=== PATIENT | female | born 1945 | race Caucasian/White ===

== ENCOUNTER 2016-03-23 08:59 | Outpatient (CLI) | payer OTHER | END 2016-03-23 09:00 | disposition home or self-care (01) | DX: I26.99 Other pulmonary embolism without acute cor pulmonale (principal) ==

== ENCOUNTER 2016-05-18 11:26 | Outpatient (CLI) | payer SELFPAY | END 2016-05-18 11:27 | disposition home or self-care (01) | DX: I26.99 Other pulmonary embolism without acute cor pulmonale (principal) ==

== ENCOUNTER 2016-07-07 08:00 | Outpatient (CLI) | payer SELFPAY | END 2016-07-07 23:59 | DX: I26.99 Other pulmonary embolism without acute cor pulmonale (principal) ==

== ENCOUNTER 2016-07-21 11:03 | Outpatient (CLI) | payer SELFPAY ==
[2016-07-21 18:15] LABS: INR 3.7 (0.8-1.2)
== END 2016-07-21 11:04 | disposition home or self-care (01) ==
LOC: LAB.F 11:03
PROVIDERS: ATTEND Family Medicine
DX: I26.99 Other pulmonary embolism without acute cor pulmonale (principal)
CPT/HCPCS: 36415; 85610

== ENCOUNTER 2016-08-03 10:01 | Outpatient (CLI) | payer SELFPAY ==
[2016-08-04 10:16] LABS: INR 2.1 (0.8-1.2); PT - PROTHROMBIN TIME 23.4 secs (9.9-12.6)
== END 2016-08-03 10:02 | disposition home or self-care (01) ==
LOC: LAB.F 10:01
PROVIDERS: ATTEND Family Medicine
DX: I26.99 Other pulmonary embolism without acute cor pulmonale (principal)
CPT/HCPCS: 36415; 85610

== ENCOUNTER 2016-09-12 06:38 | Outpatient (CLI) | payer MEDICARE ==
[2016-09-12 18:15] LABS: PT - PROTHROMBIN TIME 23.1 secs (9.9-12.6)
== END 2016-09-12 06:39 | disposition home or self-care (01) ==
LOC: LAB.F 06:38
PROVIDERS: ATTEND Family Medicine
DX: I26.99 Other pulmonary embolism without acute cor pulmonale (principal)
CPT/HCPCS: 36415; 85610

== ENCOUNTER 2016-09-26 08:08 | Outpatient (CLI) | payer MEDICARE ==
[2016-09-26 12:42] LABS: INR 1.5 (0.8-1.2); PT - PROTHROMBIN TIME 17.1 secs (9.9-12.6)
[2016-09-26 12:58] LABS: FOLATE 11.39 ng/mL (5.90 - >24.8)
[2016-09-26 13:06] LABS: THYROID STIMULATING HORMONE 1.36 uIU/mL (0.34-5.60)
== END 2016-09-26 08:09 | disposition home or self-care (01) ==
LOC: LAB.F 08:08
PROVIDERS: ATTEND Family Medicine
DX: I26.99 Other pulmonary embolism without acute cor pulmonale (principal); Z13.9 Encounter for screening, unspecified
CPT/HCPCS: 36415; 82607; 82746; 84443; 85610

== ENCOUNTER 2016-10-26 08:53 | Outpatient (CLI) | payer MEDICARE ==
[2016-10-26 18:59] LABS: INR 4.3 (0.8-1.2); PT - PROTHROMBIN TIME 49.7 secs (9.9-12.6)
== END 2016-10-26 08:54 | disposition home or self-care (01) ==
LOC: LAB.F 08:53
PROVIDERS: ATTEND Family Medicine
DX: I26.99 Other pulmonary embolism without acute cor pulmonale (principal); Z11.59 Encounter for screening for other viral diseases
CPT/HCPCS: 36415; 85610; 86803

== ENCOUNTER 2016-11-02 08:15 | Outpatient (CLI) | payer MEDICARE ==
[2016-11-02 11:58] LABS: INR 2.5 (0.8-1.2); PT - PROTHROMBIN TIME 28.4 secs (9.9-12.6)
== END 2016-11-02 08:16 | disposition home or self-care (01) ==
LOC: LAB.F 08:15
PROVIDERS: ATTEND Family Medicine
DX: I26.99 Other pulmonary embolism without acute cor pulmonale (principal)
CPT/HCPCS: 36415; 85610

== ENCOUNTER 2016-11-24 08:35 | Outpatient (CLI) | payer MEDICARE ==
[2016-11-24 10:33] LABS: INR 1.7 (0.8-1.2); PT - PROTHROMBIN TIME 19.4 secs (9.9-12.6)
== END 2016-11-24 08:36 | disposition home or self-care (01) ==
LOC: LAB.F 08:35
PROVIDERS: ATTEND Family Medicine
DX: I26.99 Other pulmonary embolism without acute cor pulmonale (principal)
CPT/HCPCS: 36415; 85610

== ENCOUNTER 2016-12-19 08:44 | Outpatient (CLI) | payer MEDICARE ==
[2016-12-19 13:42] LABS: INR 2.3 (0.8-1.2); PT - PROTHROMBIN TIME 26.4 secs (9.9-12.6)
== END 2016-12-19 08:45 | disposition home or self-care (01) ==
LOC: LAB.F 08:44
PROVIDERS: ATTEND Family Medicine
DX: I26.99 Other pulmonary embolism without acute cor pulmonale (principal)
CPT/HCPCS: 36415; 85610

== ENCOUNTER 2017-02-03 08:35 | Outpatient (CLI) | payer MEDICARE ==
[2017-02-03 15:39] LABS: INR 4.4 (0.8-1.2); PT - PROTHROMBIN TIME 46.9 secs (9.9-12.6)
== END 2017-02-03 08:36 | disposition home or self-care (01) ==
LOC: LAB.F 08:35
PROVIDERS: ATTEND Family Medicine
DX: I26.99 Other pulmonary embolism without acute cor pulmonale (principal)
CPT/HCPCS: 36415; 85610

== ENCOUNTER 2017-03-31 10:47 | Outpatient (CLI) | payer MEDICARE ==
[2017-03-31 17:44] LABS: INR 1.6 (0.8-1.2); PT - PROTHROMBIN TIME 17.9 secs (9.9-12.6)
== END 2017-03-31 10:48 | disposition home or self-care (01) ==
LOC: LAB.F 10:47
PROVIDERS: ATTEND Family Medicine
DX: I26.99 Other pulmonary embolism without acute cor pulmonale (principal)
CPT/HCPCS: 36415; 85610

== ENCOUNTER 2017-04-19 15:26 | Outpatient (CLI) | payer MEDICARE ==
[2017-04-19 18:04] LABS: INR 1.4 (0.8-1.2); PT - PROTHROMBIN TIME 15.7 secs (9.9-12.6)
== END 2017-04-19 15:27 | disposition home or self-care (01) ==
LOC: LAB.F 15:26
PROVIDERS: ATTEND Family Medicine
DX: I26.99 Other pulmonary embolism without acute cor pulmonale (principal)
CPT/HCPCS: 36415; 85610

== ENCOUNTER 2017-07-06 11:00 | Outpatient (CLI) | payer MEDICARE ==
[2017-07-06 18:07] LABS: PT - PROTHROMBIN TIME 55.4 secs (9.9-12.6)
[2017-07-06 18:57] LABS: INR 5.2 (0.8-1.2)
== END 2017-07-06 11:01 | disposition home or self-care (01) ==
LOC: LAB.F 11:00
PROVIDERS: ATTEND Family Medicine
DX: I26.99 Other pulmonary embolism without acute cor pulmonale (principal)
CPT/HCPCS: 36415; 85610

== ENCOUNTER 2017-07-07 13:32 | Emergency (ER) | payer MEDICARE ==
[2017-07-07 14:13] LABS: BASOPHILS % (AUTO) 0.7 %; EOSINOPHILS # (AUTO) 0.1 10^3/uL (0.0-0.7); EOSINOPHILS % (AUTO) 1.3 %; HGB - HEMOGLOBIN 15.1 g/dL (12.0-16.0); LYMPHOCYTES % (AUTO) 38.2 %; MEAN CORPUSCULAR HEMOGLOBIN 36.5 pg (27.0-31.0); MEAN CORPUSCULAR HGB CONC 34.4 g/dL (32.0-36.0); MEAN CORPUSCULAR VOLUME 106.2 fL (81.0-99.0); MEAN PLATELET VOLUME 8.8 fL (7.9-10.8); MONOCYTES # (AUTO) 0.6 10^3/uL (0.0-1.0); MONOCYTES % (AUTO) 11.5 %; NEUTROPHILS # (AUTO) 2.6 10^3/uL (1.5-6.6); NEUTROPHILS % (AUTO) 48.3 %; PLT - PLATELET COUNT 75 10^3/uL (130-450); RED BLOOD COUNT 4.15 10^6/uL (4.20-5.40); RED CELL DISTRIBUTION WIDTH 14.8 % (12.0-15.0); WHITE BLOOD COUNT 5.3 x10^3/uL (4.8-10.8)
[2017-07-07 14:26] LABS: ALBUMIN 3.5 g/dL (3.2-5.5); ALBUMIN/GLOBULIN RATIO 1.1 (1.0-2.2); ALKALINE PHOSPHATASE 93 IU/L (42-121); ALT ALANINE AMINOTRANSFERASE 29 IU/L (10-60); AST ASPARTATE AMINOTRANSFERASE 69 IU/L (10-42); BILIRUBIN,TOTAL 1.4 mg/dL (0.2-1.0); BUN - BLOOD UREA NITROGEN < 5 mg/dL (6-20); CALCIUM 8.7 mg/dL (8.5-10.3); CARBON DIOXIDE - CO2 33 mmol/L (21-32); CHLORIDE 93 mmol/L (101-111); CREATININE 0.5 mg/dL (0.4-1.0); GFR - MDRD 122 (>89); GLUCOSE 94 mg/dL (70-100); LIPASE 19 U/L (22-51); SODIUM 137 mmol/L (135-145); TOTAL PROTEIN 6.6 g/dL (6.7-8.2)
[2017-07-07 14:28] LABS: PT - PROTHROMBIN TIME 52.7 secs (9.9-12.6)
--- NOTE | 2017-07-07 14:47 | XRAY Preliminary Report ---
Exam: XR CHEST 1 VIEW X-RAY IMPRESSION: Normal single view chest. [facility] SITE ID: [id number]
--- NOTE | 2017-07-07 14:50 | XRAY Report ---
EXAM: CHEST RADIOGRAPHY EXAM DATE: 07/07/2017 02:38 PM. CLINICAL HISTORY: Chest pain. Leg edema. COMPARISON: 08/31/2014. TECHNIQUE: 1 view. FINDINGS: Lungs/Pleura: No focal opacities evident. No pleural effusion. No pneumothorax. Mediastinum: Within exam limitations, the cardiomediastinal contour is normal. Other: None. IMPRESSION: Normal single view chest. [facility] Referring Provider Line: [phone] SITE ID: [id number]
--- NOTE | 2017-07-07 14:58 | ED Physician Documentation ---
History of Present Illness - Stated complaint Stated Complaint: EDEMA,BLACK STOOL - Chief complaint Chief Complaint: General - History obtained from History obtained from: Patient - History of Present Illness Timing: How many weeks ago (2) Pain level max: 0 Pain level now: 0 Improved by: rest Worsened by: exertion - Additonal information Additional information: Patient is a 71-year-old female who presents to the emergency department complaining of bilateral lower extremity edema for the past several weeks. She notes that over the past 4-5 days she has had dark tarry stools. States that when she elevates her legs the edema goes away but it returns when she stands up again. She also states that occasionally she feels fatigued. She had her INR checked yesterday with her doctor and it was found to be 5.2. She states that she feels mildly short of breath with exertion, but not severe. Is able to ambulate throughout the emergency department without difficulty. No prior history of GI bleeds. Review of Systems Ten Systems: 10 systems reviewed and negative Constitutional: denies: Fever, Chills Ears: denies: Ear pain Nose: denies: Rhinorrhea / runny nose, Congestion Throat: denies: Sore throat Cardiac: denies: Chest pain / pressure Respiratory: denies: Cough, Wheezing GI: reports: Bloody / black stool. 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 Derm: Skin cancer surgery - Present Medications Home Medications: Ambulatory Orders Medication Instructions Recorded Confirmed Metoprolol Tartrate 25 mg PO 08/31/14 08/31/14 Zolpidem Tartrate [Ambien] 5 mg PO PRN 08/31/14 08/31/14 oxyCODONE/ACET 5/325 [Percocet 5 1 each PO Q4-6H PRN 08/31/14 08/31/14 mg/325 mg] Furosemide [Lasix] 20 mg PO DAILY #7 tablet 07/07/17 Warfarin [Coumadin] 07/07/17 - Allergies Allergies/Adverse Reactions: Allergies Allergy/AdvReac Type Severity Reaction Status Date / Time Penicillins Allergy Unknown Verified 07/07/17 13:51 Sulfa (Sulfonamide Allergy Unknown Verified 07/07/17 13:51 Antibiotics) codeine AdvReac Itching Verified 07/07/17 13:51 - Social History Does the pt smoke?: No Smoking Status: Never smoker Does the pt drink ETOH?: Yes - Immunizations Immunizations are current?: Yes PD ED PE NORMAL - Vitals Vital signs reviewed: Yes (T 36.7) - General General: Alert and oriented X 3, No acute distress - HEENT HEENT: Moist mucous membranes - Neck Neck: Supple, no meningeal sign - Cardiac Cardiac: RRR, Strong equal pulses - Respiratory Respiratory: No respiratory distress, Clear bilaterally - Abdomen Abdomen: Soft, Non tender, Non distended - Rectal Rectal: Other (hemoccult negative, QC passed. ) - Derm Derm: Warm and dry - Extremities Extremities: Other (1+ B LE edema) - Neuro Neuro: Alert and oriented X 3 - Psych Psych: Normal mood, Normal affect Results - Vitals Vitals: Vital Signs - 24 hr 07/07/17 07/07/17 13:47 15:30 Temperature 36.5 C Heart Rate 77 75 Respiratory 13 18 Rate Blood Pressure 121/74 103/62 O2 Saturation 97 100 Oxygen O2 Source [] Room air O2 Source Room air - EKG (time done) 1352 Rate: Rate (enter#) (72) Rhythm: NSR [place]: Normal Intervals: Prolonged CO QRS: Normal - Labs Labs: Laboratory Tests 07/07/17 07/07/17 07/07/17 14:09 14:09 14:09 WBC 5.3 RBC 4.15 L Hgb 15.1 Hct 44.1 MCV 106.2 H MCH 36.5 H MCHC 34.4 RDW 14.8 Plt Count 75 L MPV 8.8 Neut # 2.6 Lymph # 2.0 [place] # 0.6 Eos # 0.1 Baso # 0.0 Absolute Nucleated RBC 0.00 Nucleated RBC % 0.0 PT 52.7 H INR 5.0 H* Sodium 137 Potassium 3.1 L Chloride 93 L Carbon Dioxide 33 H Anion Gap 11.0 BUN < 5 L Creatinine 0.5 Estimated GFR (MDRD) 122 Glucose 94 Calcium 8.7 Total Bilirubin 1.4 H AST 69 H ALT 29 Alkaline Phosphatase 93 Troponin I B-Natriuretic Peptide Total Protein 6.6 L Albumin 3.5 Globulin 3.1 Albumin/Globulin Ratio 1.1 Lipase 19 L 07/07/17 07/07/17 14:09 14:09 WBC RBC Hgb Hct MCV MCH MCHC RDW Plt Count MPV Neut # Lymph # [place] # Eos # Baso # Absolute Nucleated RBC Nucleated RBC % PT INR Sodium Potassium Chloride Carbon Dioxide Anion Gap BUN Creatinine Estimated GFR (MDRD) Glucose Calcium Total Bilirubin AST ALT Alkaline Phosphatase Troponin I < 0.04 B-Natriuretic Peptide 31 Total Protein Albumin Globulin Albumin/Globulin Ratio Lipase - Rads (name of study) cxr Radiology: Prelim report reviewed, EMP read contemporaneously, See rad report ( no acute disease) PD MEDICAL DECISION MAKING - ED course Complexity details: reviewed results, re-evaluated patient, considered differential, d/w patient ED course: Patient is a 71-year-old female who presents to the emergency department with bilateral lower extremity edema. No pulmonary edema. No evidence of congestive heart failure. She also complained of dark tarry stools, but her Hemoccult is negative and stool is light brown. Her INR is supratherapeutic at 5, is scheduled for a repeat INR on Monday with her doctor. We will have her stop her warfarin until then. Patient is well-appearing, nontoxic. No lightheadedness or dizziness in the ER. Ambulating without difficulty. Patient counseled regarding signs and symptoms for which I believe and urgent re -evaluation would be necessary. Patient with good understanding of and agreement to plan and is comfortable going home at this time This document was made in part using voice recognition software. While efforts are made to proofread this document, sound alike and grammatical errors may occur. Departure - Departure Disposition: 01 Home, Self Care Clinical Impression: Supratherapeutic INR, Peripheral edema Condition: Good Instructions: ED Edema Legs Bilateral Follow-Up: REBA PHIPPS MD [Primary Care Provider] - Within 3 Days Prescriptions: Furosemide [Lasix] 20 mg PO DAILY #7 tablet Comments: Return if you worsen, especially for lightheadedness, dizziness, or worsening shortness of breath. Discharge Date/Time: 07/07/17 15:48
[2017-07-07 15:35] VITALS: BP 103/62
== END 2017-07-07 15:48 | disposition home or self-care (01) ==
LOC: ED 13:32
DX: R60.0 Localized edema (principal); R94.31 Abnormal electrocardiogram [ECG] [EKG]; I48.91 Unspecified atrial fibrillation; I10 Essential (primary) hypertension; E03.9 Hypothyroidism, unspecified; Z96.649 Presence of unspecified artificial hip joint
CPT/HCPCS: 36415; 71045; 80053; 83690; 83880; 84484; 85025; 85610; 86850; 86900; 86901; 93005; 99283; 99284

== ENCOUNTER 2017-07-10 08:35 | Outpatient (CLI) | payer MEDICARE | END 2017-07-10 08:36 | disposition home or self-care (01) | LOC: LAB.F 08:35 | PROVIDERS: ATTEND Family Medicine | DX: I26.99 Other pulmonary embolism without acute cor pulmonale (principal) | CPT/HCPCS: 36415; 85610 ==

== ENCOUNTER 2017-08-31 12:21 | Outpatient (CLI) | payer MEDICARE ==
[2017-08-31 17:33] LABS: PT - PROTHROMBIN TIME 43.3 secs (9.9-12.6)
== END 2017-08-31 12:22 | disposition home or self-care (01) ==
LOC: LAB.F 12:21
PROVIDERS: ATTEND Family Medicine
DX: I26.99 Other pulmonary embolism without acute cor pulmonale (principal)
CPT/HCPCS: 36415; 85610

== ENCOUNTER 2017-09-14 12:01 | Outpatient (CLI) | payer MEDICARE ==
[2017-09-14 17:26] LABS: INR 1.3 (0.8-1.2); PT - PROTHROMBIN TIME 14.7 secs (9.9-12.6)
== END 2017-09-14 12:02 | disposition home or self-care (01) ==
LOC: LAB.F 12:01
PROVIDERS: ATTEND Family Medicine
DX: I26.99 Other pulmonary embolism without acute cor pulmonale (principal)
CPT/HCPCS: 36415; 85610

== ENCOUNTER 2017-10-04 09:23 | Emergency (ER) | payer MEDICARE ==
[2017-10-04] MEDS ORDERED: SODIUM CHLORIDE 0.9% 1,000 ML IV ONE ×3 (09:35→10:28)
--- NOTE | 2017-10-04 09:37 | ED Physician Documentation ---
History of Present Illness - Stated complaint Stated Complaint: RAPID HR - Additonal information Additional information: hx from pt 71 f hx a fib other pmhx meds and allergies unknown - pt states too many to tell me - will req records and med list from [place] has had NV with blood and black diarrhea for several days some abd cramping no fever no CP no SOA feels weak and has palpitations on coumadin has been drinking cocktails recently inc stress recently re of family member no travel no bad food + sick contacts with diarrhea as well per faxed records pmhx anxiety, GERD, CHF, HTN, mitral regurg, PE, paroxysmal a fib, vit B 12 def , osteopenia, necrosis femoral head, migraines meds gabapentin oxy, toprol XL, dig B12, folic acid, omperazle, ambien, warfarin , sumatriptan, zofran benadry prior labs also showed plt < 100 so that is not new Review of Systems Constitutional: reports: Fatigue. denies: Fever, Chills Cardiac: reports: Palpitations. denies: Chest pain / pressure Respiratory: denies: Dyspnea GI: reports: Abdominal Pain, Nausea, Vomiting, Diarrhea, Hematemesis, Bloody / black stool Neurologic: reports: Generalized weakness Endocrine: denies: Easy bruising / bleeding Immunocompromised: denies: Immunocompromised PD PAST MEDICAL HISTORY - Past Medical History Cardiovascular: Hypertension, Atrial fibrillation Respiratory: Shortness of breath Endocrine/Autoimmune: HyPOthyroidism GI: Chronic diarrhea : Incontinence, Chronic bladder infection Psych: Depression, Anxiety, Panic attacks Musculoskeletal: Osteoarthritis, Chronic back pain Derm: Other - Past Surgical History General: Appendectomy Ortho: Hip replacement, 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 Derm: Skin cancer surgery - Present Medications Home Medications: Ambulatory Orders Medication Instructions Recorded Confirmed Metoprolol Tartrate 25 mg PO 08/31/14 08/31/14 Zolpidem Tartrate [Ambien] 5 mg PO PRN 08/31/14 08/31/14 oxyCODONE/ACET 5/325 [Percocet 5 1 each PO Q4-6H PRN 08/31/14 08/31/14 mg/325 mg] Warfarin [Coumadin] 07/07/17 Cyanocobalamin (Vitamin B-12) 10/04/17 [Vitamin B-12] Digoxin [Lanoxin] 10/04/17 Folic Acid 10/04/17 Gabapentin 10/04/17 Ondansetron [Zuplenz] 10/04/17 SUMAtriptan [Imitrex] 10/04/17 diphenhydrAMINE [Benadryl] 10/04/17 - Allergies Allergies/Adverse Reactions: Allergies Allergy/AdvReac Type Severity Reaction Status Date / Time Penicillins Allergy Unknown Verified 10/04/17 09:39 Sulfa (Sulfonamide Allergy Unknown Verified 10/04/17 09:39 Antibiotics) codeine AdvReac Itching Verified 10/04/17 09:39 - Social History Does the pt smoke?: No Smoking Status: Never smoker Does the pt drink ETOH?: Yes - Immunizations Immunizations are current?: Yes PD ED PE NORMAL - Vitals Vital signs reviewed: Yes (tachy) - HEENT HEENT: Other (pale conj) - Neck Neck: Supple, no meningeal sign - Cardiac Cardiac: No: RRR (tachy) - Respiratory Respiratory: Clear bilaterally - Abdomen Abdomen: Soft, Non tender, Other (no reboudn or guarding or sig TTP on exam) - Rectal Rectal: Other (block occult blood + stool - QC passed, perirectal erythema, no mass on LEYDI) - Derm Derm: Other (pale) - Extremities Extremities: No deformity, No edema, No calf tenderness / cord - Neuro Neuro: Alert and oriented X 3 Results - Vitals Vitals: Vital Signs - 24 hr 10/04/17 10/04/17 10/04/17 09:28 11:29 11:39 Temperature 36 C L 36.2 C L Heart Rate 150 H 104 H 100 Respiratory 22 18 16 Rate Blood Pressure 143/79 H 120/67 109/84 H O2 Saturation 100 100 10/04/17 10/04/17 10/04/17 11:59 12:01 14:10 Temperature 36.2 C L 36.6 C 36.0 C L Heart Rate 100 100 96 Respiratory 20 20 22 Rate Blood Pressure 117/66 98/59 L O2 Saturation 10/04/17 10/04/17 10/04/17 14:40 15:52 15:59 Temperature 36.2 C L 89 C H Heart Rate 95 89 97 Respiratory 20 16 24 Rate Blood Pressure 110/74 111/58 L 103/62 O2 Saturation 97 10/04/17 10/04/17 10/04/17 16:06 17:27 18:43 Temperature 36.9 C Heart Rate 98 88 91 Respiratory 20 86 H 20 Rate Blood Pressure 101/51 L 122/72 124/78 O2 Saturation 98 97 Oxygen O2 Source [With Activity] Room air O2 Source Room air - EKG (time done) 0930 Rate: Rate (enter#) (154) Rhythm: Atrial fibrillation Ischemia: Non specific changes (likely rate related) - Labs Labs: Microbiology 10/04/17 16:28 Clostridium difficile (PCR) - Final Stool 10/04/17 16:28 Campylobacter Antigen Assay - Final Stool Laboratory Tests 10/04/17 10/04/17 10/04/17 09:34 09:34 09:34 WBC 9.1 RBC 3.88 L Hgb 14.5 Hct 42.1 MCV 108.4 H MCH 37.4 H MCHC 34.5 RDW 13.3 Plt Count 81 L MPV 10.3 Neut # (Auto) 7.0 H Lymph # (Auto) 1.0 L [place] # (Auto) 1.1 H Eos # (Auto) 0.0 Baso # (Auto) 0.1 Absolute Nucleated RBC 0.00 Nucleated RBC % 0.0 PT 102.0 H INR 9.9 H* Sodium 133 L Potassium 3.1 L Chloride 85 L Carbon Dioxide 31 Anion Gap 17.0 H BUN 28 H Creatinine 1.0 Estimated GFR (MDRD) 55 L Glucose 119 H Lactic Acid Calcium 8.3 L Total Bilirubin 2.2 H AST 68 H ALT 29 Alkaline Phosphatase 102 Troponin I Total Protein 7.1 Albumin 3.1 L Globulin 4.0 Albumin/Globulin Ratio 0.8 L Lipase 18 L Urine Color Urine Clarity Urine pH Ur Specific [place] Urine Protein Urine Glucose (UA) Urine Ketones Urine Occult Blood Urine Nitrite Urine Bilirubin Urine Urobilinogen Ur Leukocyte Esterase Urine RBC Urine WBC Urine WBC Clumps Ur Squamous Epith Cells Urine Bacteria Ur Microscopic Review Urine Culture Comments Last Dose Date Last Dose Time Digoxin Ethyl Alcohol Blood Type Antibody Screen 10/04/17 10/04/17 10/04/17 09:34 09:34 09:36 WBC RBC Hgb Hct MCV MCH MCHC RDW Plt Count MPV Neut # (Auto) Lymph # (Auto) [place] # (Auto) Eos # (Auto) Baso # (Auto) Absolute Nucleated RBC Nucleated RBC % PT INR Sodium Potassium Chloride Carbon Dioxide Anion Gap BUN Creatinine Estimated GFR (MDRD) Glucose Lactic Acid 4.5 H* Calcium Total Bilirubin AST ALT Alkaline Phosphatase Troponin I < 0.04 Total Protein Albumin Globulin Albumin/Globulin Ratio Lipase Urine Color Urine Clarity Urine pH Ur Specific [place] Urine Protein Urine Glucose (UA) Urine Ketones Urine Occult Blood Urine Nitrite Urine Bilirubin Urine Urobilinogen Ur Leukocyte Esterase Urine RBC Urine WBC Urine WBC Clumps Ur Squamous Epith Cells Urine Bacteria Ur Microscopic Review Urine Culture Comments Last Dose Date UNKNOWN Last Dose Time UNKNOWN Digoxin 0.4 Ethyl Alcohol Blood Type Antibody Screen 10/04/17 10/04/17 10/04/17 09:36 09:50 11:10 WBC RBC Hgb Hct MCV MCH MCHC RDW Plt Count MPV Neut # (Auto) Lymph # (Auto) [place] # (Auto) Eos # (Auto) Baso # (Auto) Absolute Nucleated RBC Nucleated RBC % PT INR Sodium Potassium Chloride Carbon Dioxide Anion Gap BUN Creatinine Estimated GFR (MDRD) Glucose Lactic Acid Calcium Total Bilirubin AST ALT Alkaline Phosphatase Troponin I Total Protein Albumin Globulin Albumin/Globulin Ratio Lipase Urine Color DARK YELLOW Urine Clarity SL. CLOUDY Urine pH 6.5 Ur Specific [place] <=1.005 Urine Protein 30 H Urine Glucose (UA) NEGATIVE Urine Ketones 15 H Urine Occult Blood LARGE H Urine Nitrite POSITIVE H Urine Bilirubin SMALL H Urine Urobilinogen 2 H Ur Leukocyte Esterase MODERATE H Urine RBC 11-25 H Urine WBC 6-10 H Urine WBC Clumps PRESENT Ur Squamous Epith Cells NONE SEEN Urine Bacteria Moderate H Ur Microscopic Review INDICATED Urine Culture Comments INDICATED Last Dose Date Last Dose Time Digoxin Ethyl Alcohol < 5.0 Blood Type B POSITIVE Antibody Screen NEGATIVE 10/04/17 10/04/17 10/04/17 13:15 16:22 17:09 WBC RBC Hgb 9.3 L Hct MCV MCH MCHC RDW Plt Count MPV Neut # (Auto) Lymph # (Auto) [place] # (Auto) Eos # (Auto) Baso # (Auto) Absolute Nucleated RBC Nucleated RBC % PT INR Sodium Potassium Chloride Carbon Dioxide Anion Gap BUN Creatinine Estimated GFR (MDRD) Glucose Lactic Acid 3.6 H* 2.4 H Calcium Total Bilirubin AST ALT Alkaline Phosphatase Troponin I Total Protein Albumin Globulin Albumin/Globulin Ratio Lipase Urine Color Urine Clarity Urine pH Ur Specific [place] Urine Protein Urine Glucose (UA) Urine Ketones Urine Occult Blood Urine Nitrite Urine Bilirubin Urine Urobilinogen Ur Leukocyte Esterase Urine RBC Urine WBC Urine WBC Clumps Ur Squamous Epith Cells Urine Bacteria Ur Microscopic Review Urine Culture Comments Last Dose Date Last Dose Time Digoxin Ethyl Alcohol Blood Type Antibody Screen - Rads (name of study) CXR Radiology: See rad report (NACPD) PD MEDICAL DECISION MAKING - ED course ED course: GIB with high INR and tachycardia - likely upper as pt is a drinker and reports vomiting blood pt has IV X 1 and refused attempts for 2nd IV lso declined an NG tube given NS (3 L 2/2 elev lactate pending ID possible source infection) also FFP, vit K, pepcid and protonix elev lactate noted - eval for source of infection - CXR neg, UA + and txed with rocephin, RUQ sono pending has low plt this is not new for pt daily drinker, last colonoscopy > 10 yr ago never had endoscopy concern pt may have varices which cannot be managed at [facility] also no plt in blood bank at [facility] will need transfer [facility] has beds - spoke to GI and hospitalist - GI rec octreotide and will consult - hospitalist Dr Hansen accepts pt has been stabilized to extent possible at [facility] short of endoscopy since we do not have capabilities to manage varices - for GIB has received vit K, FFP, pepcid, protonix, octreotide, IVF and is type and screened and consented for transfusion if needed for SIRS and UTI has receievd 30cc/kg IVF (without going into CHF) rocephin and HR is down for a fib RVR, HR improevd with just IVF feel pt safe for ground transfer long long wait in ER for bed confirmation from [facility] and then > 4hr to have an off [facility]note 3] service come to transport the pt rechecked H/H and her hgb has dropped sig also her camylobacter came back + so txed with zithromax (her EKG did not show prolonged QT) lactate much improved with above txs - Sepsis Event Vital Signs: Vital Signs - 24 hr 10/04/17 10/04/17 10/04/17 09:28 11:29 11:39 Temperature 36 C L 36.2 C L Heart Rate 150 H 104 H 100 Respiratory 22 18 16 Rate Blood Pressure 143/79 H 120/67 109/84 H O2 Saturation 100 100 10/04/17 10/04/17 10/04/17 11:59 12:01 14:10 Temperature 36.2 C L 36.6 C 36.0 C L Heart Rate 100 100 96 Respiratory 20 20 22 Rate Blood Pressure 117/66 98/59 L O2 Saturation 10/04/17 10/04/17 10/04/17 14:40 15:52 15:59 Temperature 36.2 C L 89 C H Heart Rate 95 89 97 Respiratory 20 16 24 Rate Blood Pressure 110/74 111/58 L 103/62 O2 Saturation 97 10/04/17 10/04/17 10/04/17 16:06 17:27 18:43 Temperature 36.9 C Heart Rate 98 88 91 Respiratory 20 86 H 20 Rate Blood Pressure 101/51 L 122/72 124/78 O2 Saturation 98 97 Oxygen O2 Source [With Activity] Room air O2 Source Room air Departure - Departure Disposition: 02 Transfer Acute Care Hosp Clinical Impression: Thrombocytopenia, Abnormal liver enzymes, Supratherapeutic INR, Hypokalemia GI bleed Qualifiers: GI bleed type/associated pathology: unspecified gastrointestinal hemorrhage type Qualified Code(s): K92.2 - Gastrointestinal hemorrhage, unspecified Discharge Date/Time: 10/04/17 19:25
[2017-10-04 09:53] LABS: BASOPHILS # (AUTO) 0.1 10^3/uL (0.0-0.1); BASOPHILS % (AUTO) 0.6 %; EOSINOPHILS % (AUTO) 0.1 %; HGB - HEMOGLOBIN 14.5 g/dL (12.0-16.0); LYMPHOCYTES % (AUTO) 10.7 %; MEAN CORPUSCULAR HEMOGLOBIN 37.4 pg (27.0-31.0); MEAN CORPUSCULAR HGB CONC 34.5 g/dL (32.0-36.0); MEAN CORPUSCULAR VOLUME 108.4 fL (81.0-99.0); MEAN PLATELET VOLUME 10.3 fL (7.9-10.8); MONOCYTES # (AUTO) 1.1 10^3/uL (0.0-1.0); MONOCYTES % (AUTO) 11.6 %; PLT - PLATELET COUNT 81 10^3/uL (130-450); RED BLOOD COUNT 3.88 10^6/uL (4.20-5.40); RED CELL DISTRIBUTION WIDTH 13.3 % (12.0-15.0); WHITE BLOOD COUNT 9.1 x10^3/uL (4.8-10.8)
[2017-10-04 10:07] LABS: ALBUMIN 3.1 g/dL (3.2-5.5); ALBUMIN/GLOBULIN RATIO 0.8 (1.0-2.2); BILIRUBIN,TOTAL 2.2 mg/dL (0.2-1.0); CALCIUM 8.3 mg/dL (8.5-10.3); TOTAL PROTEIN 7.1 g/dL (6.7-8.2)
[2017-10-04 10:08] LABS: INR 9.9 (0.8-1.2)
[2017-10-04] MEDS ORDERED: PHYTONADIONE 10 MG/ML AMP IVP STA (10:28)
[2017-10-04] MEDS ORDERED: FAMOTIDINE 20 MG/50 ML 50 ML IV ONE (10:29)
[2017-10-04] MEDS ORDERED: POTASSIUM CHLOR 10 MEQ/100 ML 10 MEQ/100 ML BAG IV ONE (10:41)
[2017-10-04 10:48] LABS: DIGOXIN 0.4 ng/mL
--- NOTE | 2017-10-04 11:07 | XRAY Report ---
Procedure Date: 10/04/2017 Accession Number: [id number] / [id number] Procedure: XR - Chest 1 View X-Ray CPT Code: 10960 FULL RESULT: EXAM: CHEST RADIOGRAPHY EXAM DATE: 10/04/2017 10:50 AM. CLINICAL HISTORY: Weakness. Elevated lactate. COMPARISON: None. TECHNIQUE: 1 view. FINDINGS: Lungs/Pleura: No focal opacities evident. No pleural effusion. No pneumothorax. Mediastinum: Within exam limitations, the cardiomediastinal contour is normal. Other: None. IMPRESSION: Normal single view chest. [facility]
[2017-10-04 11:23] LABS: BILIRUBIN,URINE SMALL (NEGATIVE); GLUCOSE, URINE (UA) NEGATIVE (NEGATIVE); KETONES,URINE (UA) 15 mg/dL (NEGATIVE); LEUKOCYTE ESTERASE, URINE MODERATE (NEGATIVE); NITRITE,URINE POSITIVE (NEGATIVE); OCCULT BLOOD,URINE LARGE (NEGATIVE); PH,URINE 6.5 PH (5.0-7.5); PROTEIN,URINE 30 mg/dL (NEGATIVE); UROBILINOGEN,URINE 2 E.U./dL (NORMAL)
[2017-10-04 11:27] LABS: CLARITY,URINE SL. CLOUDY (CLEAR)
[2017-10-04 11:36] LABS: WBC CLUMPS,URINE PRESENT
[2017-10-04] MEDS ORDERED: OCTREOTIDE 100 MCG/ML SYRINGE IVP STA (11:36)
[2017-10-04] MEDS ORDERED: OCTREOTIDE 500 MCG in SODIUM CHLORIDE 0.9% 100ML 95 ML IV STA (11:36)
[2017-10-04 11:37] LABS: SQUAMOUS EPITHELIAL CELL,UR NONE SEEN (<= Few)
[2017-10-04 11:38] LABS: BACTERIA,URINE Moderate /HPF (None Seen)
[2017-10-04] MEDS ORDERED: cefTRIAXone 1 GM in SODIUM CHLORIDE 0.9% MINIBAG 100 ML IV STA (11:38)
[2017-10-04] MEDS ORDERED: OCTREOTIDE 100 MCG/ML VIAL IVP STA (12:01)
[2017-10-04] MEDS ORDERED: OCTREOTIDE 500 MCG in SODIUM CHLORIDE 0.9% 100ML 99 ML SUBQ STA (12:02)
--- NOTE | 2017-10-04 13:12 | Ultrasound Report ---
Procedure Date: 10/04/2017 Accession Number: [id number] / [id number] Procedure: US - Abdomen Limited CPT Code: FULL RESULT: EXAM: Abdomen Limited DATE: 10/04/2017 12:30 PM CLINICAL HISTORY: abd pain elev lactate elev bili COMPARISON: None. TECHNIQUE: Real-time scanning was performed with static images obtained. FINDINGS: Liver: The liver is markedly echogenic and demonstrates regions of focal fatty sparing in the left lobe in keeping with hepatic steatosis. Parenchymal flow is hepatopedal by color Doppler. Gallbladder: Normal. No stones, wall thickening. While no tenderness was elicited, the patient had received pain medication. Biliary System: Common bile duct measures 6 mm. No intrahepatic or extrahepatic ductal dilatation. Pancreas: Visualized portion is unremarkable. Kidneys: Right: 10.0 cm longitudinally. Normal. No contour-deforming mass, stones, or hydronephrosis. The IVC is unremarkable on grayscale ultrasound. No ascites. IMPRESSION: Hepatic steatosis. No evidence of cholecystitis. [facility]
[2017-10-04] MEDS ORDERED: AZITHROMYCIN 250 MG TABLET PO STA (17:45)
[2017-10-04] MEDS ORDERED: MORPHINE 2 MG/ML SYRINGE IVP STA (18:30)
[2017-10-04 18:44] VITALS: BP 124/78
== END 2017-10-04 19:25 | disposition short-term general hospital (02) ==
LOC: ED 09:23
DX: K92.2 Gastrointestinal hemorrhage, unspecified (principal); D69.6 Thrombocytopenia, unspecified; R74.8 Abnormal levels of other serum enzymes; D68.9 Coagulation defect, unspecified; E87.6 Hypokalemia; N39.0 Urinary tract infection, site not specified; I48.0 Paroxysmal atrial fibrillation; Z79.01 Long term (current) use of anticoagulants; I11.0 Hypertensive heart disease with heart failure; I50.9 Heart failure, unspecified; E53.8 Deficiency of other specified B group vitamins; Z86.711 Personal history of pulmonary embolism; K21.9 Gastro-esophageal reflux disease without esophagitis; E03.9 Hypothyroidism, unspecified; M19.90 Unspecified osteoarthritis, unspecified site
CPT/HCPCS: 36415; 36430; 51701; 71045; 76705; 80053; 80162; 81001; 83605; 83690; 84484; 85018; 85025; 85610; 86850; 86900; 86901; 87040; 87045; 87046; 87086; 87181; 87493; 93005; 96365; 96366; 96375; 99284; 99285; A9270; J2270; J2354; P9017; 80320; 81003

== ENCOUNTER 2017-10-04 19:19 | Outpatient (CLI) | payer MEDICARE | END 2017-10-04 19:20 | disposition short-term general hospital (02) | LOC: EMS 19:19 | PROVIDERS: ATTEND Surgery | DX: K92.2 Gastrointestinal hemorrhage, unspecified (principal) | CPT/HCPCS: A0425; A0426 ==

== ENCOUNTER 2018-02-28 12:05 | Outpatient (CLI) | payer MEDICARE ==
[2018-02-28 13:07] LABS: ALBUMIN 2.7 g/dL (3.2-5.5); ALBUMIN/GLOBULIN RATIO 0.6 (1.0-2.2); BILIRUBIN,TOTAL 0.7 mg/dL (0.2-1.0); CREATININE 0.6 mg/dL (0.4-1.0); TOTAL PROTEIN 7.3 g/dL (6.7-8.2)
[2018-02-28 13:14] LABS: BASOPHILS # (AUTO) 0.1 10^3/uL (0.0-0.1); BASOPHILS % (AUTO) 0.8 %; EOSINOPHILS # (AUTO) 0.2 10^3/uL (0.0-0.7); EOSINOPHILS % (AUTO) 2.3 %; HGB - HEMOGLOBIN 13.2 g/dL (12.0-16.0); LYMPHOCYTES # (AUTO) 2.3 10^3/uL (1.5-3.5); LYMPHOCYTES % (AUTO) 35.9 %; MEAN CORPUSCULAR HEMOGLOBIN 36.1 pg (27.0-31.0); MEAN CORPUSCULAR HGB CONC 34.4 g/dL (32.0-36.0); MEAN PLATELET VOLUME 10.2 fL (7.9-10.8); MONOCYTES # (AUTO) 0.6 10^3/uL (0.0-1.0); MONOCYTES % (AUTO) 10.1 %; NEUTROPHILS # (AUTO) 3.3 10^3/uL (1.5-6.6); NEUTROPHILS % (AUTO) 50.9 %; PLT - PLATELET COUNT 168 10^3/uL (130-450); RED BLOOD COUNT 3.66 10^6/uL (4.20-5.40); RED CELL DISTRIBUTION WIDTH 15.4 % (12.0-15.0); WHITE BLOOD COUNT 6.4 x10^3/uL (4.8-10.8)
[2018-02-28 14:29] LABS: CALCIUM 9.4 mg/dL (8.5-10.3)
== END 2018-02-28 23:59 | disposition home or self-care (01) ==
LOC: LAB.R 12:05
PROVIDERS: ATTEND Family Medicine
DX: I48.91 Unspecified atrial fibrillation (principal); D64.9 Anemia, unspecified
CPT/HCPCS: 80053; 85025

== ENCOUNTER 2018-03-10 08:00 | Outpatient (CLI) | payer MEDICARE | END 2018-03-10 23:59 | disposition home or self-care (01) | LOC: LAB.R 08:00 | PROVIDERS: ATTEND Family Medicine | DX: A04.72 Enterocolitis due to Clostridium difficile, not specified as recurrent (principal) | CPT/HCPCS: 87493 ==

== ENCOUNTER 2018-03-27 14:27 | Outpatient (CLI) | payer MEDICARE | END 2018-03-27 14:28 | disposition home or self-care (01) | LOC: EMS 14:27 | PROVIDERS: ATTEND Surgery | DX: M25.511 Pain in right shoulder (principal) | CPT/HCPCS: A0425; A0429 ==

== ENCOUNTER 2018-03-27 14:36 | Emergency (ER) | payer MEDICARE ==
[2018-03-27] MEDS ORDERED: HYDROcod/ACETAM 5/325 MG TABLET PO STA (15:04)
--- NOTE | 2018-03-27 16:17 | XRAY Report ---
Reason: Pain, deformity Procedure Date: 03/27/2018 Accession Number: [id number] / [id number] Procedure: XR - Shoulder 3 View RT CPT Code: FULL RESULT: EXAM: RIGHT SHOULDER RADIOGRAPHY EXAM DATE: 03/27/2018 03:44 PM. CLINICAL HISTORY: Pain, deformity. Fell and broke her shoulder about 2 months ago. Continued right shoulder pain, new bump on lateral side. COMPARISON: CHEST 1 VIEW 10/04/2017 10:35 AM. TECHNIQUE: 3 views. FINDINGS: Plate and screws placed for open reduction internal fixation right proximal humerus/ humeral neck fracture with mild cortical step-off at the medial aspect. Calcification/callus at the lateral aspect of the humeral head. No definite acute bone findings are seen. No dislocation. IMPRESSION: Plate and screws placed for open reduction internal fixation right proximal humerus/ humeral neck fracture with mild cortical step-off at the medial aspect. Calcification/callus at the lateral aspect of the humeral head. No definite acute bone findings are seen. No dislocation. [facility]
--- NOTE | 2018-03-27 17:23 | ED Physician Documentation ---
History of Present Illness - Stated complaint Stated Complaint: RT SHOULDER PX - Chief complaint Chief Complaint: Ext Problem - History obtained from History obtained from: Patient - History of Present Illness Timing: How many days ago (2) Pain level max: 3 Pain level now: 3 Severity Comments: mild Quality: sharp Radiates to: none Improved by: nothing Worsened by: movement Associated symptoms: None Review of Systems Ten Systems: 10 systems reviewed and negative Constitutional: reports: Reviewed and negative Eyes: reports: Reviewed and negative Ears: reports: Reviewed and negative Nose: reports: Reviewed and negative Throat: reports: Reviewed and negative Cardiac: reports: Reviewed and negative Respiratory: reports: Reviewed and negative GI: reports: Reviewed and negative : reports: Reviewed and negative Skin: reports: Reviewed and negative Musculoskeletal: reports: Reviewed and negative Neurologic: reports: Reviewed and negative Psychiatric: reports: Reviewed and negative Endocrine: reports: Reviewed and negative Immunocompromised: reports: Reviewed and negative PD PAST MEDICAL HISTORY - Past Medical History Cardiovascular: Hypertension, Atrial fibrillation Respiratory: Shortness of breath Neuro: None Endocrine/Autoimmune: HyPOthyroidism GI: Chronic diarrhea 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 MEDICINE TRAINER: 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 : Incontinence, Chronic bladder infection HEENT: None Psych: Depression, Anxiety, Panic attacks Musculoskeletal: Osteoarthritis, Chronic back pain Derm: Other - Past Surgical History Past Surgical History: No General: Appendectomy Ortho: Hip replacement, Shoulder arthroplasty, Other /SPORTS MEDICINE TRAINER: Oophrectomy Derm: Skin cancer surgery - Present Medications Home Medications: Ambulatory Orders Medication Instructions Recorded Confirmed Metoprolol Tartrate 25 mg PO 08/31/14 08/31/14 Zolpidem Tartrate [Ambien] 5 mg PO PRN 08/31/14 08/31/14 oxyCODONE/ACET 5/325 [Percocet 5 1 each PO Q4-6H PRN 08/31/14 08/31/14 mg/325 mg] Warfarin [Coumadin] 07/07/17 Cyanocobalamin (Vitamin B-12) 10/04/17 [Vitamin B-12] Digoxin [Lanoxin] 10/04/17 Folic Acid 10/04/17 Gabapentin 10/04/17 Ondansetron [Zuplenz] 10/04/17 SUMAtriptan [Imitrex] 10/04/17 diphenhydrAMINE [Benadryl] 10/04/17 - Allergies Allergies/Adverse Reactions: Allergies Allergy/AdvReac Type Severity Reaction Status Date / Time Penicillins Allergy Unknown Verified 03/27/18 14:45 Sulfa (Sulfonamide Allergy Unknown Verified 03/27/18 14:45 Antibiotics) codeine AdvReac Itching Verified 03/27/18 14:45 - Living Situation Living Situation: reports: Alone Living Arrangement: reports: assisted - Social History Does the pt smoke?: No Smoking Status: Never smoker Does the pt drink ETOH?: No Does the pt have substance abuse?: Yes Substance Use and Type: Marijuana - Family History Family history: reports: Other (Reviewed and not pertinent) - Immunizations Immunizations are current?: Yes - POLST Patient has POLST: No PD ED PE NORMAL - Vitals Vital signs reviewed: Yes - General General: Alert and oriented X 3, No acute distress - HEENT HEENT: PERRL - Neck Neck: Supple, no meningeal sign - Cardiac Cardiac: RRR, No murmur - Respiratory Respiratory: Clear bilaterally - Abdomen Abdomen: Normal bowel sounds, Soft, Non tender, Non distended - Derm Derm: Warm and dry - Extremities Extremities: Other (Hardware tenting the right shoulder. Overlying redness and tenderness.) - Neuro Neuro: Alert and oriented X 3 - Psych Psych: Normal mood, Normal affect Results - Vitals Vitals: Vital Signs - 24 hr 03/27/18 03/27/18 03/27/18 14:39 17:54 19:19 Temperature 36.8 C 36.7 C Heart Rate 64 61 60 Respiratory 18 16 16 Rate Blood Pressure 106/65 96/57 L 94/58 L O2 Saturation 20 L 94 95 Oxygen O2 Source [With Activity] Room air O2 Source Room air - Rads (name of study) Shoulder XRAY Radiology: Final report received (No acute abnormality.) PD MEDICAL DECISION MAKING - ED course Complexity details: reviewed old records, reviewed results, re-evaluated patient, considered differential, d/w patient, d/w reimbursement consultant ED course: 72-year-old female status post right shoulder open reduction and internal fixation presents with right shoulder pain and hardware tenting the skin. Orthopedic surgery was consulted who will see patient in clinic tomorrow. I spoke with orthopedist Dannie TEE. Departure - Departure Disposition: 01 Home, Self Care Clinical Impression: Right shoulder pain Condition: Good Follow-Up: Orthopedic, Surgeon [Other] - Tomorrow Comments: Wear shoulder immobilizer until seen by orthopedic surgery tomorrow. Return with worsening symptoms. Discharge Date/Time: 03/27/18 19:21
[2018-03-27 19:20] VITALS: BP 94/58
== END 2018-03-27 19:21 | disposition home or self-care (01) ==
LOC: EDUNIT# → ED 14:36
DX: M25.511 Pain in right shoulder (principal); I10 Essential (primary) hypertension; E03.9 Hypothyroidism, unspecified; I48.91 Unspecified atrial fibrillation; Z79.01 Long term (current) use of anticoagulants; Z96.649 Presence of unspecified artificial hip joint
CPT/HCPCS: 73030; 99283; A9270

== ENCOUNTER 2018-09-17 17:32 | Inpatient (IN) | payer MEDICARE ==
[2018-09-17] MEDS ORDERED: THIAMINE INJ 100 MG in SODIUM CHLORIDE 0.9% 50 ML IV STA (18:01)
[2018-09-17] MEDS ORDERED: SODIUM CHLORIDE 0.9% 1,000 ML IV ONE (18:01)
[2018-09-17] MEDS ORDERED: ONDANSETRON 4 MG/2 ML VIAL IVP STA ×2 (18:01→19:31)
[2018-09-17] MEDS ORDERED: LORazepam 2 MG/ML VIAL IVP STA ×3 (18:01→20:44)
--- NOTE | 2018-09-17 18:03 | ED Physician Documentation ---
PD HPI NVD - Stated complaint Stated Complaint: V/D - Chief complaint Chief Complaint: Abd Pain - History obtained from History obtained from: Patient, Friend - History of Present Illness Timing - onset: Last night (72-year-old woman with history of alcoholism, last drink was last night and feeling very shaky and vomiting all day today. She denies abdominal pain or coffee-ground emesis. No melena. She does have a history of atrial fibrillation but is no longer on blood thinners.) Review of Systems Ten Systems: 10 systems reviewed and negative Constitutional: reports: Sweats. denies: Fever, Chills Cardiac: denies: Chest pain / pressure, Palpitations Respiratory: denies: Dyspnea, Cough GI: reports: Nausea, Vomiting, Diarrhea. 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 : Incontinence, Chronic bladder infection HEENT: None Psych: Depression, Anxiety, Panic attacks Musculoskeletal: Osteoarthritis, Chronic back pain Derm: Other - Past Surgical History Past Surgical History: No General: Appendectomy Ortho: Hip replacement, Shoulder arthroplasty, Other /THREADING MACHINE TENDER: Oophrectomy Derm: Skin cancer surgery - Present Medications Home Medications: Ambulatory Orders Medication Instructions Recorded Confirmed Metoprolol Tartrate 25 mg PO 08/31/14 08/31/14 Zolpidem Tartrate [Ambien] 5 mg PO PRN 08/31/14 08/31/14 oxyCODONE/ACET 5/325 [Percocet 5 1 each PO Q4-6H PRN 08/31/14 08/31/14 mg/325 mg] Warfarin [Coumadin] 07/07/17 Cyanocobalamin (Vitamin B-12) 10/04/17 [Vitamin B-12] Digoxin [Lanoxin] 10/04/17 Folic Acid 10/04/17 Gabapentin 10/04/17 Ondansetron [Zuplenz] 10/04/17 SUMAtriptan [Imitrex] 10/04/17 diphenhydrAMINE [Benadryl] 10/04/17 - Allergies Allergies/Adverse Reactions: Allergies Allergy/AdvReac Type Severity Reaction Status Date / Time Penicillins Allergy Unknown Verified 09/17/18 17:46 Sulfa (Sulfonamide Allergy Unknown Verified 09/17/18 17:46 Antibiotics) codeine AdvReac Itching Verified 09/17/18 17:46 - Social History Does the pt smoke?: No Smoking Status: Never smoker Does the pt drink ETOH?: No Does the pt have substance abuse?: Yes - Immunizations Immunizations are current?: Yes - POLST Patient has POLST: No PD ED PE NORMAL - Vitals Vital signs reviewed: Yes - General General: Alert and oriented X 3 - HEENT HEENT: PERRL, EOMI - Neck Neck: Supple, no meningeal sign, No bony TTP - Cardiac Cardiac: Other (Tachycardic, regular, no murmur) - Respiratory Respiratory: No respiratory distress, Clear bilaterally - Abdomen Abdomen: Non tender - Derm Derm: Normal color, Warm and dry - Extremities Extremities: No edema, No calf tenderness / cord - Neuro Neuro: Alert and oriented X 3, Normal speech Results - Vitals Vitals: Vital Signs - 24 hr 09/17/18 09/17/18 17:44 19:21 Temperature 36.7 C Heart Rate 124 H 108 H Respiratory 18 19 Rate Blood Pressure 161/81 H 161/86 H O2 Saturation 100 98 Oxygen O2 Source [With Activity] Room air O2 Source Room air - Labs Labs: Laboratory Tests 09/17/18 09/17/18 09/17/18 18:20 18:20 18:20 WBC 14.4 H RBC 3.95 L Hgb 12.9 Hct 38.3 MCV 97.0 MCH 32.7 H MCHC 33.7 RDW 15.5 H Plt Count 84 L MPV 11.5 H Neut # (Auto) Not Reportable Lymph # (Auto) Not Reportable Mcintosh # (Auto) Not Reportable Eos # (Auto) Not Reportable Baso # (Auto) Not Reportable Absolute Nucleated RBC Not Reportable Total Counted 100 Band Neuts % (Manual) 1 Abnorm Lymph % (Manual) 0 Nucleated RBC % Not Reportable Neutrophils # (Manual) 11.7 H Lymphocytes # (Manual) 1.3 L Monocytes # (Manual) 1.4 H Eosinophils # (Manual) 0.0 Basophils # (Manual) 0.0 Differential Comment MANUAL DIFFERENTIAL Manual Slide Review Indicated WBC Morphology NORMAL APPEARANCE Platelet Estimate DECREASED (<130,000) Platelet Morphology NORMAL APPEARANCE RBC Morph Micro Appear NORMAL APPEARANCE Sodium 141 Potassium 3.0 L Chloride 97 L Carbon Dioxide 18 L Anion Gap 26.0 H BUN 9 Creatinine 1.1 H Estimated GFR (MDRD) 49 L Glucose 241 H Calcium 8.9 Magnesium 1.3 L Total Bilirubin 3.1 H AST 106 H ALT 50 Alkaline Phosphatase 150 H Total Protein 7.4 Albumin 3.8 Globulin 3.6 Albumin/Globulin Ratio 1.1 Lipase 26 Last Dose Date UNKNOWN Last Dose Time UNKNOWN Digoxin 0.4 Ethyl Alcohol 5.1 PD MEDICAL DECISION MAKING - ED course ED course: 72-year-old woman with history of alcohol abuse presents with alcohol with drawal. She was treated with divided doses of Ativan here and her electrolytes were corrected. Despite this she required multiple doses of Ativan here for symptom control. At 8:50 PM on reevaluation her CIWA score was 9 and I took with Dr. Espana for admission. Departure - Departure Disposition: 66 [facility] DC/Xftate Clinical Impression: Chronic alcohol dependence, continuous, Abnormal liver enzymes, Liver disease due to alcohol Condition: Serious
[2018-09-17 18:37] LABS: BASOPHILS % (AUTO) 0.2 %; EOSINOPHILS % (AUTO) 0.1 %; HGB - HEMOGLOBIN 12.9 g/dL (12.0-16.0); MEAN CORPUSCULAR HEMOGLOBIN 32.7 pg (27.0-31.0); MEAN CORPUSCULAR HGB CONC 33.7 g/dL (32.0-36.0); MEAN PLATELET VOLUME 11.5 fL (7.9-10.8); MONOCYTES % (AUTO) 14.5 %; NEUTROPHILS % (AUTO) 80.5 %; PLT - PLATELET COUNT 84 10^3/uL (130-450); RED BLOOD COUNT 3.95 10^6/uL (4.20-5.40); RED CELL DISTRIBUTION WIDTH 15.5 % (12.0-15.0); WHITE BLOOD COUNT 14.4 x10^3/uL (4.8-10.8)
[2018-09-17 18:51] LABS: DIGOXIN 0.4 ng/mL
[2018-09-17 19:06] LABS: ALBUMIN 3.8 g/dL (3.2-5.5); ALBUMIN/GLOBULIN RATIO 1.1 (1.0-2.2); BILIRUBIN,TOTAL 3.1 mg/dL (0.2-1.0); CALCIUM 8.9 mg/dL (8.5-10.3); CREATININE 1.1 mg/dL (0.4-1.0); MAGNESIUM 1.3 mg/dL (1.7-2.8); TOTAL PROTEIN 7.4 g/dL (6.7-8.2)
[2018-09-17] MEDS ORDERED: POTASSIUM CHLORIDE 20 MEQ TABLET PO STA (19:27)
[2018-09-17] MEDS ORDERED: MAGNESIUM SULFATE 2 GRAM 2 GM/50 ML BAG IV ONE ×2 (19:27→20:55)
[2018-09-17 19:44] LABS: ABNORMAL LYMPHS % (MANUAL) 0 %
[2018-09-17 19:46] LABS: BAND NEUTROPHILS % (MANUAL) 1 %; DIFFERENTIAL COMMENT MANUAL DIFFERENTIAL; LYMPHOCYTES # (MANUAL) 1.3 10^3/uL (1.5-3.5); LYMPHOCYTES % (MANUAL) 9 %; MONOCYTES # (MANUAL) 1.4 10^3/uL (0.0-1.0); NEUTROPHILS # (MANUAL) 11.7 10^3/uL (1.5-6.6); NEUTROPHILS % (MANUAL) 80 %; PLATELET ESTIMATE, MANUAL DECREASED (<130,000) (NORMAL); PLATELET MORPHOLOGY NORMAL APPEARANCE (NORMAL); RBC MORPHOLOGY (MULTIPLE) NORMAL APPEARANCE (NORMAL)
[2018-09-17] MEDS ORDERED: LORazepam 2 MG/ML VIAL IVP PRN (20:55)
[2018-09-17] MEDS ORDERED: chlordiazePOXIDE 25 MG CAPSULE PO SCH (21:00)
[2018-09-17 21:38] LABS: INR 1.3 (0.8-1.2); PT - PROTHROMBIN TIME 14.9 secs (9.9-12.6)
[2018-09-17 21:43] LABS: ALBUMIN 3.3 g/dL (3.2-5.5); ALBUMIN/GLOBULIN RATIO 0.9 (1.0-2.2); BILIRUBIN,TOTAL 3.1 mg/dL (0.2-1.0); CALCIUM 8.5 mg/dL (8.5-10.3); CREATININE 0.8 mg/dL (0.4-1.0); TOTAL PROTEIN 6.9 g/dL (6.7-8.2)
[2018-09-17] MEDS ORDERED: NS W/20 MEQ KCL 1,000 ML IV SCH (22:00)
[2018-09-17] MEDS: SODIUM CHLORIDE FLUSH 0.9% 10 ML SYRINGE IVP PRN (22:39)
[2018-09-17] MEDS: ONDANSETRON 4 MG/2 ML VIAL IVP PRN (22:39)
[2018-09-17] MEDS: SODIUM CHLORIDE FLUSH 0.9% 10 ML SYRINGE IVP SCH (23:37)
[2018-09-17] MEDS ORDERED: chlordiazePOXIDE 25 MG CAPSULE PO PRN (23:59)
--- NOTE | 2018-09-18 01:26 | HISTORY & PHYSICAL EXAMINATION ---
Chief Complaint - Chief Complaint Chief Complaint: nausea, vomiting History of Present Illness - Admitted From Admitted From:: [facility] ED - History Obtained From Records Reviewed: yes History obtained from: ED physicain and patient Exam Limitations: patient very drowsy/sleepy - History of Present Illness HPI Comment/Other: Patient seen on 09/17/2018 at 2300pm. Patient is a 72 y/o female with history of alcohol abuse who presents to the ED with complain of nausea, vomiting and shaking/ tremulous today. She was ta chycardic in the ED. She last drank yesterday. At bedside she is currently very drowsy after receiving ativan. As a result she does not readily provide information and easily falls asleep. She denies chest pain, reports mild dyspnea. She denies fever or chills. As a result of her clinical symptoms, she is being admitted for further treatment History - Past Medical History Cardiovascular: reports: Hypertension, Atrial fibrillation Respiratory: reports: Shortness of breath Neuro: reports: None Endocrine/Autoimmune: reports: HyPOthyroidism GI: reports: Chronic diarrhea CONTROLS ENGINEER: reports: None : reports: Incontinence, Chronic bladder infection HEENT: reports: None Psych: reports: Depression, Anxiety, Panic attacks Musculoskeletal: reports: Osteoarthritis, Chronic back pain Derm: reports: Other MRSA Hx?: No - Past Surgical History General: reports: Appendectomy Ortho: reports: Hip replacement, Shoulder arthroplasty, Other /CONTROLS ENGINEER: reports: Oophrectomy Derm: reports: Skin cancer surgery - Family & Social History Family History Comment/Other: Father: from cancer in his 80's. mother: mother had non-hodgkins lymphoma. Has 7 siblings. History of heart conditions in her family Social History Notes: Has been 3 times. Has 2 biological children and 2 children of her third that live nearby. Smoked 3ppd for 20 years quit 21 years ago. Drinks vodka and lola papito. approximately 2 drinks every afternoon. Denies recretional substances/drugs - POLST Patient has POLST: No POLST Status: Full Code Meds/Allgy - Home Medications Home Medications: Ambulatory Orders Medication Instructions Recorded Confirmed Metoprolol Tartrate 25 mg PO 08/31/14 08/31/14 Zolpidem Tartrate [Ambien] 5 mg PO PRN 08/31/14 08/31/14 oxyCODONE/ACET 5/325 [Percocet 5 1 each PO Q4-6H PRN 08/31/14 08/31/14 mg/325 mg] Warfarin [Coumadin] 07/07/17 Cyanocobalamin (Vitamin B-12) 10/04/17 [Vitamin B-12] Digoxin [Lanoxin] 10/04/17 Folic Acid 10/04/17 Gabapentin 10/04/17 Ondansetron [Zuplenz] 10/04/17 SUMAtriptan [Imitrex] 10/04/17 diphenhydrAMINE [Benadryl] 10/04/17 - Allergies Allergies/Adverse Reactions: Allergies Allergy/AdvReac Type Severity Reaction Status Date / Time Penicillins Allergy Unknown Verified 09/17/18 17:46 Sulfa (Sulfonamide Allergy Unknown Verified 09/17/18 17:46 Antibiotics) codeine AdvReac Itching Verified 09/17/18 17:46 Review of Systems - Constitutional Constitutional: denies: Fever, Chills, Poor appetite, Diaphoresis - Eyes Eyes: denies: Pain, Blurred vision, Vision loss, Dipolpia - Ears, Nose & Throat Ears, Nose & Throat: denies: Tinnitus, Vertigo, Nasal pain, Sore throat, Hoarseness - Cardiovascular Cariovascular: reports: Irregular heart rate. denies: Chest pain, Edema, Lightheadedness, Syncope - Respiratory Respiratory: denies: Cough, Sputum production, Wheezing, Snoring, Hemoptysis, SOB at rest, SOB with exertion - Gastrointestinal Gastrointestinal: reports: Nausea, Vomiting. denies: Black stools, Coffee grounds emesis - Genitourinary Genitourinary: denies: Dysuria, Frequency, Urgency, Hematuria - Musculoskeletal Musculoskeletal: denies: Muscle pain, Back pain, Stiffness - Integumentary Integumentary: denies: Rash, Pruritis, Lesions - Neurological Neurological: denies: General weakness, Focal weakness, Headache, Dizziness, Numbness - Psychiatric Psychiatric: denies: Depression, Anxiety - Endocrine Endocrine: denies: Polyuria, Polydypsia - Hematologic/Lymphatic Hematologic/Lymphatic: denies: Anemia, Bruising Prior Level of Functionality: She is independent of activities of daily living Exam - Vital Signs Vital Signs: Vital Signs x48h Temp Pulse Pulse Resp BP BP Pulse Ox 09/18/18 00:00 36.8 C 110 H 20 126/99 H 95 09/17/18 19:21 108 H 19 161/86 H 98 09/17/18 17:44 36.7 C 124 H 18 161/81 H 100 - Physical Exam General Appearance: positive: No acute distress, Lethargic Eyes Bilateral: positive: PERRL, EOMI ENT: positive: ENT inspection nml Neck: positive: Nml inspection, No JVD, Trachea midline Respiratory: positive: Chest non-tender, No respiratory distress, Breath sounds nml. negative: Wheezes, Rales, Rhonchi Cardiovascular: positive: No murmur, Tachycardia Abdomen: positive: Non-tender, Nml bowel sounds. negative: Guarding, Rebound Back: positive: Nml inspection Skin: positive: Color nml, No rash, Warm, Dry Extremities: positive: Non-tender, Full ROM, Nml appearance, No pedal edema Neurologic/Psychiatric: positive: Oriented x3 Conclusion/Plan - Problem List (1) Alcohol withdrawal Conclusion/Plan: CIWA protocol ordered. Librium 25mg po q12hr prn Banana bag, Multivitamin and Mg (2) Atrial fibrillation with RVR Conclusion/Plan: Improved rate. P 110 On digoxin and metoprolol. Will resume once doses verified On coumadin. Sub-therapeutic Will resume coumadin at 5mg po daily Check INR daily (3) Leucocytosis Conclusion/Plan: Likely reactive Will recheck with morning labs If more elevated, will check a chest xray and get blood culture UA pending (4) Hypothyroidism Conclusion/Plan: Not on synthrid Will check TSH and reflex T3/T4 (5) Chronic back pain Conclusion/Plan: On gabapentin and percocet 5mg/325mg (6) Abnormal liver enzymes Conclusion/Plan: Likely chronic 2/2 alcohol abuses. Will monitor for now - Lab Results Fish Bones: 09/17/18 18:20 09/17/18 21:20 Core Measures - Anticipated LOS I expect patient to be DC'd or transferred within 96 hours.: Yes - DVT/VTE - Prophylaxis VTE/DVT Device ordered at admit?: Yes
[2018-09-18] MEDS ORDERED: WARFARIN 5 MG TABLET PO SCH (01:54)
[2018-09-18] MEDS: ONDANSETRON 4 MG/2 ML VIAL IVP PRN (05:38)
[2018-09-18] MEDS: SODIUM CHLORIDE FLUSH 0.9% 10 ML SYRINGE IVP SCH ×2 (05:39→06:09)
[2018-09-18 06:06] LABS: BASOPHILS % (AUTO) 0.3 %; MEAN CORPUSCULAR HEMOGLOBIN 32.7 pg (27.0-31.0); MEAN CORPUSCULAR HGB CONC 33.8 g/dL (32.0-36.0); MEAN CORPUSCULAR VOLUME 96.7 fL (81.0-99.0); MEAN PLATELET VOLUME 11.1 fL (7.9-10.8); MONOCYTES # (AUTO) 0.6 10^3/uL (0.0-1.0); NEUTROPHILS # (AUTO) 5.3 10^3/uL (1.5-6.6); NEUTROPHILS % (AUTO) 67.3 %; PLT - PLATELET COUNT 48 10^3/uL (130-450); RED BLOOD COUNT 3.36 10^6/uL (4.20-5.40); RED CELL DISTRIBUTION WIDTH 15.5 % (12.0-15.0); WHITE BLOOD COUNT 7.8 x10^3/uL (4.8-10.8)
[2018-09-18] MEDS: SODIUM CHLORIDE FLUSH 0.9% 10 ML SYRINGE IVP PRN (06:09)
[2018-09-18] MEDS: PANTOPRAZOLE 40 MG VIAL IVP SCH (06:09)
[2018-09-18 06:17] LABS: ALBUMIN/GLOBULIN RATIO 0.9 (1.0-2.2); BILIRUBIN,TOTAL 1.7 mg/dL (0.2-1.0); CREATININE 0.8 mg/dL (0.4-1.0); MAGNESIUM 2.3 mg/dL (1.7-2.8); PHOSPHORUS 1.6 mg/dL (2.5-4.6); TOTAL PROTEIN 6.2 g/dL (6.7-8.2)
[2018-09-18] MEDS: MULTIVITAMIN 10 ML, THIAMINE INJ 100 MG, FOLIC ACID INJ 1 MG in SODIUM CHLORIDE 0.9% 1,... IV SCH (08:43)
[2018-09-18] MEDS: THIAMINE 100 MG TABLET PO SCH (08:44)
[2018-09-18] MEDS: POLYETHYLENE GLYCOL 3350 17 GM PACKET PO SCH (08:45)
[2018-09-18] MEDS: DIGOXIN 125 MCG TABLET PO SCH (09:35)
[2018-09-18] MEDS: ACETAMINOPHEN 325 MG TABLET PO PRN ×3 (09:35→21:52)
[2018-09-18] MEDS: METOPROLOL SUCCINATE 25 MG TABLET PO SCH (09:36)
[2018-09-18] MEDS: oxyCODONE 5 MG TABLET PO PRN ×3 (09:40→21:53)
[2018-09-18 09:45] LABS: BILIRUBIN,URINE NEGATIVE (NEGATIVE); GLUCOSE, URINE (UA) NEGATIVE (NEGATIVE); KETONES,URINE (UA) 15 mg/dL (NEGATIVE); LEUKOCYTE ESTERASE, URINE NEGATIVE (NEGATIVE); NITRITE,URINE NEGATIVE (NEGATIVE); OCCULT BLOOD,URINE NEGATIVE (NEGATIVE); PROTEIN,URINE NEGATIVE (NEGATIVE); UROBILINOGEN,URINE 0.2 (NORMAL) E.U./dL (NORMAL)
[2018-09-18 09:52] LABS: BACTERIA,URINE Moderate /HPF (None Seen); CLARITY,URINE HAZY (CLEAR); RBC,URINE None Seen /HPF (0-5); SQUAMOUS EPITHELIAL CELL,UR MOD Squamous (<= Few)
[2018-09-18] MEDS: NEUTRA-PHOS 250 MG TABLET PO SCH ×2 (12:11→16:59)
[2018-09-18] MEDS ORDERED: ZOLPIDEM 5 MG TABLET PO PRN (15:37)
[2018-09-18] MEDS ORDERED: diphenhydrAMINE 25 MG CAPSULE PO PRN (15:37)
[2018-09-18] MEDS ORDERED: SODIUM CHLORIDE 0.9% 1,000 ML IV SCH ×2 (16:00→18:55)
[2018-09-18] MEDS: GABAPENTIN 300 MG CAPSULE PO SCH ×2 (16:58→21:53)
[2018-09-19] MEDS: SODIUM CHLORIDE FLUSH 0.9% 10 ML SYRINGE IVP SCH ×4 (00:02→23:59)
[2018-09-19] MEDS: SODIUM CHLORIDE FLUSH 0.9% 10 ML SYRINGE IVP PRN ×2 (00:11→05:57)
[2018-09-19] MEDS: ONDANSETRON 4 MG/2 ML VIAL IVP PRN (00:11)
[2018-09-19] MEDS: PANTOPRAZOLE 40 MG VIAL IVP SCH (05:57)
[2018-09-19] MEDS: oxyCODONE 5 MG TABLET PO PRN (06:10)
[2018-09-19 06:45] LABS: BASOPHILS % (AUTO) 0.4 %; EOSINOPHILS # (AUTO) 0.1 10^3/uL (0.0-0.7); EOSINOPHILS % (AUTO) 1.1 %; HGB - HEMOGLOBIN 10.3 g/dL (12.0-16.0); LYMPHOCYTES # (AUTO) 1.8 10^3/uL (1.5-3.5); MEAN CORPUSCULAR HEMOGLOBIN 33.1 pg (27.0-31.0); MEAN CORPUSCULAR HGB CONC 32.2 g/dL (32.0-36.0); MEAN CORPUSCULAR VOLUME 102.9 fL (81.0-99.0); MEAN PLATELET VOLUME 11.3 fL (7.9-10.8); MONOCYTES # (AUTO) 0.3 10^3/uL (0.0-1.0); MONOCYTES % (AUTO) 5.9 %; NEUTROPHILS # (AUTO) 3.1 10^3/uL (1.5-6.6); NEUTROPHILS % (AUTO) 58.4 %; RED BLOOD COUNT 3.11 10^6/uL (4.20-5.40); RED CELL DISTRIBUTION WIDTH 15.6 % (12.0-15.0); WHITE BLOOD COUNT 5.3 x10^3/uL (4.8-10.8)
[2018-09-19 06:50] LABS: PLT - PLATELET COUNT 31 10^3/uL (130-450)
[2018-09-19 06:54] LABS: ALBUMIN 2.7 g/dL (3.2-5.5); BILIRUBIN,TOTAL 1.5 mg/dL (0.2-1.0); CALCIUM 7.9 mg/dL (8.5-10.3); CREATININE 0.6 mg/dL (0.4-1.0); MAGNESIUM 1.9 mg/dL (1.7-2.8); PHOSPHORUS 2.4 mg/dL (2.5-4.6); TOTAL PROTEIN 5.4 g/dL (6.7-8.2)
[2018-09-19] MEDS ORDERED: POTASSIUM CHLORIDE 20 MEQ TABLET PO ONE (07:45)
[2018-09-19] MEDS: GABAPENTIN 300 MG CAPSULE PO SCH ×4 (08:02→21:13)
[2018-09-19] MEDS: NEUTRA-PHOS 250 MG TABLET PO SCH ×3 (08:02→16:54)
[2018-09-19] MEDS: CYANOCOBALAMIN 500 MCG TABLET PO SCH (08:03)
[2018-09-19] MEDS: METOPROLOL SUCCINATE 25 MG TABLET PO SCH ×2 (08:03→21:14)
[2018-09-19] MEDS: DIGOXIN 125 MCG TABLET PO SCH (08:03)
[2018-09-19] MEDS: THIAMINE 100 MG TABLET PO SCH (08:04)
[2018-09-19] MEDS: POLYETHYLENE GLYCOL 3350 17 GM PACKET PO SCH (08:08)
[2018-09-19] MEDS: SUMAtriptan 25 MG TABLET PO PRN (08:16)
[2018-09-19] MEDS: MULTIVITAMIN 10 ML, THIAMINE INJ 100 MG, FOLIC ACID INJ 1 MG in SODIUM CHLORIDE 0.9% 1,... IV SCH (08:33)
[2018-09-19] MEDS: oxyCODONE ER 10 MG TABLET PO SCH ×3 (11:55→21:13)
[2018-09-19] MEDS ORDERED: LORazepam 0.5 MG TABLET PO PRN (12:00)
[2018-09-19] MEDS ORDERED: BENZOCAINE/MENTHOL LOZENGE MM PRN (12:05)
--- NOTE | 2018-09-19 16:02 | PROVIDER PROGRESS NOTE ---
Subjective - Subjective Pt reports feeling: Improved Subjective: pt report her appetite is slight better. she still report weak and report back pain. Current Medications - Current Medications Current Medications: Active Medications Acetaminophen (Tylenol) 650 mg PO Q4HR PRN PRN Reason: Pain or Fever > 38C (100.4F) Last Admin: 09/19/18 16:04 Dose: 650 mg Chlordiazepoxide HCl (Librium) 25 mg PO Q12H PRN PRN Reason: Agitation Stop: 09/22/18 23:59 Cyanocobalamin (Vitamin B-12) 1,000 mcg PO DAILY [facility] Last Admin: 09/19/18 08:03 Dose: 1,000 mcg Digoxin (Lanoxin) 125 mcg PO DAILY [facility] Last Admin: 09/19/18 08:03 Dose: 125 mcg Diphenhydramine HCl (Benadryl) 25 mg PO DAILY PRN PRN Reason: Allergy Symptoms Gabapentin (Neurontin) 600 mg PO QID [facility] Last Admin: 09/19/18 12:45 Dose: 600 mg Multivitamins 10 ml/ Thiamine HCl 100 mg/ Folic Acid 1 mg/Sodium Chloride 1,011.2 mls @ 100 mls/hr IV DAILY [facility] Last Admin: 09/19/18 08:33 Dose: 100 mls/hr Lorazepam (Ativan Inj (Vial)) 1 mg IVP Q30M PRN; Protocol PRN Reason: CIWA >8 Last Admin: 09/17/18 23:05 Dose: 1 mg Lorazepam (Ativan) 0.5 mg PO Q6H PRN PRN Reason: Anxiety Metoprolol Succinate (Toprol Xl) 25 mg PO BID [facility] Ondansetron HCl (Zofran Inj) 4 mg IVP Q6HR PRN PRN Reason: Nausea / Vomiting Last Admin: 09/19/18 00:11 Dose: 4 mg Oxycodone HCl (Oxycontin) 10 mg PO BID [facility] Last Admin: 09/19/18 11:58 Dose: 10 mg Pantoprazole Sodium (Protonix) 40 mg IVP QDAC [facility] Last Admin: 09/19/18 05:57 Dose: 40 mg Polyethylene Glycol (Miralax) 17 gm PO DAILY [facility] Last Admin: 09/19/18 08:08 Dose: Not Given Sodium Chloride (Normal Saline Flush 0.9%) 10 ml IVP PRN PRN PRN Reason: NEEDED PER PROVIDER ORDERS Last Admin: 09/19/18 05:57 Dose: 10 ml Sodium Chloride (Normal Saline Flush 0.9%) 10 ml IVP 0100,0900,1700 [facility] Last Admin: 09/19/18 08:04 Dose: 10 ml Sodium Phosphate (K-Phos Neutral) 250 mg PO TIDWM [facility] Last Admin: 09/19/18 11:55 Dose: 250 mg Sumatriptan Succinate (Imitrex) 25 mg PO DAILY PRN PRN Reason: MIGRAINE Last Admin: 09/19/18 08:16 Dose: 25 mg Thiamine HCl (Vitamin B-1) 100 mg PO DAILY [facility] Last Admin: 09/19/18 08:04 Dose: 100 mg Throat Lozenges (Cepacol) 1 lozenge MM Q2HR PRN PRN Reason: Throat pain Zolpidem Tartrate (Ambien) 5 mg PO QPM PRN PRN Reason: sleep Zolpidem Tartrate [Ambien] 5 mg PO DAILY PRN 08/31/14 oxyCODONE/ACET 5/325 [Percocet 5 mg/325 mg] 1 tab PO BID PRN 08/31/14 Cyanocobalamin (Vitamin B-12) [Vitamin B-12] 1,000 mcg PO DAILY 10/04/17 Digoxin [Lanoxin] 125 mcg PO DAILY 10/04/17 Gabapentin 600 mg PO QID 10/04/17 SUMAtriptan [Imitrex] 25 mg PO DAILY PRN MDD 200 mg 10/04/17 diphenhydrAMINE [Benadryl] 25 mg PO DAILY PRN 10/04/17 Metoprolol Succinate 25 mg PO BID 09/18/18 Objective - Vital Signs/Intake & Output Reviewed Vital Signs: Yes Vital Signs: Vital Signs x48h Temp Pulse Resp BP Pulse Ox 09/19/18 15:43 36.6 C 67 16 127/67 94 09/19/18 14:45 36.6 C 72 18 118/69 95 09/19/18 09:00 36.8 C 85 18 140/70 H 93 Intake & Output: Intake & Output 09/16/18 09/17/18 09/18/18 09/19/18 23:59 23:59 23:59 23:59 Intake Total 1101.0 3741.2 1500 Output Total 800 700 Balance 1101.0 2941.2 800 - Objective General Appearance: positive: No acute distress, Alert. negative: Lethargic Eyes Bilateral: positive: Normal inspection, PERRL, No lid inflammation, Conjunctivae nml ENT: positive: ENT inspection nml, Pharynx nml, No signs of dehydration. negative: Purulent nasal drainage, Pharyngeal erythema, Oral lesions Neck: positive: Nml inspection, Thyroid nml, No JVD, Trachea midline. negative: Thyromegaly, Lymphadenopathy (R), Lymphadenopathy (L), Stiff neck, Swel ling/bruising, Tracheal deviation Respiratory: positive: Chest non-tender, No respiratory distress, Breath sounds nml. negative: Wheezes, Rales, Rhonchi Cardiovascular: positive: Regular rate & rhythm, No murmur, No gallop. negative: Irregularly irregular, Extrasystoles, Tachycardia, Bradycardia, JVD present, Systolic murmur, Diastolic murmur Peripheral Pulses: 2+ Radial (R), 2+ Radial (L), 2+ Dorsalis pedis (R), 2+ [place] salis pedis (L) Abdomen: positive: Non-tender, No organomegaly, Nml bowel sounds, No distention. negative: Tenderness, Guarding, Rebound Back: positive: Nml inspection. negative: CVA tenderness (R), CVA tenderness (L) Skin: positive: Color nml, No rash, Warm, Dry. negative: Cyanosis, Diaphoresis, Pallor Extremities: positive: Non-tender, Nml appearance. negative: Calf tenderness, Joint swelling, Dinh's sign/cords Neurologic/Psychiatric: positive: Oriented x3, Sensation nml, Mood/affect nml. negative: Weakness, Sensory loss, Facial droop, Slurred/abnml speech, Depressed mood/affect - Lab Results Fish Bones: 09/19/18 06:20 09/19/18 06:20 Other Labs: Lab Results x24hrs 09/19/18 09/19/18 Range/Units 06:20 06:20 WBC 5.3 (4.8-10.8) x10^3/uL RBC 3.11 L (4.20-5.40) 10^6/uL Hgb 10.3 L (12.0-16.0) g/dL Hct 32.0 L (37.0-47.0) % MCV 102.9 H (81.0-99.0) fL MCH 33.1 H (27.0-31.0) pg MCHC 32.2 (32.0-36.0) g/dL RDW 15.6 H (12.0-15.0) % Plt Count 31 L* (130-450) 10^3/uL MPV 11.3 H (7.9-10.8) fL Neut # (Auto) 3.1 (1.5-6.6) 10^3/uL Lymph # (Auto) 1.8 (1.5-3.5) 10^3/uL [place] # (Auto) 0.3 (0.0-1.0) 10^3/uL Eos # (Auto) 0.1 (0.0-0.7) 10^3/uL Baso # (Auto) 0.0 (0.0-0.1) 10^3/uL Absolute Nucleated RBC 0.00 x10^3/uL Nucleated RBC % 0.0 /100WBC Manual Slide Review Indicated Sodium 142 (135-145) mmol/L Potassium 3.2 L (3.5-5.0) mmol/L Chloride 109 (101-111) mmol/L Carbon Dioxide 24 (21-32) mmol/L Anion Gap 9.0 (6-13) BUN 6 (6-20) mg/dL Creatinine 0.6 (0.4-1.0) mg/dL Estimated GFR (MDRD) 99 (>89) Glucose 102 H (70-100) mg/dL Calcium 7.9 L (8.5-10.3) mg/dL Phosphorus 2.4 L (2.5-4.6) mg/dL Magnesium 1.9 (1.7-2.8) mg/dL Total Bilirubin 1.5 H (0.2-1.0) mg/dL AST 54 H (10-42) IU/L ALT 28 (10-60) IU/L Alkaline Phosphatase 105 (42-121) IU/L Total Protein 5.4 L (6.7-8.2) g/dL Albumin 2.7 L (3.2-5.5) g/dL Globulin 2.7 (2.1-4.2) g/dL Albumin/Globulin Ratio 1.0 (1.0-2.2) ABX Reporting Has patient been on IV antibiotics over the past 48 hours?: No Sepsis Event Note (H) - Evaluation Current Stage of Sepsis: Ruled out Assessment/Plan - Problem List (1) Alcohol withdrawal Impression: 09/19 pt's hand tremor is better. CIWA scal is down to 5 continue CIWA protocol ordered. continue Librium 25mg po q12hr prn continue Banana bag (2) Atrial fibrillation with RVR Conclusion/Plan: 09/19 stable, continue Digoxin and Metoprolol continue tele and vital monitor HR is controlled as normal. Hold Coumadin, pt's CHADS score is lower, and pt's Plt is 46,000 now (3) Leucocytosis Conclusion/Plan: resolved (4) Hypothyroidism Conclusion/Plan: 09/19 normal TSH Not on synthrid Will check TSH and reflex T3/T4 (5) Chronic back pain Conclusion/Plan: chronic back and shoulder pain, continue pain control continue pain control (6) Abnormal liver enzymes/alcoholic hepatic liver failure Conclusion/Plan: 09/19 is better. total bili and AST are better. continue lab monitor, support pt Likely chronic from alcoholism. advise pt quit alcohol abuses. Will monitor for now (7) weakness pt present profound weakness PT evaluated and treated pt, recommended to SNF (8)thrombocytopenia pt's PLT is 31 today. it seems from pt's alcoholic hepatic failure. pt has No bleeding continue lab monitor, closely monitor if pt has bleeding. will transfusion of Plt as needed
[2018-09-19] MEDS: ACETAMINOPHEN 325 MG TABLET PO PRN ×2 (16:04→23:58)
[2018-09-20 05:38] LABS: BASOPHILS % (AUTO) 0.9 %; EOSINOPHILS # (AUTO) 0.1 10^3/uL (0.0-0.7); EOSINOPHILS % (AUTO) 2.2 %; HGB - HEMOGLOBIN 10.5 g/dL (12.0-16.0); LYMPHOCYTES # (AUTO) 1.8 10^3/uL (1.5-3.5); LYMPHOCYTES % (AUTO) 41.3 %; MEAN CORPUSCULAR HEMOGLOBIN 33.5 pg (27.0-31.0); MEAN CORPUSCULAR HGB CONC 31.8 g/dL (32.0-36.0); MEAN CORPUSCULAR VOLUME 105.4 fL (81.0-99.0); MEAN PLATELET VOLUME 11.7 fL (7.9-10.8); MONOCYTES # (AUTO) 0.4 10^3/uL (0.0-1.0); MONOCYTES % (AUTO) 7.9 %; NEUTROPHILS # (AUTO) 2.1 10^3/uL (1.5-6.6); NEUTROPHILS % (AUTO) 47.5 %; PLT - PLATELET COUNT 37 10^3/uL (130-450); RED BLOOD COUNT 3.13 10^6/uL (4.20-5.40); RED CELL DISTRIBUTION WIDTH 15.7 % (12.0-15.0); WHITE BLOOD COUNT 4.5 x10^3/uL (4.8-10.8)
[2018-09-20 05:53] LABS: ALBUMIN 2.6 g/dL (3.2-5.5); ALBUMIN/GLOBULIN RATIO 0.9 (1.0-2.2); ALKALINE PHOSPHATASE 96 IU/L (42-121); ALT ALANINE AMINOTRANSFERASE 22 IU/L (10-60); AST ASPARTATE AMINOTRANSFERASE 35 IU/L (10-42); BILIRUBIN,TOTAL 1.1 mg/dL (0.2-1.0); BUN - BLOOD UREA NITROGEN < 5 mg/dL (6-20); CARBON DIOXIDE - CO2 26 mmol/L (21-32); CHLORIDE 109 mmol/L (101-111); CREATININE 0.6 mg/dL (0.4-1.0); GFR - MDRD 99 (>89); GLUCOSE 101 mg/dL (70-100); SODIUM 144 mmol/L (135-145); TOTAL PROTEIN 5.4 g/dL (6.7-8.2)
[2018-09-20] MEDS: PANTOPRAZOLE 40 MG VIAL IVP SCH (05:54)
[2018-09-20] MEDS: SODIUM CHLORIDE FLUSH 0.9% 10 ML SYRINGE IVP PRN (05:55)
[2018-09-20] MEDS: SODIUM CHLORIDE FLUSH 0.9% 10 ML SYRINGE IVP SCH (05:55)
[2018-09-20] MEDS: SUMAtriptan 25 MG TABLET PO PRN ×2 (06:03→10:46)
[2018-09-20] MEDS ORDERED: PHENOL THROAT SPRAY 177 ML MM PRN (07:45)
[2018-09-20] MEDS ORDERED: PRENATAL VITAMIN TABLET PO SCH (08:00)
[2018-09-20] MEDS: DIGOXIN 125 MCG TABLET PO SCH (08:01)
[2018-09-20] MEDS: POLYETHYLENE GLYCOL 3350 17 GM PACKET PO SCH (08:02)
[2018-09-20] MEDS: GABAPENTIN 300 MG CAPSULE PO SCH ×2 (08:02→12:38)
[2018-09-20] MEDS: NEUTRA-PHOS 250 MG TABLET PO SCH ×2 (08:02→12:38)
[2018-09-20] MEDS: oxyCODONE ER 10 MG TABLET PO SCH (08:02)
[2018-09-20] MEDS: CYANOCOBALAMIN 500 MCG TABLET PO SCH (08:02)
[2018-09-20] MEDS: THIAMINE 100 MG TABLET PO SCH (08:02)
[2018-09-20] MEDS: METOPROLOL SUCCINATE 25 MG TABLET PO SCH (08:02)
[2018-09-20] MEDS: ACETAMINOPHEN 325 MG TABLET PO PRN (10:43)
[2018-09-20 11:52] VITALS: BP 122/71
--- NOTE | 2018-09-20 12:46 | Discharge Plan ---
Discharge Plan Problem Reviewed?: Yes Disposition: Home Health Service Condition: Poor Prescriptions: Vitamin [Trinatal Rx 1] 1 tab PO DAILYWM #10 tablet Thiamine [Vitamin B-1] 100 mg PO DAILY #10 tablet Diet: Regular Activity Restrictions: Activity as Tolerated Shower Restrictions: No (fall precaution) Instruction Topics: Vitamin and Mineral Combinations oral solid dosage forms, Thrombocytopenia, Atrial Fibrillation Health Concerns: alcoholism Plan of Treatment: pt is advised to quit alcoholism, closely monitor about bleeding and thrombocytopenia Care Goals: stabilization of pt Additional Instructions or Follow Up instructions: you may followup your PCP in one week, quit alcohol and closely monitor any bleeding for your thrombocytopenia. Should your symptoms return or worsen, you may present ER, call 911 for help. Follow-Up Care: Home Health - PT No Smoking: If you smoke, Please STOP! Call for help. Follow-up with: Daisy Diaz MD [Primary Care Provider] -
--- NOTE | 2018-09-20 12:55 | DISCHARGE SUMMARY ---
Discharge Summary Discharge Date: 09/20/18 Discharging Provider: ASH Primary Care Provider: Daisy Knutson Condition at Discharge: Poor Discharge Disposition: Home Health Service Discharge Facility Name: home - DIAGNOSES Admission Diagnoses: (1) Alcohol withdrawal (2) Atrial fibrillation with RVR (3) Leucocytosis (4) Hypothyroidism (5) Chronic back pain (6) Abnormal liver enzymes Discharge Diagnoses with Status of Each Condition: (1) Alcohol withdrawal resolved. pt's tremor is controlled. liver enzyme is normal. pt is advised to quit alcohol, pt state she will (2) Atrial fibrillation with RVR Conclusion/Plan: HR is controlled at around 70. pt has thrombocytopenia and CHADs is low as well. pt has no blood thinner in her home meds (3) Leucocytosis Conclusion/Plan: resolved (4) Hypothyroidism Conclusion/Plan: 09/19 normal TSH (5) Chronic back pain continue home pain meds control (6) Abnormal liver enzymes/alcoholic hepatic liver failure resolved (7) weakness pt present weakness. pt refused to go to SNF. Home Health PT is arranged for pt (8)thrombocytopenia pt's PLT is 37, increased. pt has no bleed at all. likely from her hepatic failure. pt is advised to quit alcohol. - HPI History of Present Illness: refer from Dr. Espana's HPI on 09/18/18 Patient seen on 09/17/2018 at 2300pm. Patient is a 72 y/o female with history of alcohol abuse who presents to the ED with complain of nausea, vomiting and shaking/ tremulous today. She was tachycardic in the ED. She last drank yesterday. At bedside she is currently very drowsy after receiving ativan. As a result she does not readily provide information and easily falls asleep. She denies chest pain, reports mild dyspnea. She denies fever or chills. As a result of her clinical symptoms, she is being admitted for further treatment - HOSPITAL COURSE Hospital Course: pt was admitted for alcohol withdrawal, afib with RVR, and weakness. pt's alcohol withdrawal is resolved, afib with RVR is resolved as well at HR70. pt was evaluated and treated by PT. pt refused to go to SNF, home health PT is arranged for pt. - ALLERGIES Allergies/Adverse Reactions: Allergies Allergy/AdvReac Type Severity Reaction Status Date / Time Penicillins Allergy Unknown Verified 09/17/18 17:46 Sulfa (Sulfonamide Allergy Unknown Verified 09/18/18 14:52 Antibiotics) codeine AdvReac Itching Verified 09/17/18 17:46 - MEDICATIONS Home Medications: Ambulatory Orders Medication Instructions Recorded Confirmed Zolpidem Tartrate [Ambien] 5 mg PO DAILY PRN 08/31/14 09/18/18 oxyCODONE/ACET 5/325 [Percocet 5 1 tab PO BID PRN 08/31/14 09/18/18 mg/325 mg] Cyanocobalamin (Vitamin B-12) 1,000 mcg PO DAILY 10/04/17 09/18/18 [Vitamin B-12] Digoxin [Lanoxin] 125 mcg PO DAILY 10/04/17 09/18/18 Gabapentin 600 mg PO QID 10/04/17 09/18/18 SUMAtriptan [Imitrex] 25 mg PO DAILY PRN MDD 200 mg 10/04/17 09/18/18 diphenhydrAMINE [Benadryl] 25 mg PO DAILY PRN 10/04/17 09/18/18 Metoprolol Succinate 25 mg PO BID 09/18/18 09/18/18 Vitamin [Trinatal Rx 1] 1 tab PO DAILYWM #10 tablet 09/20/18 Thiamine [Vitamin B-1] 100 mg PO DAILY #10 tablet 09/20/18 - PHYSICAL EXAM AT DISCHARGE General Appearance: positive: No acute distress, Alert. negative: Lethargic Eyes Bilateral: positive: Normal inspection, PERRL, No lid inflammation, Conjunctivae nml ENT: positive: ENT inspection nml, Pharynx nml, No signs of dehydration. negative: Purulent nasal drainage, Pharyngeal erythema, Oral lesions Neck: positive: Nml inspection, Thyroid nml, No JVD, Trachea midline. negative: Thyromegaly, Lymphadenopathy (R), Lymphadenopathy (L), Stiff neck, Swelling/bruising, Tracheal deviation Respiratory: positive: Chest non-tender, No respiratory distress, Breath sounds nml. negative: Wheezes, Rales, Rhonchi Cardiovascular: positive: Regular rate & rhythm, No murmur, No gallop. negative: Irregularly irregular, Extrasystoles, Tachycardia, Bradycardia, JVD present, Systolic murmur, Diastolic murmur Peripheral Pulses: positive: 2+ Abdomen: positive: Non-tender, No organomegaly, Nml bowel sounds, No distention. negative: Tenderness, Guarding, Rebound Back: positive: Nml inspection. negative: CVA tenderness (R), CVA tenderness (L) Skin: positive: Color nml, No rash, Warm, Dry. negative: Cyanosis, Diaphoresis, Pallor Extremities: positive: Non-tender, Full ROM, Nml appearance. negative: Calf tenderness, Joint swelling, Dinh's sign/cords Neurologic/Psychiatric: positive: Oriented x3, Motor nml, Sensation nml, Mood/affect nml. negative: Weakness, Sensory loss, Facial droop, Slurred/abnml speech - LABS Result Diagrams: 09/20/18 05:05 09/20/18 05:05 - SEPSIS Current Stage of Sepsis: Ruled out - FOLLOW UP Follow Up: you may followup your PCP in one week, quit alcohol and closely monitor any bleeding for your thrombocytopenia. Home health PT is arranged for you. Should your symptoms return or worsen, you may present ER, call 911 for help. - TIME SPENT Time Spent in Discharge (Minutes): 50
[2018-09-21] MEDS ORDERED: PANTOPRAZOLE 40 MG TABLET PO SCH (07:00)
== END 2018-09-20 15:35 | disposition home health service (06) | DRG 897 ==
LOC: ED 17:32 → MS2 20:51
PROVIDERS: ADMIT Internal Medicine; ATTEND Nurse Practitioner Gerontology
DX: F10.239 Alcohol dependence with withdrawal, unspecified (principal); K70.9 Alcoholic liver disease, unspecified; K70.40 Alcoholic hepatic failure without coma; I48.91 Unspecified atrial fibrillation; E03.9 Hypothyroidism, unspecified; G89.29 Other chronic pain; M54.9 Dorsalgia, unspecified; R53.1 Weakness; I10 Essential (primary) hypertension; Z79.899 Other long term (current) drug therapy; Z79.891 Long term (current) use of opiate analgesic; Z87.891 Personal history of nicotine dependence; Z86.59 Personal history of other mental and behavioral disorders; Z79.01 Long term (current) use of anticoagulants
CPT/HCPCS: 36415; 80053; 80162; 81001; 83690; 83735; 84100; 84443; 85025; 85610; 96365; 96375; 96376; 97116; 97161; 97530; 99284; 99285; A9270; J2060; J3411; J7040; 80320; 87086

== ENCOUNTER 2020-03-28 11:29 | Emergency (ER) | payer MEDICARE ==
[2020-03-28] MEDS ORDERED: KETOROLAC 30 MG/ML VIAL IM STA (12:26)
--- NOTE | 2020-03-28 13:10 | XRAY Report ---
PROCEDURE: Shoulder 2 View RT INDICATIONS: fall from standing, pain in proximal humerus TECHNIQUE: 2 views of the shoulder were acquired. COMPARISON: 03/27/2018. Correlation is also made with the accompanying chest radiograph 03/28/2020. FINDINGS: Bones: Plate and screw fixation is seen of the right humeral fracture. The humeral fracture is remod eling. No acute fractures or dislocations. No suspicious bony lesions. Visualized ribs appear intac t. Age-appropriate degenerative changes are seen. Soft tissues: No suspicious soft tissue calcifications. The visualized lung demonstrates a normal a ppearance. IMPRESSION: No acute fractures are seen. Remodeling humeral neck fracture, with plate and screw fixation. Reviewed by: Alexis Jain MD on 03/28/2020 12:08 PM [facility] Approved by: Alexis Jain MD on 03/28/2020 12:08 PM [facility] Station ID: [id number]
--- NOTE | 2020-03-28 13:11 | XRAY Report ---
PROCEDURE: Hip w/Pelvis 2-3V RT INDICATIONS: fall from standing TECHNIQUE: AP pelvis with lateral view(s) of the bilateral hip(s). COMPARISON: 08/31/2014 FINDINGS: Bones: No acute fractures or dislocations. Pelvic ring appears intact. No suspicious bony lesions. Right hip arthroplasty hardware is seen. No findings of hardware failure or hardware loosening can be seen. Soft tissues: The visualized bowel gas pattern is normal. No suspicious soft tissue calcifications. Atherosclerotic calcification is seen. Note is made of pelvic phleboliths. IMPRESSION: No acute fractures are detected. No acute bony abnormality is seen by plain film. If there is focal tenderness (or other strong clinical concern for a fracture that is not seen on thi s plain film study) then please consider a dedicated CT for further evaluation. Unremarkable right hip arthroplasty hardware is seen. Reviewed by: Alexis Jain MD on 03/28/2020 12:10 PM [facility] Approved by: Alexis Jain MD on 03/28/2020 12:10 PM [facility] Station ID: [id number]
--- NOTE | 2020-03-28 13:12 | XRAY Report ---
PROCEDURE: Chest 1 View X-Ray INDICATIONS: fall from standing TECHNIQUE: One view of the chest was acquired. COMPARISON: 10/04/2017, 07/07/2017. Correlation is also made with the accompanying right shoulder radi ographs, 03/28/2020 FINDINGS: Surgical changes and devices: There is partial visualization of right proximal humerus hardware. Lungs and pleura: On the supine study, no large pneumothorax or large pleural effusions can be seen. No focal infiltrates are detected. Mediastinum: Mediastinal contours appear normal. Heart size is normal. Bones and chest wall: No suspicious bony lesions. Age-appropriate degenerative changes are seen. Overlying soft tissues appear unremarkable. IMPRESSION: Limited portable chest examination, without an acute abnormality identified. Right proximal humerus hardware partially seen. Reviewed by: Alexis Jain MD on 03/28/2020 12:11 PM [facility] Approved by: Alexis Jain MD on 03/28/2020 12:11 PM [facility] Station ID: [id number]
[2020-03-28 13:42] VITALS: BP 117/57
--- NOTE | 2020-03-28 14:22 | ED Physician Documentation ---
History of Present Illness - Stated complaint Stated Complaint: SEVERE BACK,HIP,SHOULDER PX - Chief complaint Chief Complaint: Trauma Ch/Bk - History obtained from History obtained from: Patient - Additonal information Additional information: 74-year-old woman, not on anticoagulation, only a baby aspirin daily, with history of chronic osteoarthritis status post right shoulder and right hip surgery presents with ground-level fall last Monday after tripping on carpet. Patient states that she has pain in her hip and buttock nonradiating, aching, severe, worse with slow airway of. She also has pain in her right shoulder, worse with range of motion, nonradiating, aching, chronic but worsening after the fall.Normal sensation in all extremities and no focal weakness. Patient did not hit her head. Denies other injuries. Review of Systems Skin: denies: Lesions, Abrasion (s) Musculoskeletal: reports: Joint pain Neurologic: reports: Generalized weakness. denies: Head injury PD PAST MEDICAL HISTORY - Past Medical History Past Medical History: Yes Cardiovascular: Hypertension, Atrial fibrillation Respiratory: Shortness of breath Neuro: None Endocrine/Autoimmune: HyPOthyroidism GI: Chronic diarrhea EMERGENCY ROOM RN: None : Incontinence, Chronic bladder infection HEENT: None Psych: Depression, Anxiety, Panic attacks Musculoskeletal: Osteoarthritis, Chronic back pain Derm: Other - Past Surgical History Past Surgical History: Yes General: Appendectomy Ortho: Hip replacement, Shoulder arthroplasty, Other /EMERGENCY ROOM RN: Oophrectomy Derm: Skin cancer surgery - Present Medications Home Medications: Ambulatory Orders Medication Instructions Recorded Confirmed Zolpidem Tartrate [Ambien] 5 mg PO DAILY PRN 08/31/14 09/18/18 oxyCODONE/ACET 5/325 [Percocet 5 1 tab PO BID PRN 08/31/14 09/18/18 mg/325 mg] Cyanocobalamin (Vitamin B-12) 1,000 mcg PO DAILY 10/04/17 09/18/18 [Vitamin B-12] Digoxin [Lanoxin] 125 mcg PO DAILY 10/04/17 09/18/18 Gabapentin 600 mg PO QID 10/04/17 09/18/18 SUMAtriptan [Imitrex] 25 mg PO DAILY PRN MDD 200 mg 10/04/17 09/18/18 diphenhydrAMINE [Benadryl] 25 mg PO DAILY PRN 10/04/17 09/18/18 Metoprolol Succinate 25 mg PO BID 09/18/18 09/18/18 Vitamin [Trinatal Rx 1] 1 tab PO DAILYWM #10 tablet 09/20/18 Thiamine [Vitamin B-1] 100 mg PO DAILY #10 tablet 09/20/18 Cyclobenzaprine [Flexeril] 10 mg PO Q8H PRN #15 tablet 03/28/20 - Allergies Allergies/Adverse Reactions: Allergies Allergy/AdvReac Type Severity Reaction Status Date / Time adhesive tape Allergy Rash Verified 03/28/20 11:36 Penicillins Allergy Unknown Verified 03/28/20 11:36 Sulfa (Sulfonamide Allergy Unknown Verified 03/28/20 11:36 Antibiotics) codeine AdvReac Itching Verified 03/28/20 11:36 - Social History Does the pt smoke?: No Smoking Status: Never smoker Does the pt drink ETOH?: No Does the pt have substance abuse?: Yes - Immunizations Immunizations are current?: Yes - POLST Patient has POLST: No POLST Status: Full Code PD ED PE NORMAL - Vitals Vital signs reviewed: Yes - General General: Alert and oriented X 3 - HEENT HEENT: Atraumatic, PERRL, EOMI - Neck Neck: No bony TTP - Cardiac Cardiac: RRR, Other (Chest wall nontender) - Respiratory Respiratory: No respiratory distress, Clear bilaterally - Abdomen Abdomen: Non tender, Non distended - Female Female : Deferred - Rectal Rectal: Deferred - Back Back: No spinal TTP - Derm Derm: Normal color - Extremities Extremities: No deformity, Other (Right shoulder tender with range of motion. Right hip discomfort with range of motion. Right gluteal muscle and right lateral lumbosacral muscle tender to palpation Without overlying erythema, abrasion, or ecchymosis) - Neuro Neuro: Alert and oriented X 3, No motor deficit, No sensory deficit, Other (Normal sensation and movement in all extremities. 2+ radial and DP pulses all extremities) - Psych Psych: Normal mood, Normal affect Results - Vitals Vitals: Vital Signs - 24 hr 03/28/20 03/28/20 11:37 13:39 Temperature 36.2 C L 36.9 C Heart Rate 85 69 Respiratory 20 16 Rate Blood Pressure 119/75 117/57 L O2 Saturation 96 94 Oxygen O2 Source [With Activity] Room air O2 Source Room air PD MEDICAL DECISION MAKING - ED course ED course: 74-year-old woman presents status post mechanical fall. She has chronic pain associated with her right shoulder and right hip that is worse after falling. Education given about conservative measures to help with the healing process. Patient will follow up with her primary this week for physical therapy referral. Strict return precautions given Departure - Departure Disposition: 01 Home, Self Care Clinical Impression: Shoulder pain, Muscle strain, Hip pain, Fall from standing Condition: Good Instructions: ED Strain Muscle Ext Prescriptions: Cyclobenzaprine [Flexeril] 10 mg PO Q8H PRN #15 tablet PRN Reason: Pain Comments: You were seen in the emergency department for a fall. Your x-rays do not show any breaks in the bone. You should follow-up with your primary doctor this week. They may refer you to physical therapy. Return to the ED for any new or worsening symptoms. You can take cyclobenzaprine, a muscle relaxer for pain relief but remember that it induces drowsiness so you should not drive with it. Take 2 ibuprofen on a full stomach every 6 hours as needed for pain. stop use immediately if you experience any bleeding anywhere and follow up with your doctor. Discharge Date/Time: 03/28/20 13:50
== END 2020-03-28 13:50 | disposition home or self-care (01) ==
LOC: ED 11:29
DX: S76.011A Strain of muscle, fascia and tendon of right hip, initial encounter (principal); S46.911A Strain of unspecified muscle, fascia and tendon at shoulder and upper arm level, right arm, initial encounter; M54.5 Low back pain; W01.0XXA Fall on same level from slipping, tripping and stumbling without subsequent striking against object, initial encounter; M25.551 Pain in right hip; M25.511 Pain in right shoulder; G89.29 Other chronic pain; Z96.641 Presence of right artificial hip joint; I10 Essential (primary) hypertension; Z79.82 Long term (current) use of aspirin
CPT/HCPCS: 96372; 99284

== ENCOUNTER 2020-04-01 17:56 | Outpatient (CLI) | payer MEDICARE | END 2020-04-01 17:57 | disposition critical access hospital (66) | LOC: EMS 17:56 | PROVIDERS: ATTEND Surgery | DX: S99.911A Unspecified injury of right ankle, initial encounter (principal); W18.39XA Other fall on same level, initial encounter; Y93.89 Activity, other specified; Y92.002 Bathroom of unspecified non-institutional (private) residence as the place of occurrence of the external cause | CPT/HCPCS: A0425; A0427 ==

== ENCOUNTER 2020-04-07 13:13 | Outpatient (CLI) | payer MEDICARE | END 2020-04-07 13:14 | disposition other institution (70) | LOC: EMS 13:13 | PROVIDERS: ATTEND Surgery | DX: S82.891D Other fracture of right lower leg, subsequent encounter for closed fracture with routine healing (principal); S82.851D Displaced trimalleolar fracture of right lower leg, subsequent encounter for closed fracture with routine healing; W19.XXXD Unspecified fall, subsequent encounter; Z74.01 Bed confinement status | CPT/HCPCS: A0425; A0428 ==

== ENCOUNTER 2020-05-15 18:32 | Outpatient (CLI) | payer MEDICARE | END 2020-05-15 18:33 | disposition critical access hospital (66) | LOC: EMS 18:32 | PROVIDERS: ATTEND Emergency Medicine | DX: S49.91XA Unspecified injury of right shoulder and upper arm, initial encounter (principal); W01.0XXA Fall on same level from slipping, tripping and stumbling without subsequent striking against object, initial encounter; Y93.E9 Activity, other interior property and clothing maintenance; Y92.002 Bathroom of unspecified non-institutional (private) residence as the place of occurrence of the external cause | CPT/HCPCS: A0425; A0427 ==

== ENCOUNTER 2020-05-15 19:04 | Inpatient (IN) | payer MEDICARE ==
[2020-05-15] MEDS ORDERED: diltiaZEM INJ 5 MG/ML VIAL IVP STA ×3 (19:14→20:12)
--- NOTE | 2020-05-15 19:16 | ED Physician Documentation ---
PD HPI UPPER EXT INJURY - Stated complaint Stated Complaint: GLF, RT HUMERUS/ELBOW/FOOT PAIN - History obtained from History obtained from: Patient, EMS - Additonal information Additional information: 74-year-old woman with history of atrial fibrillation, had a ankle fracture about a month and a half ago. She was operatively fixated and subsequently sent to a SNF which she did not like. She is back home now. Mid afternoon today she fell and hit her arm and has severe arm pain. No other clear injuries. She is noted to be in A. fib with RVR. She is not anticoagulated, it is not clear from her why. She states her only medication that she is taking for is digoxin. Review of the chart shows she also has problems with alcohol abuse. She received [address] of f[address]anyl on the way here and declines further pain medication at this juncture. 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: None : Incontinence, Chronic bladder infection HEENT: None Psych: Depression, Anxiety, Panic attacks Musculoskeletal: Osteoarthritis, Chronic back pain Derm: Other - Past Surgical History Past Surgical History: Yes General: Appendectomy Ortho: Hip replacement, Shoulder arthroplasty, Other /PROCESS CONTROLS TECHNICIAN: Oophrectomy Derm: Skin cancer surgery - Present Medications Home Medications: Ambulatory Orders Medication Instructions Recorded Confirmed Zolpidem Tartrate [Ambien] 5 mg PO DAILY PRN 08/31/14 04/02/20 Digoxin [Lanoxin] 125 mcg PO DAILY 10/04/17 04/02/20 Gabapentin 600 mg PO QID 10/04/17 04/02/20 SUMAtriptan [Imitrex] 25 mg PO DAILY PRN MDD 200 mg 10/04/17 04/02/20 Metoprolol Succinate 25 mg PO BID 09/18/18 04/02/20 Vitamin [Trinatal Rx 1] 1 tab PO DAILYWM #10 tablet 09/20/18 04/02/20 Cyclobenzaprine [Flexeril] 10 mg PO Q8H PRN #15 tablet 03/28/20 04/02/20 Duloxetine HCl [Cymbalta] 60 mg PO DAILY 04/02/20 04/02/20 Furosemide [Lasix] 20 mg PO DAILY 04/02/20 04/02/20 Meloxicam [Mobic] 7.5 mg PO DAILY PRN 04/02/20 04/02/20 Ondansetron Odt [Zofran Odt] 4 mg PO PRN PRN 04/02/20 04/02/20 Apixaban [Eliquis] 5 mg PO BID #30 tablet 04/07/20 Azithromycin [Zithromax] 250 mg PO DAILY #3 tablet 04/07/20 HYDROmorphone [Dilaudid] 2 mg PO Q6HR PRN #15 tablet 04/07/20 Saccharomyces Boulardii [Florastor] 250 mg PO BIDWM #10 capsule 04/07/20 Thiamine [Vitamin B-1] 100 mg PO DAILY #30 tablet 04/07/20 cefUROXime axetiL [Ceftin] 500 mg PO BID #20 tablet 04/07/20 - Allergies Allergies/Adverse Reactions: Allergies Allergy/AdvReac Type Severity Reaction Status Date / Time adhesive tape Allergy Rash Verified 04/02/20 07:53 Penicillins Allergy Unknown Verified 04/02/20 07:53 Sulfa (Sulfonamide Allergy Unknown Verified 04/02/20 07:53 Antibiotics) codeine AdvReac Itching Verified 04/02/20 07:53 - Social History Does the pt smoke?: No Smoking Status: Never smoker Does the pt drink ETOH?: No Does the pt have substance abuse?: Yes - Immunizations Immunizations are current?: Yes - POLST Patient has POLST: No POLST Status: Full Code PD ED PE NORMAL - Vitals Vital signs reviewed: Yes - General General: Alert and oriented X 3, No acute distress - HEENT HEENT: PERRL, EOMI - Neck Neck: Supple, no meningeal sign, No bony TTP - Cardiac Cardiac: Other (Rapid and irregular without murmur) - Respiratory Respiratory: No respiratory distress, Clear bilaterally - Abdomen Abdomen: Non tender - Back Back: No CVA TTP, No spinal TTP - Derm Derm: Normal color, Warm and dry - Extremities Extremities: Other (There is significant swelling on the medial side of the right supracondylar area with tenderness. Bony tenderness of the elbow seems absent in the upper humerus is nontender. She has normal radial pulses on that side as well as sensation throughout the hand.) - Neuro Neuro: Alert and oriented X 3, Normal speech Results - Vitals Vitals: Vital Signs - 24 hr 05/15/20 05/15/20 05/15/20 19:05 19:52 20:01 Temperature 36.0 C L Heart Rate 140 H 117 H Respiratory 18 14 Rate Blood Pressure 118/95 H 115/68 116/67 O2 Saturation 98 97 Oxygen O2 Source [With Activity] Room air O2 Source Room air - EKG (time done) 1916 Rate: Rate (enter#) (125) Rhythm: Atrial flutter [place]: Normal QRS: Normal, Low voltage Ischemia: Non specific changes - Labs Labs: Laboratory Tests 05/15/20 05/15/20 05/15/20 19:30 19:30 19:30 WBC 8.8 RBC 4.50 Hgb 15.1 Hct 45.1 MCV 100.2 H MCH 33.6 H MCHC 33.5 RDW 12.3 Plt Count 173 MPV 11.3 H Neut # (Auto) 5.1 Lymph # (Auto) 2.5 [place] # (Auto) 1.0 Eos # (Auto) 0.1 Baso # (Auto) 0.1 Absolute Nucleated RBC 0.00 Nucleated RBC % 0.0 PT 14.9 H INR 1.4 H Sodium 139 Potassium 2.8 L Chloride 102 Carbon Dioxide 23 Anion Gap 14.0 H BUN 8 Creatinine 0.8 Estimated GFR (MDRD) 71 L Glucose 129 H Calcium 9.5 Magnesium 1.4 L Total Bilirubin 1.6 H AST 44 H ALT 29 Alkaline Phosphatase 123 H Total Protein 7.7 Albumin 3.7 Globulin 4.0 Albumin/Globulin Ratio 0.9 L Nasal Adenovirus (PCR) Nasal B. parapertussis DNA (PCR) Nasal Coronavir 229E PCR Nasal Coronavir HKU1 PCR Nasal Coronavir NL63 PCR Nasal Coronavir OC43 PCR Nasal Enterovir/Rhinovir PCR Nasal Influenza B PCR Nasal Influenza A PCR Nasal Parainfluen 1 PCR Nasal Parainfluen 2 PCR Nasal Parainfluen 3 PCR Nasal Parainfluen 4 PCR Nasal RSV (PCR) Nasal B.pertussis DNA PCR Nasal C.pneumoniae (PCR) [place] Human Metapneumo PCR Nasal M.pneumoniae (PCR) Nasal SARS-CoV-2 (PCR) Last Dose Date Not Reportable Last Dose Time Not Reportable Digoxin 0.3 Ethyl Alcohol < 5.0 05/15/20 19:30 WBC RBC Hgb Hct MCV MCH MCHC RDW Plt Count MPV Neut # (Auto) Lymph # (Auto) [place] # (Auto) Eos # (Auto) Baso # (Auto) Absolute Nucleated RBC Nucleated RBC % PT INR Sodium Potassium Chloride Carbon Dioxide Anion Gap BUN Creatinine Estimated GFR (MDRD) Glucose Calcium Magnesium Total Bilirubin AST ALT Alkaline Phosphatase Total Protein Albumin Globulin Albumin/Globulin Ratio Nasal Adenovirus (PCR) NOT DETECTED Nasal B. parapertussis DNA (PCR) NOT DETECTED Nasal Coronavir 229E PCR NOT DETECTED Nasal Coronavir HKU1 PCR NOT DETECTED Nasal Coronavir NL63 PCR NOT DETECTED Nasal Coronavir OC43 PCR NOT DETECTED Nasal Enterovir/Rhinovir PCR NOT DETECTED Nasal Influenza B PCR NOT DETECTED Nasal Influenza A PCR NOT DETECTED Nasal Parainfluen 1 PCR NOT DETECTED Nasal Parainfluen 2 PCR NOT DETECTED Nasal Parainfluen 3 PCR NOT DETECTED Nasal Parainfluen 4 PCR NOT DETECTED Nasal RSV (PCR) NOT DETECTED Nasal B.pertussis DNA PCR NOT DETECTED Nasal C.pneumoniae (PCR) NOT DETECTED [place] Human Metapneumo PCR NOT DETECTED Nasal M.pneumoniae (PCR) NOT DETECTED Nasal SARS-CoV-2 (PCR) NOT DETECTED Last Dose Date Last Dose Time Digoxin Ethyl Alcohol PD MEDICAL DECISION MAKING - ED course ED course: 74-year-old woman presents with what looks like a soft tissue injury to the medial right humerus with a lot of swelling. She has distal pulses. Given the vascular area of the injury though I asked the nurse to do bilateral forearm blood pressures for comparison. She is also in A. fib with RVR and was given divided doses of diltiazem. I am unable to find out from her why she is not anticoagulated. Potentially high falls risk from alcoholism? X-rays of the elbow and humerus interpreted contemporaneously by me are negative for fracture. She does have a large hematoma and compartment syndrome was considered, but passive range of motion is normal, and we did blood pressures in both forearms and she was actually 15 points higher in the right, affected side. Her heart rate improved to about 120 after a second dose of diltiazem and spoke with Dr. Espana for admission at 8:14 PM. Departure - Departure Disposition: 66 [facility] DC/Xfer Clinical Impression: Atrial fibrillation with RVR, Hypokalemia, Hypomagnesemia Arm contusion Qualifiers: Encounter type: initial encounter Laterality: right Qualified Code(s): S40.021A - Contusion of right upper arm, initial encounter Fall Qualifiers: Encounter type: initial encounter Qualified Code(s): W19.XXXA - Unspecified fall, initial encounter Condition: Serious
[2020-05-15 19:35] LABS: BASOPHILS # (AUTO) 0.1 10^3/uL (0.0-0.1); BASOPHILS % (AUTO) 0.7 %; EOSINOPHILS # (AUTO) 0.1 10^3/uL (0.0-0.7); HCT - HEMATOCRIT 45.1 % (37.0-47.0); HGB - HEMOGLOBIN 15.1 g/dL (12.0-16.0); LYMPHOCYTES # (AUTO) 2.5 10^3/uL (1.5-3.5); LYMPHOCYTES % (AUTO) 28.4 %; MEAN CORPUSCULAR HEMOGLOBIN 33.6 pg (27.0-31.0); MEAN CORPUSCULAR HGB CONC 33.5 g/dL (32.0-36.0); MEAN CORPUSCULAR VOLUME 100.2 fL (81.0-99.0); MEAN PLATELET VOLUME 11.3 fL (7.9-10.8); MONOCYTES % (AUTO) 11.5 %; NEUTROPHILS # (AUTO) 5.1 10^3/uL (1.5-6.6); NEUTROPHILS % (AUTO) 58.1 %; PLT - PLATELET COUNT 173 10^3/uL (130-450); RED CELL DISTRIBUTION WIDTH 12.3 % (12.0-15.0); WHITE BLOOD COUNT 8.8 x10^3/uL (4.8-10.8)
[2020-05-15 19:50] LABS: INR 1.4 (0.8-1.2); PT - PROTHROMBIN TIME 14.9 secs (9.9-12.6)
[2020-05-15 19:51] LABS: ALBUMIN 3.7 g/dL (3.2-5.5); ALBUMIN/GLOBULIN RATIO 0.9 (1.0-2.2); ALKALINE PHOSPHATASE 123 IU/L (42-121); ALT ALANINE AMINOTRANSFERASE 29 IU/L (10-60); AST ASPARTATE AMINOTRANSFERASE 44 IU/L (10-42); BILIRUBIN,TOTAL 1.6 mg/dL (0.2-1.0); BUN - BLOOD UREA NITROGEN 8 mg/dL (6-20); CALCIUM 9.5 mg/dL (8.5-10.3); CARBON DIOXIDE - CO2 23 mmol/L (21-32); CHLORIDE 102 mmol/L (101-111); CREATININE 0.8 mg/dL (0.4-1.0); DIGOXIN 0.3 ng/mL; ETOH - ETHANOL < 5.0 mg/dL; GFR - MDRD 71 (>89); GLUCOSE 129 mg/dL (70-100); MAGNESIUM 1.4 mg/dL (1.7-2.8); POTASSIUM 2.8 mmol/L (3.5-5.0); SODIUM 139 mmol/L (135-145); TOTAL PROTEIN 7.7 g/dL (6.7-8.2)
--- NOTE | 2020-05-15 20:00 | XRAY Report ---
PROCEDURE: Chest 1 View X-Ray INDICATIONS: Atrial fibrillation TECHNIQUE: One view of the chest was acquired. COMPARISON: 04/02/2020 FINDINGS: Surgical changes and devices: Right humerus ORIF hardware partially visualized. Lungs and pleura: No pleural effusions or pneumothorax. Lungs are clear. Mediastinum: Mediastinal contours appear normal. Heart size is normal. Bones and chest wall: No suspicious bony lesions. Overlying soft tissues appear unremarkable. IMPRESSION: No acute cardiopulmonary process demonstrated radiographically. Reviewed by: Arcadio Gautam MD on 05/15/2020 7:59 PM PST Approved by: Arcadio Gautam MD on 05/15/2020 7:59 PM PST Station ID: [id number]
--- NOTE | 2020-05-15 20:01 | XRAY Report ---
PROCEDURE: Elbow 3 View RT INDICATIONS: Arm injury TECHNIQUE: 3 views of the elbow were acquired. COMPARISON: None FINDINGS: Bones: No definite evidence of acute fractures or dislocations. No suspicious bony lesions. Soft tissues: No elbow joint effusion. No suspicious soft tissue calcifications. IMPRESSION: No acute finding. Reviewed by: Arcadio Gautam MD on 05/15/2020 8:00 PM [facility] Approved by: Arcadio Gautam MD on 05/15/2020 8:00 PM [facility] Station ID: [id number]
--- NOTE | 2020-05-15 20:01 | XRAY Report ---
PROCEDURE: Humerus RT INDICATIONS: Arm injury TECHNIQUE: 2 views of the humerus were acquired. COMPARISON: 03/28/2020 FINDINGS: Right humerus ORIF hardware is present, obscuring much of the proximal ureters. No evidence of fractu re. Elevation of the humeral head with respect to the glenoid suggests chronic rotator cuff tear. IMPRESSION: No acute finding. Reviewed by: Arcadio Gautam MD on 05/15/2020 7:59 PM PST Approved by: Arcadio Gautam MD on 05/15/2020 7:59 PM PST Station ID: [id number]
[2020-05-15] MEDS ORDERED: POTASSIUM CHLOR 10 MEQ/100 ML 10 MEQ/100 ML BAG IV STA (20:03)
[2020-05-15] MEDS ORDERED: POTASSIUM CHLORIDE 20 MEQ TABLET PO STA (20:03)
[2020-05-15] MEDS ORDERED: MAGNESIUM OXIDE 400 MG TABLET PO STA (20:03)
[2020-05-15] MEDS ORDERED: HYDROmorphone 1 MG/ML CARPUJECT IVP STA (20:11)
[2020-05-15] MEDS ORDERED: diltiaZEM INJ 5 MG/ML VIAL IVP PRN (20:17)
--- NOTE | 2020-05-15 20:20 | HISTORY & PHYSICAL EXAMINATION ---
Chief Complaint - Chief Complaint Chief Complaint: right arm pain, afib w/ rvr History of Present Illness - Admitted From Admitted From:: [facility] ED - History Obtained From Records Reviewed: yes History obtained from: patient - History of Present Illness HPI Comment/Other: Patient is 74-year-old female with medical history significant for atrial fibrillation, hypertension, hypothyroidism, alcohol abuse, GERD who presented to the ED after a mechanical fall. She was admitted to the hospital April 02, 2020 for a right ankle fracture and discharged to [facility] for rehab on April 07, 2020. It appears she checked herself out of [facility] because she was not happy with the care there. She has been home for a few weeks now. She has mostly been getting around using a wheelchair. Today she wheeled herself to the bathroom and when she bent to reach some towels under the sink she lost her yacht hand of the sink which she was using for support and fell on her right side. Upon presentation she complains of right elbow, right hip and right ankle pain. Work-up in the ED included x-rays of the arm which was negative for fractures. The patient has a significant hematoma on the medial aspect of the arm just superior to the right elbow. However she has good radial pulses. She is not experiencing any tingling or numbness in the right arm. She denied hitting her head or blacking out. She was also noted to be in atrial fibrillation with rapid ventricular rhythm with a heart rate as high as 150. At her last admission the patient was on Eliquis, metoprolol and digoxin. However she says she has not been taking any anticoagulant. Was given diltiazem 10 mg IV twice in the ED. Her heart rate improved from 150s to 120s. She was also noted to have a potassium of 2.8 and a magnesium level of 1.4. As a result of the above she was presented for admission for further treatment. At bedside she denies chest pain, dyspnea, abdominal pain, nausea, vomiting, fever or chills. History - Past Medical History Cardiovascular: reports: Hypertension, Atrial fibrillation Respiratory: reports: Shortness of breath Neuro: reports: None Endocrine/Autoimmune: reports: HyPOthyroidism GI: reports: Chronic diarrhea GARMENT LINER: reports: None : reports: Incontinence, Chronic bladder infection HEENT: reports: None Psych: reports: Depression, Anxiety, Panic attacks Musculoskeletal: reports: Osteoarthritis, Chronic back pain Derm: reports: Other MRSA Hx?: No - Past Surgical History General: reports: Appendectomy Ortho: reports: Hip replacement, Shoulder arthroplasty, Other /GARMENT LINER: reports: Oophrectomy Derm: reports: Skin cancer surgery - Family & Social History Family History: Mother: , Father: Family History Comment/Other: Father: from cancer in his 80's. mother: mother had non-hodgkins lymphoma. Has 7 siblings. History of heart conditions in her family Living arrangement: At home Living Situation: With family Social History Notes: Has been 3 times. Has 2 biological children and 2 children of her third that live nearby. Smoked 3ppd for 20 years quit 21 years ago. Drinks vodka and lola papito. approximately 2 drinks every afternoon. Denies recretional substances/drugs - POLST Patient has POLST: No POLST Status: Full Code Meds/Allgy - Home Medications Home Medications: Ambulatory Orders Medication Instructions Recorded Confirmed Zolpidem Tartrate [Ambien] 5 mg PO DAILY PRN 08/31/14 04/02/20 Digoxin [Lanoxin] 125 mcg PO DAILY 10/04/17 04/02/20 Gabapentin 600 mg PO QID 10/04/17 04/02/20 SUMAtriptan [Imitrex] 25 mg PO DAILY PRN MDD 200 mg 10/04/17 04/02/20 Metoprolol Succinate 25 mg PO BID 09/18/18 04/02/20 Vitamin [Trinatal Rx 1] 1 tab PO DAILYWM #10 tablet 09/20/18 04/02/20 Cyclobenzaprine [Flexeril] 10 mg PO Q8H PRN #15 tablet 03/28/20 04/02/20 Duloxetine HCl [Cymbalta] 60 mg PO DAILY 04/02/20 04/02/20 Furosemide [Lasix] 20 mg PO DAILY 04/02/20 04/02/20 Meloxicam [Mobic] 7.5 mg PO DAILY PRN 04/02/20 04/02/20 Ondansetron Odt [Zofran Odt] 4 mg PO PRN PRN 04/02/20 04/02/20 Apixaban [Eliquis] 5 mg PO BID #30 tablet 04/07/20 Azithromycin [Zithromax] 250 mg PO DAILY #3 tablet 04/07/20 HYDROmorphone [Dilaudid] 2 mg PO Q6HR PRN #15 tablet 04/07/20 Saccharomyces Boulardii [Florastor] 250 mg PO BIDWM #10 capsule 04/07/20 Thiamine [Vitamin B-1] 100 mg PO DAILY #30 tablet 04/07/20 cefUROXime axetiL [Ceftin] 500 mg PO BID #20 tablet 04/07/20 - Allergies Allergies/Adverse Reactions: Allergies Allergy/AdvReac Type Severity Reaction Status Date / Time adhesive tape Allergy Rash Verified 04/02/20 07:53 Penicillins Allergy Unknown Verified 04/02/20 07:53 Sulfa (Sulfonamide Allergy Unknown Verified 04/02/20 07:53 Antibiotics) codeine AdvReac Itching Verified 04/02/20 07:53 Review of Systems - Constitutional Constitutional: denies: Fatigue, Fever, Chills - Eyes Eyes: denies: Pain, Dipolpia - Ears, Nose & Throat Ears, Nose & Throat: denies: Ear pain, Sore throat - Cardiovascular Cariovascular: reports: Irregular heart rate. denies: Palpitations, Chest pain, Edema, Lightheadedness, Syncope, Exertional dyspnea, Decr. exercise tolerance - Respiratory Respiratory: denies: Cough, Sputum production, Wheezing, SOB at rest, SOB with exertion - Gastrointestinal Gastrointestinal: denies: Abdominal pain, Abdominal distention, Constipation, Diarrhea, Nausea, Vomiting, Coffee grounds emesis, Reflux/heartburn - Genitourinary Genitourinary: denies: Dysuria, Frequency, Urgency, Hematuria, Incontinence - Musculoskeletal Musculoskeletal: reports: Joint pain (Right shoulder, elbow, hip, knee and ankle pain). denies: Muscle pain, Back pain, Muscle aches - Integumentary Integumentary: denies: Rash, Pruritis, Lesions - Neurological Neurological: reports: General weakness. denies: Focal weakness, Headache, Dizziness - Psychiatric Psychiatric: denies: Depression, Anxiety - Endocrine Endocrine: denies: Polyuria, Polydypsia - Hematologic/Lymphatic Hematologic/Lymphatic: denies: Anemia, Bruising Prior Level of Functionality: She has mostly been wheelchair-bound due to her right ankle fracture. She lives with her son who helps her with some activities of daily living however he is currently out of town. Exam - Vital Signs Vital Signs: Vital Signs x48h Temp Pulse Resp BP Pulse Ox 05/15/20 20:01 117 H 14 116/67 97 05/15/20 19:52 115/68 05/15/20 19:05 36.0 C L 140 H 18 118/95 H 98 - Physical Exam General Appearance: positive: Alert, Moderate distress, Severe distress Eyes Bilateral: positive: PERRL, EOMI ENT: positive: No signs of dehydration Neck: positive: No JVD, Trachea midline Respiratory: positive: Chest non-tender, No respiratory distress, Breath sounds nml. negative: Wheezes, Rales, Rhonchi Cardiovascular: positive: No murmur, Irregularly irregular, Tachycardia Abdomen: positive: Non-tender, No organomegaly, Nml bowel sounds, No distention. negative: Guarding, Rebound Back: positive: Nml inspection Skin: positive: Color nml, No rash, Other (hematoma superior to right elbow) Extremities: positive: Other (tenderness in right forearm hematoma superior to right elbow right ankle pain. steri strips in place from recent fracture) Neurologic/Psychiatric: positive: Oriented x3, Mood/affect nml Conclusion/Plan - Problem List (1) Atrial fibrillation with RVR Conclusion/Plan: Patient has history of atrial fibrillation. She used to be on Eliquis but appears not to be on any anticoagulant currently. Reason is unclear however suspect a significant fall risk due to patient's history of alcohol abuse. Patient was given two doses of diltiazem 10 mg IV pushes in the ED. Diltiazem 5 mg IV every 4 hours as needed for heart rate greater than 130 has been ordered. Metoprolol succinate 25 mg p.o. twice daily. Digoxin 125 mcg p.o. daily. (2) Arm contusion Conclusion/Plan: Due to mechanical fall. X-ray of the arm shows no fracture. Patient has a significant hematoma just superior to the right elbow. There is no tingling or numbness of the arm, the color and radial pulses are intact. We will manage pain as needed with Tylenol and/or Dilaudid. Qualifiers: Encounter type: initial encounter Laterality: right Qualified Code(s): S40.021A - Contusion of right upper arm, initial encounter (3) Hypokalemia Conclusion/Plan: Likely due to lasix Patient was given potassium chloride p.o. 10 mEq in the ED. She also received potassium chloride IV 10 mEq in the ED. Potassium chloride 40 mEq has been ordered to run over 4 hours. (4) Hypomagnesemia Conclusion/Plan: Magnesium sulfate 2 g IV x1 ordered. Patient was also given oral magnesium 800 mg x 1. We will check magnesium in the morning. (5) Alcohol abuse Conclusion/Plan: [place] protocol ordered. Librium 25 mg p.o. every 8 hours scheduled ordered. Thiamine and multivitamins ordered. (6) Depression Conclusion/Plan: On duloxetine 60 mg p.o. daily. (7) HTN (hypertension) Conclusion/Plan: On metoprolol succinate 25 mg p.o. twice daily (8) Hypothyroidism Conclusion/Plan: Patient appears to not be on any medication. We will check TSH. (9) Right hip pain Conclusion/Plan: X-ray of the hip and pelvis for the morning. Pain management as needed. - Lab Results Fish Bones: 05/16/20 05:16 05/16/20 05:16 Core Measures - Anticipated LOS I expect patient to be DC'd or transferred within 96 hours.: Yes - DVT/VTE - Prophylaxis VTE/DVT Device ordered at admit?: Yes VTE/DVT Prophylaxis med ordered at admit?: Yes
[2020-05-15 20:32] LABS: B. PARAPERTUSSIS- RESP PCR PAN NOT DETECTED; B. PERTUSSIS- RESP PCR PANEL NOT DETECTED; C. PNEUMONIAE- RESP PCR PANEL NOT DETECTED; CORONAVIRUS 229E-RESP PCR NOT DETECTED; CORONAVIRUS HKU1-RESP PCR NOT DETECTED; CORONAVIRUS NL63-RESP PCR NOT DETECTED; CORONAVIRUS OC43-RESP PCR NOT DETECTED; HUMAN METAPNEUMOVIRUS NOT DETECTED; INFLUENZA A- RESP PCR PANEL NOT DETECTED; INFLUENZA B - RESP PCR PANEL NOT DETECTED; M. PNEUMONIAE- RESP PCR PANEL NOT DETECTED; PARAINFLUENZA VIRUS 1 NOT DETECTED; PARAINFLUENZA VIRUS 2 NOT DETECTED; PARAINFLUENZA VIRUS 3 NOT DETECTED; PARAINFLUENZA VIRUS 4 NOT DETECTED; RHINOVIRUS/ENTEROVIRUS NOT DETECTED; RSV- RESP PCR PANEL NOT DETECTED; SARS-CoV-2 -RESP PCR PANEL NOT DETECTED
[2020-05-15] MEDS ORDERED: diltiaZEM 30 MG TABLET PO SCH (20:50)
[2020-05-15] MEDS ORDERED: MAGNESIUM SULFATE 2 GRAM 2 GM/50 ML BAG IV ONE (20:59)
[2020-05-15] MEDS ORDERED: LORazepam 2 MG/ML VIAL IVP PRN (21:15)
[2020-05-15 21:40] LABS: BASOPHILS # (AUTO) 0.1 10^3/uL (0.0-0.1); BASOPHILS % (AUTO) 0.7 %; EOSINOPHILS # (AUTO) 0.1 10^3/uL (0.0-0.7); EOSINOPHILS % (AUTO) 0.5 %; HCT - HEMATOCRIT 45.8 % (37.0-47.0); HGB - HEMOGLOBIN 14.9 g/dL (12.0-16.0); LYMPHOCYTES # (AUTO) 2.6 10^3/uL (1.5-3.5); LYMPHOCYTES % (AUTO) 21.4 %; MEAN CORPUSCULAR HGB CONC 32.5 g/dL (32.0-36.0); MEAN CORPUSCULAR VOLUME 101.6 fL (81.0-99.0); MEAN PLATELET VOLUME 11.4 fL (7.9-10.8); MONOCYTES # (AUTO) 1.3 10^3/uL (0.0-1.0); MONOCYTES % (AUTO) 10.9 %; NEUTROPHILS # (AUTO) 8.1 10^3/uL (1.5-6.6); NEUTROPHILS % (AUTO) 66.3 %; PLT - PLATELET COUNT 222 10^3/uL (130-450); RED BLOOD COUNT 4.51 10^6/uL (4.20-5.40); RED CELL DISTRIBUTION WIDTH 12.4 % (12.0-15.0); WHITE BLOOD COUNT 12.2 x10^3/uL (4.8-10.8)
[2020-05-15] MEDS: HYDROmorphone 1 MG/ML CARPUJECT IVP PRN (22:20)
[2020-05-15] MEDS: SODIUM CHLORIDE FLUSH 0.9% 10 ML SYRINGE IVP PRN (22:21)
[2020-05-15] MEDS: chlordiazePOXIDE 25 MG CAPSULE PO SCH (22:21)
[2020-05-15] MEDS: POTASSIUM CHLOR 10 MEQ/100 ML 10 MEQ/100 ML BAG IV SCH (23:07)
[2020-05-15] MEDS: traZODone 50 MG TABLET PO SCH (23:37)
[2020-05-15] MEDS: SODIUM CHLORIDE FLUSH 0.9% 10 ML SYRINGE IVP SCH (23:37)
[2020-05-15] MEDS: METOPROLOL SUCCINATE 25 MG TABLET PO SCH (23:37)
[2020-05-16] MEDS: oxyCODONE 5 MG TABLET PO PRN ×2 (00:55→05:12)
[2020-05-16] MEDS: POTASSIUM CHLOR 10 MEQ/100 ML 10 MEQ/100 ML BAG IV SCH ×3 (01:14→05:40)
[2020-05-16 05:23] LABS: BASOPHILS # (AUTO) 0.1 10^3/uL (0.0-0.1); BASOPHILS % (AUTO) 0.5 %; EOSINOPHILS % (AUTO) 0.4 %; HCT - HEMATOCRIT 46.9 % (37.0-47.0); HGB - HEMOGLOBIN 15.2 g/dL (12.0-16.0); LYMPHOCYTES % (AUTO) 29.6 %; MEAN CORPUSCULAR HGB CONC 32.4 g/dL (32.0-36.0); MEAN PLATELET VOLUME 11.3 fL (7.9-10.8); MONOCYTES # (AUTO) 1.3 10^3/uL (0.0-1.0); MONOCYTES % (AUTO) 12.7 %; NEUTROPHILS # (AUTO) 5.8 10^3/uL (1.5-6.6); NEUTROPHILS % (AUTO) 56.2 %; PLT - PLATELET COUNT 177 10^3/uL (130-450); RED CELL DISTRIBUTION WIDTH 12.6 % (12.0-15.0); WHITE BLOOD COUNT 10.3 x10^3/uL (4.8-10.8)
[2020-05-16 05:33] LABS: CALCIUM 9.3 mg/dL (8.5-10.3); CREATININE 1.4 mg/dL (0.4-1.0); MAGNESIUM 2.4 mg/dL (1.7-2.8); PHOSPHORUS 5.2 mg/dL (2.5-4.6); POTASSIUM 4.2 mmol/L (3.5-5.0)
[2020-05-16] MEDS: chlordiazePOXIDE 25 MG CAPSULE PO SCH ×3 (05:59→21:09)
[2020-05-16] MEDS: HYDROmorphone 1 MG/ML CARPUJECT IVP PRN ×2 (06:11→11:18)
[2020-05-16] MEDS: ONDANSETRON 4 MG/2 ML VIAL IVP PRN ×2 (06:48→13:41)
[2020-05-16] MEDS: SODIUM CHLORIDE 0.9% 1,000 ML IV SCH ×2 (06:48→21:10)
[2020-05-16] MEDS ORDERED: diphenhydrAMINE 25 MG CAPSULE PO PRN (08:28)
[2020-05-16] MEDS: THIAMINE 100 MG TABLET PO SCH (08:58)
[2020-05-16] MEDS: PRENATAL VITAMIN TABLET PO SCH (08:59)
[2020-05-16] MEDS: DIGOXIN 125 MCG TABLET PO SCH (09:05)
--- NOTE | 2020-05-16 09:05 | PROVIDER PROGRESS NOTE ---
Subjective - Prog Note Date Prog Note Date: 05/16/20 Prog Note Time: 09:09 - Subjective Subjective: she feels unsteady and weak from the shock of falling down. She also get itchy from the meds we give her so she wants some benadryl. She would also like some zofran after breakfast since she gets queasy. The oatmeal is too cold so she asked me to heat it up. Current Medications - Current Medications Current Medications: Active Medications Acetaminophen (Acetaminophen 325 Mg Tablet) 650 mg PO Q4HR PRN PRN Reason: Pain 1 to 4 Chlordiazepoxide HCl (Chlordiazepoxide 25 Mg Capsule) 25 mg PO Q8H [facility] Last Admin: 05/16/20 05:59 Dose: 25 mg Documented by: Digoxin (Digoxin 125 Mcg Tablet) 125 mcg PO DAILY [facility] Last Admin: 05/16/20 09:05 Dose: 125 mcg Documented by: Diltiazem HCl (Diltiazem Inj 5 Mg/Ml Vial) 5 mg IVP Q4H PRN PRN Reason: PER PHYSICIAN ORDER Diphenhydramine HCl (Diphenhydramine 25 Mg Capsule) 25 mg PO Q4HR PRN PRN Reason: Allergy Symptoms Last Admin: 05/16/20 09:05 Dose: 25 mg Documented by: Hydromorphone HCl (Hydromorphone 1 Mg/Ml Carpuject) 1 mg IVP Q3HR PRN PRN Reason: PAIN Last Admin: 05/16/20 06:11 Dose: 1 mg Documented by: Sodium Chloride (Normal Saline 0.9%) 1,000 mls @ 100 mls/hr IV .Q10H [facility] Last Infusion: 05/16/20 09:07 Dose: 100 mls/hr Documented by: Lorazepam (Lorazepam 2 Mg/Ml Vial) 1 mg IVP Q30M PRN; Protocol PRN Reason: CIWA >8 Metoprolol Succinate (Metoprolol Succinate 25 Mg Tablet) 25 mg PO BID [facility] Last Admin: 05/16/20 09:09 Dose: Not Given Documented by: Ondansetron HCl (Ondansetron 4 Mg/2 Ml Vial) 4 mg IVP Q6HR PRN PRN Reason: Nausea / Vomiting Last Admin: 05/16/20 06:48 Dose: 4 mg Documented by: Oxycodone HCl (Oxycodone 5 Mg Tablet) 5 mg PO Q4HR PRN PRN Reason: PAIN Last Admin: 05/16/20 05:12 Dose: 5 mg Documented by: Multivit/Folic Acid/Iron ( Vitamin Tablet) 1 tab PO DAILY [facility] Last Admin: 05/16/20 08:59 Dose: 1 tab Documented by: Sodium Chloride (Sodium Chloride Flush 0.9% 10 Ml Syringe) 10 ml IVP PRN PRN PRN Reason: NEEDED PER PROVIDER ORDERS Last Admin: 05/15/20 22:21 Dose: 10 ml Documented by: Sodium Chloride (Sodium Chloride Flush 0.9% 10 Ml Syringe) 10 ml IVP 0100,0900,1700 [facility] Last Admin: 05/16/20 09:08 Dose: Not Given Documented by: Thiamine HCl (Thiamine 100 Mg Tablet) 100 mg PO DAILY [facility] Last Admin: 05/16/20 08:58 Dose: 100 mg Documented by: Trazodone HCl (Trazodone 50 Mg Tablet) 50 mg PO QPM [facility] Last Admin: 05/15/20 23:37 Dose: 50 mg Documented by: Zolpidem Tartrate [Ambien] 5 mg PO DAILY PRN 08/31/14 Digoxin [Lanoxin] 125 mcg PO DAILY 10/04/17 Gabapentin 600 mg PO QID 10/04/17 SUMAtriptan [Imitrex] 25 mg PO DAILY PRN MDD 200 mg 10/04/17 Metoprolol Succinate 25 mg PO BID 09/18/18 Duloxetine HCl [Cymbalta] 60 mg PO DAILY 04/02/20 Furosemide [Lasix] 20 mg PO DAILY 04/02/20 Meloxicam [Mobic] 7.5 mg PO DAILY PRN 04/02/20 Ondansetron Odt [Zofran Odt] 4 mg PO PRN PRN 04/02/20 Objective - Vital Signs/Intake & Output Reviewed Vital Signs: Yes Vital Signs: Vital Signs x48h Temp Pulse Resp BP BP Pulse Ox 05/16/20 08:17 36.9 C 102 H 18 112/49 L 95 05/16/20 06:52 95 05/16/20 05:20 97 05/16/20 05:00 37.2 C 101 H 16 106/65 100 Intake & Output: Intake & Output 05/13/20 05/14/20 05/15/20/06/21 23:59 23:59 23:59 23:59 Intake Total 350 818.334 Output Total 0 Balance 350 818.334 - Objective General Appearance: positive: No acute distress, Alert, Other (slightly tremulous hand motions as she brings cup of coffee to drink or uses spoon to stir and I can hear it in her voice) Eyes Bilateral: positive: PERRL, EOMI ENT: positive: No signs of dehydration Neck: positive: No JVD. negative: Stiff neck Respiratory: positive: No respiratory distress. negative: Wheezes, Rales, Rhonchi Cardiovascular: positive: Irregularly irregular, Tachycardia, Systolic murmur. negative: Gallop/S4 Abdomen: positive: Non-tender, No organomegaly, Nml bowel sounds, No distention Skin: positive: Warm, Dry, Pallor Extremities: positive: Full ROM, Pedal edema Neurologic/Psychiatric: positive: CN's nml (2-12), Motor nml (except tremulous), Disoriented to time - Lab Results Fish Bones: 05/16/20 05:16 05/16/20 05:16 Other Labs: Lab Results x24hrs 05/16/20 05/16/20 05/16/20 Range/Units 05:16 05:16 05:16 WBC 10.3 (4.8-10.8) x10^3/uL RBC 4.60 (4.20-5.40) 10^6/uL Hgb 15.2 (12.0-16.0) g/dL Hct 46.9 (37.0-47.0) % MCV 102.0 H (81.0-99.0) fL MCH 33.0 H (27.0-31.0) pg MCHC 32.4 (32.0-36.0) g/dL RDW 12.6 (12.0-15.0) % Plt Count 177 (130-450) 10^3/uL MPV 11.3 H (7.9-10.8) fL Neut # (Auto) 5.8 (1.5-6.6) 10^3/uL Lymph # (Auto) 3.0 (1.5-3.5) 10^3/uL [place] # (Auto) 1.3 H (0.0-1.0) 10^3/uL Eos # (Auto) 0.0 (0.0-0.7) 10^3/uL Baso # (Auto) 0.1 (0.0-0.1) 10^3/uL Absolute Nucleated RBC 0.00 x10^3/uL Nucleated RBC % 0.0 /100WBC PT (9.9-12.6) secs INR (0.8-1.2) Sodium 136 (135-145) mmol/L Potassium 4.2 (3.5-5.0) mmol/L Chloride 100 L (101-111) mmol/L Carbon Dioxide 23 (21-32) mmol/L Anion Gap 13.0 (6-13) BUN 9 (6-20) mg/dL Creatinine 1.4 H (0.4-1.0) mg/dL Estimated GFR (MDRD) 37 L (>89) Glucose 138 H (70-100) mg/dL Calcium 9.3 (8.5-10.3) mg/dL Phosphorus 5.2 H (2.5-4.6) mg/dL Magnesium 2.4 (1.7-2.8) mg/dL Total Bilirubin (0.2-1.0) mg/dL AST (10-42) IU/L ALT (10-60) IU/L Alkaline Phosphatase (42-121) IU/L Total Protein (6.7-8.2) g/dL Albumin (3.2-5.5) g/dL Globulin (2.1-4.2) g/dL Albumin/Globulin Ratio (1.0-2.2) TSH 4.31 (0.34-5.60) uIU/mL Nasal Adenovirus (PCR) Nasal B. parapertussis DNA (PCR) Nasal Coronavir 229E PCR Nasal Coronavir HKU1 PCR Nasal Coronavir NL63 PCR Nasal Coronavir OC43 PCR Nasal Enterovir/Rhinovir PCR Nasal Influenza B PCR Nasal Influenza A PCR Nasal Parainfluen 1 PCR Nasal Parainfluen 2 PCR Nasal Parainfluen 3 PCR Nasal Parainfluen 4 PCR Nasal RSV (PCR) Nasal B.pertussis DNA PCR Nasal C.pneumoniae (PCR) [place] Human Metapneumo PCR Nasal M.pneumoniae (PCR) Nasal SARS-CoV-2 (PCR) Last Dose Date Last Dose Time Digoxin ng/mL Ethyl Alcohol mg/dL 05/15/20 05/15/20 05/15/20 Range/Units 21:34 19:30 19:30 WBC 12.2 H (4.8-10.8) x10^3/uL RBC 4.51 (4.20-5.40) 10^6/uL Hgb 14.9 (12.0-16.0) g/dL Hct 45.8 (37.0-47.0) % MCV 101.6 H (81.0-99.0) fL MCH 33.0 H (27.0-31.0) pg MCHC 32.5 (32.0-36.0) g/dL RDW 12.4 (12.0-15.0) % Plt Count 222 (130-450) 10^3/uL MPV 11.4 H (7.9-10.8) fL Neut # (Auto) 8.1 H (1.5-6.6) 10^3/uL Lymph # (Auto) 2.6 (1.5-3.5) 10^3/uL [place] # (Auto) 1.3 H (0.0-1.0) 10^3/uL Eos # (Auto) 0.1 (0.0-0.7) 10^3/uL Baso # (Auto) 0.1 (0.0-0.1) 10^3/uL Absolute Nucleated RBC 0.00 x10^3/uL Nucleated RBC % 0.0 /100WBC PT (9.9-12.6) secs INR (0.8-1.2) Sodium 139 (135-145) mmol/L Potassium 2.8 L (3.5-5.0) mmol/L Chloride 102 (101-111) mmol/L Carbon Dioxide 23 (21-32) mmol/L Anion Gap 14.0 H (6-13) BUN 8 (6-20) mg/dL Creatinine 0.8 (0.4-1.0) mg/dL Estimated GFR (MDRD) 71 L (>89) Glucose 129 H (70-100) mg/dL Calcium 9.5 (8.5-10.3) mg/dL Phosphorus (2.5-4.6) mg/dL Magnesium 1.4 L (1.7-2.8) mg/dL Total Bilirubin 1.6 H (0.2-1.0) mg/dL AST 44 H (10-42) IU/L ALT 29 (10-60) IU/L Alkaline Phosphatase 123 H (42-121) IU/L Total Protein 7.7 (6.7-8.2) g/dL Albumin 3.7 (3.2-5.5) g/dL Globulin 4.0 (2.1-4.2) g/dL Albumin/Globulin Ratio 0.9 L (1.0-2.2) TSH (0.34-5.60) uIU/mL Nasal Adenovirus (PCR) NOT DETECTED Nasal B. parapertussis DNA (PCR) NOT DETECTED Nasal Coronavir 229E PCR NOT DETECTED Nasal Coronavir HKU1 PCR NOT DETECTED Nasal Coronavir NL63 PCR NOT DETECTED Nasal Coronavir OC43 PCR NOT DETECTED Nasal Enterovir/Rhinovir PCR NOT DETECTED Nasal Influenza B PCR NOT DETECTED Nasal Influenza A PCR NOT DETECTED Nasal Parainfluen 1 PCR NOT DETECTED Nasal Parainfluen 2 PCR NOT DETECTED Nasal Parainfluen 3 PCR NOT DETECTED Nasal Parainfluen 4 PCR NOT DETECTED Nasal RSV (PCR) NOT DETECTED Nasal B.pertussis DNA PCR NOT DETECTED Nasal C.pneumoniae (PCR) NOT DETECTED [place] Human Metapneumo PCR NOT DETECTED Nasal M.pneumoniae (PCR) NOT DETECTED Nasal SARS-CoV-2 (PCR) NOT DETECTED Last Dose Date Not Reportable Last Dose Time Not Reportable Digoxin 0.3 ng/mL Ethyl Alcohol < 5.0 mg/dL 05/15/20 05/15/20 Range/Units 19:30 19:30 WBC 8.8 (4.8-10.8) x10^3/uL RBC 4.50 (4.20-5.40) 10^6/uL Hgb 15.1 (12.0-16.0) g/dL Hct 45.1 (37.0-47.0) % MCV 100.2 H (81.0-99.0) fL MCH 33.6 H (27.0-31.0) pg MCHC 33.5 (32.0-36.0) g/dL RDW 12.3 (12.0-15.0) % Plt Count 173 (130-450) 10^3/uL MPV 11.3 H (7.9-10.8) fL Neut # (Auto) 5.1 (1.5-6.6) 10^3/uL Lymph # (Auto) 2.5 (1.5-3.5) 10^3/uL [place] # (Auto) 1.0 (0.0-1.0) 10^3/uL Eos # (Auto) 0.1 (0.0-0.7) 10^3/uL Baso # (Auto) 0.1 (0.0-0.1) 10^3/uL Absolute Nucleated RBC 0.00 x10^3/uL Nucleated RBC % 0.0 /100WBC PT 14.9 H (9.9-12.6) secs INR 1.4 H (0.8-1.2) Sodium (135-145) mmol/L Potassium (3.5-5.0) mmol/L Chloride (101-111) mmol/L Carbon Dioxide (21-32) mmol/L Anion Gap (6-13) BUN (6-20) mg/dL Creatinine (0.4-1.0) mg/dL Estimated GFR (MDRD) (>89) Glucose (70-100) mg/dL Calcium (8.5-10.3) mg/dL Phosphorus (2.5-4.6) mg/dL Magnesium (1.7-2.8) mg/dL Total Bilirubin (0.2-1.0) mg/dL AST (10-42) IU/L ALT (10-60) IU/L Alkaline Phosphatase (42-121) IU/L Total Protein (6.7-8.2) g/dL Albumin (3.2-5.5) g/dL Globulin (2.1-4.2) g/dL Albumin/Globulin Ratio (1.0-2.2) TSH (0.34-5.60) uIU/mL Nasal Adenovirus (PCR) Nasal B. parapertussis DNA (PCR) Nasal Coronavir 229E PCR Nasal Coronavir HKU1 PCR Nasal Coronavir NL63 PCR Nasal Coronavir OC43 PCR Nasal Enterovir/Rhinovir PCR Nasal Influenza B PCR Nasal Influenza A PCR Nasal Parainfluen 1 PCR Nasal Parainfluen 2 PCR Nasal Parainfluen 3 PCR Nasal Parainfluen 4 PCR Nasal RSV (PCR) Nasal B.pertussis DNA PCR Nasal C.pneumoniae (PCR) [place] Human Metapneumo PCR Nasal M.pneumoniae (PCR) Nasal SARS-CoV-2 (PCR) Last Dose Date Last Dose Time Digoxin ng/mL Ethyl Alcohol mg/dL ABX Reporting Has patient been on IV antibiotics over the past 48 hours?: No Assessment/Plan - Problem List (1) Atrial fibrillation with RVR Impression: Patient has history of atrial fibrillation. She used to be on Eliquis but appears not to be on any anticoagulant currently. Reason is unclear however suspect a significant fall risk due to patient's history of alcohol abuse. Patient was given two doses of diltiazem 10 mg IV pushes in the ED. Diltiazem 5 mg IV every 4 hours as needed for heart rate greater than 130 has been ordered. Metoprolol succinate 25 mg p.o. twice daily resumed as well as Digoxin 125 mcg p.o. daily. Since last night her rate is now low 100s (101-102) and her O2 sat is 95% on 1 liter. Plan: no change in meds for now. She is responding to her own regimen w our prn meds. (2) Arm contusion Conclusion/Plan: Due to mechanical fall. X-ray of the arm shows no fracture. Patient has a significant hematoma just superior to the right elbow. There is no tingling or numbness of the arm, the color and radial pulses are intact. We will manage pain as needed with Tylenol and/or Dilaudid. Plan: Add PT eval to today to see if she can return to home safely This is a woman who began having falls and seen in the emergency room. With her last fall in March she broke her malleolar line and had surgery. Went to a [facility] nursing facility and then left that facility AMA. Went back to home. Fell again. This time no fracture but quite a large contusion and hematoma. Son is in [place]. He is in his own alcohol rehab program and is unclear when he is going to come back. Qualifiers: Encounter type: initial encounter Laterality: right Qualified Code(s): S40.021A - Contusion of right upper arm, initial encounter (3) Hypokalemia Conclusion/Plan: Likely due to lasix Patient was given potassium chloride p.o. 10 mEq in the ED. She also received potassium chloride IV 10 mEq in the ED. Potassium chloride 40 mEq also ran over 4 hours. This morning she is normal. Plan: check in am to make sure stays stable (4) Hypomagnesemia Conclusion/Plan: Magnesium sulfate 2 g IV x1 ordered. Patient was also given oral magnesium 800 mg x 1. this morning she is 2.4. Plan: check in am and supplement if needed (5) Alcohol abuse Conclusion/Plan: CIWA protocol ordered. Librium 25 mg p.o. every 8 hours scheduled ordered. Thiamine and multivitamins ordered. She does have an enlarging MCV and in the past B12 was 170s. She doesn't remember taking B12 regularly. Plan: check B12 then give once dose of 1000 mg IM (6) Depression Conclusion/Plan: On duloxetine 60 mg p.o. daily. (7) HTN (hypertension) Conclusion/Plan: On metoprolol succinate 25 mg p.o. twice daily (8) Hypothyroidism history Conclusion/Plan: Patient appears to not be on any medication. Rechecked TSH this morning and she is normal.
[2020-05-16] MEDS: SODIUM CHLORIDE FLUSH 0.9% 10 ML SYRINGE IVP SCH ×2 (09:08→18:03)
[2020-05-16] MEDS: METOPROLOL SUCCINATE 25 MG TABLET PO SCH ×2 (09:09→21:10)
--- NOTE | 2020-05-16 10:46 | XRAY Report ---
PROCEDURE: Hip w/Pelvis 2-3V RT INDICATIONS: right hip pain due to mechanical fall TECHNIQUE: AP pelvis with lateral view(s) of the bilateral hip(s). COMPARISON: 08/31/2014. FINDINGS: Bones: Expected appearance of total right hip arthroplasty. No evidence of hardware failure or loose rama. No significant change from the prior study. No fractures or dislocations. Pelvic ring appears intact. No suspicious bony lesions. Soft tissues: The visualized bowel gas pattern is normal. No suspicious soft tissue calcifications. Diffuse vascular calcifications. Question diabetes. IMPRESSION: 1. Expected appearance of total right hip arthroplasty. No evidence of hardware failure or loosening. 2. No evidence acute bony abnormality of the pelvis and right hip. Reviewed by: Conrad Phelps MD on 05/16/2020 9:45 AM [facility] Approved by: Conrad Phelps MD on 05/16/2020 9:45 AM [facility] Station ID: [id number]
[2020-05-16] MEDS: SODIUM CHLORIDE FLUSH 0.9% 10 ML SYRINGE IVP PRN (11:19)
--- NOTE | 2020-05-16 11:38 | PHARMACY PROGRESS NOTE ---
- Best Possible Medication History Admit Date and Time: 05/15/202012 Processed by: Pharmacy Medication History completed: Yes Patient Interview: Completed Secondary Source(s): Pharmacy records, Insurance records As the person ultimately responsible for medication therapy, providers are able to order a medication from an existing home medication list in [facility] via the "Reconcile Routine" prior to Confirmation of that medication by sales support rep. Such practice is discouraged except when the physician, in their clinical judgment, deems that a medical need exists for a medication without regard to previous use.
[2020-05-16] MEDS: polyethylene glycoL 3350 17 GM PACKET PO SCH (13:41)
[2020-05-16] MEDS: SENNA 8.6 MG TABLET PO SCH (14:06)
[2020-05-16] MEDS: DOCUSATE SODIUM 250 MG CAPSULE PO SCH (14:06)
[2020-05-16] MEDS ORDERED: PROCHLORPERAZINE 10 MG/2 ML VIAL IVP PRN (14:33)
[2020-05-16] MEDS: ACETAMINOPHEN 325 MG TABLET PO PRN ×2 (16:27→21:10)
[2020-05-16] MEDS ORDERED: diltiaZEM 30 MG TABLET PO SCH (20:19)
[2020-05-16] MEDS: traZODone 50 MG TABLET PO SCH (21:09)
[2020-05-16] MEDS: FAMOTIDINE 20 MG TABLET PO SCH (21:10)
[2020-05-17] MEDS: SODIUM CHLORIDE FLUSH 0.9% 10 ML SYRINGE IVP SCH ×3 (00:27→16:56)
[2020-05-17 05:14] LABS: BASOPHILS # (AUTO) 0.1 10^3/uL (0.0-0.1); BASOPHILS % (AUTO) 0.6 %; EOSINOPHILS % (AUTO) 0.2 %; HCT - HEMATOCRIT 33.3 % (37.0-47.0); HGB - HEMOGLOBIN 10.8 g/dL (12.0-16.0); LYMPHOCYTES # (AUTO) 1.6 10^3/uL (1.5-3.5); LYMPHOCYTES % (AUTO) 12.6 %; MEAN CORPUSCULAR HEMOGLOBIN 33.8 pg (27.0-31.0); MEAN CORPUSCULAR HGB CONC 32.4 g/dL (32.0-36.0); MEAN CORPUSCULAR VOLUME 104.1 fL (81.0-99.0); MEAN PLATELET VOLUME 11.3 fL (7.9-10.8); MONOCYTES % (AUTO) 7.8 %; NEUTROPHILS # (AUTO) 9.9 10^3/uL (1.5-6.6); NEUTROPHILS % (AUTO) 78.3 %; PLT - PLATELET COUNT 142 10^3/uL (130-450); RED CELL DISTRIBUTION WIDTH 12.5 % (12.0-15.0); WHITE BLOOD COUNT 12.7 x10^3/uL (4.8-10.8)
[2020-05-17 05:21] LABS: CALCIUM 8.4 mg/dL (8.5-10.3); CREATININE 1.6 mg/dL (0.4-1.0); POTASSIUM 4.4 mmol/L (3.5-5.0)
[2020-05-17] MEDS: chlordiazePOXIDE 25 MG CAPSULE PO SCH (05:25)
[2020-05-17] MEDS: ACETAMINOPHEN 325 MG TABLET PO PRN ×2 (05:25→14:26)
[2020-05-17] MEDS: SODIUM CHLORIDE 0.9% 1,000 ML IV SCH ×2 (07:20→23:56)
[2020-05-17] MEDS ORDERED: SODIUM CHLORIDE 0.9% 500 ML IV ONE (07:30)
[2020-05-17] MEDS: polyethylene glycoL 3350 17 GM PACKET PO SCH (09:23)
[2020-05-17] MEDS: DOCUSATE SODIUM 250 MG CAPSULE PO SCH (09:25)
[2020-05-17] MEDS: FAMOTIDINE 20 MG TABLET PO SCH ×2 (09:25→20:17)
[2020-05-17] MEDS: DIGOXIN 125 MCG TABLET PO SCH (09:25)
[2020-05-17] MEDS: THIAMINE 100 MG TABLET PO SCH (09:25)
[2020-05-17] MEDS: SENNA 8.6 MG TABLET PO SCH (09:26)
[2020-05-17] MEDS: PRENATAL VITAMIN TABLET PO SCH (09:26)
[2020-05-17] MEDS: LORATADINE 10 MG TABLET PO SCH (09:26)
[2020-05-17] MEDS: METOPROLOL SUCCINATE 25 MG TABLET PO SCH ×2 (09:37→20:18)
--- NOTE | 2020-05-17 11:23 | PROVIDER PROGRESS NOTE ---
Subjective - Prog Note Date Prog Note Date: 05/17/20 Prog Note Time: 11:20 - Subjective Subjective: Unfortunately she gets very sedated when you combine pain medicine, Benadryl, benzodiazepine. Yet she keeps on insisting that she wants the Benadryl. I have tried Claritin instead. Pepcid instead. Cimetidine is not available in our formulary. She still prefers to spend her day in bed. Sleepy, tired. She is minimal assist to independent to getting to a bedside commode. She is able to ambulate in her room but does not want to walk on her right ankle. When she left the hospital she was toe-touch weightbearing as tolerated. But that was back in March. She has been consistently hypotensive here with systolic in the 90s. She denies chest pain, palpitations, shortness of breath. She is just very tired. Telemetry shows irregularly irregular. She feels like her pain is controlled. She is eating 75% of her meals of up to 100%. Last night she did not like dinner and only had a few bites. Current Medications - Current Medications Current Medications: Active Medications Acetaminophen (Acetaminophen 325 Mg Tablet) 650 mg PO Q4HR PRN PRN Reason: Pain 1 to 4 Last Admin: 05/17/20 05:25 Dose: 650 mg Documented by: Chlordiazepoxide HCl (Chlordiazepoxide 25 Mg Capsule) 25 mg PO Q8H [facility] Last Admin: 05/17/20 05:25 Dose: 25 mg Documented by: Digoxin (Digoxin 125 Mcg Tablet) 125 mcg PO DAILY [facility] Last Admin: 05/17/20 09:25 Dose: 125 mcg Documented by: Diltiazem HCl (Diltiazem Inj 5 Mg/Ml Vial) 5 mg IVP Q4H PRN PRN Reason: PER PHYSICIAN ORDER Diphenhydramine HCl (Diphenhydramine 25 Mg Capsule) 25 mg PO Q4HR PRN PRN Reason: Allergy Symptoms Last Admin: 05/16/20 09:05 Dose: 25 mg Documented by: Docusate Sodium (Docusate Sodium 250 Mg Capsule) 250 - 500 mg PO DAILY [facility] Last Admin: 05/17/20 09:25 Dose: 500 mg Documented by: Famotidine (Famotidine 20 Mg Tablet) 20 mg PO BID [facility] Last Admin: 05/17/20 09:25 Dose: 20 mg Documented by: Hydromorphone HCl (Hydromorphone 1 Mg/Ml Carpuject) 1 mg IVP Q3HR PRN PRN Reason: PAIN Last Admin: 05/16/20 11:18 Dose: 1 mg Documented by: Sodium Chloride (Normal Saline 0.9%) 1,000 mls @ 100 mls/hr IV .Q10H [facility] Last Infusion: 05/17/20 09:14 Dose: 100 mls/hr Documented by: Loratadine (Loratadine 10 Mg Tablet) 10 mg PO DAILY [facility] Last Admin: 05/17/20 09:26 Dose: 10 mg Documented by: Lorazepam (Lorazepam 2 Mg/Ml Vial) 1 mg IVP Q30M PRN; Protocol PRN Reason: CIWA >8 Metoprolol Succinate (Metoprolol Succinate 25 Mg Tablet) 25 mg PO BID [facility] Last Admin: 05/17/20 09:37 Dose: Not Given Documented by: Ondansetron HCl (Ondansetron 4 Mg/2 Ml Vial) 4 mg IVP Q6HR PRN PRN Reason: Nausea / Vomiting Last Admin: 05/16/20 13:41 Dose: 4 mg Documented by: Oxycodone HCl (Oxycodone 5 Mg Tablet) 5 mg PO Q4HR PRN PRN Reason: PAIN Last Admin: 05/16/20 05:12 Dose: 5 mg Documented by: Polyethylene Glycol (Polyethylene Glycol 3350 17 Gm Packet) 17 gm PO DAILY [facility] Last Admin: 05/17/20 09:23 Dose: 17 gm Documented by: Multivit/Folic Acid/Iron ( Vitamin Tablet) 1 tab PO DAILY [facility] Last Admin: 05/17/20 09:26 Dose: 1 tab Documented by: Prochlorperazine Edisylate (Prochlorperazine 10 Mg/2 Ml Vial) 10 mg IVP Q6HR PRN PRN Reason: Nausea / Vomiting Last Admin: 05/16/20 15:33 Dose: 10 mg Documented by: Senna (Senna 8.6 Mg Tablet) 8.6 - 17.2 mg PO DAILY [facility] Last Admin: 05/17/20 09:26 Dose: 17.2 mg Documented by: Sodium Chloride (Sodium Chloride Flush 0.9% 10 Ml Syringe) 10 ml IVP PRN PRN PRN Reason: NEEDED PER PROVIDER ORDERS Last Admin: 05/16/20 11:19 Dose: 10 ml Documented by: Sodium Chloride (Sodium Chloride Flush 0.9% 10 Ml Syringe) 10 ml IVP 0100,0900,1700 [facility] Last Admin: 05/17/20 09:37 Dose: Not Given Documented by: Thiamine HCl (Thiamine 100 Mg Tablet) 100 mg PO DAILY [facility] Last Admin: 05/17/20 09:25 Dose: 100 mg Documented by: Trazodone HCl (Trazodone 50 Mg Tablet) 50 mg PO QPM [facility] Last Admin: 05/16/20 21:09 Dose: 50 mg Documented by: Zolpidem Tartrate [Ambien] 5 mg PO DAILY PRN 08/31/14 Digoxin [Lanoxin] 125 mcg PO DAILY 10/04/17 Gabapentin 600 mg PO QID 10/04/17 SUMAtriptan [Imitrex] 25 mg PO ONCE PRN MDD 50 mg 10/04/17 Metoprolol Succinate 25 mg PO BID 09/18/18 Duloxetine HCl [Cymbalta] 60 mg PO DAILY 04/02/20 Furosemide [Lasix] 20 mg PO DAILY PRN 04/02/20 Objective - Vital Signs/Intake & Output Reviewed Vital Signs: Yes Vital Signs: Vital Signs x48h Temp Pulse Pulse Pulse Resp BP BP 05/17/20 09:38 91 87/40 L 05/17/20 08:01 36.9 C 92 18 90/42 L 05/17/20 04:46 37.3 C 103 H 20 94/50 L 05/17/20 04:00 37.7 C 118 H 17 Pulse Ox 05/17/20 09:38 05/17/20 08:01 94 05/17/20 04:46 92 05/17/20 04:00 92 Intake & Output: Intake & Output 05/14/20 05/15/20 05/16/20 05/17/20 23:59 23:59 23:59 23:59 Intake Total 350 2810.000 5 Output Total 130 50 Balance 350 2680.000 2034 - Objective General Appearance: positive: No acute distress, Lethargic Eyes Bilateral: positive: PERRL ENT: positive: No signs of dehydration Neck: positive: No JVD. negative: Stiff neck Respiratory: positive: No respiratory distress, Other (diminished at bases, no increased respiratory effort). negative: Wheezes, Rales, Rhonchi Cardiovascular: positive: Regular rate & rhythm, Systolic murmur. negative: Gallop/S4, Friction rub Abdomen: positive: Non-tender, No organomegaly, Nml bowel sounds, No distention Skin: positive: Warm, Dry, Pallor Extremities: positive: Other (Right ankle warm, slightly redder, tender. Stable since admission. Both calves with trace edema.) Neurologic/Psychiatric: positive: Oriented x3, CN's nml (2-12), Other (When she is not asleep and lethargic from her medications, she is a nonstop talker.). negative: Motor nml (Slow to move. Mainly due to pain in the right ankle.) - Lab Results Fish Bones: 05/17/20 04:48 05/17/20 04:48 Other Labs: Lab Results x24hrs 05/17/20 05/17/20 Range/Units 04:48 04:48 WBC 12.7 H (4.8-10.8) x10^3/uL RBC 3.20 L (4.20-5.40) 10^6/uL Hgb 10.8 L (12.0-16.0) g/dL Hct 33.3 L (37.0-47.0) % MCV 104.1 H (81.0-99.0) fL MCH 33.8 H (27.0-31.0) pg MCHC 32.4 (32.0-36.0) g/dL RDW 12.5 (12.0-15.0) % Plt Count 142 (130-450) 10^3/uL MPV 11.3 H (7.9-10.8) fL Neut # (Auto) 9.9 H (1.5-6.6) 10^3/uL Lymph # (Auto) 1.6 (1.5-3.5) 10^3/uL [place] # (Auto) 1.0 (0.0-1.0) 10^3/uL Eos # (Auto) 0.0 (0.0-0.7) 10^3/uL Baso # (Auto) 0.1 (0.0-0.1) 10^3/uL Absolute Nucleated RBC 0.00 x10^3/uL Nucleated RBC % 0.0 /100WBC Sodium 133 L (135-145) mmol/L Potassium 4.4 (3.5-5.0) mmol/L Chloride 102 (101-111) mmol/L Carbon Dioxide 23 (21-32) mmol/L Anion Gap 8.0 (6-13) BUN 16 (6-20) mg/dL Creatinine 1.6 H (0.4-1.0) mg/dL Estimated GFR (MDRD) 32 L (>89) Glucose 131 H (70-100) mg/dL Calcium 8.4 L (8.5-10.3) mg/dL ABX Reporting Has patient been on IV antibiotics over the past 48 hours?: No Assessment/Plan - Problem List (1) History of ankle fracture Impression: She really hates standing up and walking that ankle. To the point that she has been in a wheelchair since she left the shelter facility. Physical therapy is working with her. Plan: Repeat ankle films today Have Dr. Eaton, orthopedics, review her films (2) Atrial fibrillation with RVR Impression: Patient has prevous history of atrial fibrillation. She used to be on Eliquis but appears not to be on any anticoagulant currently. Pharmacy postulates, today, that when she left her shelter facility AMA she just did not resume her Eliquis then. Reason is unclear however and I also suspect her PCP may not have resumed it due to a significant fall risk due to patient's history of alcohol abuse. Patient was given two doses of diltiazem 10 mg IV pushes in the ED. Diltiazem 5 mg IV every 4 hours as needed for heart rate greater than 130 has been ordered. Metoprolol succinate 25 mg p.o. twice daily resumed as well as Digoxin 125 mcg p.o. daily. Pulse is in the 90s. Unfortunately blood pressure is also systolic 81-94. She denies cp or sob that is worse. Plan: Parameters are in place to hold her medication for blood pressure and pulse. We will give a 500 cc bolus. She is already on maintenance IV fluids. Check troponin (3) Arm contusion Conclusion/Plan: Due to mechanical fall. X-ray of the arm shows no fracture. Patient has a significant hematoma just superior to the right elbow. There is no tingling or numbness of the arm, the color and radial pulses are intact. We will manage pain as needed with Tylenol and/or Dilaudid. Plan: Per Phsycial therapy today: Pt is a cooperative 74 yo F admitted d/t fall out of w/c resulting in RLE pain and R elbow contusion. Pt had R ankle fx with ORIF 04/03/20. Pt was d/c to SNF but returned home AMA and has not continued PT. R ankle swelling, dry scabbed ulcerations b/w 4th & 5th toe, no active ankle ROM, nerve pain traveling from R knee to R ankle. Pt lives alone though reports her son comes over to help sometimes. Since returning home from SNF pt has been using w/c (prior to ankle ORIF pt reported minimal household amb using furniture to walk around for support and states she feels anxious about falling at home, reporting multiple falls recently). Pt reports she has a b/s commode but does not have a walker or cane. At evaluation, pt was very reluctant to participate requiring encouragement from PT an RN "Jalen" who was preset for most of the eval. Pt had n/v using emesis bag 2x during eval. Pt was able to perform bed mobility w/ minAx1, STS and pivot transfer with modAx2. Pt was very anxious about standing and had increased RLE pain but was able to take 2-3 steps from bed to b/s chair using FWW. Pt will need continued PT while in hospital to improve her safety with standing and amb with boot and FWW. Pt will likely require continued rehab at a SNF after hospital d/c to improve her functional independence and safety, though pt reported she did not like SNF after most recent hospital d/c so she may choose to d/c home with HHPT. PT to see pt. 1- 2x/day for functional activity, strengthening, and gait progession. [ End ] Qualifiers: Encounter type: initial encounter Laterality: right Qualified Code(s): S40.021A - Contusion of right upper arm, initial encounter (4) Hypokalemia resolved Conclusion/Plan: Likely due to lasix Patient was given potassium chloride p.o. 10 mEq in the ED. She also received potassium chloride IV 10 mEq in the ED. Potassium chloride 40 mEq also ran over 4 hours. She has been normal since 05/16 Plan: check in am to make sure stays stable (5) Hypomagnesemia resolved Conclusion/Plan: Magnesium sulfate 2 g IV x1 ordered. Patient was also given oral magnesium 800 mg x 1. this morning she is 2.4. Plan: check in am and supplement if needed (6) Alcohol abuse Conclusion/Plan: CIWA protocol ordered and she has not needed it so far because Librium 25 mg p.o. every 8 hours scheduled ordered. She appears too sedated at times. Thiamine and multivitamins ordered. She does have an enlarging MCV and in the past B12 was 170s. She doesn't remember taking B12 regularly. REpeat B12 level is normal. Plan: Stop librium as scheduled dose and continue prn ativan. no IM B12 needed for now (7) Depression Conclusion/Plan: On duloxetine 60 mg p.o. daily. That is resumed for today (8) HTN (hypertension) Conclusion/Plan: On metoprolol succinate 25 mg p.o. twice daily (9) Hypothyroidism history Conclusion/Plan: Patient appears to not be on any medication. Rechecked TSH 05/16/20 and she is normal. (10) RABIA Her creat has subtly risen for the last 2 days in spite of IVF. BP low. Plan: meds held for BP parameters Give IVF bolus
[2020-05-17] MEDS ORDERED: LACTATED RINGERS 500 ML IV ONE (11:51)
--- NOTE | 2020-05-17 12:02 | XRAY Report ---
PROCEDURE: Ankle 3 View RT INDICATIONS: pain TECHNIQUE: 3 views of the ankle were acquired. COMPARISON: 04/02/2020, 04/04/2020 FINDINGS: Bones: Distal fibular kalyn and syndesmotic screws remain intact with no evidence of hardware failure o r loosening. There is a subtle distal fibular fracture line still present. A mildly displaced medial malleolar fracture with early callus is present. The anterior tibial fracture at the ankle joint is n ot well seen on the current study suggesting progressive healing. Ankle mortise is normally aligned. No suspicious bony lesions. Soft tissues: No tibiotalar joint effusion. Achilles tendon appears normal. Small vessel calcificat ions are consistent with diabetes. IMPRESSION: 1. Satisfactory appearance of fibular fracture and orthopedic hardware. 2. Early callus formation involving mildly displaced medial malleolar fracture. 3. Likely progress in healing of the distal anterior tibial fracture, which is not well seen randalll y. Reviewed by: Conrad Phelps MD on 05/17/2020 11:[address] [facility] Approved by: Conrad Phelps MD on 05/17/2020 11:[address] [facility] Station ID: [id number]
[2020-05-17] MEDS: GABAPENTIN 300 MG CAPSULE PO SCH ×3 (12:32→20:17)
[2020-05-17] MEDS: DULoxetine 30 MG CAPSULE PO SCH (12:33)
--- NOTE | 2020-05-17 15:41 | ED Physician Documentation ---
ED Addendum - Addendum Addendum: 05/17/20 15:40 Dr. Rinaldi asked me to place an IV in the patient, they have been having some trouble with IV access. I personally placed a long 22-gauge IV in the left AC using real-time ultrasound guidance after ChloraPrep which flushed and bree very well.
[2020-05-17] MEDS: oxyCODONE 5 MG TABLET PO PRN (18:19)
[2020-05-17] MEDS: traZODone 50 MG TABLET PO SCH (20:17)
[2020-05-17] MEDS ORDERED: LACTATED RINGERS 1,000 ML IV ONE (20:39)
[2020-05-18] MEDS ORDERED: LACTATED RINGERS 1,000 ML IV ONE (00:36)
[2020-05-18 01:07] LABS: HCT - HEMATOCRIT 32.2 % (37.0-47.0)
[2020-05-18] MEDS: SODIUM CHLORIDE FLUSH 0.9% 10 ML SYRINGE IVP SCH ×3 (03:23→16:33)
[2020-05-18] MEDS: ACETAMINOPHEN 325 MG TABLET PO PRN ×2 (05:09→10:22)
[2020-05-18 05:24] LABS: CALCIUM 8.7 mg/dL (8.5-10.3); CREATININE 1.1 mg/dL (0.4-1.0)
[2020-05-18 06:42] LABS: BASOPHILS % (AUTO) 0.5 %; EOSINOPHILS # (AUTO) 0.3 10^3/uL (0.0-0.7); EOSINOPHILS % (AUTO) 3.7 %; HCT - HEMATOCRIT 33.7 % (37.0-47.0); HGB - HEMOGLOBIN 10.7 g/dL (12.0-16.0); LYMPHOCYTES % (AUTO) 12.2 %; MEAN CORPUSCULAR HEMOGLOBIN 33.5 pg (27.0-31.0); MEAN CORPUSCULAR HGB CONC 31.8 g/dL (32.0-36.0); MEAN CORPUSCULAR VOLUME 105.6 fL (81.0-99.0); MONOCYTES # (AUTO) 0.8 10^3/uL (0.0-1.0); MONOCYTES % (AUTO) 9.5 %; NEUTROPHILS # (AUTO) 6.2 10^3/uL (1.5-6.6); NEUTROPHILS % (AUTO) 73.6 %; RED BLOOD COUNT 3.19 10^6/uL (4.20-5.40); RED CELL DISTRIBUTION WIDTH 12.6 % (12.0-15.0); WHITE BLOOD COUNT 8.4 x10^3/uL (4.8-10.8)
[2020-05-18 07:14] LABS: PLATELET MORPHOLOGY PLATELET CLUMPING (NORMAL); SLIDE REVIEW? Indicated
[2020-05-18 07:15] LABS: RBC MORPHOLOGY (MULTIPLE) NORMAL APPEARANCE (NORMAL)
[2020-05-18] MEDS: SODIUM CHLORIDE 0.9% 1,000 ML IV SCH ×3 (07:47→20:14)
[2020-05-18] MEDS: DULoxetine 30 MG CAPSULE PO SCH (10:18)
[2020-05-18] MEDS: DIGOXIN 125 MCG TABLET PO SCH (10:20)
[2020-05-18] MEDS: GABAPENTIN 300 MG CAPSULE PO SCH ×4 (10:20→20:38)
[2020-05-18] MEDS: PRENATAL VITAMIN TABLET PO SCH (10:21)
[2020-05-18] MEDS: FAMOTIDINE 20 MG TABLET PO SCH ×2 (10:21→20:38)
[2020-05-18] MEDS: THIAMINE 100 MG TABLET PO SCH (10:21)
[2020-05-18] MEDS: METOPROLOL SUCCINATE 25 MG TABLET PO SCH ×2 (10:21→20:38)
[2020-05-18] MEDS: LORATADINE 10 MG TABLET PO SCH (10:21)
[2020-05-18] MEDS: SENNA 8.6 MG TABLET PO SCH (10:22)
[2020-05-18] MEDS: DOCUSATE SODIUM 250 MG CAPSULE PO SCH (10:22)
[2020-05-18] MEDS: polyethylene glycoL 3350 17 GM PACKET PO SCH (10:22)
--- NOTE | 2020-05-18 12:34 | PROVIDER PROGRESS NOTE ---
Subjective - Prog Note Date Prog Note Date: 05/18/20 Prog Note Time: 12:31 - Subjective Subjective: She is tired all the time she tells me. She does not know why. She tells me that when she is at home she gets up in the morning and she is up "all day long until I go to bed at 10:00 at night". Yet here she sleeps all day long. We constantly have to wake her up to get her to eat, do PT, or even to examine her. She denies chest pain. No shortness of breath in bed. Gets only short of breath when she gets up to walk to the bathroom here. Ankle hurts. No palpitations, no chills, fever. Mild nausea off and on. No emesis. Current Medications - Current Medications Current Medications: Active Medications Acetaminophen (Acetaminophen 325 Mg Tablet) 650 mg PO Q4HR PRN PRN Reason: Pain 1 to 4 Last Admin: 05/18/20 10:22 Dose: 650 mg Documented by: Cyclobenzaprine HCl (Cyclobenzaprine 10 Mg Tablet) 10 mg PO Q8H PRN PRN Reason: PAIN Digoxin (Digoxin 125 Mcg Tablet) 125 mcg PO DAILY [facility] Last Admin: 05/18/20 10:20 Dose: 125 mcg Documented by: Diltiazem HCl (Diltiazem Inj 5 Mg/Ml Vial) 5 mg IVP Q4H PRN PRN Reason: PER PHYSICIAN ORDER Diphenhydramine HCl (Diphenhydramine 25 Mg Capsule) 25 mg PO Q4HR PRN PRN Reason: Allergy Symptoms Last Admin: 05/16/20 09:05 Dose: 25 mg Documented by: Docusate Sodium (Docusate Sodium 250 Mg Capsule) 250 - 500 mg PO DAILY [facility] Last Admin: 05/18/20 10:22 Dose: Not Given Documented by: Duloxetine HCl (Duloxetine 30 Mg Capsule) 60 mg PO DAILY [facility] Last Admin: 05/18/20 10:18 Dose: 60 mg Documented by: Famotidine (Famotidine 20 Mg Tablet) 20 mg PO BID [facility] Last Admin: 05/18/20 10:21 Dose: 20 mg Documented by: Gabapentin (Gabapentin 300 Mg Capsule) 600 mg PO QID [facility] Last Admin: 05/18/20 10:20 Dose: 600 mg Documented by: Hydromorphone HCl (Hydromorphone 1 Mg/Ml Carpuject) 1 mg IVP Q3HR PRN PRN Reason: PAIN Last Admin: 05/16/20 11:18 Dose: 1 mg Documented by: Sodium Chloride (Normal Saline 0.9%) 1,000 mls @ 100 mls/hr IV .Q10H [facility] Last Admin: 05/18/20 10:23 Dose: 100 mls/hr Documented by: Loratadine (Loratadine 10 Mg Tablet) 10 mg PO DAILY [facility] Last Admin: 05/18/20 10:21 Dose: 10 mg Documented by: Lorazepam (Lorazepam 2 Mg/Ml Vial) 1 mg IVP Q30M PRN; Protocol PRN Reason: CIWA >8 Metoprolol Succinate (Metoprolol Succinate 25 Mg Tablet) 25 mg PO BID [facility] Last Admin: 05/18/20 10:21 Dose: 25 mg Documented by: Ondansetron HCl (Ondansetron 4 Mg/2 Ml Vial) 4 mg IVP Q6HR PRN PRN Reason: Nausea / Vomiting Last Admin: 05/16/20 13:41 Dose: 4 mg Documented by: Oxycodone HCl (Oxycodone 5 Mg Tablet) 5 mg PO Q4HR PRN PRN Reason: PAIN Last Admin: 05/17/20 18:19 Dose: 5 mg Documented by: Polyethylene Glycol (Polyethylene Glycol 3350 17 Gm Packet) 17 gm PO DAILY [facility] Last Admin: 05/18/20 10:22 Dose: Not Given Documented by: Multivit/Folic Acid/Iron ( Vitamin Tablet) 1 tab PO DAILY [facility] Last Admin: 05/18/20 10:21 Dose: 1 tab Documented by: Prochlorperazine Edisylate (Prochlorperazine 10 Mg/2 Ml Vial) 10 mg IVP Q6HR PRN PRN Reason: Nausea / Vomiting Last Admin: 05/16/20 15:33 Dose: 10 mg Documented by: Senna (Senna 8.6 Mg Tablet) 8.6 - 17.2 mg PO DAILY [facility] Last Admin: 05/18/20 10:22 Dose: Not Given Documented by: Sodium Chloride (Sodium Chloride Flush 0.9% 10 Ml Syringe) 10 ml IVP PRN PRN PRN Reason: NEEDED PER PROVIDER ORDERS Last Admin: 05/16/20 11:19 Dose: 10 ml Documented by: Sodium Chloride (Sodium Chloride Flush 0.9% 10 Ml Syringe) 10 ml IVP 0100,0900,1700 [facility] Last Admin: 05/18/20 10:22 Dose: Not Given Documented by: Thiamine HCl (Thiamine 100 Mg Tablet) 100 mg PO DAILY [facility] Last Admin: 05/18/20 10:21 Dose: 100 mg Documented by: Trazodone HCl (Trazodone 50 Mg Tablet) 50 mg PO QPM [facility] Last Admin: 05/17/20 20:17 Dose: 50 mg Documented by: Zolpidem Tartrate [Ambien] 5 mg PO DAILY PRN 08/31/14 Digoxin [Lanoxin] 125 mcg PO DAILY 10/04/17 Gabapentin 600 mg PO QID 10/04/17 SUMAtriptan [Imitrex] 25 mg PO ONCE PRN MDD 50 mg 10/04/17 Metoprolol Succinate 25 mg PO BID 09/18/18 Duloxetine HCl [Cymbalta] 60 mg PO DAILY 04/02/20 Furosemide [Lasix] 20 mg PO DAILY PRN 04/02/20 Objective - Vital Signs/Intake & Output Reviewed Vital Signs: Yes Vital Signs: Vital Signs x48h Temp Pulse Pulse Resp BP BP BP 05/18/20 12:15 36.5 C 89 18 149/98 H 05/18/20 10:18 87 109/49 L 05/18/20 08:57 36.4 C L 86 20 94/34 L 05/18/20 05:00 36.2 C L 87 14 93/57 L Pulse Ox 05/18/20 12:15 95 05/18/20 10:18 05/18/20 08:57 93 05/18/20 05:00 93 Intake & Output: Intake & Output 05/15/20 05/16/20 05/17/20 05/18/20 23:59 23:59 23:59 23:59 Intake Total 350 2810.000 5220.000 1916.667 Output Total 130 1150 1450 Balance 350 2680.000 4070.000 466.667 - Objective General Appearance: positive: No acute distress, Alert, Other (5 foot 8 inch female who looks older than stated age, weight 78 kg) Eyes Bilateral: positive: PERRL ENT: positive: No signs of dehydration Neck: positive: No JVD. negative: Stiff neck Respiratory: positive: No respiratory distress. negative: Wheezes, Rales, Rhonchi Cardiovascular: positive: Irregularly irregular, Systolic murmur. negative: Gallop/S4, Friction rub Abdomen: positive: Non-tender, Nml bowel sounds, No distention, Other (Aminal pannus) Skin: positive: Warm, Dry, Other (Ecchymosis at IV sites, blood draw sites.) Extremities: positive: No pedal edema, Other (Tender right ankle.) Neurologic/Psychiatric: positive: Oriented x3 (But very forgetful. Will forget dates and times. Cannot remember what she said yesterday.), CN's nml (2-12), Motor nml - Lab Results Fish Bones: 05/18/20 06:30 05/18/20 04:45 Other Labs: Lab Results x24hrs 05/18/20 05/18/20 05/18/20 Range/Units 06:30 04:45 01:00 WBC 8.4 (4.8-10.8) x10^3/uL RBC 3.19 L (4.20-5.40) 10^6/uL Hgb 10.7 L (12.0-16.0) g/dL Hct 33.7 L (37.0-47.0) % MCV 105.6 H (81.0-99.0) fL MCH 33.5 H (27.0-31.0) pg MCHC 31.8 L (32.0-36.0) g/dL RDW 12.6 (12.0-15.0) % Plt Count TNP MPV Not Reportable Neut # (Auto) 6.2 (1.5-6.6) 10^3/uL Lymph # (Auto) 1.0 L (1.5-3.5) 10^3/uL [place] # (Auto) 0.8 (0.0-1.0) 10^3/uL Eos # (Auto) 0.3 (0.0-0.7) 10^3/uL Baso # (Auto) 0.0 (0.0-0.1) 10^3/uL Absolute Nucleated RBC 0.00 x10^3/uL Nucleated RBC % 0.0 /100WBC Manual Slide Review Indicated Platelet Morphology PLATELET CLUMPING (NORMAL) RBC Morph Micro Appear NORMAL APPEARANCE (NORMAL) Sodium 136 (135-145) mmol/L Potassium 4.0 (3.5-5.0) mmol/L Chloride 107 (101-111) mmol/L Carbon Dioxide 23 (21-32) mmol/L Anion Gap 6.0 (6-13) BUN 15 (6-20) mg/dL Creatinine 1.1 H (0.4-1.0) mg/dL Estimated GFR (MDRD) 49 L (>89) Glucose 114 H (70-100) mg/dL Calcium 8.7 (8.5-10.3) mg/dL Ammonia 19.0 (7-35) umol/L Troponin I High Sens (2.3-14.8) ng/L 05/18/20 05/18/20 Range/Units 01:00 01:00 WBC (4.8-10.8) x10^3/uL RBC (4.20-5.40) 10^6/uL Hgb 10.0 L (12.0-16.0) g/dL Hct 32.2 L (37.0-47.0) % MCV (81.0-99.0) fL MCH (27.0-31.0) pg MCHC (32.0-36.0) g/dL RDW (12.0-15.0) % Plt Count MPV Neut # (Auto) (1.5-6.6) 10^3/uL Lymph # (Auto) (1.5-3.5) 10^3/uL [place] # (Auto) (0.0-1.0) 10^3/uL Eos # (Auto) (0.0-0.7) 10^3/uL Baso # (Auto) (0.0-0.1) 10^3/uL Absolute Nucleated RBC x10^3/uL Nucleated RBC % /100WBC Manual Slide Review Platelet Morphology (NORMAL) RBC Morph Micro Appear (NORMAL) Sodium (135-145) mmol/L Potassium (3.5-5.0) mmol/L Chloride (101-111) mmol/L Carbon Dioxide (21-32) mmol/L Anion Gap (6-13) BUN (6-20) mg/dL Creatinine (0.4-1.0) mg/dL Estimated GFR (MDRD) (>89) Glucose (70-100) mg/dL Calcium (8.5-10.3) mg/dL Ammonia (7-35) umol/L Troponin I High Sens 6.3 (2.3-14.8) ng/L ABX Reporting Has patient been on IV antibiotics over the past 48 hours?: No Assessment/Plan - Problem List (1) Ankle pain, right Impression: s/p right ankle fracture w ORIF in 03/2020. Went to SNF for rehab, did not complete due to leaving AMA. Home and in wheelchair. She really hates standing up and walking that ankle. To the point that she has been in a wheelchair since she left the [facility] facility. Physical therapy is working with her. Ankle films showed satisfactory appearance of fibular fracture and orthopedic hardware. Early callus formation involving mildly displaced medial malleolar fracture. Likely progress in healing of the distal anterior tibial fracture but it is not well seen currently. Orthopedic surgery, without looking at the films yet, states that she can be weightbearing as tolerated. Plan: Continue to work with physical therapy. I did speak about her deconditioning to her. Her weakness. She is reluctantly considering possible going back to SNF for rehab. (2) Atrial fibrillation with RVR Impression: Patient has prevous history of atrial fibrillation. She used to be on Eliquis but appears not to be on any anticoagulant currently. We think that she stopped her Eliquis when she left the [facility] facility AMA and has not had it refilled. Or her PCP may have consciously decided not to give it to her since this lady has a history of alcoholism with multiple, multiple falls in the last 6 months. Patient was given two doses of diltiazem 10 mg IV pushes in the ED. Diltiazem 5 mg IV every 4 hours as needed for heart rate greater than 130 has been ordered. Metoprolol succinate 25 mg p.o. twice daily resumed as well as Digoxin 125 mcg p.o. daily. Pulses been controlled. 70s to the 80s. Rarely in the 90s. Blood pressure has been low for the last few days. As low as 83 systolic. For some reason, at lunchtime, systolic was 149. She denies cp or sob that is worse. I gave her a 500 cc bolus yesterday. She is adequately hydrated. On May 16 she was 2680 cc positive. On May 17 she was 4070 cc positive. Because of the hypotension I did repeat a troponin and it was negative. Plan: Parameters are in place to hold her medication for blood pressure and pulse. (3) Arm contusion Conclusion/Plan: Due to mechanical fall. X-ray of the arm shows no fracture. Patient has a significant hematoma just superior to the right elbow. There is no tingling or numbness of the arm, the color and radial pulses are intact. We will manage pain as needed with Tylenol and/or Dilaudid. Plan: Per Phsycial therapy pt unable to comply with R LE TTWB during transfers and gait, very unsafe once standing as she is impulsive with attempts to sit even when a chair is not behind her. pt very slow to transfer supine to sit EOB. At this time recommend DC to SNF for further strengthening and safety training before returning home. Qualifiers: Encounter type: initial encounter Laterality: right Qualified Code(s): S40.021A - Contusion of right upper arm, initial encounter (4) Hypokalemia resolved Conclusion/Plan: Likely due to lasix Patient was given potassium chloride p.o. 10 mEq in the ED. She also received potassium chloride IV 10 mEq in the ED. Potassium chloride 40 mEq also ran over 4 hours. She has been normal since 05/16 Plan: check in am to make sure stays stable (5) Hypomagnesemia resolved Conclusion/Plan: Magnesium sulfate 2 g IV x1 ordered. Patient was also given oral magnesium 800 mg x 1. this morning she is 2.4. Plan: check in am and supplement if needed (6) Alcohol abuse Conclusion/Plan: She tells me her last drink was at the time of her fall for the ankle fracture, so maybe 2 months ago. CIWA protocol ordered and she has not needed it so far because Librium 25 mg p.o. every 8 hours scheduled ordered. She appears too sedated at times. Thiamine and multivitamins ordered. She does have an enlarging MCV and in the past B12 was 170s. She doesn't remember taking B12 regularly. REpeat B12 level is normal. I Stopped librium as scheduled dose and continue prn ativan. no IM B12 needed for now (7) Depression Conclusion/Plan: On duloxetine 60 mg p.o. daily. That is resumed for today (8) HTN (hypertension) Conclusion/Plan: On metoprolol succinate 25 mg p.o. twice daily for afib rate control and her BP is low. No other meds for now. (9) Hypothyroidism history Conclusion/Plan: Patient appears to not be on any medication. Rechecked TSH 05/16/20 and she is normal. (10) RABIA Her creat has subtly risen for the last 2 days in spite of IVF. BP low. She was 1.6 creat yesterday and 1.1 today after fluid bolus. Plan: meds held for BP parameters
[2020-05-18] MEDS: traZODone 50 MG TABLET PO SCH (20:38)
[2020-05-19 05:22] LABS: BASOPHILS % (AUTO) 0.3 %; EOSINOPHILS # (AUTO) 0.2 10^3/uL (0.0-0.7); EOSINOPHILS % (AUTO) 2.9 %; HCT - HEMATOCRIT 31.1 % (37.0-47.0); HGB - HEMOGLOBIN 9.7 g/dL (12.0-16.0); LYMPHOCYTES # (AUTO) 0.8 10^3/uL (1.5-3.5); LYMPHOCYTES % (AUTO) 12.7 %; MEAN CORPUSCULAR HEMOGLOBIN 33.6 pg (27.0-31.0); MEAN CORPUSCULAR HGB CONC 31.2 g/dL (32.0-36.0); MEAN CORPUSCULAR VOLUME 107.6 fL (81.0-99.0); MEAN PLATELET VOLUME 11.6 fL (7.9-10.8); MONOCYTES # (AUTO) 0.5 10^3/uL (0.0-1.0); MONOCYTES % (AUTO) 7.5 %; NEUTROPHILS # (AUTO) 4.8 10^3/uL (1.5-6.6); NEUTROPHILS % (AUTO) 76.3 %; PLT - PLATELET COUNT 121 10^3/uL (130-450); RED BLOOD COUNT 2.89 10^6/uL (4.20-5.40); WHITE BLOOD COUNT 6.3 x10^3/uL (4.8-10.8)
[2020-05-19] MEDS: SODIUM CHLORIDE FLUSH 0.9% 10 ML SYRINGE IVP SCH ×3 (05:27→18:30)
[2020-05-19 05:29] LABS: CALCIUM 8.7 mg/dL (8.5-10.3); CREATININE 0.7 mg/dL (0.4-1.0)
[2020-05-19] MEDS: SODIUM CHLORIDE 0.9% 1,000 ML IV SCH ×2 (06:06→16:21)
--- NOTE | 2020-05-19 07:09 | PROVIDER PROGRESS NOTE ---
Assessment/Plan - Problem List (1) Atrial fibrillation with RVR Assessment/Plan: RVR resolved On digoxin 125mcg daily and metoprolol 25mg bid po (2) Arm contusion Qualifiers: Encounter type: initial encounter Laterality: right Qualified Code(s): S40.021A - Contusion of right upper arm, initial encounter Assessment/Plan: Due to mechanical fall. X-ray of arm showed no fracture. We will continue to manage pain as needed. Will minimize opiod use due ti increased sleepiness (3) Hypokalemia Assessment/Plan: Resolved (4) Hypomagnesemia Assessment/Plan: Resolved (5) Alcohol abuse Assessment/Plan: Will continue to monitor CIWA ordered. Ativan prn (6) Depression Assessment/Plan: On duloxetine 60mg po daily (7) HTN (hypertension) Assessment/Plan: On metoprolol 25mg po bid (8) Hypothyroidism Assessment/Plan: Patient appears to not be on any medication. Rechecked TSH 05/16/20 and she is normal. (9) Right hip pain Assessment/Plan: Improving Due to mechanical fall (10) Ankle pain, right Assessment/Plan: Patient underwent an ORIF of the right ankle on 03/2020. Went to SNF for rehab, left SNF AMA. Has been home in wheelchair.. PT OT working with patient. X-rays of ankle show satisfactory appearance of fibula fracture and orthopedic hardware. Orthopedic recommendation is for weightbearing as tolerated. Patient is agreeable to go to [facility]. Anticipating discharge in 1 to 2 days. - Current Meds Current Meds: Current Medications Generic Name Dose Route Start Last Admin Trade Name Reneq PRN Reason Stop Dose Admin Acetaminophen 650 mg 05/15/20 20:13 05/18/20 10:22 Acetaminophen 325 Mg Tablet PO 650 mg Q4HR PRN Administration Pain 1 to 4 Digoxin 125 mcg 05/16/20 09:00 05/18/20 10:20 Digoxin 125 Mcg Tablet PO 125 mcg DAILY [facility] Administration Diphenhydramine HCl 25 mg 05/16/20 08:28 05/16/20 09:05 Diphenhydramine 25 Mg Capsule PO 25 mg Q4HR PRN Administration Allergy Symptoms Docusate Sodium 250 - 500 mg 05/16/20 13:44 05/18/20 10:22 Docusate Sodium 250 Mg Capsule PO Not Given DAILY [facility] Duloxetine HCl 60 mg 05/17/20 12:00 05/18/20 10:18 Duloxetine 30 Mg Capsule PO 60 mg DAILY [facility] Administration Famotidine 20 mg 05/16/20 21:00 05/18/20 20:38 Famotidine 20 Mg Tablet PO 20 mg BID [facility] Administration Gabapentin 600 mg 05/17/20 13:00 05/18/20 20:38 Gabapentin 300 Mg Capsule PO 600 mg QID [facility] Administration Hydromorphone HCl 1 mg 05/15/20 21:08 05/16/20 11:18 Hydromorphone 1 Mg/Ml Carpuject IVP 1 mg Q3HR PRN Administration PAIN Sodium Chloride 1,000 mls @ 100 mls/hr 05/16/20 07:00 05/19/20 06:06 Normal Saline 0.9% IV 100 mls/hr .Q10H [facility] Administration Loratadine 10 mg 05/17/20 09:00 05/18/20 10:21 Loratadine 10 Mg Tablet PO 10 mg DAILY [facility] Administration Metoprolol Succinate 25 mg 05/15/20 23:00 05/18/20 20:38 Metoprolol Succinate 25 Mg Tablet PO 25 mg BID [facility] Administration Ondansetron HCl 4 mg 05/16/20 06:34 05/16/20 13:41 Ondansetron 4 Mg/2 Ml Vial IVP 4 mg Q6HR PRN Administration Nausea / Vomiting Oxycodone HCl 5 mg 05/15/20 22:56 05/17/20 18:19 Oxycodone 5 Mg Tablet PO 5 mg Q4HR PRN Administration PAIN Polyethylene Glycol 17 gm 05/16/20 13:19 05/18/20 10:22 Polyethylene Glycol 3350 17 Gm Packet PO Not Given DAILY [facility] Multivit/Folic Acid/Iron 1 tab 05/16/20 09:00 05/18/20 10:21 Vitamin Tablet PO 1 tab DAILY [facility] Administration Prochlorperazine Edisylate 10 mg 05/16/20 14:33 05/16/20 15:33 Prochlorperazine 10 Mg/2 Ml Vial IVP 10 mg Q6HR PRN Administration Nausea / Vomiting Senna 8.6 - 17.2 mg 05/16/20 13:44 05/18/20 10:22 Senna 8.6 Mg Tablet PO Not Given DAILY [facility] Sodium Chloride 10 ml 05/15/20 20:13 05/16/20 11:19 Sodium Chloride Flush 0.9% 10 Ml Syringe IVP 10 ml PRN PRN Administration NEEDED PER PROVIDER ORDERS Sodium Chloride 10 ml 05/16/20 01:00 05/19/20 05:27 Sodium Chloride Flush 0.9% 10 Ml Syringe IVP Not Given 0100,0900,1700 [facility] Thiamine HCl 100 mg 05/16/20 09:00 05/18/20 10:21 Thiamine 100 Mg Tablet PO 100 mg DAILY [facility] Administration Trazodone HCl 50 mg 05/15/20 22:56 05/18/20 20:38 Trazodone 50 Mg Tablet PO 50 mg QPM [facility] Administration - Lab Result Fish Bone Diagrams: 05/19/20 05:10 05/19/20 05:10 Subjective - Subjective Patient Reports: Other (Patient was resting comfortably in bed at time of exam. Shortly before this she has been eating lunch. She denied any significant complaints. The rest of the visit was unremarkable.) Objective Vital Signs: Vital Signs - 24 hr 05/18/20 05/18/20 05/18/20 08:57 10:18 12:15 Temperature 36.4 C L 36.5 C Heart Rate [ 86 89 Brachial] Heart Rate [ Monitoring electrodes] Heart Rate [ 87 Radial] Respiratory 20 18 Rate Blood Pressure 109/49 L [Left Radial artery] Blood Pressure 94/34 L 149/98 H [Right Radial artery] O2 Saturation 93 95 05/18/20 05/18/20 05/19/20 15:35 20:35 00:37 Temperature 36.5 C 36.5 C 36.7 C Heart Rate [ 77 81 Brachial] Heart Rate [ 83 Monitoring electrodes] Heart Rate [ Radial] Respiratory 16 16 22 Rate Blood Pressure 101/50 L 132/53 H [Left Radial artery] Blood Pressure 110/52 L [Right Radial artery] O2 Saturation 96 94 92 05/19/20 05:00 Temperature 37.1 C Heart Rate [ Brachial] Heart Rate [ 82 Monitoring electrodes] Heart Rate [ Radial] Respiratory 18 Rate Blood Pressure [Left Radial artery] Blood Pressure 114/49 L [Right Radial artery] O2 Saturation 97 Oxygen O2 Source [With Activity] Room air O2 Source Nasal cannula I&O (Last 24 Hrs): Intake and Output Totals x24h 0305/18/20 05/19/20 23:59 23:59 23:59 Intake Total 5220.000 3331.667 1000 Output Total 1150 1950 700 Balance 4070.000 1381.667 300 General: Alert, Oriented x3, No acute distress HEENT: PERRLA, EOMI Neck: Supple, No JVD Neuro: Alert, Non Focal, Oriented Times 3 Cardiovascular: Regular rate, Normal S1, Normal S2 Respiratory: Chest non-tender, No respiratory distress, Breath sounds nml Abdomen: Normal bowel sounds, Soft, No tenderness, No masses Extremities: Other (bruising around right elbow and right ankle) - Results Results: Laboratory Results WBC 6.3 x10^3/uL (4.8-10.8) 05/19/20 05:10 RBC 2.89 10^6/uL (4.20-5.40) L 05/19/20 05:10 Hgb 9.7 g/dL (12.0-16.0) L 05/19/20 05:10 Hct 31.1 % (37.0-47.0) L 05/19/20 05:10 MCV 107.6 fL (81.0-99.0) H 05/19/20 05:10 MCH 33.6 pg (27.0-31.0) H 05/19/20 05:10 MCHC 31.2 g/dL (32.0-36.0) L 05/19/20 05:10 RDW 13.0 % (12.0-15.0) 05/19/20 05:10 Plt Count 121 10^3/uL (130-450) L 05/19/20 05:10 MPV 11.6 fL (7.9-10.8) H 05/19/20 05:10 Neut # (Auto) 4.8 10^3/uL (1.5-6.6) 05/19/20 05:10 Lymph # (Auto) 0.8 10^3/uL (1.5-3.5) L 05/19/20 05:10 [place] # (Auto) 0.5 10^3/uL (0.0-1.0) 05/19/20 05:10 Eos # (Auto) 0.2 10^3/uL (0.0-0.7) 05/19/20 05:10 Baso # (Auto) 0.0 10^3/uL (0.0-0.1) 05/19/20 05:10 Absolute Nucleated RBC 0.00 x10^3/uL 05/19/20 05:10 Nucleated RBC % 0.0 /100WBC 05/19/20 05:10 Manual Slide Review Indicated 05/18/20 06:30 Platelet Morphology PLATELET CLUMPING (NORMAL) 05/18/20 06:30 RBC Morph Micro Appear NORMAL APPEARANCE (NORMAL) 05/18/20 06:30 PT 14.9 secs (9.9-12.6) H 05/15/20 19:30 INR 1.4 (0.8-1.2) H 05/15/20 19:30 Sodium 137 mmol/L (135-145) 05/19/20 05:10 Potassium 4.0 mmol/L (3.5-5.0) 05/19/20 05:10 Chloride 108 mmol/L (101-111) 05/19/20 05:10 Carbon Dioxide 22 mmol/L (21-32) 05/19/20 05:10 Anion Gap 7.0 (6-13) 05/19/20 05:10 BUN 11 mg/dL (6-20) 05/19/20 05:10 Creatinine 0.7 mg/dL (0.4-1.0) 05/19/20 05:10 Estimated GFR (MDRD) 82 (>89) L 05/19/20 05:10 Glucose 104 mg/dL (70-100) H 05/19/20 05:10 Calcium 8.7 mg/dL (8.5-10.3) 05/19/20 05:10 Phosphorus 5.2 mg/dL (2.5-4.6) H 05/16/20 05:16 Magnesium 2.4 mg/dL (1.7-2.8) 05/16/20 05:16 Total Bilirubin 1.6 mg/dL (0.2-1.0) H 05/15/20 19:30 AST 44 IU/L (10-42) H 05/15/20 19:30 ALT 29 IU/L (10-60) 05/15/20 19:30 Alkaline Phosphatase 123 IU/L (42-121) H 05/15/20 19:30 Ammonia 19.0 umol/L (7-35) 05/18/20 01:00 Troponin I High Sens 6.3 ng/L (2.3-14.8) 05/18/20 01:00 Total Protein 7.7 g/dL (6.7-8.2) 05/15/20 19:30 Albumin 3.7 g/dL (3.2-5.5) 05/15/20 19:30 Globulin 4.0 g/dL (2.1-4.2) 05/15/20 19:30 Albumin/Globulin Ratio 0.9 (1.0-2.2) L 05/15/20 19:30 Vitamin B12 918 pg/mL (180-914) H 05/16/20 08:16 Folate 27.00 ng/mL (5.90 - >24.8) 05/16/20 08:16 TSH 4.31 uIU/mL (0.34-5.60) 05/16/20 05:16 Nasal Adenovirus (PCR) NOT DETECTED 05/15/20 19:30 Nasal B. parapertussis DNA (PCR) NOT DETECTED 05/15/20 19:30 Nasal Coronavir 229E PCR NOT DETECTED 05/15/20 19:30 Nasal Coronavir HKU1 PCR NOT DETECTED 05/15/20 19:30 Nasal Coronavir NL63 PCR NOT DETECTED 05/15/20 19:30 Nasal Coronavir OC43 PCR NOT DETECTED 05/15/20 19:30 Nasal Enterovir/Rhinovir PCR NOT DETECTED 05/15/20 19:30 Nasal Influenza B PCR NOT DETECTED 05/15/20 19:30 Nasal Influenza A PCR NOT DETECTED 05/15/20 19:30 Nasal Parainfluen 1 PCR NOT DETECTED 05/15/20 19:30 Nasal Parainfluen 2 PCR NOT DETECTED 05/15/20 19:30 Nasal Parainfluen 3 PCR NOT DETECTED 05/15/20 19:30 Nasal Parainfluen 4 PCR NOT DETECTED 05/15/20 19:30 Nasal RSV (PCR) NOT DETECTED 05/15/20 19:30 Nasal B.pertussis DNA PCR NOT DETECTED 05/15/20 19:30 Nasal C.pneumoniae (PCR) NOT DETECTED 05/15/20 19:30 [place] Human Metapneumo PCR NOT DETECTED 05/15/20 19:30 Nasal M.pneumoniae (PCR) NOT DETECTED 05/15/20 19:30 Nasal SARS-CoV-2 (PCR) NOT DETECTED 05/15/20 19:30 Last Dose Date Not Reportable 05/15/20 19:30 Last Dose Time Not Reportable 05/15/20 19:30 Digoxin 0.3 ng/mL 05/15/20 19:30 Ethyl Alcohol < 5.0 mg/dL 05/15/20 19:30 - Procedures Procedures: Procedures REPOSITION RIGHT FIBULA WITH INT FIX, OPEN APPROACH (04/02/20) ABX Reporting Has patient been on IV antibiotics over the past 48 hours?: No
[2020-05-19] MEDS: DOCUSATE SODIUM 250 MG CAPSULE PO SCH (09:11)
[2020-05-19] MEDS: GABAPENTIN 300 MG CAPSULE PO SCH ×4 (09:12→21:25)
[2020-05-19] MEDS: SENNA 8.6 MG TABLET PO SCH (09:12)
[2020-05-19] MEDS: polyethylene glycoL 3350 17 GM PACKET PO SCH (09:12)
[2020-05-19] MEDS: FAMOTIDINE 20 MG TABLET PO SCH ×2 (09:13→21:25)
[2020-05-19] MEDS: DULoxetine 30 MG CAPSULE PO SCH (09:13)
[2020-05-19] MEDS: THIAMINE 100 MG TABLET PO SCH (09:13)
[2020-05-19] MEDS: PRENATAL VITAMIN TABLET PO SCH (09:13)
[2020-05-19] MEDS: LORATADINE 10 MG TABLET PO SCH (09:14)
[2020-05-19] MEDS: DIGOXIN 125 MCG TABLET PO SCH (09:14)
[2020-05-19] MEDS: METOPROLOL SUCCINATE 25 MG TABLET PO SCH ×2 (09:14→21:25)
[2020-05-19] MEDS: ACETAMINOPHEN 325 MG TABLET PO PRN ×2 (10:47→22:53)
[2020-05-19] MEDS: traZODone 50 MG TABLET PO SCH (21:25)
[2020-05-20] MEDS: SODIUM CHLORIDE FLUSH 0.9% 10 ML SYRINGE IVP SCH ×3 (02:00→18:17)
[2020-05-20] MEDS: SODIUM CHLORIDE 0.9% 1,000 ML IV SCH (02:00)
[2020-05-20 08:06] LABS: BASOPHILS % (AUTO) 0.6 %; EOSINOPHILS # (AUTO) 0.2 10^3/uL (0.0-0.7); EOSINOPHILS % (AUTO) 3.3 %; HCT - HEMATOCRIT 30.9 % (37.0-47.0); HGB - HEMOGLOBIN 9.6 g/dL (12.0-16.0); LYMPHOCYTES # (AUTO) 1.5 10^3/uL (1.5-3.5); LYMPHOCYTES % (AUTO) 28.5 %; MEAN CORPUSCULAR HEMOGLOBIN 33.1 pg (27.0-31.0); MEAN CORPUSCULAR HGB CONC 31.1 g/dL (32.0-36.0); MEAN CORPUSCULAR VOLUME 106.6 fL (81.0-99.0); MEAN PLATELET VOLUME 11.1 fL (7.9-10.8); MONOCYTES # (AUTO) 0.5 10^3/uL (0.0-1.0); MONOCYTES % (AUTO) 10.5 %; NEUTROPHILS # (AUTO) 2.9 10^3/uL (1.5-6.6); NEUTROPHILS % (AUTO) 56.7 %; PLT - PLATELET COUNT 114 10^3/uL (130-450); WHITE BLOOD COUNT 5.1 x10^3/uL (4.8-10.8)
[2020-05-20 08:12] LABS: ABSOLUTE RETICS # AUTO 0.075 10^6/uL (0.020-0.110); RED BLOOD COUNT 2.9 10^6/uL (4.20-5.40); RETICULOCYTE COUNT % (AUTO) 2.6 % (0.5-2.3)
[2020-05-20 08:15] LABS: CREATININE 0.6 mg/dL (0.4-1.0); POTASSIUM 3.8 mmol/L (3.5-5.0)
[2020-05-20] MEDS: DOCUSATE SODIUM 250 MG CAPSULE PO SCH (08:17)
[2020-05-20] MEDS: DIGOXIN 125 MCG TABLET PO SCH (08:17)
[2020-05-20] MEDS: DULoxetine 30 MG CAPSULE PO SCH (08:17)
[2020-05-20] MEDS: LORATADINE 10 MG TABLET PO SCH (08:18)
[2020-05-20] MEDS: SENNA 8.6 MG TABLET PO SCH (08:18)
[2020-05-20] MEDS: FAMOTIDINE 20 MG TABLET PO SCH ×2 (08:18→21:09)
[2020-05-20] MEDS: PRENATAL VITAMIN TABLET PO SCH (08:18)
[2020-05-20] MEDS: ACETAMINOPHEN 325 MG TABLET PO PRN ×2 (08:18→18:16)
[2020-05-20] MEDS: polyethylene glycoL 3350 17 GM PACKET PO SCH (08:18)
[2020-05-20] MEDS: GABAPENTIN 300 MG CAPSULE PO SCH ×4 (08:18→21:09)
[2020-05-20 08:45] LABS: % IRON SATURATION 13 % (20-50); IRON 27 ug/dL (28-170); TOTAL IRON BINDING CAPACITY 204 ug/dL (250-450); TRANSFERRIN 146 mg/dL (192-382)
[2020-05-20 08:49] LABS: FERRITIN 83.9 ng/mL (11.0-306.8)
--- NOTE | 2020-05-20 10:07 | XRAY Report ---
PROCEDURE: Chest 1 View X-Ray INDICATIONS: chest pain, rib fracture? TECHNIQUE: One view of the chest was acquired. COMPARISON: FINDINGS: Surgical changes and devices: None. Lungs and pleura: No pleural effusions or pneumothorax. Lungs are edematous, superimposed on a mild interstitial prominence that has been previously present. This is more easily seen on the right vu n the left but is also present behind the heart. Mediastinum: Mediastinal contours appear normal. Heart size is normal. Bones and chest wall: No suspicious bony lesions. Overlying soft tissues appear unremarkable. IMPRESSION: Generalized alveolar edema, mild to moderate in severity, superimposed on a previously present patter n of mild interstitial prominence that could reflect prior smoking history. Heart size is not enlarge d currently. Atypical pneumonia or early manifestation of acute cardiogenic pulmonary edema should be considered. Reviewed by: Phillip Chavez MD on 05/20/2020 9:06 AM [facility] Approved by: Phillip Chavez MD on 05/20/2020 9:06 AM [facility] Station ID: [id number]
[2020-05-20] MEDS: THIAMINE 100 MG TABLET PO SCH (10:58)
[2020-05-20] MEDS: METOPROLOL SUCCINATE 25 MG TABLET PO SCH ×2 (10:59→21:10)
[2020-05-20] MEDS: oxyCODONE 5 MG TABLET PO PRN (10:59)
[2020-05-20] MEDS: FERROUS GLUCONATE 324 MG TABLET PO SCH (10:59)
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
[2020-05-20] MEDS: traZODone 50 MG TABLET PO SCH (21:09)
[2020-05-21] MEDS: SODIUM CHLORIDE FLUSH 0.9% 10 ML SYRINGE IVP SCH ×3 (01:11→17:19)
[2020-05-21] MEDS: ACETAMINOPHEN 325 MG TABLET PO PRN ×4 (01:14→20:41)
[2020-05-21 05:05] LABS: BASOPHILS % (AUTO) 0.6 %; EOSINOPHILS # (AUTO) 0.2 10^3/uL (0.0-0.7); EOSINOPHILS % (AUTO) 3.8 %; HCT - HEMATOCRIT 30.5 % (37.0-47.0); HGB - HEMOGLOBIN 9.4 g/dL (12.0-16.0); LYMPHOCYTES # (AUTO) 1.6 10^3/uL (1.5-3.5); LYMPHOCYTES % (AUTO) 34.1 %; MEAN CORPUSCULAR HEMOGLOBIN 32.6 pg (27.0-31.0); MEAN CORPUSCULAR HGB CONC 30.8 g/dL (32.0-36.0); MEAN CORPUSCULAR VOLUME 105.9 fL (81.0-99.0); MONOCYTES # (AUTO) 0.5 10^3/uL (0.0-1.0); MONOCYTES % (AUTO) 11.2 %; NEUTROPHILS # (AUTO) 2.4 10^3/uL (1.5-6.6); NEUTROPHILS % (AUTO) 49.5 %; PLT - PLATELET COUNT 119 10^3/uL (130-450); RED BLOOD COUNT 2.88 10^6/uL (4.20-5.40); RED CELL DISTRIBUTION WIDTH 13.1 % (12.0-15.0); WHITE BLOOD COUNT 4.8 x10^3/uL (4.8-10.8)
[2020-05-21 05:15] LABS: CALCIUM 8.7 mg/dL (8.5-10.3); CREATININE 0.6 mg/dL (0.4-1.0); POTASSIUM 3.7 mmol/L (3.5-5.0)
[2020-05-21] MEDS ORDERED: AZITHROMYCIN 250 MG TABLET PO STA (08:19)
[2020-05-21] MEDS: DULoxetine 30 MG CAPSULE PO SCH (08:52)
[2020-05-21] MEDS: LORATADINE 10 MG TABLET PO SCH (08:52)
[2020-05-21] MEDS: SENNA 8.6 MG TABLET PO SCH (08:52)
[2020-05-21] MEDS: GABAPENTIN 300 MG CAPSULE PO SCH ×4 (08:52→20:38)
[2020-05-21] MEDS: DIGOXIN 125 MCG TABLET PO SCH (08:53)
[2020-05-21] MEDS: FERROUS GLUCONATE 324 MG TABLET PO SCH (08:53)
[2020-05-21] MEDS: THIAMINE 100 MG TABLET PO SCH (08:53)
[2020-05-21] MEDS: FUROSEMIDE 20 MG TABLET PO SCH (08:53)
[2020-05-21] MEDS: PRENATAL VITAMIN TABLET PO SCH (08:54)
[2020-05-21] MEDS: DOCUSATE SODIUM 250 MG CAPSULE PO SCH (08:54)
[2020-05-21] MEDS: FAMOTIDINE 20 MG TABLET PO SCH ×2 (08:54→20:38)
[2020-05-21] MEDS: ENOXAPARIN 40 MG/0.4 ML SYRINGE SUBQ SCH (08:55)
[2020-05-21] MEDS: cefTRIAXone 1 GM in SODIUM CHLORIDE 0.9% MINIBAG 100 ML IV SCH (08:55)
[2020-05-21] MEDS: polyethylene glycoL 3350 17 GM PACKET PO SCH (08:55)
[2020-05-21] MEDS ORDERED: AZITHROMYCIN 250 MG TABLET PO SCH (11:30)
[2020-05-21] MEDS: SACCHAROMYCES BOULARDII 250 MG CAPSULE PO SCH ×2 (12:15→17:19)
[2020-05-21] MEDS: oxyCODONE 5 MG TABLET PO PRN (12:20)
--- NOTE | 2020-05-21 13:39 | PROVIDER PROGRESS NOTE ---
Assessment/Plan - Problem List (1) Atypical pneumonia Assessment/Plan: 05/21 pt Present cough, hypoxia. She needed 2 L of oxygen to support. X-ray show mild pulmonary edema with Atypical pneumonia. Patient always refused to have physical activity or physical therapist Evaluation and treatment. We discussed with the patient, she agreed to have physical activity, Physical therapy, order pt out of bed, incentive spirometer, Treated for a Atypical pneumonia with azithromycin and Rocephin, Continue physical therapy, Supplement oxygen as needed. (2) Chest pain Impression: 05/21 Patient denies any more chest pain on her right, serial troponin tests are negative, EKG without acute change. Likely atypical chest pain. pt Complaint chest pain, will have troponin serial test, EKG and CXR, and will followup. Per patient's clinical presentation, it is more likely Atopical chest pain, will continue pain control (3)afib with RVR 05/21 RVR resolved, HR is about 65, but pt's BP is in the low edge, hold Metoprolol since patient's heart rate is around 70, patient has low blood pressure. Continue digoxin, Continue accountant manager And vital signs monitor. Because the patient has frequent falls, Chadsvasc is 2, pt has no home blood thinner, will continue and put lovenox of DVT prophylaxis (4) Arm contusion Due to mechanical fall., X-ray of arm showed no fracture, continue PT/OT, continue to manage pain as needed. Will minimize opiod use due ti increased sleepiness (5) Alcohol abuse Will continue to monitor. CIWA score is low, nurse asked to remove CIWA protocol now. (6) Depression Assessment/Plan: On duloxetine 60mg po daily (7) HTN (hypertension) Assessment/Plan: BP is at low edge side, hold Metoprolol continue vital signs monitor (8) Right hip pain Assessment/Plan: Improved, Xray reveals no acute bony abnormality. Th is Due to mechanical fall, continue pain control, Continue follow-up with physical therapist and occupational therapist (9) Ankle pain, right Assessment/Plan: X-rays of ankle show satisfactory appearance of fibula fracture and orthopedic hardware. Patient underwent an ORIF of the right ankle on 03/2020. Went to SNF for rehab, but pt left SNF with AMA. pt Has been home in wheelchair.. continue PT OT working with patient, continue pain control. Orthopedic recommendation is for weightbearing as tolerated. PT is recommended by PT for d/c to SNF - Current Meds Current Meds: Current Medications Generic Name Dose Route Start Last Admin Trade Name Freq PRN Reason Stop Dose Admin Acetaminophen 650 mg 05/15/20 20:13 05/21/20 08:54 Acetaminophen 325 Mg Tablet PO 650 mg Q4HR PRN Administration Pain 1 to 4 Digoxin 125 mcg 05/16/20 09:00 05/21/20 08:53 Digoxin 125 Mcg Tablet PO 125 mcg DAILY [facility] Administration Diphenhydramine HCl 25 mg 05/16/20 08:28 05/16/20 09:05 Diphenhydramine 25 Mg Capsule PO 25 mg Q4HR PRN Administration Allergy Symptoms Docusate Sodium 250 - 500 mg 05/16/20 13:44 05/21/20 08:54 Docusate Sodium 250 Mg Capsule PO 250 mg DAILY [facility] Administration Duloxetine HCl 60 mg 05/17/20 12:00 05/21/20 08:52 Duloxetine 30 Mg Capsule PO 60 mg DAILY [facility] Administration Enoxaparin Sodium 40 mg 05/21/20 09:00 05/21/20 08:55 Enoxaparin 40 Mg/0.4 Ml Syringe SUBQ 40 mg DAILY [facility] Administration Famotidine 20 mg 05/16/20 21:00 05/21/20 08:54 Famotidine 20 Mg Tablet PO 20 mg BID [facility] Administration Ferrous Gluconate 324 mg 05/20/20 11:00 05/21/20 08:53 Ferrous Gluconate 324 Mg Tablet PO 324 mg DAILYWM [facility] Administration Furosemide 20 mg 05/21/20 08:18 05/21/20 08:53 Furosemide 20 Mg Tablet PO 20 mg DAILY [facility] Administration Gabapentin 600 mg 05/17/20 13:00 05/21/20 12:20 Gabapentin 300 Mg Capsule PO 600 mg QID [facility] Administration Ceftriaxone Sodium 1 gm/ 100 mls @ 200 mls/hr 05/21/20 08:22 05/21/20 09:36 Sodium Chloride IV Infused DAILY [facility] Infusion Loratadine 10 mg 05/17/20 09:00 05/21/20 08:52 Loratadine 10 Mg Tablet PO 10 mg DAILY [facility] Administration Ondansetron HCl 4 mg 05/16/20 06:34 05/16/20 13:41 Ondansetron 4 Mg/2 Ml Vial IVP 4 mg Q6HR PRN Administration Nausea / Vomiting Oxycodone HCl 5 mg 05/15/20 22:56 05/21/20 12:20 Oxycodone 5 Mg Tablet PO 5 mg Q4HR PRN Administration PAIN Polyethylene Glycol 17 gm 05/16/20 13:19 05/21/20 08:55 Polyethylene Glycol 3350 17 Gm Packet PO 17 gm DAILY [facility] Administration Multivit/Folic Acid/Iron 1 tab 05/16/20 09:00 05/21/20 08:54 Vitamin Tablet PO 1 tab DAILY [facility] Administration Prochlorperazine Edisylate 10 mg 05/16/20 14:33 05/16/20 15:33 Prochlorperazine 10 Mg/2 Ml Vial IVP 10 mg Q6HR PRN Administration Nausea / Vomiting Saccharomyces Boulardii 250 mg 05/21/20 10:51 05/21/20 12:15 Saccharomyces Boulardii 250 Mg Capsule PO 250 mg BIDWM [facility] Administration Senna 8.6 - 17.2 mg 05/16/20 13:44 05/21/20 08:52 Senna 8.6 Mg Tablet PO 8.6 mg DAILY [facility] Administration Sodium Chloride 10 ml 05/15/20 20:13 05/16/20 11:19 Sodium Chloride Flush 0.9% 10 Ml Syringe IVP 10 ml PRN PRN Administration NEEDED PER PROVIDER ORDERS Sodium Chloride 10 ml 05/16/20 01:00 05/21/20 09:00 Sodium Chloride Flush 0.9% 10 Ml Syringe IVP 10 ml 0100,0900,1700 [facility] Administration Thiamine HCl 100 mg 05/16/20 09:00 05/21/20 08:53 Thiamine 100 Mg Tablet PO 100 mg DAILY [facility] Administration Trazodone HCl 50 mg 05/15/20 22:56 05/20/20 21:09 Trazodone 50 Mg Tablet PO 50 mg QPM [facility] Administration - Lab Result Fish Bone Diagrams: 05/21/20 04:30 05/21/20 04:30 - Additional Planning My Orders: My Active Orders 05/21/20 Evaluate and Treat OT [OT] Routine Evaluate and Treat PT [PT] Routine 05/21/20 07:44 Incentive Spirometry - RT [RC] .TID Out of bed 4+ hours [RC] QID 05/21/20 07:53 Orthostatic [Vital Signs - Orthostatic] [RC] DAILY 05/21/20 08:18 Furosemide [Lasix] 20 mg PO DAILY 05/21/20 08:22 cefTRIAXone [Rocephin] 1 gm Sodium Chloride 0.9% Minibag [Normal Saline 0.9% Minibag] 100 ml IV DAILY 05/21/20 09:00 Enoxaparin [Lovenox] 40 mg SUBQ DAILY 05/21/20 09:20 COVID-19 REFERENCE TEST Routine 05/21/20 10:51 Saccharomyces Boulardii [Florastor] 250 mg PO BIDWM 05/22/20 05:00 BMP - BASIC METABOLIC PANEL [CHEM] DAILYLAB CBC - COMP BLD CT W/AUTO DIFF [HEME] DAILYLAB 05/22/20 09:00 Azithromycin [Zithromax] 250 mg PO DAILY 05/23/20 05:00 BMP - BASIC METABOLIC PANEL [CHEM] DAILYLAB CBC - COMP BLD CT W/AUTO DIFF [HEME] DAILYLAB 05/24/20 05:00 BMP - BASIC METABOLIC PANEL [CHEM] DAILYLAB CBC - COMP BLD CT W/AUTO DIFF [HEME] DAILYLAB 05/25/20 05:00 BMP - BASIC METABOLIC PANEL [CHEM] DAILYLAB CBC - COMP BLD CT W/AUTO DIFF [HEME] DAILYLAB Subjective - Subjective Patient Reports: Cough Objective Vital Signs: Vital Signs - 24 hr 05/20/20 05/20/20 05/20/20 15:53 18:19 21:10 Temperature 36.3 C L 36.5 C Heart Rate [ 66 73 Brachial] Respiratory 16 14 Rate Blood Pressure 84/51 L 99/48 L [Left Brachial artery] Blood Pressure [Left Radial artery] Blood Pressure 114/50 L [Right Radial artery] O2 Saturation 92 05/21/20 05/21/20 05/21/20 00:54 04:41 07:40 Temperature 36.5 C 36.5 C 36.5 C Heart Rate [ 77 71 69 Brachial] Respiratory 16 15 18 Rate Blood Pressure 127/63 [Left Brachial artery] Blood Pressure 120/57 L [Left Radial artery] Blood Pressure 92/40 L [Right Radial artery] O2 Saturation 92 88 L 90 L 05/21/20 11:29 Temperature 36.4 C L Heart Rate [ 80 Brachial] Respiratory 18 Rate Blood Pressure 118/55 L [Left Brachial artery] Blood Pressure [Left Radial artery] Blood Pressure [Right Radial artery] O2 Saturation 95 Oxygen O2 Source [With Activity] Room air O2 Source Nasal cannula I&O (Last 24 Hrs): Intake and Output Totals x24h 05/19/20 05/20/20 05/21/20 23:59 23:59 23:59 Intake Total 2680 2590 940 Output Total 3069 766 6257 Balance 1380 2140 -1110 General: Alert, Oriented x3, Mild distress HEENT: Atraumatic Neck: Supple Lymphatic: no adenopathy Neuro: Alert, Non Focal, Oriented Times 3 Cardiovascular: Regular rate, Normal S1, Normal S2 Respiratory: Chest non-tender Abdomen: Normal bowel sounds, Soft, No tenderness Extremities: Normal pulses - Results Results: Laboratory Results WBC 4.8 x10^3/uL (4.8-10.8) 05/21/20 04:30 RBC 2.88 10^6/uL (4.20-5.40) L 05/21/20 04:30 Hgb 9.4 g/dL (12.0-16.0) L 05/21/20 04:30 Hct 30.5 % (37.0-47.0) L 05/21/20 04:30 MCV 105.9 fL (81.0-99.0) H 05/21/20 04:30 MCH 32.6 pg (27.0-31.0) H 05/21/20 04:30 MCHC 30.8 g/dL (32.0-36.0) L 05/21/20 04:30 RDW 13.1 % (12.0-15.0) 05/21/20 04:30 Plt Count 119 10^3/uL (130-450) L 05/21/20 04:30 MPV 11.0 fL (7.9-10.8) H 05/21/20 04:30 Reticulocyte % (Auto) 2.60 % (0.5-2.3) H 05/20/20 08:03 Neut # (Auto) 2.4 10^3/uL (1.5-6.6) 05/21/20 04:30 Lymph # (Auto) 1.6 10^3/uL (1.5-3.5) 05/21/20 04:30 [place] # (Auto) 0.5 10^3/uL (0.0-1.0) 05/21/20 04:30 Eos # (Auto) 0.2 10^3/uL (0.0-0.7) 05/21/20 04:30 Baso # (Auto) 0.0 10^3/uL (0.0-0.1) 05/21/20 04:30 Absolute Nucleated RBC 0.00 x10^3/uL 05/21/20 04:30 Nucleated RBC % 0.0 /100WBC 05/21/20 04:30 Manual Slide Review Indicated 05/18/20 06:30 Platelet Morphology PLATELET CLUMPING (NORMAL) 05/18/20 06:30 RBC Morph Micro Appear NORMAL APPEARANCE (NORMAL) 05/18/20 06:30 Absolute Retic 0.075 10^6/uL (0.020-0.110) 05/20/20 08:03 PT 14.9 secs (9.9-12.6) H 05/15/20 19:30 INR 1.4 (0.8-1.2) H 05/15/20 19:30 Sodium 138 mmol/L (135-145) 05/21/20 04:30 Potassium 3.7 mmol/L (3.5-5.0) 05/21/20 04:30 Chloride 104 mmol/L (101-111) 05/21/20 04:30 Carbon Dioxide 25 mmol/L (21-32) 05/21/20 04:30 Anion Gap 9.0 (6-13) 05/21/20 04:30 BUN 9 mg/dL (6-20) 05/21/20 04:30 Creatinine 0.6 mg/dL (0.4-1.0) 05/21/20 04:30 Estimated GFR (MDRD) 98 (>89) 05/21/20 04:30 Glucose 108 mg/dL (70-100) H 05/21/20 04:30 Calcium 8.7 mg/dL (8.5-10.3) 05/21/20 04:30 Phosphorus 5.2 mg/dL (2.5-4.6) H 05/16/20 05:16 Magnesium 2.4 mg/dL (1.7-2.8) 05/16/20 05:16 Iron 27 ug/dL (28-170) L 05/20/20 08:03 TIBC 204 ug/dL (250-450) L 05/20/20 08:03 % Saturation 13 % (20-50) L 05/20/20 08:03 Transferrin 146 mg/dL (192-382) L 05/20/20 08:03 Ferritin 83.9 ng/mL (11.0-306.8) 05/20/20 08:03 Total Bilirubin 1.6 mg/dL (0.2-1.0) H 05/15/20 19:30 AST 44 IU/L (10-42) H 05/15/20 19:30 ALT 29 IU/L (10-60) 05/15/20 19:30 Alkaline Phosphatase 123 IU/L (42-121) H 05/15/20 19:30 Ammonia 19.0 umol/L (7-35) 05/18/20 01:00 Lactate Dehydrogenase 110 IU/L (91-225) 05/20/20 08:03 Troponin I High Sens 4.9 ng/L (2.3-14.8) 05/20/20 19:33 Total Protein 7.7 g/dL (6.7-8.2) 05/15/20 19:30 Albumin 3.7 g/dL (3.2-5.5) 05/15/20 19:30 Globulin 4.0 g/dL (2.1-4.2) 05/15/20 19:30 Albumin/Globulin Ratio 0.9 (1.0-2.2) L 05/15/20 19:30 Vitamin B12 851 pg/mL (180-914) 05/20/20 08:03 Folate 27.00 ng/mL (5.90 - >24.8) 05/16/20 08:16 TSH 4.31 uIU/mL (0.34-5.60) 05/16/20 05:16 Nasal Adenovirus (PCR) NOT DETECTED 05/15/20 19:30 Nasal B. parapertussis DNA (PCR) NOT DETECTED 05/15/20 19:30 Nasal Coronavir 229E PCR NOT DETECTED 05/15/20 19:30 Nasal Coronavir HKU1 PCR NOT DETECTED 05/15/20 19:30 Nasal Coronavir NL63 PCR NOT DETECTED 05/15/20 19:30 Nasal Coronavir OC43 PCR NOT DETECTED 05/15/20 19:30 Nasal Enterovir/Rhinovir PCR NOT DETECTED 05/15/20 19:30 Nasal Influenza B PCR NOT DETECTED 05/15/20 19:30 Nasal Influenza A PCR NOT DETECTED 05/15/20 19:30 Nasal Parainfluen 1 PCR NOT DETECTED 05/15/20 19:30 Nasal Parainfluen 2 PCR NOT DETECTED 05/15/20 19:30 Nasal Parainfluen 3 PCR NOT DETECTED 05/15/20 19:30 Nasal Parainfluen 4 PCR NOT DETECTED 05/15/20 19:30 Nasal RSV (PCR) NOT DETECTED 05/15/20 19:30 Nasal B.pertussis DNA PCR NOT DETECTED 05/15/20 19:30 Nasal C.pneumoniae (PCR) NOT DETECTED 05/15/20 19:30 [place] Human Metapneumo PCR NOT DETECTED 05/15/20 19:30 Nasal M.pneumoniae (PCR) NOT DETECTED 05/15/20 19:30 Nasal SARS-CoV-2 (PCR) NOT DETECTED 05/15/20 19:30 Last Dose Date Not Reportable 05/15/20 19:30 Last Dose Time Not Reportable 05/15/20 19:30 Digoxin 0.3 ng/mL 05/15/20 19:30 Ethyl Alcohol < 5.0 mg/dL 05/15/20 19:30 - Procedures Procedures: Procedures REPOSITION RIGHT FIBULA WITH INT FIX, OPEN APPROACH (04/02/20) Sepsis Event Note (H) - Evaluation Current Stage of Sepsis: Ruled out ABX Reporting Has patient been on IV antibiotics over the past 48 hours?: Yes Current Medications - Current Medications Current Medications: Active Medications Acetaminophen (Acetaminophen 325 Mg Tablet) 650 mg PO Q4HR PRN PRN Reason: Pain 1 to 4 Last Admin: 05/21/20 08:54 Dose: 650 mg Documented by: Azithromycin (Azithromycin 250 Mg Tablet) 250 mg PO DAILY [facility] Cyclobenzaprine HCl (Cyclobenzaprine 10 Mg Tablet) 10 mg PO Q8H PRN PRN Reason: PAIN Digoxin (Digoxin 125 Mcg Tablet) 125 mcg PO DAILY [facility] Last Admin: 05/21/20 08:53 Dose: 125 mcg Documented by: Diltiazem HCl (Diltiazem Inj 5 Mg/Ml Vial) 5 mg IVP Q4H PRN PRN Reason: PER PHYSICIAN ORDER Diphenhydramine HCl (Diphenhydramine 25 Mg Capsule) 25 mg PO Q4HR PRN PRN Reason: Allergy Symptoms Last Admin: 05/16/20 09:05 Dose: 25 mg Documented by: Docusate Sodium (Docusate Sodium 250 Mg Capsule) 250 - 500 mg PO DAILY [facility] Last Admin: 05/21/20 08:54 Dose: 250 mg Documented by: Duloxetine HCl (Duloxetine 30 Mg Capsule) 60 mg PO DAILY [facility] Last Admin: 05/21/20 08:52 Dose: 60 mg Documented by: Enoxaparin Sodium (Enoxaparin 40 Mg/0.4 Ml Syringe) 40 mg SUBQ DAILY [facility] Last Admin: 05/21/20 08:55 Dose: 40 mg Documented by: Famotidine (Famotidine 20 Mg Tablet) 20 mg PO BID [facility] Last Admin: 05/21/20 08:54 Dose: 20 mg Documented by: Ferrous Gluconate (Ferrous Gluconate 324 Mg Tablet) 324 mg PO DAILYWM [facility] Last Admin: 05/21/20 08:53 Dose: 324 mg Documented by: Furosemide (Furosemide 20 Mg Tablet) 20 mg PO DAILY [facility] Last Admin: 05/21/20 08:53 Dose: 20 mg Documented by: Gabapentin (Gabapentin 300 Mg Capsule) 600 mg PO QID [facility] Last Admin: 05/21/20 12:20 Dose: 600 mg Documented by: Ceftriaxone Sodium 1 gm/ (Sodium Chloride) 100 mls @ 200 mls/hr IV DAILY [facility] Last Infusion: 05/21/20 09:36 Dose: Infused Documented by: Loratadine (Loratadine 10 Mg Tablet) 10 mg PO DAILY [facility] Last Admin: 05/21/20 08:52 Dose: 10 mg Documented by: Ondansetron HCl (Ondansetron 4 Mg/2 Ml Vial) 4 mg IVP Q6HR PRN PRN Reason: Nausea / Vomiting Last Admin: 05/16/20 13:41 Dose: 4 mg Documented by: Oxycodone HCl (Oxycodone 5 Mg Tablet) 5 mg PO Q4HR PRN PRN Reason: PAIN Last Admin: 05/21/20 12:20 Dose: 5 mg Documented by: Polyethylene Glycol (Polyethylene Glycol 3350 17 Gm Packet) 17 gm PO DAILY [facility] Last Admin: 05/21/20 08:55 Dose: 17 gm Documented by: Multivit/Folic Acid/Iron ( Vitamin Tablet) 1 tab PO DAILY [facility] Last Admin: 05/21/20 08:54 Dose: 1 tab Documented by: Prochlorperazine Edisylate (Prochlorperazine 10 Mg/2 Ml Vial) 10 mg IVP Q6HR PRN PRN Reason: Nausea / Vomiting Last Admin: 05/16/20 15:33 Dose: 10 mg Documented by: Saccharomyces Boulardii (Saccharomyces Boulardii 250 Mg Capsule) 250 mg PO BIDWM [facility] Last Admin: 05/21/20 12:15 Dose: 250 mg Documented by: Senna (Senna 8.6 Mg Tablet) 8.6 - 17.2 mg PO DAILY [facility] Last Admin: 05/21/20 08:52 Dose: 8.6 mg Documented by: Sodium Chloride (Sodium Chloride Flush 0.9% 10 Ml Syringe) 10 ml IVP PRN PRN PRN Reason: NEEDED PER PROVIDER ORDERS Last Admin: 05/16/20 11:19 Dose: 10 ml Documented by: Sodium Chloride (Sodium Chloride Flush 0.9% 10 Ml Syringe) 10 ml IVP 0100,0900,1700 [facility] Last Admin: 05/21/20 09:00 Dose: 10 ml Documented by: Thiamine HCl (Thiamine 100 Mg Tablet) 100 mg PO DAILY [facility] Last Admin: 05/21/20 08:53 Dose: 100 mg Documented by: Trazodone HCl (Trazodone 50 Mg Tablet) 50 mg PO QPM [facility] Last Admin: 05/20/20 21:09 Dose: 50 mg Documented by: Zolpidem Tartrate [Ambien] 5 mg PO DAILY PRN 08/31/14 Digoxin [Lanoxin] 125 mcg PO DAILY 10/04/17 Gabapentin 600 mg PO QID 10/04/17 SUMAtriptan [Imitrex] 25 mg PO ONCE PRN MDD 50 mg 10/04/17 Metoprolol Succinate 25 mg PO BID 09/18/18 Duloxetine HCl [Cymbalta] 60 mg PO DAILY 04/02/20 Furosemide [Lasix] 20 mg PO DAILY PRN 04/02/20
[2020-05-21] MEDS: traZODone 50 MG TABLET PO SCH (20:38)
[2020-05-22] MEDS: SODIUM CHLORIDE FLUSH 0.9% 10 ML SYRINGE IVP SCH ×3 (00:26→16:52)
[2020-05-22 05:11] LABS: BASOPHILS % (AUTO) 0.8 %; EOSINOPHILS # (AUTO) 0.2 10^3/uL (0.0-0.7); EOSINOPHILS % (AUTO) 4.6 %; HCT - HEMATOCRIT 30.4 % (37.0-47.0); HGB - HEMOGLOBIN 9.7 g/dL (12.0-16.0); LYMPHOCYTES # (AUTO) 1.5 10^3/uL (1.5-3.5); LYMPHOCYTES % (AUTO) 38.7 %; MEAN CORPUSCULAR HEMOGLOBIN 33.3 pg (27.0-31.0); MEAN CORPUSCULAR HGB CONC 31.9 g/dL (32.0-36.0); MEAN CORPUSCULAR VOLUME 104.5 fL (81.0-99.0); MONOCYTES # (AUTO) 0.5 10^3/uL (0.0-1.0); MONOCYTES % (AUTO) 13.7 %; NEUTROPHILS # (AUTO) 1.6 10^3/uL (1.5-6.6); NEUTROPHILS % (AUTO) 40.7 %; PLT - PLATELET COUNT 136 10^3/uL (130-450); RED BLOOD COUNT 2.91 10^6/uL (4.20-5.40); RED CELL DISTRIBUTION WIDTH 12.8 % (12.0-15.0)
[2020-05-22 05:15] LABS: CALCIUM 8.7 mg/dL (8.5-10.3); CREATININE 0.7 mg/dL (0.4-1.0); POTASSIUM 3.4 mmol/L (3.5-5.0)
[2020-05-22] MEDS: SACCHAROMYCES BOULARDII 250 MG CAPSULE PO SCH ×2 (08:10→16:52)
[2020-05-22] MEDS: FERROUS GLUCONATE 324 MG TABLET PO SCH (08:10)
[2020-05-22] MEDS ORDERED: POTASSIUM CHLORIDE 20 MEQ TABLET PO ONE (08:21)
[2020-05-22] MEDS: polyethylene glycoL 3350 17 GM PACKET PO SCH (08:47)
[2020-05-22] MEDS: ENOXAPARIN 40 MG/0.4 ML SYRINGE SUBQ SCH (08:47)
[2020-05-22] MEDS: FAMOTIDINE 20 MG TABLET PO SCH ×2 (08:48→21:22)
[2020-05-22] MEDS: THIAMINE 100 MG TABLET PO SCH (08:48)
[2020-05-22] MEDS: DIGOXIN 125 MCG TABLET PO SCH (08:48)
[2020-05-22] MEDS: DOCUSATE SODIUM 250 MG CAPSULE PO SCH (08:48)
[2020-05-22] MEDS: PRENATAL VITAMIN TABLET PO SCH (08:48)
[2020-05-22] MEDS: FUROSEMIDE 20 MG TABLET PO SCH (08:49)
[2020-05-22] MEDS: LORATADINE 10 MG TABLET PO SCH (08:49)
[2020-05-22] MEDS: SENNA 8.6 MG TABLET PO SCH (08:49)
[2020-05-22] MEDS: DULoxetine 30 MG CAPSULE PO SCH (08:49)
[2020-05-22] MEDS: AZITHROMYCIN 250 MG TABLET PO SCH (08:49)
[2020-05-22] MEDS: GABAPENTIN 300 MG CAPSULE PO SCH ×4 (08:49→21:22)
[2020-05-22] MEDS: cefTRIAXone 1 GM in SODIUM CHLORIDE 0.9% MINIBAG 100 ML IV SCH (08:50)
[2020-05-22] MEDS: oxyCODONE 5 MG TABLET PO PRN ×2 (11:59→16:52)
--- NOTE | 2020-05-22 14:41 | PROVIDER PROGRESS NOTE ---
Assessment/Plan - Problem List (1) Atypical pneumonia Assessment/Plan: 05/22 Patient feels much better, patient has 94% sats on room air. continue physical activity, Physical therapy, order pt out of bed, incentive spirometer, continue Azithromycin, Rocephin. we plan to d/c to SNF on tomorrow if Patient's insurance authorized for patient To SNF, continue consulted with group social worker. 05/21 pt Present cough, hypoxia. She needed 2 L of oxygen to support. X-ray show mild pulmonary edema with Atypical pneumonia. Patient always refused to have physical activity or physical therapist Evaluation and treatment. We discussed with the patient, she agreed to have physical activity, Physical therapy, order pt out of bed, incentive spirometer, Treated for a Atypical pneumonia with azithromycin and Rocephin, Continue physical therapy, Supplement oxygen as needed. (2) Chest pain Impression: 05/22 resolved. 05/21 Patient denies any more chest pain on her right, serial troponin tests are negative, EKG without acute change. Likely atypical chest pain. pt Complaint chest pain, will have troponin serial test, EKG and CXR, and will followup. Per patient's clinical presentation, it is more likely Atopical chest pain, will continue pain control (3)afib with RVR 05/22 stable, continue digoxin and metoprolol 05/21 RVR resolved, HR is about 65, but pt's BP is in the low edge, hold Metoprolol since patient's heart rate is around 70, patient has low blood pressure. 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 Because the patient has frequent falls, Chadsvasc is 2, pt has no home blood t hinner, will continue and put lovenox of DVT prophylaxis (4) Arm contusion Due to mechanical fall., X-ray of arm showed no fracture, continue PT/OT, continue to manage pain as needed. Will minimize opiod use due ti increased sleepiness (5) Alcohol abuse Will continue to monitor. CIWA score is low, nurse asked to remove CIWA protocol now. (6) Depression Assessment/Plan: On duloxetine 60mg po daily (7) HTN (hypertension) Assessment/Plan: 05/22 stable, continue home meds Metoprolol BP is at low edge side, hold Metoprolol continue vital signs monitor (8) Right hip pain Assessment/Plan: Improved, Xray reveals no acute bony abnormality. Th is Due to mechanical fall, continue pain control, Continue follow-up with physical therapist and occupational therapist (9) Ankle pain, right Assessment/Plan: X-rays of ankle show satisfactory appearance of fibula fracture and orthopedic hardware. Patient underwent an ORIF of the right ankle on 03/2020. Went to SNF for rehab, but pt left SNF with AMA. pt Has been home in wheelchair.. continue PT OT working with patient, continue pain control. Orthopedic recommendation is for weightbearing as tolerated. PT is recommended by PT for d/c to SNF - Current Meds Current Meds: Current Medications Generic Name Dose Route Start Last Admin Trade Name Freq PRN Reason Stop Dose Admin Acetaminophen 650 mg 05/15/20 20:13 05/21/20 20:41 Acetaminophen 325 Mg Tablet PO 650 mg Q4HR PRN Administration Pain 1 to 4 Azithromycin 250 mg 05/22/20 09:00 05/22/20 08:49 Azithromycin 250 Mg Tablet PO 05/25/20 09:01 250 mg DAILY [facility] Administration Digoxin 125 mcg 05/16/20 09:00 05/22/20 08:48 Digoxin 125 Mcg Tablet PO 125 mcg DAILY [facility] Administration Diphenhydramine HCl 25 mg 05/16/20 08:28 05/16/20 09:05 Diphenhydramine 25 Mg Capsule PO 25 mg Q4HR PRN Administration Allergy Symptoms Docusate Sodium 250 - 500 mg 05/16/20 13:44 05/22/20 08:48 Docusate Sodium 250 Mg Capsule PO 250 mg DAILY [facility] Administration Duloxetine HCl 60 mg 05/17/20 12:00 05/22/20 08:49 Duloxetine 30 Mg Capsule PO 60 mg DAILY [facility] Administration Enoxaparin Sodium 40 mg 05/21/20 09:00 05/22/20 08:47 Enoxaparin 40 Mg/0.4 Ml Syringe SUBQ 40 mg DAILY [facility] Administration Famotidine 20 mg 05/16/20 21:00 05/22/20 08:48 Famotidine 20 Mg Tablet PO 20 mg BID [facility] Administration Ferrous Gluconate 324 mg 05/20/20 11:00 05/22/20 08:10 Ferrous Gluconate 324 Mg Tablet PO 324 mg DAILYWM [facility] Administration Furosemide 20 mg 05/21/20 08:18 05/22/20 08:49 Furosemide 20 Mg Tablet PO 20 mg DAILY [facility] Administration Gabapentin 600 mg 05/17/20 13:00 05/22/20 12:31 Gabapentin 300 Mg Capsule PO 600 mg QID [facility] Administration Ceftriaxone Sodium 1 gm/ 100 mls @ 200 mls/hr 05/21/20 08:22 05/22/20 09:20 Sodium Chloride IV 05/25/20 09:29 Infused DAILY [facility] Infusion Loratadine 10 mg 05/17/20 09:00 05/22/20 08:49 Loratadine 10 Mg Tablet PO 10 mg DAILY [facility] Administration Ondansetron HCl 4 mg 05/16/20 06:34 05/16/20 13:41 Ondansetron 4 Mg/2 Ml Vial IVP 4 mg Q6HR PRN Administration Nausea / Vomiting Oxycodone HCl 5 mg 05/15/20 22:56 05/22/20 11:59 Oxycodone 5 Mg Tablet PO 5 mg Q4HR PRN Administration PAIN Polyethylene Glycol 17 gm 05/16/20 13:19 05/22/20 08:47 Polyethylene Glycol 3350 17 Gm Packet PO 17 gm DAILY [facility] Administration Multivit/Folic Acid/Iron 1 tab 05/16/20 09:00 05/22/20 08:48 Vitamin Tablet PO 1 tab DAILY [facility] Administration Prochlorperazine Edisylate 10 mg 05/16/20 14:33 05/16/20 15:33 Prochlorperazine 10 Mg/2 Ml Vial IVP 10 mg Q6HR PRN Administration Nausea / Vomiting Saccharomyces Boulardii 250 mg 05/21/20 10:51 05/22/20 08:10 Saccharomyces Boulardii 250 Mg Capsule PO 250 mg BIDWM [facility] Administration Senna 8.6 - 17.2 mg 05/16/20 13:44 05/22/20 08:49 Senna 8.6 Mg Tablet PO Not Given DAILY [facility] Sodium Chloride 10 ml 05/15/20 20:13 05/16/20 11:19 Sodium Chloride Flush 0.9% 10 Ml Syringe IVP 10 ml PRN PRN Administration NEEDED PER PROVIDER ORDERS Sodium Chloride 10 ml 05/16/20 01:00 05/22/20 08:50 Sodium Chloride Flush 0.9% 10 Ml Syringe IVP 10 ml 0100,0900,1700 [facility] Administration Thiamine HCl 100 mg 05/16/20 09:00 05/22/20 08:48 Thiamine 100 Mg Tablet PO 100 mg DAILY [facility] Administration Trazodone HCl 50 mg 05/15/20 22:56 05/21/20 20:38 Trazodone 50 Mg Tablet PO 50 mg QPM [facility] Administration - Lab Result Fish Bone Diagrams: 05/22/20 04:13 05/22/20 04:13 - Additional Planning My Orders: My Active Orders 05/22/20 09:00 Azithromycin [Zithromax] 250 mg PO DAILY 05/23/20 05:00 BMP - BASIC METABOLIC PANEL [CHEM] DAILYLAB CBC - COMP BLD CT W/AUTO DIFF [HEME] DAILYLAB 05/24/20 05:00 BMP - BASIC METABOLIC PANEL [CHEM] DAILYLAB CBC - COMP BLD CT W/AUTO DIFF [HEME] DAILYLAB 05/25/20 05:00 BMP - BASIC METABOLIC PANEL [CHEM] DAILYLAB CBC - COMP BLD CT W/AUTO DIFF [HEME] DAILYLAB Subjective - Subjective Patient Reports: Feeling Better Objective Vital Signs: Vital Signs - 24 hr 05/21/20 05/21/20 05/22/20 15:34 20:00 00:40 Temperature 36.4 C L 36.6 C 36.4 C L Heart Rate [ 79 Brachial] Heart Rate [ 77 82 Radial] Respiratory 16 16 14 Rate Blood Pressure [Left Brachial artery] Blood Pressure 100/43 L [Left Radial artery] Blood Pressure [Right Brachial artery] Blood Pressure 113/60 112/59 L [Right Radial artery] O2 Saturation 96 93 94 05/22/20 05/22/20 05/22/20 04:21 07:58 09:49 Temperature 36.4 C L 36.3 C L Heart Rate [ 79 Brachial] Heart Rate [ 79 Radial] Respiratory 16 18 Rate Blood Pressure 123/56 L [Left Brachial artery] Blood Pressure [Left Radial artery] Blood Pressure 130/63 [Right Brachial artery] Blood Pressure [Right Radial artery] O2 Saturation 98 98 94 05/22/20 12:32 Temperature 36.3 C L Heart Rate [ Brachial] Heart Rate [ 98 Radial] Respiratory 16 Rate Blood Pressure [Left Brachial artery] Blood Pressure [Left Radial artery] Blood Pressure 126/72 [Right Brachial artery] Blood Pressure [Right Radial artery] O2 Saturation 94 Oxygen O2 Source [With Activity] Room air O2 Source Room air I&O (Last 24 Hrs): Intake and Output Totals x24h 03/10/21 03/11/21 03/12/21 23:59 23:59 23:59 Intake Total 2590 1410 940 Output Total 450 2875 250 Balance 2140 -1465 690 General: Alert, Oriented x3, Cooperative, No acute distress HEENT: Atraumatic, PERRLA Neck: Supple Lymphatic: no adenopathy Neuro: Alert, Non Focal, Oriented Times 3 Cardiovascular: Regular rate, Normal S1, Normal S2 Respiratory: Chest non-tender, No respiratory distress Abdomen: Normal bowel sounds, Soft Extremities: Normal pulses - Results Results: Laboratory Results WBC 4.0 x10^3/uL (4.8-10.8) L 05/22/20 04:13 RBC 2.91 10^6/uL (4.20-5.40) L 05/22/20 04:13 Hgb 9.7 g/dL (12.0-16.0) L 05/22/20 04:13 Hct 30.4 % (37.0-47.0) L 05/22/20 04:13 MCV 104.5 fL (81.0-99.0) H 05/22/20 04:13 MCH 33.3 pg (27.0-31.0) H 05/22/20 04:13 MCHC 31.9 g/dL (32.0-36.0) L 05/22/20 04:13 RDW 12.8 % (12.0-15.0) 05/22/20 04:13 Plt Count 136 10^3/uL (130-450) 05/22/20 04:13 MPV 11.0 fL (7.9-10.8) H 05/22/20 04:13 Reticulocyte % (Auto) 2.60 % (0.5-2.3) H 05/20/20 08:03 Neut # (Auto) 1.6 10^3/uL (1.5-6.6) 05/22/20 04:13 Lymph # (Auto) 1.5 10^3/uL (1.5-3.5) 05/22/20 04:13 [place] # (Auto) 0.5 10^3/uL (0.0-1.0) 05/22/20 04:13 Eos # (Auto) 0.2 10^3/uL (0.0-0.7) 05/22/20 04:13 Baso # (Auto) 0.0 10^3/uL (0.0-0.1) 05/22/20 04:13 Absolute Nucleated RBC 0.00 x10^3/uL 05/22/20 04:13 Nucleated RBC % 0.0 /100WBC 05/22/20 04:13 Manual Slide Review Indicated 05/18/20 06:30 Platelet Morphology PLATELET CLUMPING (NORMAL) 05/18/20 06:30 RBC Morph Micro Appear NORMAL APPEARANCE (NORMAL) 05/18/20 06:30 Absolute Retic 0.075 10^6/uL (0.020-0.110) 05/20/20 08:03 PT 14.9 secs (9.9-12.6) H 05/15/20 19:30 INR 1.4 (0.8-1.2) H 05/15/20 19:30 Sodium 140 mmol/L (135-145) 05/22/20 04:13 Potassium 3.4 mmol/L (3.5-5.0) L 05/22/20 04:13 Chloride 104 mmol/L (101-111) 05/22/20 04:13 Carbon Dioxide 27 mmol/L (21-32) 05/22/20 04:13 Anion Gap 9.0 (6-13) 05/22/20 04:13 BUN 9 mg/dL (6-20) 05/22/20 04:13 Creatinine 0.7 mg/dL (0.4-1.0) 05/22/20 04:13 Estimated GFR (MDRD) 82 (>89) L 05/22/20 04:13 Glucose 115 mg/dL (70-100) H 05/22/20 04:13 Calcium 8.7 mg/dL (8.5-10.3) 05/22/20 04:13 Phosphorus 5.2 mg/dL (2.5-4.6) H 05/16/20 05:16 Magnesium 2.4 mg/dL (1.7-2.8) 05/16/20 05:16 Iron 27 ug/dL (28-170) L 05/20/20 08:03 TIBC 204 ug/dL (250-450) L 05/20/20 08:03 % Saturation 13 % (20-50) L 05/20/20 08:03 Transferrin 146 mg/dL (192-382) L 05/20/20 08:03 Ferritin 83.9 ng/mL (11.0-306.8) 05/20/20 08:03 Total Bilirubin 1.6 mg/dL (0.2-1.0) H 05/15/20 19:30 AST 44 IU/L (10-42) H 05/15/20 19:30 ALT 29 IU/L (10-60) 05/15/20 19:30 Alkaline Phosphatase 123 IU/L (42-121) H 05/15/20 19:30 Ammonia 19.0 umol/L (7-35) 05/18/20 01:00 Lactate Dehydrogenase 110 IU/L (91-225) 05/20/20 08:03 Troponin I High Sens 4.9 ng/L (2.3-14.8) 05/20/20 19:33 Total Protein 7.7 g/dL (6.7-8.2) 05/15/20 19:30 Albumin 3.7 g/dL (3.2-5.5) 05/15/20 19:30 Globulin 4.0 g/dL (2.1-4.2) 05/15/20 19:30 Albumin/Globulin Ratio 0.9 (1.0-2.2) L 05/15/20 19:30 Vitamin B12 851 pg/mL (180-914) 05/20/20 08:03 Folate 27.00 ng/mL (5.90 - >24.8) 05/16/20 08:16 TSH 4.31 uIU/mL (0.34-5.60) 05/16/20 05:16 Nasal Adenovirus (PCR) NOT DETECTED 05/15/20 19:30 Nasal B. parapertussis DNA (PCR) NOT DETECTED 05/15/20 19:30 Nasal Coronavir 229E PCR NOT DETECTED 05/15/20 19:30 Nasal Coronavir HKU1 PCR NOT DETECTED 05/15/20 19:30 Nasal Coronavir NL63 PCR NOT DETECTED 05/15/20 19:30 Nasal Coronavir OC43 PCR NOT DETECTED 05/15/20 19:30 Nasal Enterovir/Rhinovir PCR NOT DETECTED 05/15/20 19:30 Nasal Influenza B PCR NOT DETECTED 05/15/20 19:30 Nasal Influenza A PCR NOT DETECTED 05/15/20 19:30 Nasal Parainfluen 1 PCR NOT DETECTED 05/15/20 19:30 Nasal Parainfluen 2 PCR NOT DETECTED 05/15/20 19:30 Nasal Parainfluen 3 PCR NOT DETECTED 05/15/20 19:30 Nasal Parainfluen 4 PCR NOT DETECTED 05/15/20 19:30 Nasal RSV (PCR) NOT DETECTED 05/15/20 19:30 Nasal B.pertussis DNA PCR NOT DETECTED 05/15/20 19:30 Nasal C.pneumoniae (PCR) NOT DETECTED 05/15/20 19:30 Parish Human Metapneumo PCR NOT DETECTED 05/15/20 19:30 Nasal M.pneumoniae (PCR) NOT DETECTED 05/15/20 19:30 Nasal SARS-CoV-2 (PCR) NOT DETECTED 05/15/20 19:30 Last Dose Date Not Reportable 05/15/20 19:30 Last Dose Time Not Reportable 05/15/20 19:30 Digoxin 0.3 ng/mL 05/15/20 19:30 Ethyl Alcohol < 5.0 mg/dL 05/15/20 19:30 - Procedures Procedures: Procedures REPOSITION RIGHT FIBULA WITH INT FIX, OPEN APPROACH (04/02/20) Sepsis Event Note (H) - Evaluation Current Stage of Sepsis: Ruled out ABX Reporting Has patient been on IV antibiotics over the past 48 hours?: Yes Current Medications - Current Medications Current Medications: Active Medications Acetaminophen (Acetaminophen 325 Mg Tablet) 650 mg PO Q4HR PRN PRN Reason: Pain 1 to 4 Last Admin: 05/21/20 20:41 Dose: 650 mg Documented by: Azithromycin (Azithromycin 250 Mg Tablet) 250 mg PO DAILY [facility] Stop: 05/25/20 09:01 Last Admin: 05/22/20 08:49 Dose: 250 mg Documented by: Cyclobenzaprine HCl (Cyclobenzaprine 10 Mg Tablet) 10 mg PO Q8H PRN PRN Reason: PAIN Digoxin (Digoxin 125 Mcg Tablet) 125 mcg PO DAILY [facility] Last Admin: 05/22/20 08:48 Dose: 125 mcg Documented by: Diltiazem HCl (Diltiazem Inj 5 Mg/Ml Vial) 5 mg IVP Q4H PRN PRN Reason: PER PHYSICIAN ORDER Diphenhydramine HCl (Diphenhydramine 25 Mg Capsule) 25 mg PO Q4HR PRN PRN Reason: Allergy Symptoms Last Admin: 05/16/20 09:05 Dose: 25 mg Documented by: Docusate Sodium (Docusate Sodium 250 Mg Capsule) 250 - 500 mg PO DAILY [facility] Last Admin: 05/22/20 08:48 Dose: 250 mg Documented by: Duloxetine HCl (Duloxetine 30 Mg Capsule) 60 mg PO DAILY [facility] Last Admin: 05/22/20 08:49 Dose: 60 mg Documented by: Enoxaparin Sodium (Enoxaparin 40 Mg/0.4 Ml Syringe) 40 mg SUBQ DAILY [facility] Last Admin: 05/22/20 08:47 Dose: 40 mg Documented by: Famotidine (Famotidine 20 Mg Tablet) 20 mg PO BID [facility] Last Admin: 05/22/20 08:48 Dose: 20 mg Documented by: Ferrous Gluconate (Ferrous Gluconate 324 Mg Tablet) 324 mg PO DAILYWM [facility] Last Admin: 05/22/20 08:10 Dose: 324 mg Documented by: Furosemide (Furosemide 20 Mg Tablet) 20 mg PO DAILY [facility] Last Admin: 05/22/20 08:49 Dose: 20 mg Documented by: Gabapentin (Gabapentin 300 Mg Capsule) 600 mg PO QID [facility] Last Admin: 05/22/20 12:31 Dose: 600 mg Documented by: Ceftriaxone Sodium 1 gm/ (Sodium Chloride) 100 mls @ 200 mls/hr IV DAILY [facility] Stop: 05/25/20 09:29 Last Infusion: 05/22/20 09:20 Dose: Infused Documented by: Loratadine (Loratadine 10 Mg Tablet) 10 mg PO DAILY [facility] Last Admin: 05/22/20 08:49 Dose: 10 mg Documented by: Metoprolol Succinate (Metoprolol Succinate 25 Mg Tablet) 25 mg PO BID [facility] Ondansetron HCl (Ondansetron 4 Mg/2 Ml Vial) 4 mg IVP Q6HR PRN PRN Reason: Nausea / Vomiting Last Admin: 05/16/20 13:41 Dose: 4 mg Documented by: Oxycodone HCl (Oxycodone 5 Mg Tablet) 5 mg PO Q4HR PRN PRN Reason: PAIN Last Admin: 05/22/20 11:59 Dose: 5 mg Documented by: Polyethylene Glycol (Polyethylene Glycol 3350 17 Gm Packet) 17 gm PO DAILY [facility] Last Admin: 05/22/20 08:47 Dose: 17 gm Documented by: Multivit/Folic Acid/Iron ( Vitamin Tablet) 1 tab PO DAILY [facility] Last Admin: 05/22/20 08:48 Dose: 1 tab Documented by: Prochlorperazine Edisylate (Prochlorperazine 10 Mg/2 Ml Vial) 10 mg IVP Q6HR PRN PRN Reason: Nausea / Vomiting Last Admin: 05/16/20 15:33 Dose: 10 mg Documented by: Saccharomyces Boulardii (Saccharomyces Boulardii 250 Mg Capsule) 250 mg PO BIDWM [facility] Last Admin: 05/22/20 08:10 Dose: 250 mg Documented by: Senna (Senna 8.6 Mg Tablet) 8.6 - 17.2 mg PO DAILY [facility] Last Admin: 05/22/20 08:49 Dose: Not Given Documented by: Sodium Chloride (Sodium Chloride Flush 0.9% 10 Ml Syringe) 10 ml IVP PRN PRN PRN Reason: NEEDED PER PROVIDER ORDERS Last Admin: 05/16/20 11:19 Dose: 10 ml Documented by: Sodium Chloride (Sodium Chloride Flush 0.9% 10 Ml Syringe) 10 ml IVP 0100,0900,1700 [facility] Last Admin: 05/22/20 08:50 Dose: 10 ml Documented by: Thiamine HCl (Thiamine 100 Mg Tablet) 100 mg PO DAILY [facility] Last Admin: 05/22/20 08:48 Dose: 100 mg Documented by: Trazodone HCl (Trazodone 50 Mg Tablet) 50 mg PO QPM [facility] Last Admin: 05/21/20 20:38 Dose: 50 mg Documented by: Zolpidem Tartrate [Ambien] 5 mg PO DAILY PRN 08/31/14 Digoxin [Lanoxin] 125 mcg PO DAILY 10/04/17 Gabapentin 600 mg PO QID 10/04/17 SUMAtriptan [Imitrex] 25 mg PO ONCE PRN MDD 50 mg 10/04/17 Metoprolol Succinate 25 mg PO BID 09/18/18 Duloxetine HCl [Cymbalta] 60 mg PO DAILY 04/02/20 Furosemide [Lasix] 20 mg PO DAILY PRN 04/02/20
[2020-05-22] MEDS: METOPROLOL SUCCINATE 25 MG TABLET PO SCH ×2 (14:54→21:23)
[2020-05-22] MEDS: traZODone 50 MG TABLET PO SCH (21:22)
[2020-05-23] MEDS: SODIUM CHLORIDE FLUSH 0.9% 10 ML SYRINGE IVP SCH ×3 (01:37→16:47)
[2020-05-23] MEDS: ACETAMINOPHEN 325 MG TABLET PO PRN ×2 (01:44→20:03)
[2020-05-23 07:36] LABS: BASOPHILS # (AUTO) 0.1 10^3/uL (0.0-0.1); BASOPHILS % (AUTO) 0.9 %; EOSINOPHILS # (AUTO) 0.2 10^3/uL (0.0-0.7); HCT - HEMATOCRIT 39.7 % (37.0-47.0); HGB - HEMOGLOBIN 12.1 g/dL (12.0-16.0); LYMPHOCYTES # (AUTO) 2.7 10^3/uL (1.5-3.5); LYMPHOCYTES % (AUTO) 40.5 %; MEAN CORPUSCULAR HEMOGLOBIN 33.2 pg (27.0-31.0); MEAN CORPUSCULAR HGB CONC 30.5 g/dL (32.0-36.0); MEAN CORPUSCULAR VOLUME 108.8 fL (81.0-99.0); MEAN PLATELET VOLUME 10.7 fL (7.9-10.8); MONOCYTES # (AUTO) 0.6 10^3/uL (0.0-1.0); MONOCYTES % (AUTO) 8.4 %; NEUTROPHILS # (AUTO) 3.1 10^3/uL (1.5-6.6); NEUTROPHILS % (AUTO) 45.6 %; PLT - PLATELET COUNT 176 10^3/uL (130-450); RED BLOOD COUNT 3.65 10^6/uL (4.20-5.40); RED CELL DISTRIBUTION WIDTH 13.1 % (12.0-15.0); WHITE BLOOD COUNT 6.8 x10^3/uL (4.8-10.8)
[2020-05-23 07:41] LABS: CREATININE 0.8 mg/dL (0.4-1.0); POTASSIUM 4.4 mmol/L (3.5-5.0)
[2020-05-23] MEDS: SACCHAROMYCES BOULARDII 250 MG CAPSULE PO SCH ×2 (07:47→16:47)
[2020-05-23] MEDS: FERROUS GLUCONATE 324 MG TABLET PO SCH (07:47)
[2020-05-23] MEDS ORDERED: FUROSEMIDE 20 MG TABLET PO SCH (08:06)
[2020-05-23] MEDS: ENOXAPARIN 40 MG/0.4 ML SYRINGE SUBQ SCH (08:47)
[2020-05-23] MEDS: DULoxetine 30 MG CAPSULE PO SCH (08:47)
[2020-05-23] MEDS: polyethylene glycoL 3350 17 GM PACKET PO SCH (08:47)
[2020-05-23] MEDS: SENNA 8.6 MG TABLET PO SCH (08:48)
[2020-05-23] MEDS: GABAPENTIN 300 MG CAPSULE PO SCH ×4 (08:48→20:14)
[2020-05-23] MEDS: PRENATAL VITAMIN TABLET PO SCH (08:48)
[2020-05-23] MEDS: FAMOTIDINE 20 MG TABLET PO SCH ×2 (08:48→20:14)
[2020-05-23] MEDS: DOCUSATE SODIUM 250 MG CAPSULE PO SCH (08:49)
[2020-05-23] MEDS: AZITHROMYCIN 250 MG TABLET PO SCH (08:49)
[2020-05-23] MEDS: THIAMINE 100 MG TABLET PO SCH (08:49)
[2020-05-23] MEDS: LORATADINE 10 MG TABLET PO SCH (08:49)
[2020-05-23] MEDS: cefTRIAXone 1 GM in SODIUM CHLORIDE 0.9% MINIBAG 100 ML IV SCH (08:52)
[2020-05-23] MEDS: METOPROLOL SUCCINATE 25 MG TABLET PO SCH ×2 (09:01→20:14)
[2020-05-23] MEDS: oxyCODONE 5 MG TABLET PO PRN ×2 (09:01→18:47)
[2020-05-23] MEDS: DIGOXIN 125 MCG TABLET PO SCH (09:04)
--- NOTE | 2020-05-23 11:30 | Ultrasound Report ---
PROCEDURE: Duplex Ext Veins Right INDICATIONS: RT ARM PX TECHNIQUE: Real-time imaging, as well as color and pulse Doppler interrogation, were performed of the lower extr emity deep veins from the inguinal ligament to the popliteal fossa. COMPARISON: None. FINDINGS: The deep veins are normally compressible, and free of intraluminal thrombus. Color and pu lse Doppler demonstrate normal phasic intraluminal flow. There is normal augmentation response to di stal compression maneuver. There is a large complex cystic structure in the medial right upper arm with internal echoes and sept ations. It measures 11.8 x 3.1 x 7.4 cm. IMPRESSION: Large complex predominantly cystic structure in the medial right upper arm. Consider hem atoma. Abscess less likely. Reviewed by: Conrad Phelps MD on 05/23/2020 10:28 AM [facility] Approved by: Conrad Phelps MD on 05/23/2020 10:28 AM [facility] Station ID: [id number]
--- NOTE | 2020-05-23 12:45 | PROVIDER PROGRESS NOTE ---
Assessment/Plan - Problem List (1) Atypical pneumonia Assessment/Plan: 05/23 improved. her cough is resolved. pt has stable O2 sats without respiratory distress. continue antibiotics, continue incentive spirometer, PT, continue out of bed for activity. 05/22 Patient feels much better, patient has 94% sats on room air. continue physical activity, Physical therapy, order pt out of bed, incentive spirometer, continue Azithromycin, Rocephin. we plan to d/c to SNF on tomorrow if Patient's insurance authorized for patient To SNF, continue consulted with social work nurse. 05/21 pt Present cough, hypoxia. She needed 2 L of oxygen to support. X-ray show mild pulmonary edema with Atypical pneumonia. Patient always refused to have physical activity or physical therapist Evaluation and treatment. We discussed with the patient, she agreed to have physical activity, Physical therapy, order pt out of bed, incentive spirometer, Treated for a Atypical pneumonia with azithromycin and Rocephin, Continue physical therapy, Supplement oxygen as needed. (2) hematoma, right arm Impression: pt has large right upper arm hematoma, it was from pt's recent fall and arm contusion, without bony fracture or dislocation, US show hematoma, no indicated abscess or DVT clots. pt denies pain. discussed with pt for the care plan, it is likely to take time for herself resolved. Pt's HGB has significantly improved. (3)afib with RVR 05/22 stable, continue digoxin and metoprolol 05/21 RVR resolved, HR is about 65, but pt's BP is in the low edge, hold Meto prolol since patient's heart rate is around 70, patient has low blood pressure. Continue digoxin, Continue ekg monitor And vital signs monitor. Because the patient has frequent falls, Chadsvasc is 2, pt has no home blood thinner, will continue and put lovenox of DVT prophylaxis (4) Arm contusion Due to mechanical fall., X-ray of arm showed no fracture, continue PT/OT, continue to manage pain as needed. Will minimize opiod use due to increased sleepiness (5) Alcohol abuse Will continue to monitor. CIWA score is low, nurse asked to remove CIWA protocol now. (6) Depression Assessment/Plan: On duloxetine 60mg po daily (7) HTN (hypertension) Assessment/Plan: 05/22 stable, continue home meds Metoprolol BP is at low edge side, hold Metoprolol continue vital signs monitor (8) Right hip pain Assessment/Plan: Improved, Xray reveals no acute bony abnormality. Th is Due to mechanical fall, continue pain control, Continue follow-up with physical therapist and occupational therapist (9) Ankle pain, right Assessment/Plan: X-rays of ankle show satisfactory appearance of fibula fracture and orthopedic hardware. Patient underwent an ORIF of the right ankle on 03/2020. Went to SNF for rehab, but pt left SNF with AMA. pt Has been home in wheelchair.. continue PT OT working with patient, continue pain control. Orthopedic recommendation is for weightbearing as tolerated. PT is recommended by PT for d/c to SNF - Current Meds Current Meds: Current Medications Generic Name Dose Route Start Last Admin Trade Name Freq PRN Reason Stop Dose Admin Acetaminophen 650 mg 05/15/20 20:13 05/23/20 01:44 Acetaminophen 325 Mg Tablet PO 650 mg Q4HR PRN Administration Pain 1 to 4 Azithromycin 250 mg 05/22/20 09:00 05/23/20 08:49 Azithromycin 250 Mg Tablet PO 05/25/20 09:01 250 mg DAILY [facility] Administration Digoxin 125 mcg 05/16/20 09:00 05/23/20 09:04 Digoxin 125 Mcg Tablet PO 125 mcg DAILY [facility] Administration Diphenhydramine HCl 25 mg 05/16/20 08:28 05/16/20 09:05 Diphenhydramine 25 Mg Capsule PO 25 mg Q4HR PRN Administration Allergy Symptoms Docusate Sodium 250 - 500 mg 05/16/20 13:44 05/23/20 08:49 Docusate Sodium 250 Mg Capsule PO 250 mg DAILY [facility] Administration Duloxetine HCl 60 mg 05/17/20 12:00 05/23/20 08:47 Duloxetine 30 Mg Capsule PO 60 mg DAILY [facility] Administration Enoxaparin Sodium 40 mg 05/21/20 09:00 05/23/20 08:47 Enoxaparin 40 Mg/0.4 Ml Syringe SUBQ 40 mg DAILY [facility] Administration Famotidine 20 mg 05/16/20 21:00 05/23/20 08:48 Famotidine 20 Mg Tablet PO 20 mg BID [facility] Administration Ferrous Gluconate 324 mg 05/20/20 11:00 05/23/20 07:47 Ferrous Gluconate 324 Mg Tablet PO 324 mg DAILYWM [facility] Administration Gabapentin 600 mg 05/17/20 13:00 05/23/20 08:48 Gabapentin 300 Mg Capsule PO 600 mg QID [facility] Administration Ceftriaxone Sodium 1 gm/ 100 mls @ 200 mls/hr 05/21/20 08:22 05/23/20 09:25 Sodium Chloride IV 05/25/20 09:29 Infused DAILY [facility] Infusion Loratadine 10 mg 05/17/20 09:00 05/23/20 08:49 Loratadine 10 Mg Tablet PO 10 mg DAILY [facility] Administration Ondansetron HCl 4 mg 05/16/20 06:34 05/16/20 13:41 Ondansetron 4 Mg/2 Ml Vial IVP 4 mg Q6HR PRN Administration Nausea / Vomiting Oxycodone HCl 5 mg 05/15/20 22:56 05/23/20 09:01 Oxycodone 5 Mg Tablet PO 5 mg Q4HR PRN Administration PAIN Polyethylene Glycol 17 gm 05/16/20 13:19 05/23/20 08:47 Polyethylene Glycol 3350 17 Gm Packet PO 17 gm DAILY [facility] Administration Multivit/Folic Acid/Iron 1 tab 05/16/20 09:00 05/23/20 08:48 Vitamin Tablet PO 1 tab DAILY [facility] Administration Prochlorperazine Edisylate 10 mg 05/16/20 14:33 05/16/20 15:33 Prochlorperazine 10 Mg/2 Ml Vial IVP 10 mg Q6HR PRN Administration Nausea / Vomiting Saccharomyces Boulardii 250 mg 05/21/20 10:51 05/23/20 07:47 Saccharomyces Boulardii 250 Mg Capsule PO 250 mg BIDWM [facility] Administration Senna 8.6 - 17.2 mg 05/16/20 13:44 05/23/20 08:48 Senna 8.6 Mg Tablet PO 8.6 mg DAILY [facility] Administration Sodium Chloride 10 ml 05/15/20 20:13 05/16/20 11:19 Sodium Chloride Flush 0.9% 10 Ml Syringe IVP 10 ml PRN PRN Administration NEEDED PER PROVIDER ORDERS Sodium Chloride 10 ml 05/16/20 01:00 05/23/20 08:51 Sodium Chloride Flush 0.9% 10 Ml Syringe IVP 10 ml 0100,0900,1700 [facility] Administration Thiamine HCl 100 mg 05/16/20 09:00 05/23/20 08:49 Thiamine 100 Mg Tablet PO 100 mg DAILY [facility] Administration Trazodone HCl 50 mg 05/15/20 22:56 05/22/20 21:22 Trazodone 50 Mg Tablet PO 50 mg QPM [facility] Administration - Lab Result Fish Bone Diagrams: 05/23/20 07:18 05/23/20 07:18 - Additional Planning My Orders: My Active Orders 05/23/20 21:00 Metoprolol Succinate [Toprol Xl] 12.5 mg PO BID 05/24/20 05:00 BMP - BASIC METABOLIC PANEL [CHEM] DAILYLAB CBC - COMP BLD CT W/AUTO DIFF [HEME] DAILYLAB 05/25/20 05:00 BMP - BASIC METABOLIC PANEL [CHEM] DAILYLAB CBC - COMP BLD CT W/AUTO DIFF [HEME] DAILYLAB Subjective - Subjective Patient Reports: Feeling Better Objective Vital Signs: Vital Signs - 24 hr 05/22/20 05/22/20 05/23/20 15:52 19:46 00:38 Temperature 36.9 C 36.3 C L 36.5 C Heart Rate [ 71 76 Brachial] Heart Rate [ 90 Radial] Respiratory 18 18 16 Rate Blood Pressure 121/55 L 112/51 L [Left Brachial artery] Blood Pressure 121/50 L [Right Brachial artery] Blood Pressure [Right Radial artery] O2 Saturation 92 93 93 05/23/20 05/23/20 05/23/20 05:00 08:09 11:50 Temperature 36.6 C 36.4 C L 36.4 C L Heart Rate [ 70 Brachial] Heart Rate [ 65 68 Radial] Respiratory 16 18 18 Rate Blood Pressure 104/43 L 108/63 [Left Brachial artery] Blood Pressure [Right Brachial artery] Blood Pressure 92/51 L [Right Radial artery] O2 Saturation 93 92 92 Oxygen O2 Source [With Activity] Room air O2 Source Room air I&O (Last 24 Hrs): Intake and Output Totals x24h 05/21/20 05/22/20 05/23/20 23:59 23:59 23:59 Intake Total 1410 1240 340 Output Total 2875 425 Balance -1465 815 340 General: Alert, Oriented x3, No acute distress HEENT: Atraumatic, PERRLA Neck: Supple Lymphatic: no adenopathy Neuro: Alert, Non Focal, Oriented Times 3 Cardiovascular: Regular rate, Normal S1, Normal S2 Respiratory: Chest non-tender, No respiratory distress Abdomen: Normal bowel sounds, Soft, No tenderness Extremities: Normal pulses - Results Results: Laboratory Results WBC 6.8 x10^3/uL (4.8-10.8) 05/23/20 07:18 RBC 3.65 10^6/uL (4.20-5.40) L 05/23/20 07:18 Hgb 12.1 g/dL (12.0-16.0) 05/23/20 07:18 Hct 39.7 % (37.0-47.0) 05/23/20 07:18 MCV 108.8 fL (81.0-99.0) H 05/23/20 07:18 MCH 33.2 pg (27.0-31.0) H 05/23/20 07:18 MCHC 30.5 g/dL (32.0-36.0) L 05/23/20 07:18 RDW 13.1 % (12.0-15.0) 05/23/20 07:18 Plt Count 176 10^3/uL (130-450) 05/23/20 07:18 MPV 10.7 fL (7.9-10.8) 05/23/20 07:18 Reticulocyte % (Auto) 2.60 % (0.5-2.3) H 05/20/20 08:03 Neut # (Auto) 3.1 10^3/uL (1.5-6.6) 05/23/20 07:18 Lymph # (Auto) 2.7 10^3/uL (1.5-3.5) 05/23/20 07:18 [place] # (Auto) 0.6 10^3/uL (0.0-1.0) 05/23/20 07:18 Eos # (Auto) 0.2 10^3/uL (0.0-0.7) 05/23/20 07:18 Baso # (Auto) 0.1 10^3/uL (0.0-0.1) 05/23/20 07:18 Absolute Nucleated RBC 0.00 x10^3/uL 05/23/20 07:18 Nucleated RBC % 0.0 /100WBC 05/23/20 07:18 Manual Slide Review Indicated 05/18/20 06:30 Platelet Morphology PLATELET CLUMPING (NORMAL) 05/18/20 06:30 RBC Morph Micro Appear NORMAL APPEARANCE (NORMAL) 05/18/20 06:30 Absolute Retic 0.075 10^6/uL (0.020-0.110) 05/20/20 08:03 PT 14.9 secs (9.9-12.6) H 05/15/20 19:30 INR 1.4 (0.8-1.2) H 05/15/20 19:30 Sodium 138 mmol/L (135-145) 05/23/20 07:18 Potassium 4.4 mmol/L (3.5-5.0) 05/23/20 07:18 Chloride 102 mmol/L (101-111) 05/23/20 07:18 Carbon Dioxide 25 mmol/L (21-32) 05/23/20 07:18 Anion Gap 11.0 (6-13) 05/23/20 07:18 BUN 6 mg/dL (6-20) 05/23/20 07:18 Creatinine 0.8 mg/dL (0.4-1.0) 05/23/20 07:18 Estimated GFR (MDRD) 71 (>89) L 05/23/20 07:18 Glucose 90 mg/dL (70-100) 05/23/20 07:18 Calcium 9.0 mg/dL (8.5-10.3) 05/23/20 07:18 Phosphorus 5.2 mg/dL (2.5-4.6) H 05/16/20 05:16 Magnesium 2.4 mg/dL (1.7-2.8) 05/16/20 05:16 Iron 27 ug/dL (28-170) L 05/20/20 08:03 TIBC 204 ug/dL (250-450) L 05/20/20 08:03 % Saturation 13 % (20-50) L 05/20/20 08:03 Transferrin 146 mg/dL (192-382) L 05/20/20 08:03 Ferritin 83.9 ng/mL (11.0-306.8) 05/20/20 08:03 Total Bilirubin 1.6 mg/dL (0.2-1.0) H 05/15/20 19:30 AST 44 IU/L (10-42) H 05/15/20 19:30 ALT 29 IU/L (10-60) 05/15/20 19:30 Alkaline Phosphatase 123 IU/L (42-121) H 05/15/20 19:30 Ammonia 19.0 umol/L (7-35) 05/18/20 01:00 Lactate Dehydrogenase 110 IU/L (91-225) 05/20/20 08:03 Troponin I High Sens 4.9 ng/L (2.3-14.8) 05/20/20 19:33 Total Protein 7.7 g/dL (6.7-8.2) 05/15/20 19:30 Albumin 3.7 g/dL (3.2-5.5) 05/15/20 19:30 Globulin 4.0 g/dL (2.1-4.2) 05/15/20 19:30 Albumin/Globulin Ratio 0.9 (1.0-2.2) L 05/15/20 19:30 Vitamin B12 851 pg/mL (180-914) 05/20/20 08:03 Folate 27.00 ng/mL (5.90 - >24.8) 05/16/20 08:16 TSH 4.31 uIU/mL (0.34-5.60) 05/16/20 05:16 Nasal Adenovirus (PCR) NOT DETECTED 05/15/20 19:30 Nasal B. parapertussis DNA (PCR) NOT DETECTED 05/15/20 19:30 Nasal Coronavir 229E PCR NOT DETECTED 05/15/20 19:30 Nasal Coronavir HKU1 PCR NOT DETECTED 05/15/20 19:30 Nasal Coronavir NL63 PCR NOT DETECTED 05/15/20 19:30 Nasal Coronavir OC43 PCR NOT DETECTED 05/15/20 19:30 Nasal Enterovir/Rhinovir PCR NOT DETECTED 05/15/20 19:30 Nasal Influenza B PCR NOT DETECTED 05/15/20 19:30 Nasal Influenza A PCR NOT DETECTED 05/15/20 19:30 Nasal Parainfluen 1 PCR NOT DETECTED 05/15/20 19:30 Nasal Parainfluen 2 PCR NOT DETECTED 05/15/20 19:30 Nasal Parainfluen 3 PCR NOT DETECTED 05/15/20 19:30 Nasal Parainfluen 4 PCR NOT DETECTED 05/15/20 19:30 Nasal RSV (PCR) NOT DETECTED 05/15/20 19:30 Nasal B.pertussis DNA PCR NOT DETECTED 05/15/20 19:30 Nasal C.pneumoniae (PCR) NOT DETECTED 05/15/20 19:30 Parish Human Metapneumo PCR NOT DETECTED 05/15/20 19:30 Nasal M.pneumoniae (PCR) NOT DETECTED 05/15/20 19:30 Nasal SARS-CoV-2 (PCR) NOT DETECTED 05/15/20 19:30 Last Dose Date Not Reportable 05/15/20 19:30 Last Dose Time Not Reportable 05/15/20 19:30 Digoxin 0.3 ng/mL 05/15/20 19:30 Ethyl Alcohol < 5.0 mg/dL 05/15/20 19:30 Coronavirus (PCR) NEGATIVE 05/21/20 09:20 - Procedures Procedures: Procedures REPOSITION RIGHT FIBULA WITH INT FIX, OPEN APPROACH (04/02/20) Sepsis Event Note (H) - Evaluation Current Stage of Sepsis: Ruled out ABX Reporting Has patient been on IV antibiotics over the past 48 hours?: Yes Current Medications - Current Medications Current Medications: Active Medications Acetaminophen (Acetaminophen 325 Mg Tablet) 650 mg PO Q4HR PRN PRN Reason: Pain 1 to 4 Last Admin: 05/23/20 01:44 Dose: 650 mg Documented by: Azithromycin (Azithromycin 250 Mg Tablet) 250 mg PO DAILY [facility] Stop: 05/25/20 09:01 Last Admin: 05/23/20 08:49 Dose: 250 mg Documented by: Cyclobenzaprine HCl (Cyclobenzaprine 10 Mg Tablet) 10 mg PO Q8H PRN PRN Reason: PAIN Digoxin (Digoxin 125 Mcg Tablet) 125 mcg PO DAILY [facility] Last Admin: 05/23/20 09:04 Dose: 125 mcg Documented by: Diltiazem HCl (Diltiazem Inj 5 Mg/Ml Vial) 5 mg IVP Q4H PRN PRN Reason: PER PHYSICIAN ORDER Diphenhydramine HCl (Diphenhydramine 25 Mg Capsule) 25 mg PO Q4HR PRN PRN Reason: Allergy Symptoms Last Admin: 05/16/20 09:05 Dose: 25 mg Documented by: Docusate Sodium (Docusate Sodium 250 Mg Capsule) 250 - 500 mg PO DAILY [facility] Last Admin: 05/23/20 08:49 Dose: 250 mg Documented by: Duloxetine HCl (Duloxetine 30 Mg Capsule) 60 mg PO DAILY [facility] Last Admin: 05/23/20 08:47 Dose: 60 mg Documented by: Enoxaparin Sodium (Enoxaparin 40 Mg/0.4 Ml Syringe) 40 mg SUBQ DAILY [facility] Last Admin: 05/23/20 08:47 Dose: 40 mg Documented by: Famotidine (Famotidine 20 Mg Tablet) 20 mg PO BID [facility] Last Admin: 05/23/20 08:48 Dose: 20 mg Documented by: Ferrous Gluconate (Ferrous Gluconate 324 Mg Tablet) 324 mg PO DAILYWM [facility] Last Admin: 05/23/20 07:47 Dose: 324 mg Documented by: Gabapentin (Gabapentin 300 Mg Capsule) 600 mg PO QID [facility] Last Admin: 05/23/20 08:48 Dose: 600 mg Documented by: Ceftriaxone Sodium 1 gm/ (Sodium Chloride) 100 mls @ 200 mls/hr IV DAILY [facility] Stop: 05/25/20 09:29 Last Infusion: 05/23/20 09:25 Dose: Infused Documented by: Loratadine (Loratadine 10 Mg Tablet) 10 mg PO DAILY [facility] Last Admin: 05/23/20 08:49 Dose: 10 mg Documented by: Metoprolol Succinate (Metoprolol Succinate 25 Mg Tablet) 12.5 mg PO BID [facility] Ondansetron HCl (Ondansetron 4 Mg/2 Ml Vial) 4 mg IVP Q6HR PRN PRN Reason: Nausea / Vomiting Last Admin: 05/16/20 13:41 Dose: 4 mg Documented by: Oxycodone HCl (Oxycodone 5 Mg Tablet) 5 mg PO Q4HR PRN PRN Reason: PAIN Last Admin: 05/23/20 09:01 Dose: 5 mg Documented by: Polyethylene Glycol (Polyethylene Glycol 3350 17 Gm Packet) 17 gm PO DAILY [facility] Last Admin: 05/23/20 08:47 Dose: 17 gm Documented by: Multivit/Folic Acid/Iron ( Vitamin Tablet) 1 tab PO DAILY [facility] Last Admin: 05/23/20 08:48 Dose: 1 tab Documented by: Prochlorperazine Edisylate (Prochlorperazine 10 Mg/2 Ml Vial) 10 mg IVP Q6HR PRN PRN Reason: Nausea / Vomiting Last Admin: 05/16/20 15:33 Dose: 10 mg Documented by: Saccharomyces Boulardii (Saccharomyces Boulardii 250 Mg Capsule) 250 mg PO BIDWM [facility] Last Admin: 05/23/20 07:47 Dose: 250 mg Documented by: Senna (Senna 8.6 Mg Tablet) 8.6 - 17.2 mg PO DAILY [facility] Last Admin: 05/23/20 08:48 Dose: 8.6 mg Documented by: Sodium Chloride (Sodium Chloride Flush 0.9% 10 Ml Syringe) 10 ml IVP PRN PRN PRN Reason: NEEDED PER PROVIDER ORDERS Last Admin: 05/16/20 11:19 Dose: 10 ml Documented by: Sodium Chloride (Sodium Chloride Flush 0.9% 10 Ml Syringe) 10 ml IVP 0100,0900 ,1700 [facility] Last Admin: 05/23/20 08:51 Dose: 10 ml Documented by: Thiamine HCl (Thiamine 100 Mg Tablet) 100 mg PO DAILY [facility] Last Admin: 05/23/20 08:49 Dose: 100 mg Documented by: Trazodone HCl (Trazodone 50 Mg Tablet) 50 mg PO QPM [facility] Last Admin: 05/22/20 21:22 Dose: 50 mg Documented by: Zolpidem Tartrate [Ambien] 5 mg PO DAILY PRN 08/31/14 Digoxin [Lanoxin] 125 mcg PO DAILY 10/04/17 Gabapentin 600 mg PO QID 10/04/17 SUMAtriptan [Imitrex] 25 mg PO ONCE PRN MDD 50 mg 10/04/17 Metoprolol Succinate 25 mg PO BID 09/18/18 Duloxetine HCl [Cymbalta] 60 mg PO DAILY 04/02/20 Furosemide [Lasix] 20 mg PO DAILY PRN 04/02/20
[2020-05-23 15:08] LABS: B. PARAPERTUSSIS- RESP PCR PAN NOT DETECTED; B. PERTUSSIS- RESP PCR PANEL NOT DETECTED; C. PNEUMONIAE- RESP PCR PANEL NOT DETECTED; CORONAVIRUS 229E-RESP PCR NOT DETECTED; CORONAVIRUS HKU1-RESP PCR NOT DETECTED; CORONAVIRUS NL63-RESP PCR NOT DETECTED; CORONAVIRUS OC43-RESP PCR NOT DETECTED; HUMAN METAPNEUMOVIRUS NOT DETECTED; INFLUENZA A- RESP PCR PANEL NOT DETECTED; INFLUENZA B - RESP PCR PANEL NOT DETECTED; M. PNEUMONIAE- RESP PCR PANEL NOT DETECTED; PARAINFLUENZA VIRUS 1 NOT DETECTED; PARAINFLUENZA VIRUS 2 NOT DETECTED; PARAINFLUENZA VIRUS 3 NOT DETECTED; PARAINFLUENZA VIRUS 4 NOT DETECTED; RHINOVIRUS/ENTEROVIRUS NOT DETECTED; RSV- RESP PCR PANEL NOT DETECTED; SARS-CoV-2 -RESP PCR PANEL NOT DETECTED
[2020-05-23] MEDS: CYCLOBENZAPRINE 10 MG TABLET PO PRN (20:03)
[2020-05-23] MEDS: traZODone 50 MG TABLET PO SCH (20:14)
[2020-05-24] MEDS: SODIUM CHLORIDE FLUSH 0.9% 10 ML SYRINGE IVP SCH ×3 (00:40→16:20)
[2020-05-24] MEDS: oxyCODONE 5 MG TABLET PO PRN ×4 (00:47→20:57)
[2020-05-24 05:44] LABS: BASOPHILS % (AUTO) 0.7 %; EOSINOPHILS # (AUTO) 0.3 10^3/uL (0.0-0.7); EOSINOPHILS % (AUTO) 4.3 %; HCT - HEMATOCRIT 32.6 % (37.0-47.0); HGB - HEMOGLOBIN 10.2 g/dL (12.0-16.0); LYMPHOCYTES # (AUTO) 2.3 10^3/uL (1.5-3.5); LYMPHOCYTES % (AUTO) 37.2 %; MEAN CORPUSCULAR HEMOGLOBIN 32.9 pg (27.0-31.0); MEAN CORPUSCULAR HGB CONC 31.3 g/dL (32.0-36.0); MEAN CORPUSCULAR VOLUME 105.2 fL (81.0-99.0); MEAN PLATELET VOLUME 10.4 fL (7.9-10.8); MONOCYTES # (AUTO) 0.6 10^3/uL (0.0-1.0); MONOCYTES % (AUTO) 10.5 %; NEUTROPHILS # (AUTO) 2.8 10^3/uL (1.5-6.6); NEUTROPHILS % (AUTO) 45.2 %; PLT - PLATELET COUNT 164 10^3/uL (130-450); RED CELL DISTRIBUTION WIDTH 13.1 % (12.0-15.0); WHITE BLOOD COUNT 6.1 x10^3/uL (4.8-10.8)
[2020-05-24 06:01] LABS: CALCIUM 8.9 mg/dL (8.5-10.3); CREATININE 0.7 mg/dL (0.4-1.0)
[2020-05-24] MEDS: ENOXAPARIN 40 MG/0.4 ML SYRINGE SUBQ SCH (09:49)
[2020-05-24] MEDS: polyethylene glycoL 3350 17 GM PACKET PO SCH (09:49)
[2020-05-24] MEDS: LORATADINE 10 MG TABLET PO SCH (09:50)
[2020-05-24] MEDS: PRENATAL VITAMIN TABLET PO SCH (09:50)
[2020-05-24] MEDS: SENNA 8.6 MG TABLET PO SCH (09:50)
[2020-05-24] MEDS: FAMOTIDINE 20 MG TABLET PO SCH ×2 (09:50→20:57)
[2020-05-24] MEDS: DIGOXIN 125 MCG TABLET PO SCH (09:50)
[2020-05-24] MEDS: THIAMINE 100 MG TABLET PO SCH (09:50)
[2020-05-24] MEDS: SACCHAROMYCES BOULARDII 250 MG CAPSULE PO SCH ×2 (09:50→16:20)
[2020-05-24] MEDS: AZITHROMYCIN 250 MG TABLET PO SCH (09:51)
[2020-05-24] MEDS: DULoxetine 30 MG CAPSULE PO SCH (09:51)
[2020-05-24] MEDS: FERROUS GLUCONATE 324 MG TABLET PO SCH (09:51)
[2020-05-24] MEDS: DOCUSATE SODIUM 250 MG CAPSULE PO SCH (09:51)
[2020-05-24] MEDS: GABAPENTIN 300 MG CAPSULE PO SCH ×4 (09:51→20:58)
[2020-05-24] MEDS: METOPROLOL SUCCINATE 25 MG TABLET PO SCH ×2 (09:52→20:58)
[2020-05-24] MEDS: cefTRIAXone 1 GM in SODIUM CHLORIDE 0.9% MINIBAG 100 ML IV SCH (09:52)
--- NOTE | 2020-05-24 12:15 | PROVIDER PROGRESS NOTE ---
Assessment/Plan - Problem List (1) Atrial fibrillation with RVR Assessment/Plan: RVR resolved On digoxin and metoprolol. Will continue (2) Arm contusion Qualifiers: Encounter type: initial encounter Laterality: right Qualified Code(s): S40.021A - Contusion of right upper arm, initial encounter Assessment/Plan: due to fall about 10 days ago. Xray was negative for fracture Patient had a hematoma which is going through stages of resolution Venous duplex of the arm yesterday (05/23/20) was negative for DVT, abscess or new bleed (5) Alcohol abuse Assessment/Plan: Will continue to monitor. CIWA score is low, nurse asked to remove CIWA protocol now. (6) Depression Assessment/Plan: On duloxetine 60mg po daily (7) HTN (hypertension) Assessment/Plan: On metoprolol (9) Right hip pain Assessment/Plan: Improved/resolve. Pain management prn Patient needs PT/OT but is very uncooperative with any form of activity (10) Ankle pain, right Assessment/Plan: Improving. Pain management prn Weight bearing as tolerated. Patient needs PT/OT but is very uncooperative with any form of activity Social work is working on prior auth for placement. Once approved, patient will be transitioned to SNF - Current Meds Current Meds: Current Medications Generic Name Dose Route Start Last Admin Trade Name Freq PRN Reason Stop Dose Admin Acetaminophen 650 mg 05/15/20 20:13 05/23/20 20:03 Acetaminophen 325 Mg Tablet PO 650 mg Q4HR PRN Administration Pain 1 to 4 Azithromycin 250 mg 05/22/20 09:00 05/24/20 09:51 Azithromycin 250 Mg Tablet PO 05/25/20 09:01 250 mg DAILY [facility] Administration Cyclobenzaprine HCl 10 mg 05/17/20 11:50 05/23/20 20:03 Cyclobenzaprine 10 Mg Tablet PO 10 mg Q8H PRN Administration PAIN Digoxin 125 mcg 05/16/20 09:00 05/24/20 09:50 Digoxin 125 Mcg Tablet PO 125 mcg DAILY [facility] Administration Diphenhydramine HCl 25 mg 05/16/20 08:28 05/16/20 09:05 Diphenhydramine 25 Mg Capsule PO 25 mg Q4HR PRN Administration Allergy Symptoms Docusate Sodium 250 - 500 mg 05/16/20 13:44 05/24/20 09:51 Docusate Sodium 250 Mg Capsule PO 250 mg DAILY [facility] Administration Duloxetine HCl 60 mg 05/17/20 12:00 05/24/20 09:51 Duloxetine 30 Mg Capsule PO 60 mg DAILY [facility] Administration Enoxaparin Sodium 40 mg 05/21/20 09:00 05/24/20 09:49 Enoxaparin 40 Mg/0.4 Ml Syringe SUBQ 40 mg DAILY [facility] Administration Famotidine 20 mg 05/16/20 21:00 05/24/20 09:50 Famotidine 20 Mg Tablet PO 20 mg BID [facility] Administration Ferrous Gluconate 324 mg 05/20/20 11:00 05/24/20 09:51 Ferrous Gluconate 324 Mg Tablet PO 324 mg DAILYWM [facility] Administration Gabapentin 600 mg 05/17/20 13:00 05/24/20 09:51 Gabapentin 300 Mg Capsule PO 600 mg QID [facility] Administration Ceftriaxone Sodium 1 gm/ 100 mls @ 200 mls/hr 05/21/20 08:22 05/24/20 11:32 Sodium Chloride IV 05/25/20 09:29 Infused DAILY [facility] Infusion Loratadine 10 mg 05/17/20 09:00 05/24/20 09:50 Loratadine 10 Mg Tablet PO 10 mg DAILY [facility] Administration Metoprolol Succinate 12.5 mg 05/23/20 21:00 05/24/20 09:52 Metoprolol Succinate 25 Mg Tablet PO Not Given BID [facility] Ondansetron HCl 4 mg 05/16/20 06:34 05/16/20 13:41 Ondansetron 4 Mg/2 Ml Vial IVP 4 mg Q6HR PRN Administration Nausea / Vomiting Oxycodone HCl 5 mg 05/15/20 22:56 05/24/20 09:49 Oxycodone 5 Mg Tablet PO 5 mg Q4HR PRN Administration PAIN Polyethylene Glycol 17 gm 05/16/20 13:19 05/24/20 09:49 Polyethylene Glycol 3350 17 Gm Packet PO 17 gm DAILY [facility] Administration Multivit/Folic Acid/Iron 1 tab 05/16/20 09:00 05/24/20 09:50 Vitamin Tablet PO 1 tab DAILY [facility] Administration Prochlorperazine Edisylate 10 mg 05/16/20 14:33 05/16/20 15:33 Prochlorperazine 10 Mg/2 Ml Vial IVP 10 mg Q6HR PRN Administration Nausea / Vomiting Saccharomyces Boulardii 250 mg 05/21/20 10:51 05/24/20 09:50 Saccharomyces Boulardii 250 Mg Capsule PO 250 mg BIDWM [facility] Administration Senna 8.6 - 17.2 mg 05/16/20 13:44 05/24/20 09:50 Senna 8.6 Mg Tablet PO 8.6 mg DAILY [facility] Administration Sodium Chloride 10 ml 05/15/20 20:13 05/16/20 11:19 Sodium Chloride Flush 0.9% 10 Ml Syringe IVP 10 ml PRN PRN Administration NEEDED PER PROVIDER ORDERS Sodium Chloride 10 ml 05/16/20 01:00 05/24/20 09:52 Sodium Chloride Flush 0.9% 10 Ml Syringe IVP 10 ml 0100,0900,1700 [facility] Administration Thiamine HCl 100 mg 05/16/20 09:00 05/24/20 09:50 Thiamine 100 Mg Tablet PO 100 mg DAILY [facility] Administration Trazodone HCl 50 mg 05/15/20 22:56 05/23/20 20:14 Trazodone 50 Mg Tablet PO 50 mg QPM [facility] Administration - Lab Result Fish Bone Diagrams: 05/24/20 05:35 05/24/20 05:35 Subjective - Subjective Patient Reports: Other (Patient resting comfortably in bed. She refuses to work with physical therapy, get out of bed for meal or even to use the bedside commode. She reports a positive review of system and states that she wants to stay in the hospital indefinitely.) Objective Vital Signs: Vital Signs - 24 hr 05/23/20 05/23/20 05/23/20 11:50 15:51 20:06 Temperature 36.4 C L 36.7 C 36.8 C Heart Rate [ Brachial] Heart Rate [ 68 72 75 Radial] Respiratory 18 18 19 Rate Blood Pressure 108/63 114/68 [Left Brachial artery] Blood Pressure 109/49 L [Right Radial artery] O2 Saturation 92 93 94 05/24/20 05/24/20 05/24/20 01:11 01:30 05:30 Temperature 36.4 C L 36.5 C Heart Rate [ 68 66 Brachial] Heart Rate [ Radial] Respiratory 16 18 Rate Blood Pressure 93/58 L 92/43 L [Left Brachial artery] Blood Pressure 99/45 L [Right Radial artery] O2 Saturation 93 86 L 05/24/20 05/24/20 05:49 08:16 Temperature 36.4 C L Heart Rate [ 67 Brachial] Heart Rate [ Radial] Respiratory 20 Rate Blood Pressure 104/61 [Left Brachial artery] Blood Pressure [Right Radial artery] O2 Saturation 93 94 Oxygen O2 Source [With Activity] Room air O2 Source Room air I&O (Last 24 Hrs): Intake and Output Totals x24h 05/22/20 05/23/20 05/25/20 23:59 23:59 00:59 Intake Total 1240 1050 520 Output Total 425 250 200 Balance 815 800 320 General: Alert, Oriented x3, Mild distress, Moderate distress, Other (Uncooperative) HEENT: PERRLA, EOMI Neck: Supple, No JVD Neuro: Alert, Non Focal, Oriented Times 3 Cardiovascular: Regular rate, Normal S1, Normal S2 Respiratory: Chest non-tender, No respiratory distress, Breath sounds nml Abdomen: Normal bowel sounds, Soft, No tenderness Extremities: No clubbing, No edema, Other (Bruise on right upper extremity right ankle fracture healing well) - Results Results: Laboratory Results WBC 6.1 x10^3/uL (4.8-10.8) 05/24/20 05:35 RBC 3.10 10^6/uL (4.20-5.40) L 05/24/20 05:35 Hgb 10.2 g/dL (12.0-16.0) L 05/24/20 05:35 Hct 32.6 % (37.0-47.0) L 05/24/20 05:35 MCV 105.2 fL (81.0-99.0) H 05/24/20 05:35 MCH 32.9 pg (27.0-31.0) H 05/24/20 05:35 MCHC 31.3 g/dL (32.0-36.0) L 05/24/20 05:35 RDW 13.1 % (12.0-15.0) 05/24/20 05:35 Plt Count 164 10^3/uL (130-450) 05/24/20 05:35 MPV 10.4 fL (7.9-10.8) 05/24/20 05:35 Reticulocyte % (Auto) 2.60 % (0.5-2.3) H 05/20/20 08:03 Neut # (Auto) 2.8 10^3/uL (1.5-6.6) 05/24/20 05:35 Lymph # (Auto) 2.3 10^3/uL (1.5-3.5) 05/24/20 05:35 [place] # (Auto) 0.6 10^3/uL (0.0-1.0) 05/24/20 05:35 Eos # (Auto) 0.3 10^3/uL (0.0-0.7) 05/24/20 05:35 Baso # (Auto) 0.0 10^3/uL (0.0-0.1) 05/24/20 05:35 Absolute Nucleated RBC 0.00 x10^3/uL 05/24/20 05:35 Nucleated RBC % 0.0 /100WBC 05/24/20 05:35 Manual Slide Review Indicated 05/18/20 06:30 Platelet Morphology PLATELET CLUMPING (NORMAL) 05/18/20 06:30 RBC Morph Micro Appear NORMAL APPEARANCE (NORMAL) 05/18/20 06:30 Absolute Retic 0.075 10^6/uL (0.020-0.110) 05/20/20 08:03 PT 14.9 secs (9.9-12.6) H 05/15/20 19:30 INR 1.4 (0.8-1.2) H 05/15/20 19:30 Sodium 138 mmol/L (135-145) 05/24/20 05:35 Potassium 4.0 mmol/L (3.5-5.0) 05/24/20 05:35 Chloride 102 mmol/L (101-111) 05/24/20 05:35 Carbon Dioxide 29 mmol/L (21-32) 05/24/20 05:35 Anion Gap 7.0 (6-13) 05/24/20 05:35 BUN 9 mg/dL (6-20) 05/24/20 05:35 Creatinine 0.7 mg/dL (0.4-1.0) 05/24/20 05:35 Estimated GFR (MDRD) 82 (>89) L 05/24/20 05:35 Glucose 147 mg/dL (70-100) H 05/24/20 05:35 Calcium 8.9 mg/dL (8.5-10.3) 05/24/20 05:35 Phosphorus 5.2 mg/dL (2.5-4.6) H 05/16/20 05:16 Magnesium 2.4 mg/dL (1.7-2.8) 05/16/20 05:16 Iron 27 ug/dL (28-170) L 05/20/20 08:03 TIBC 204 ug/dL (250-450) L 05/20/20 08:03 % Saturation 13 % (20-50) L 05/20/20 08:03 Transferrin 146 mg/dL (192-382) L 05/20/20 08:03 Ferritin 83.9 ng/mL (11.0-306.8) 05/20/20 08:03 Total Bilirubin 1.6 mg/dL (0.2-1.0) H 05/15/20 19:30 AST 44 IU/L (10-42) H 05/15/20 19:30 ALT 29 IU/L (10-60) 05/15/20 19:30 Alkaline Phosphatase 123 IU/L (42-121) H 05/15/20 19:30 Ammonia 19.0 umol/L (7-35) 05/18/20 01:00 Lactate Dehydrogenase 110 IU/L (91-225) 05/20/20 08:03 Troponin I High Sens 4.9 ng/L (2.3-14.8) 05/20/20 19:33 Total Protein 7.7 g/dL (6.7-8.2) 05/15/20 19:30 Albumin 3.7 g/dL (3.2-5.5) 05/15/20 19:30 Globulin 4.0 g/dL (2.1-4.2) 05/15/20 19:30 Albumin/Globulin Ratio 0.9 (1.0-2.2) L 05/15/20 19:30 Vitamin B12 851 pg/mL (180-914) 05/20/20 08:03 Folate 27.00 ng/mL (5.90 - >24.8) 05/16/20 08:16 TSH 4.31 uIU/mL (0.34-5.60) 05/16/20 05:16 Nasal Adenovirus (PCR) NOT DETECTED 05/23/20 14:10 Nasal B. parapertussis DNA (PCR) NOT DETECTED 05/23/20 14:10 Nasal Coronavir 229E PCR NOT DETECTED 05/23/20 14:10 Nasal Coronavir HKU1 PCR NOT DETECTED 05/23/20 14:10 Nasal Coronavir NL63 PCR NOT DETECTED 05/23/20 14:10 Nasal Coronavir OC43 PCR NOT DETECTED 05/23/20 14:10 Nasal Enterovir/Rhinovir PCR NOT DETECTED 05/23/20 14:10 Nasal Influenza B PCR NOT DETECTED 05/23/20 14:10 Nasal Influenza A PCR NOT DETECTED 05/23/20 14:10 Nasal Parainfluen 1 PCR NOT DETECTED 05/23/20 14:10 Nasal Parainfluen 2 PCR NOT DETECTED 05/23/20 14:10 Nasal Parainfluen 3 PCR NOT DETECTED 05/23/20 14:10 Nasal Parainfluen 4 PCR NOT DETECTED 05/23/20 14:10 Nasal RSV (PCR) NOT DETECTED 05/23/20 14:10 Nasal B.pertussis DNA PCR NOT DETECTED 05/23/20 14:10 Nasal C.pneumoniae (PCR) NOT DETECTED 05/23/20 14:10 [place] Human Metapneumo PCR NOT DETECTED 05/23/20 14:10 Nasal M.pneumoniae (PCR) NOT DETECTED 05/23/20 14:10 Nasal SARS-CoV-2 (PCR) NOT DETECTED 05/23/20 14:10 Last Dose Date Not Reportable 05/15/20 19:30 Last Dose Time Not Reportable 05/15/20 19:30 Digoxin 0.3 ng/mL 05/15/20 19:30 Ethyl Alcohol < 5.0 mg/dL 05/15/20 19:30 Coronavirus (PCR) NEGATIVE 05/21/20 09:20 - Procedures Procedures: Procedures REPOSITION RIGHT FIBULA WITH INT FIX, OPEN APPROACH (04/02/20) Sepsis Event Note (H) - Evaluation Current Stage of Sepsis: Ruled out ABX Reporting Has patient been on IV antibiotics over the past 48 hours?: Yes
[2020-05-24] MEDS: ACETAMINOPHEN 325 MG TABLET PO PRN ×2 (13:31→20:58)
[2020-05-24] MEDS: traZODone 50 MG TABLET PO SCH (20:59)
[2020-05-25] MEDS: SODIUM CHLORIDE FLUSH 0.9% 10 ML SYRINGE IVP SCH ×3 (01:24→21:20)
[2020-05-25] MEDS: ACETAMINOPHEN 325 MG TABLET PO PRN ×2 (01:24→16:14)
[2020-05-25] MEDS: CYCLOBENZAPRINE 10 MG TABLET PO PRN ×2 (01:24→21:21)
[2020-05-25 04:51] LABS: BASOPHILS % (AUTO) 0.7 %; EOSINOPHILS # (AUTO) 0.2 10^3/uL (0.0-0.7); EOSINOPHILS % (AUTO) 4.2 %; HCT - HEMATOCRIT 32.5 % (37.0-47.0); HGB - HEMOGLOBIN 10.3 g/dL (12.0-16.0); LYMPHOCYTES # (AUTO) 1.9 10^3/uL (1.5-3.5); LYMPHOCYTES % (AUTO) 34.3 %; MEAN CORPUSCULAR HEMOGLOBIN 33.4 pg (27.0-31.0); MEAN CORPUSCULAR HGB CONC 31.7 g/dL (32.0-36.0); MEAN CORPUSCULAR VOLUME 105.5 fL (81.0-99.0); MEAN PLATELET VOLUME 10.3 fL (7.9-10.8); MONOCYTES # (AUTO) 0.5 10^3/uL (0.0-1.0); MONOCYTES % (AUTO) 8.4 %; NEUTROPHILS # (AUTO) 2.8 10^3/uL (1.5-6.6); NEUTROPHILS % (AUTO) 51.1 %; PLT - PLATELET COUNT 168 10^3/uL (130-450); RED BLOOD COUNT 3.08 10^6/uL (4.20-5.40); WHITE BLOOD COUNT 5.5 x10^3/uL (4.8-10.8)
[2020-05-25 04:55] LABS: CALCIUM 8.9 mg/dL (8.5-10.3); CREATININE 0.6 mg/dL (0.4-1.0); POTASSIUM 4.2 mmol/L (3.5-5.0)
[2020-05-25] MEDS: SACCHAROMYCES BOULARDII 250 MG CAPSULE PO SCH ×2 (07:56→16:15)
[2020-05-25] MEDS: FERROUS GLUCONATE 324 MG TABLET PO SCH (07:57)
[2020-05-25] MEDS: SENNA 8.6 MG TABLET PO SCH (07:59)
[2020-05-25] MEDS: DOCUSATE SODIUM 250 MG CAPSULE PO SCH (07:59)
[2020-05-25] MEDS: polyethylene glycoL 3350 17 GM PACKET PO SCH (07:59)
[2020-05-25] MEDS: PRENATAL VITAMIN TABLET PO SCH (08:00)
[2020-05-25] MEDS: AZITHROMYCIN 250 MG TABLET PO SCH (08:00)
[2020-05-25] MEDS: GABAPENTIN 300 MG CAPSULE PO SCH ×4 (08:00→21:20)
[2020-05-25] MEDS: THIAMINE 100 MG TABLET PO SCH (08:00)
[2020-05-25] MEDS: DULoxetine 30 MG CAPSULE PO SCH (08:00)
[2020-05-25] MEDS: LORATADINE 10 MG TABLET PO SCH (08:00)
[2020-05-25] MEDS: cefTRIAXone 1 GM in SODIUM CHLORIDE 0.9% MINIBAG 100 ML IV SCH (08:01)
[2020-05-25] MEDS: ENOXAPARIN 40 MG/0.4 ML SYRINGE SUBQ SCH (08:01)
[2020-05-25] MEDS: FAMOTIDINE 20 MG TABLET PO SCH ×2 (08:02→21:20)
[2020-05-25] MEDS: METOPROLOL SUCCINATE 25 MG TABLET PO SCH ×2 (08:07→21:21)
[2020-05-25] MEDS: DIGOXIN 125 MCG TABLET PO SCH (10:09)
--- NOTE | 2020-05-25 13:44 | PROVIDER PROGRESS NOTE ---
Assessment/Plan - Problem List (1) Ankle pain, right Assessment/Plan: Improving. Pain management prn Weight bearing as tolerated. Patient needs PT/OT but is very uncooperative with any form of activity Social work is working on prior auth for placement. Once approved, patient will be transitioned to SNF This has been a challenge since the patient left [facility] against medical advise (2) Arm contusion Qualifiers: Encounter type: initial encounter Laterality: right Qualified Code(s): S40.021A - Contusion of right upper arm, initial encounter Assessment/Plan: due to fall about 10 days ago. Xray was negative for fracture Patient had a hematoma which is going through stages of resolution Venous duplex of the arm yesterday (05/23/20) was negative for DVT, abscess or new bleed (3) Atrial fibrillation with RVR Assessment/Plan: RVR resolved On digoxin and metoprolol. Will continue (6) Alcohol abuse Assessment/Plan: Patient has not consumed alcohol in over 2months. Will continue to monitor. CIWA score is low, nurse asked to remove CIWA protocol now. (7) Depression Assessment/Plan: On duloxetine 60mg po daily (10) Right hip pain Assessment/Plan: Improved. Pain management prn Patient needs PT/OT but is very uncooperative with any form of activity - Current Meds Current Meds: Current Medications Generic Name Dose Route Start Last Admin Trade Name Freq PRN Reason Stop Dose Admin Acetaminophen 650 mg 05/15/20 20:13 05/25/20 01:24 Acetaminophen 325 Mg Tablet PO 650 mg Q4HR PRN Administration Pain 1 to 4 Cyclobenzaprine HCl 10 mg 05/17/20 11:50 05/25/20 01:24 Cyclobenzaprine 10 Mg Tablet PO 10 mg Q8H PRN Administration PAIN Digoxin 125 mcg 05/16/20 09:00 05/25/20 10:09 Digoxin 125 Mcg Tablet PO 125 mcg DAILY [facility] Administration Diphenhydramine HCl 25 mg 05/16/20 08:28 05/16/20 09:05 Diphenhydramine 25 Mg Capsule PO 25 mg Q4HR PRN Administration Allergy Symptoms Docusate Sodium 250 - 500 mg 05/16/20 13:44 05/25/20 07:59 Docusate Sodium 250 Mg Capsule PO Not Given DAILY [facility] Duloxetine HCl 60 mg 05/17/20 12:00 05/25/20 08:00 Duloxetine 30 Mg Capsule PO 60 mg DAILY [facility] Administration Enoxaparin Sodium 40 mg 05/21/20 09:00 05/25/20 08:01 Enoxaparin 40 Mg/0.4 Ml Syringe SUBQ 40 mg DAILY [facility] Administration Famotidine 20 mg 05/16/20 21:00 05/25/20 08:02 Famotidine 20 Mg Tablet PO 20 mg BID [facility] Administration Ferrous Gluconate 324 mg 05/20/20 11:00 05/25/20 07:57 Ferrous Gluconate 324 Mg Tablet PO 324 mg DAILYWM [facility] Administration Gabapentin 600 mg 05/17/20 13:00 05/25/20 13:01 Gabapentin 300 Mg Capsule PO 600 mg QID [facility] Administration Loratadine 10 mg 05/17/20 09:00 05/25/20 08:00 Loratadine 10 Mg Tablet PO 10 mg DAILY [facility] Administration Metoprolol Succinate 12.5 mg 05/23/20 21:00 05/25/20 08:07 Metoprolol Succinate 25 Mg Tablet PO Not Given BID [facility] Ondansetron HCl 4 mg 05/16/20 06:34 05/16/20 13:41 Ondansetron 4 Mg/2 Ml Vial IVP 4 mg Q6HR PRN Administration Nausea / Vomiting Oxycodone HCl 5 mg 05/15/20 22:56 05/24/20 20:57 Oxycodone 5 Mg Tablet PO 5 mg Q4HR PRN Administration PAIN Polyethylene Glycol 17 gm 05/16/20 13:19 05/25/20 07:59 Polyethylene Glycol 3350 17 Gm Packet PO Not Given DAILY [facility] Multivit/Folic Acid/Iron 1 tab 05/16/20 09:00 05/25/20 08:00 Vitamin Tablet PO 1 tab DAILY [facility] Administration Prochlorperazine Edisylate 10 mg 05/16/20 14:33 05/16/20 15:33 Prochlorperazine 10 Mg/2 Ml Vial IVP 10 mg Q6HR PRN Administration Nausea / Vomiting Saccharomyces Boulardii 250 mg 05/21/20 10:51 05/25/20 07:56 Saccharomyces Boulardii 250 Mg Capsule PO 250 mg BIDWM [facility] Administration Senna 8.6 - 17.2 mg 05/16/20 13:44 05/25/20 07:59 Senna 8.6 Mg Tablet PO Not Given DAILY [facility] Sodium Chloride 10 ml 05/15/20 20:13 05/16/20 11:19 Sodium Chloride Flush 0.9% 10 Ml Syringe IVP 10 ml PRN PRN Administration NEEDED PER PROVIDER ORDERS Sodium Chloride 10 ml 05/16/20 01:00 05/25/20 08:03 Sodium Chloride Flush 0.9% 10 Ml Syringe IVP 10 ml 0100,0900,1700 [facility] Administration Thiamine HCl 100 mg 05/16/20 09:00 05/25/20 08:00 Thiamine 100 Mg Tablet PO 100 mg DAILY [facility] Administration Trazodone HCl 50 mg 05/15/20 22:56 05/24/20 20:59 Trazodone 50 Mg Tablet PO 50 mg QPM [facility] Administration - Lab Result Fish Bone Diagrams: 05/25/20 04:34 05/25/20 04:34 Subjective - Subjective Patient Reports: Other (Patient was seated up in bedside chair however she complains significantly about it. She continues to refuse to work with therapy. She has expressed multiple times that she likes her care in the hospital and does not want to go anywhere else.) Objective Vital Signs: Vital Signs - 24 hr 05/24/20 05/24/20 05/24/20 17:00 20:59 21:15 Temperature 36.6 C 36.3 C L 36.5 C Heart Rate [ 75 Brachial] Heart Rate [ 81 79 Radial] Respiratory 18 22 16 Rate Blood Pressure [Left Brachial artery] Blood Pressure [Right Brachial artery] Blood Pressure 107/54 L 133/60 H 116/47 L [Right Radial artery] O2 Saturation 94 91 L 95 05/25/20 05/25/20 05/25/20 01:30 01:55 04:30 Temperature 36.4 C L 36.4 C L Heart Rate [ 76 72 Brachial] Heart Rate [ Radial] Respiratory 18 16 Rate Blood Pressure 97/52 L 109/51 L 90/45 L [Left Brachial artery] Blood Pressure [Right Brachial artery] Blood Pressure [Right Radial artery] O2 Saturation 92 94 05/25/20 05/25/20 05/25/20 06:18 08:26 13:00 Temperature 36.7 C Heart Rate [ 78 85 Brachial] Heart Rate [ Radial] Respiratory 20 18 Rate Blood Pressure 98/51 L 110/57 L [Left Brachial artery] Blood Pressure 82/43 L [Right Brachial artery] Blood Pressure [Right Radial artery] O2 Saturation 93 100 Oxygen O2 Source [With Activity] Room air O2 Source Nasal cannula I&O (Last 24 Hrs): Intake and Output Totals x24h 05/23/20 05/24/20 05/25/20 22:59 23:59 23:59 Intake Total 1265 Output Total Balance 1265 Comments/Notes: General: Alert, Oriented x3, Mild distress, Moderate distress, Other (Uncooperative) HEENT: PERRLA, EOMI Neck: Supple, No JVD Neuro: Alert, Non Focal, Oriented Times 3 Cardiovascular: Regular rate, Normal S1, Normal S2 Respiratory: Chest non-tender, No respiratory distress, Breath sounds nml Abdomen: Normal bowel sounds, Soft, No tenderness Extremities: No clubbing, No edema, Other (Bruise on right upper extremity right ankle fracture healing well) - Results Results: Laboratory Results WBC 5.5 x10^3/uL (4.8-10.8) 05/25/20 04:34 RBC 3.08 10^6/uL (4.20-5.40) L 05/25/20 04:34 Hgb 10.3 g/dL (12.0-16.0) L 05/25/20 04:34 Hct 32.5 % (37.0-47.0) L 05/25/20 04:34 MCV 105.5 fL (81.0-99.0) H 05/25/20 04:34 MCH 33.4 pg (27.0-31.0) H 05/25/20 04:34 MCHC 31.7 g/dL (32.0-36.0) L 05/25/20 04:34 RDW 13.0 % (12.0-15.0) 05/25/20 04:34 Plt Count 168 10^3/uL (130-450) 05/25/20 04:34 MPV 10.3 fL (7.9-10.8) 05/25/20 04:34 Reticulocyte % (Auto) 2.60 % (0.5-2.3) H 05/20/20 08:03 Neut # (Auto) 2.8 10^3/uL (1.5-6.6) 05/25/20 04:34 Lymph # (Auto) 1.9 10^3/uL (1.5-3.5) 05/25/20 04:34 [facility] # (Auto) 0.5 10^3/uL (0.0-1.0) 05/25/20 04:34 Eos # (Auto) 0.2 10^3/uL (0.0-0.7) 05/25/20 04:34 Baso # (Auto) 0.0 10^3/uL (0.0-0.1) 05/25/20 04:34 Absolute Nucleated RBC 0.00 x10^3/uL 05/25/20 04:34 Nucleated RBC % 0.0 /100WBC 05/25/20 04:34 Manual Slide Review Indicated 05/18/20 06:30 Platelet Morphology PLATELET CLUMPING (NORMAL) 05/18/20 06:30 RBC Morph Micro Appear NORMAL APPEARANCE (NORMAL) 05/18/20 06:30 Absolute Retic 0.075 10^6/uL (0.020-0.110) 05/20/20 08:03 PT 14.9 secs (9.9-12.6) H 05/15/20 19:30 INR 1.4 (0.8-1.2) H 05/15/20 19:30 Sodium 139 mmol/L (135-145) 05/25/20 04:34 Potassium 4.2 mmol/L (3.5-5.0) 05/25/20 04:34 Chloride 102 mmol/L (101-111) 05/25/20 04:34 Carbon Dioxide 29 mmol/L (21-32) 05/25/20 04:34 Anion Gap 8.0 (6-13) 05/25/20 04:34 BUN 9 mg/dL (6-20) 05/25/20 04:34 Creatinine 0.6 mg/dL (0.4-1.0) 05/25/20 04:34 Estimated GFR (MDRD) 98 (>89) 05/25/20 04:34 Glucose 128 mg/dL (70-100) H 05/25/20 04:34 Calcium 8.9 mg/dL (8.5-10.3) 05/25/20 04:34 Phosphorus 5.2 mg/dL (2.5-4.6) H 05/16/20 05:16 Magnesium 2.4 mg/dL (1.7-2.8) 05/16/20 05:16 Iron 27 ug/dL (28-170) L 05/20/20 08:03 TIBC 204 ug/dL (250-450) L 05/20/20 08:03 % Saturation 13 % (20-50) L 05/20/20 08:03 Transferrin 146 mg/dL (192-382) L 05/20/20 08:03 Ferritin 83.9 ng/mL (11.0-306.8) 05/20/20 08:03 Total Bilirubin 1.6 mg/dL (0.2-1.0) H 05/15/20 19:30 AST 44 IU/L (10-42) H 05/15/20 19:30 ALT 29 IU/L (10-60) 05/15/20 19:30 Alkaline Phosphatase 123 IU/L (42-121) H 05/15/20 19:30 Ammonia 19.0 umol/L (7-35) 05/18/20 01:00 Lactate Dehydrogenase 110 IU/L (91-225) 05/20/20 08:03 Troponin I High Sens 4.9 ng/L (2.3-14.8) 05/20/20 19:33 Total Protein 7.7 g/dL (6.7-8.2) 05/15/20 19:30 Albumin 3.7 g/dL (3.2-5.5) 05/15/20 19:30 Globulin 4.0 g/dL (2.1-4.2) 05/15/20 19:30 Albumin/Globulin Ratio 0.9 (1.0-2.2) L 05/15/20 19:30 Vitamin B12 851 pg/mL (180-914) 05/20/20 08:03 Folate 27.00 ng/mL (5.90 - >24.8) 05/16/20 08:16 TSH 4.31 uIU/mL (0.34-5.60) 05/16/20 05:16 Nasal Adenovirus (PCR) NOT DETECTED 05/23/20 14:10 Nasal B. parapertussis DNA (PCR) NOT DETECTED 05/23/20 14:10 Nasal Coronavir 229E PCR NOT DETECTED 05/23/20 14:10 Nasal Coronavir HKU1 PCR NOT DETECTED 05/23/20 14:10 Nasal Coronavir NL63 PCR NOT DETECTED 05/23/20 14:10 Nasal Coronavir OC43 PCR NOT DETECTED 05/23/20 14:10 Nasal Enterovir/Rhinovir PCR NOT DETECTED 05/23/20 14:10 Nasal Influenza B PCR NOT DETECTED 05/23/20 14:10 Nasal Influenza A PCR NOT DETECTED 05/23/20 14:10 Nasal Parainfluen 1 PCR NOT DETECTED 05/23/20 14:10 Nasal Parainfluen 2 PCR NOT DETECTED 05/23/20 14:10 Nasal Parainfluen 3 PCR NOT DETECTED 05/23/20 14:10 Nasal Parainfluen 4 PCR NOT DETECTED 05/23/20 14:10 Nasal RSV (PCR) NOT DETECTED 05/23/20 14:10 Nasal B.pertussis DNA PCR NOT DETECTED 05/23/20 14:10 Nasal C.pneumoniae (PCR) NOT DETECTED 05/23/20 14:10 [place] Human Metapneumo PCR NOT DETECTED 05/23/20 14:10 Nasal M.pneumoniae (PCR) NOT DETECTED 05/23/20 14:10 Nasal SARS-CoV-2 (PCR) NOT DETECTED 05/23/20 14:10 Last Dose Date Not Reportable 05/15/20 19:30 Last Dose Time Not Reportable 05/15/20 19:30 Digoxin 0.3 ng/mL 05/15/20 19:30 Ethyl Alcohol < 5.0 mg/dL 05/15/20 19:30 Coronavirus (PCR) NEGATIVE 05/21/20 09:20 - Procedures Procedures: Procedures REPOSITION RIGHT FIBULA WITH INT FIX, OPEN APPROACH (04/02/20) Sepsis Event Note (H) - Evaluation Current Stage of Sepsis: Ruled out ABX Reporting Has patient been on IV antibiotics over the past 48 hours?: No
[2020-05-25] MEDS: oxyCODONE 5 MG TABLET PO PRN (16:15)
[2020-05-25] MEDS: traZODone 50 MG TABLET PO SCH (21:21)
[2020-05-26] MEDS: SODIUM CHLORIDE FLUSH 0.9% 10 ML SYRINGE IVP SCH ×3 (02:47→18:18)
[2020-05-26] MEDS: oxyCODONE 5 MG TABLET PO PRN ×2 (07:02→18:24)
[2020-05-26 08:05] LABS: BASOPHILS # (AUTO) 0.1 10^3/uL (0.0-0.1); BASOPHILS % (AUTO) 0.7 %; EOSINOPHILS # (AUTO) 0.2 10^3/uL (0.0-0.7); EOSINOPHILS % (AUTO) 2.9 %; HCT - HEMATOCRIT 34.6 % (37.0-47.0); HGB - HEMOGLOBIN 11.1 g/dL (12.0-16.0); MEAN CORPUSCULAR HEMOGLOBIN 33.8 pg (27.0-31.0); MEAN CORPUSCULAR HGB CONC 32.1 g/dL (32.0-36.0); MEAN CORPUSCULAR VOLUME 105.5 fL (81.0-99.0); MEAN PLATELET VOLUME 10.1 fL (7.9-10.8); MONOCYTES # (AUTO) 0.6 10^3/uL (0.0-1.0); MONOCYTES % (AUTO) 7.5 %; NEUTROPHILS # (AUTO) 4.5 10^3/uL (1.5-6.6); NEUTROPHILS % (AUTO) 61.1 %; PLT - PLATELET COUNT 170 10^3/uL (130-450); RED BLOOD COUNT 3.28 10^6/uL (4.20-5.40); RED CELL DISTRIBUTION WIDTH 12.9 % (12.0-15.0); WHITE BLOOD COUNT 7.3 x10^3/uL (4.8-10.8)
[2020-05-26 08:13] LABS: CALCIUM 9.1 mg/dL (8.5-10.3); CREATININE 0.7 mg/dL (0.4-1.0); POTASSIUM 4.4 mmol/L (3.5-5.0)
[2020-05-26] MEDS: SACCHAROMYCES BOULARDII 250 MG CAPSULE PO SCH ×2 (08:15→18:18)
[2020-05-26] MEDS: FERROUS GLUCONATE 324 MG TABLET PO SCH (08:15)
[2020-05-26] MEDS: polyethylene glycoL 3350 17 GM PACKET PO SCH (09:46)
[2020-05-26] MEDS: FAMOTIDINE 20 MG TABLET PO SCH ×2 (09:47→21:23)
[2020-05-26] MEDS: PRENATAL VITAMIN TABLET PO SCH (09:47)
[2020-05-26] MEDS: ENOXAPARIN 40 MG/0.4 ML SYRINGE SUBQ SCH (09:47)
[2020-05-26] MEDS: DOCUSATE SODIUM 250 MG CAPSULE PO SCH (09:47)
[2020-05-26] MEDS: SENNA 8.6 MG TABLET PO SCH (09:47)
[2020-05-26] MEDS: DIGOXIN 125 MCG TABLET PO SCH (09:47)
[2020-05-26] MEDS: THIAMINE 100 MG TABLET PO SCH (09:48)
[2020-05-26] MEDS: LORATADINE 10 MG TABLET PO SCH (09:48)
[2020-05-26] MEDS: GABAPENTIN 300 MG CAPSULE PO SCH ×4 (09:48→21:23)
[2020-05-26] MEDS: DULoxetine 30 MG CAPSULE PO SCH (09:48)
[2020-05-26] MEDS: METOPROLOL SUCCINATE 25 MG TABLET PO SCH ×2 (09:53→21:22)
[2020-05-26 13:30] LABS: CORONAVIRUS 229E-RESP PCR NOT DETECTED; CORONAVIRUS HKU1-RESP PCR NOT DETECTED; CORONAVIRUS NL63-RESP PCR NOT DETECTED; CORONAVIRUS OC43-RESP PCR NOT DETECTED; HUMAN METAPNEUMOVIRUS NOT DETECTED; INFLUENZA A- RESP PCR PANEL NOT DETECTED; RHINOVIRUS/ENTEROVIRUS NOT DETECTED; SARS-CoV-2 -RESP PCR PANEL NOT DETECTED
[2020-05-26 13:31] LABS: B. PARAPERTUSSIS- RESP PCR PAN NOT DETECTED; B. PERTUSSIS- RESP PCR PANEL NOT DETECTED; C. PNEUMONIAE- RESP PCR PANEL NOT DETECTED; INFLUENZA B - RESP PCR PANEL NOT DETECTED; M. PNEUMONIAE- RESP PCR PANEL NOT DETECTED; PARAINFLUENZA VIRUS 1 NOT DETECTED; PARAINFLUENZA VIRUS 2 NOT DETECTED; PARAINFLUENZA VIRUS 3 NOT DETECTED; PARAINFLUENZA VIRUS 4 NOT DETECTED; RSV- RESP PCR PANEL NOT DETECTED
--- NOTE | 2020-05-26 16:30 | PROVIDER PROGRESS NOTE ---
Assessment/Plan - Problem List (1) Right ankle pain Assessment/Plan: improved, continue PT/OT, pain control with oxycodon PRN Weight bearing as tolerated. continue PT/OT, add out of bed tid. pt is not willi ng to leave bed for PT and activities. educate pt the importance for her to have PT and activities, continue incentive spirometer , Social work is working on prior auth for placement, Once approved, patient will be transitioned to SNF Per social sciences chair, This has been a challenge since the patient left [facility] against medical advise (2) Arm contusion because of fall about 10 days ago. Venous duplex of the arm on 05/23/20 was negative for DVT, abscess or new bleeding, US show hematoma. Xray was negative for fracture (3) Atrial fibrillation with RVR Assessment/Plan: acute RVR resolved, Hemodynamically stable. continue digoxin and metoprolol. (4) Alcohol abuse Assessment/Plan: Patient has not consumed alcohol in over 2months. Will continue to monitor. CIWA score is low, nurse asked to remove CIWA protocol now. continue and vitamin B1 (5) Depression Assessment/Plan: On duloxetine 60mg po daily (6) Right hip pain Assessment/Plan: Improved. Xray reveals no acute bony abnormality. Pain management prn, continue PT/OT - Current Meds Current Meds: Current Medications Generic Name Dose Route Start Last Admin Trade Name Freq PRN Reason Stop Dose Admin Acetaminophen 650 mg 05/15/20 20:13 05/25/20 16:14 Acetaminophen 325 Mg Tablet PO 650 mg Q4HR PRN Administration Pain 1 to 4 Cyclobenzaprine HCl 10 mg 05/17/20 11:50 05/25/20 21:21 Cyclobenzaprine 10 Mg Tablet PO 10 mg Q8H PRN Administration PAIN Digoxin 125 mcg 05/16/20 09:00 05/26/20 09:47 Digoxin 125 Mcg Tablet PO 125 mcg DAILY [facility] Administration Diphenhydramine HCl 25 mg 05/16/20 08:28 05/16/20 09:05 Diphenhydramine 25 Mg Capsule PO 25 mg Q4HR PRN Administration Allergy Symptoms Docusate Sodium 250 - 500 mg 05/16/20 13:44 05/26/20 09:47 Docusate Sodium 250 Mg Capsule PO 250 mg DAILY [facility] Administration Duloxetine HCl 60 mg 05/17/20 12:00 05/26/20 09:48 Duloxetine 30 Mg Capsule PO 60 mg DAILY [facility] Administration Enoxaparin Sodium 40 mg 05/21/20 09:00 05/26/20 09:47 Enoxaparin 40 Mg/0.4 Ml Syringe SUBQ 40 mg DAILY [facility] Administration Famotidine 20 mg 05/16/20 21:00 05/26/20 09:47 Famotidine 20 Mg Tablet PO 20 mg BID [facility] Administration Ferrous Gluconate 324 mg 05/20/20 11:00 05/26/20 08:15 Ferrous Gluconate 324 Mg Tablet PO 324 mg DAILYWM [facility] Administration Gabapentin 600 mg 05/17/20 13:00 05/26/20 14:06 Gabapentin 300 Mg Capsule PO 600 mg QID [facility] Administration Loratadine 10 mg 05/17/20 09:00 05/26/20 09:48 Loratadine 10 Mg Tablet PO 10 mg DAILY [facility] Administration Metoprolol Succinate 12.5 mg 05/23/20 21:00 05/26/20 09:53 Metoprolol Succinate 25 Mg Tablet PO Not Given BID [facility] Ondansetron HCl 4 mg 05/16/20 06:34 05/16/20 13:41 Ondansetron 4 Mg/2 Ml Vial IVP 4 mg Q6HR PRN Administration Nausea / Vomiting Oxycodone HCl 5 mg 05/15/20 22:56 05/26/20 07:02 Oxycodone 5 Mg Tablet PO 5 mg Q4HR PRN Administration PAIN Polyethylene Glycol 17 gm 05/16/20 13:19 05/26/20 09:46 Polyethylene Glycol 3350 17 Gm Packet PO 17 gm DAILY [facility] Administration Multivit/Folic Acid/Iron 1 tab 05/16/20 09:00 05/26/20 09:47 Vitamin Tablet PO 1 tab DAILY [facility] Administration Prochlorperazine Edisylate 10 mg 05/16/20 14:33 05/16/20 15:33 Prochlorperazine 10 Mg/2 Ml Vial IVP 10 mg Q6HR PRN Administration Nausea / Vomiting Saccharomyces Boulardii 250 mg 05/21/20 10:51 05/26/20 08:15 Saccharomyces Boulardii 250 Mg Capsule PO 250 mg BIDWM [facility] Administration Senna 8.6 - 17.2 mg 05/16/20 13:44 05/26/20 09:47 Senna 8.6 Mg Tablet PO 8.6 mg DAILY [facility] Administration Sodium Chloride 10 ml 05/15/20 20:13 05/16/20 11:19 Sodium Chloride Flush 0.9% 10 Ml Syringe IVP 10 ml PRN PRN Administration NEEDED PER PROVIDER ORDERS Sodium Chloride 10 ml 05/16/20 01:00 05/26/20 09:54 Sodium Chloride Flush 0.9% 10 Ml Syringe IVP 10 ml 0100,0900,1700 [facility] Administration Thiamine HCl 100 mg 05/16/20 09:00 05/26/20 09:48 Thiamine 100 Mg Tablet PO 100 mg DAILY [facility] Administration Trazodone HCl 50 mg 05/15/20 22:56 05/25/20 21:21 Trazodone 50 Mg Tablet PO 50 mg QPM [facility] Administration - Lab Result Fish Bone Diagrams: 05/26/20 07:56 05/26/20 07:56 - Additional Planning My Orders: My Active Orders 05/26/20 07:36 Out of bed 3+ hours today [RC] TID 05/27/20 05:00 BMP - BASIC METABOLIC PANEL [CHEM] DAILYLAB CBC - COMP BLD CT W/AUTO DIFF [HEME] DAILYLAB 05/28/20 05:00 BMP - BASIC METABOLIC PANEL [CHEM] DAILYLAB CBC - COMP BLD CT W/AUTO DIFF [HEME] DAILYLAB 05/29/20 05:00 BMP - BASIC METABOLIC PANEL [CHEM] DAILYLAB CBC - COMP BLD CT W/AUTO DIFF [HEME] DAILYLAB 05/30/20 05:00 BMP - BASIC METABOLIC PANEL [CHEM] DAILYLAB CBC - COMP BLD CT W/AUTO DIFF [HEME] DAILYLAB 05/31/20 05:00 BMP - BASIC METABOLIC PANEL [CHEM] DAILYLAB CBC - COMP BLD CT W/AUTO DIFF [HEME] DAILYLAB Subjective - Subjective Patient Reports: Feeling Better Objective Vital Signs: Vital Signs - 24 hr 05/25/20 05/26/20 05/26/20 20:51 01:00 06:33 Temperature 36.6 C 36.5 C 36.6 C Heart Rate [ 99 85 73 Brachial] Heart Rate [ Radial] Respiratory 18 14 14 Rate Blood Pressure 106/52 L 113/64 108/55 L [Left Brachial artery] Blood Pressure [Right Radial artery] O2 Saturation 92 90 L 94 0305/26/20 05/26/20 08:27 12:03 16:03 Temperature 36.8 C 36.4 C L 36.5 C Heart Rate [ 77 89 Brachial] Heart Rate [ 73 Radial] Respiratory 16 18 20 Rate Blood Pressure 123/59 L 116/55 L [Left Brachial artery] Blood Pressure 108/53 L [Right Radial artery] O2 Saturation 95 95 96 Oxygen O2 Source [With Activity] Room air O2 Source Room air I&O (Last 24 Hrs): Intake and Output Totals x24h 05/24/20 05/25/20 05/26/20 23:59 23:59 23:59 Intake Total 1745 840 Output Total 260 Balance 1745 580 General: Alert, Oriented x3, No acute distress HEENT: Atraumatic, PERRLA Neck: Supple Lymphatic: no adenopathy Neuro: Alert, Non Focal, Oriented Times 3 Cardiovascular: Regular rate, Normal S1, Normal S2 Respiratory: Chest non-tender, No respiratory distress Abdomen: Normal bowel sounds, Soft, No tenderness Extremities: Normal pulses, Other (hematoma on right arm is reduced, no warmth or tenderness, skin is intact.) - Results Results: Laboratory Results WBC 7.3 x10^3/uL (4.8-10.8) 05/26/20 07:56 RBC 3.28 10^6/uL (4.20-5.40) L 05/26/20 07:56 Hgb 11.1 g/dL (12.0-16.0) L 05/26/20 07:56 Hct 34.6 % (37.0-47.0) L 05/26/20 07:56 MCV 105.5 fL (81.0-99.0) H 05/26/20 07:56 MCH 33.8 pg (27.0-31.0) H 05/26/20 07:56 MCHC 32.1 g/dL (32.0-36.0) 05/26/20 07:56 RDW 12.9 % (12.0-15.0) 05/26/20 07:56 Plt Count 170 10^3/uL (130-450) 05/26/20 07:56 MPV 10.1 fL (7.9-10.8) 05/26/20 07:56 Reticulocyte % (Auto) 2.60 % (0.5-2.3) H 05/20/20 08:03 Neut # (Auto) 4.5 10^3/uL (1.5-6.6) 05/26/20 07:56 Lymph # (Auto) 2.0 10^3/uL (1.5-3.5) 05/26/20 07:56 Jennings # (Auto) 0.6 10^3/uL (0.0-1.0) 05/26/20 07:56 Eos # (Auto) 0.2 10^3/uL (0.0-0.7) 05/26/20 07:56 Baso # (Auto) 0.1 10^3/uL (0.0-0.1) 05/26/20 07:56 Absolute Nucleated RBC 0.00 x10^3/uL 05/26/20 07:56 Nucleated RBC % 0.0 /100WBC 05/26/20 07:56 Manual Slide Review Indicated 05/18/20 06:30 Platelet Morphology PLATELET CLUMPING (NORMAL) 05/18/20 06:30 RBC Morph Micro Appear NORMAL APPEARANCE (NORMAL) 05/18/20 06:30 Absolute Retic 0.075 10^6/uL (0.020-0.110) 05/20/20 08:03 PT 14.9 secs (9.9-12.6) H 05/15/20 19:30 INR 1.4 (0.8-1.2) H 05/15/20 19:30 Sodium 136 mmol/L (135-145) 05/26/20 07:56 Potassium 4.4 mmol/L (3.5-5.0) 05/26/20 07:56 Chloride 100 mmol/L (101-111) L 05/26/20 07:56 Carbon Dioxide 27 mmol/L (21-32) 05/26/20 07:56 Anion Gap 9.0 (6-13) 05/26/20 07:56 BUN 9 mg/dL (6-20) 05/26/20 07:56 Creatinine 0.7 mg/dL (0.4-1.0) 05/26/20 07:56 Estimated GFR (MDRD) 82 (>89) L 05/26/20 07:56 Glucose 105 mg/dL (70-100) H 05/26/20 07:56 Calcium 9.1 mg/dL (8.5-10.3) 05/26/20 07:56 Phosphorus 5.2 mg/dL (2.5-4.6) H 05/16/20 05:16 Magnesium 2.4 mg/dL (1.7-2.8) 05/16/20 05:16 Iron 27 ug/dL (28-170) L 05/20/20 08:03 TIBC 204 ug/dL (250-450) L 05/20/20 08:03 % Saturation 13 % (20-50) L 05/20/20 08:03 Transferrin 146 mg/dL (192-382) L 05/20/20 08:03 Ferritin 83.9 ng/mL (11.0-306.8) 05/20/20 08:03 Total Bilirubin 1.6 mg/dL (0.2-1.0) H 05/15/20 19:30 AST 44 IU/L (10-42) H 05/15/20 19:30 ALT 29 IU/L (10-60) 05/15/20 19:30 Alkaline Phosphatase 123 IU/L (42-121) H 05/15/20 19:30 Ammonia 19.0 umol/L (7-35) 05/18/20 01:00 Lactate Dehydrogenase 110 IU/L (91-225) 05/20/20 08:03 Troponin I High Sens 4.9 ng/L (2.3-14.8) 05/20/20 19:33 Total Protein 7.7 g/dL (6.7-8.2) 05/15/20 19:30 Albumin 3.7 g/dL (3.2-5.5) 05/15/20 19:30 Globulin 4.0 g/dL (2.1-4.2) 05/15/20 19:30 Albumin/Globulin Ratio 0.9 (1.0-2.2) L 05/15/20 19:30 Vitamin B12 851 pg/mL (180-914) 05/20/20 08:03 Folate 27.00 ng/mL (5.90 - >24.8) 05/16/20 08:16 TSH 4.31 uIU/mL (0.34-5.60) 05/16/20 05:16 Nasal Adenovirus (PCR) NOT DETECTED 05/26/20 12:25 Nasal B. parapertussis DNA (PCR) NOT DETECTED 05/26/20 12:25 Nasal Coronavir 229E PCR NOT DETECTED 05/26/20 12:25 Nasal Coronavir HKU1 PCR NOT DETECTED 05/26/20 12:25 Nasal Coronavir NL63 PCR NOT DETECTED 05/26/20 12:25 Nasal Coronavir OC43 PCR NOT DETECTED 05/26/20 12:25 Nasal Enterovir/Rhinovir PCR NOT DETECTED 05/26/20 12:25 Nasal Influenza B PCR NOT DETECTED 05/26/20 12:25 Nasal Influenza A PCR NOT DETECTED 05/26/20 12:25 Nasal Parainfluen 1 PCR NOT DETECTED 05/26/20 12:25 Nasal Parainfluen 2 PCR NOT DETECTED 05/26/20 12:25 Nasal Parainfluen 3 PCR NOT DETECTED 05/26/20 12:25 Nasal Parainfluen 4 PCR NOT DETECTED 05/26/20 12:25 Nasal RSV (PCR) NOT DETECTED 05/26/20 12:25 Nasal B.pertussis DNA PCR NOT DETECTED 05/26/20 12:25 Nasal C.pneumoniae (PCR) NOT DETECTED 05/26/20 12:25 Parish Human Metapneumo PCR NOT DETECTED 05/26/20 12:25 Nasal M.pneumoniae (PCR) NOT DETECTED 05/26/20 12:25 Nasal SARS-CoV-2 (PCR) NOT DETECTED 05/26/20 12:25 Last Dose Date Not Reportable 05/15/20 19:30 Last Dose Time Not Reportable 05/15/20 19:30 Digoxin 0.3 ng/mL 05/15/20 19:30 Ethyl Alcohol < 5.0 mg/dL 05/15/20 19:30 Coronavirus (PCR) NEGATIVE 05/21/20 09:20 - Procedures Procedures: Procedures REPOSITION RIGHT FIBULA WITH INT FIX, OPEN APPROACH (04/02/20) Sepsis Event Note (H) - Evaluation Current Stage of Sepsis: Ruled out ABX Reporting Has patient been on IV antibiotics over the past 48 hours?: No Current Medications - Current Medications Current Medications: Active Medications Acetaminophen (Acetaminophen 325 Mg Tablet) 650 mg PO Q4HR PRN PRN Reason: Pain 1 to 4 Last Admin: 05/25/20 16:14 Dose: 650 mg Documented by: Cyclobenzaprine HCl (Cyclobenzaprine 10 Mg Tablet) 10 mg PO Q8H PRN PRN Reason: PAIN Last Admin: 05/25/20 21:21 Dose: 10 mg Documented by: Digoxin (Digoxin 125 Mcg Tablet) 125 mcg PO DAILY [facility] Last Admin: 05/26/20 09:47 Dose: 125 mcg Documented by: Diltiazem HCl (Diltiazem Inj 5 Mg/Ml Vial) 5 mg IVP Q4H PRN PRN Reason: PER PHYSICIAN ORDER Diphenhydramine HCl (Diphenhydramine 25 Mg Capsule) 25 mg PO Q4HR PRN PRN Reason: Allergy Symptoms Last Admin: 05/16/20 09:05 Dose: 25 mg Documented by: Docusate Sodium (Docusate Sodium 250 Mg Capsule) 250 - 500 mg PO DAILY [facility] Last Admin: 05/26/20 09:47 Dose: 250 mg Documented by: Duloxetine HCl (Duloxetine 30 Mg Capsule) 60 mg PO DAILY [facility] Last Admin: 05/26/20 09:48 Dose: 60 mg Documented by: Enoxaparin Sodium (Enoxaparin 40 Mg/0.4 Ml Syringe) 40 mg SUBQ DAILY [facility] Last Admin: 05/26/20 09:47 Dose: 40 mg Documented by: Famotidine (Famotidine 20 Mg Tablet) 20 mg PO BID [facility] Last Admin: 05/26/20 09:47 Dose: 20 mg Documented by: Ferrous Gluconate (Ferrous Gluconate 324 Mg Tablet) 324 mg PO DAILYWM [facility] Last Admin: 05/26/20 08:15 Dose: 324 mg Documented by: Gabapentin (Gabapentin 300 Mg Capsule) 600 mg PO QID [facility] Last Admin: 05/26/20 14:06 Dose: 600 mg Documented by: Loratadine (Loratadine 10 Mg Tablet) 10 mg PO DAILY [facility] Last Admin: 05/26/20 09:48 Dose: 10 mg Documented by: Metoprolol Succinate (Metoprolol Succinate 25 Mg Tablet) 12.5 mg PO BID [facility] Last Admin: 05/26/20 09:53 Dose: Not Given Documented by: Ondansetron HCl (Ondansetron 4 Mg/2 Ml Vial) 4 mg IVP Q6HR PRN PRN Reason: Nausea / Vomiting Last Admin: 05/16/20 13:41 Dose: 4 mg Documented by: Oxycodone HCl (Oxycodone 5 Mg Tablet) 5 mg PO Q4HR PRN PRN Reason: PAIN Last Admin: 05/26/20 07:02 Dose: 5 mg Documented by: Polyethylene Glycol (Polyethylene Glycol 3350 17 Gm Packet) 17 gm PO DAILY [facility] Last Admin: 05/26/20 09:46 Dose: 17 gm Documented by: Multivit/Folic Acid/Iron ( Vitamin Tablet) 1 tab PO DAILY [facility] Last Admin: 05/26/20 09:47 Dose: 1 tab Documented by: Prochlorperazine Edisylate (Prochlorperazine 10 Mg/2 Ml Vial) 10 mg IVP Q6HR PRN PRN Reason: Nausea / Vomiting Last Admin: 05/16/20 15:33 Dose: 10 mg Documented by: Saccharomyces Boulardii (Saccharomyces Boulardii 250 Mg Capsule) 250 mg PO BIDWM [facility] Last Admin: 05/26/20 08:15 Dose: 250 mg Documented by: Senna (Senna 8.6 Mg Tablet) 8.6 - 17.2 mg PO DAILY [facility] Last Admin: 05/26/20 09:47 Dose: 8.6 mg Documented by: Sodium Chloride (Sodium Chloride Flush 0.9% 10 Ml Syringe) 10 ml IVP PRN PRN PRN Reason: NEEDED PER PROVIDER ORDERS Last Admin: 05/16/20 11:19 Dose: 10 ml Documented by: Sodium Chloride (Sodium Chloride Flush 0.9% 10 Ml Syringe) 10 ml IVP 0100,0900,1700 [facility] Last Admin: 05/26/20 09:54 Dose: 10 ml Documented by: Thiamine HCl (Thiamine 100 Mg Tablet) 100 mg PO DAILY [facility] Last Admin: 05/26/20 09:48 Dose: 100 mg Documented by: Trazodone HCl (Trazodone 50 Mg Tablet) 50 mg PO QPM [facility] Last Admin: 05/25/20 21:21 Dose: 50 mg Documented by: Zolpidem Tartrate [Ambien] 5 mg PO DAILY PRN 08/31/14 Digoxin [Lanoxin] 125 mcg PO DAILY 10/04/17 Gabapentin 600 mg PO QID 10/04/17 SUMAtriptan [Imitrex] 25 mg PO ONCE PRN MDD 50 mg 10/04/17 Metoprolol Succinate 25 mg PO BID 09/18/18 Duloxetine HCl [Cymbalta] 60 mg PO DAILY 04/02/20 Furosemide [Lasix] 20 mg PO DAILY PRN 04/02/20
[2020-05-26] MEDS: traZODone 50 MG TABLET PO SCH (21:23)
[2020-05-27] MEDS: SODIUM CHLORIDE FLUSH 0.9% 10 ML SYRINGE IVP SCH ×2 (00:09→10:59)
[2020-05-27 04:59] LABS: BASOPHILS # (AUTO) 0.1 10^3/uL (0.0-0.1); BASOPHILS % (AUTO) 0.7 %; EOSINOPHILS # (AUTO) 0.2 10^3/uL (0.0-0.7); EOSINOPHILS % (AUTO) 2.2 %; HCT - HEMATOCRIT 33.4 % (37.0-47.0); HGB - HEMOGLOBIN 10.2 g/dL (12.0-16.0); LYMPHOCYTES # (AUTO) 2.4 10^3/uL (1.5-3.5); LYMPHOCYTES % (AUTO) 33.6 %; MEAN CORPUSCULAR HEMOGLOBIN 32.3 pg (27.0-31.0); MEAN CORPUSCULAR HGB CONC 30.5 g/dL (32.0-36.0); MEAN CORPUSCULAR VOLUME 105.7 fL (81.0-99.0); MEAN PLATELET VOLUME 10.4 fL (7.9-10.8); MONOCYTES # (AUTO) 0.5 10^3/uL (0.0-1.0); MONOCYTES % (AUTO) 7.3 %; NEUTROPHILS % (AUTO) 55.6 %; PLT - PLATELET COUNT 161 10^3/uL (130-450); RED BLOOD COUNT 3.16 10^6/uL (4.20-5.40); RED CELL DISTRIBUTION WIDTH 13.1 % (12.0-15.0); WHITE BLOOD COUNT 7.1 x10^3/uL (4.8-10.8)
[2020-05-27 05:10] LABS: CREATININE 0.7 mg/dL (0.4-1.0); POTASSIUM 4.2 mmol/L (3.5-5.0)
[2020-05-27] MEDS: DULoxetine 30 MG CAPSULE PO SCH (08:21)
[2020-05-27] MEDS: FAMOTIDINE 20 MG TABLET PO SCH (08:21)
[2020-05-27] MEDS: ENOXAPARIN 40 MG/0.4 ML SYRINGE SUBQ SCH (08:21)
[2020-05-27] MEDS: SACCHAROMYCES BOULARDII 250 MG CAPSULE PO SCH (08:21)
[2020-05-27] MEDS: GABAPENTIN 300 MG CAPSULE PO SCH ×2 (08:22→13:11)
[2020-05-27] MEDS: PRENATAL VITAMIN TABLET PO SCH (08:22)
[2020-05-27] MEDS: FERROUS GLUCONATE 324 MG TABLET PO SCH (08:22)
[2020-05-27] MEDS: METOPROLOL SUCCINATE 25 MG TABLET PO SCH (08:22)
[2020-05-27] MEDS: LORATADINE 10 MG TABLET PO SCH (08:22)
[2020-05-27] MEDS: DIGOXIN 125 MCG TABLET PO SCH (08:22)
[2020-05-27] MEDS: THIAMINE 100 MG TABLET PO SCH (08:22)
[2020-05-27] MEDS: polyethylene glycoL 3350 17 GM PACKET PO SCH (08:36)
[2020-05-27] MEDS: SENNA 8.6 MG TABLET PO SCH (08:36)
[2020-05-27] MEDS: DOCUSATE SODIUM 250 MG CAPSULE PO SCH (08:36)
[2020-05-27] MEDS: ACETAMINOPHEN 325 MG TABLET PO PRN (13:11)
--- NOTE | 2020-05-27 15:44 | Discharge Plan ---
"Discharge Plan for SNF / [facility] - Discharge Plan And Transition Orders Problem Reviewed?: Yes Disposition: 03 SNF DC/Xfer Condition: Stable Allergies and Adverse Reactions: Allergies Allergy/AdvReac Type Severity Reaction Status Date / Time adhesive tape Allergy Rash Verified 04/02/20 07:53 Penicillins Allergy Unknown Verified 04/02/20 07:53 Sulfa (Sulfonamide Allergy Unknown Verified 04/02/20 07:53 Antibiotics) codeine AdvReac Itching Verified 04/02/20 07:53 Health Concerns: fall precaution Plan of Treatment: Pt may continue PT/OT, continue fall precaution. pt has Hematoma at her right upper arm, US did not reveal clots, her skin is intact. it is likely to take time resolved by her own. pt had hx of right ankle fracture and s/p ankle repair. pt may followup with PT/OT as well. Pt may Followup with orthopedics as out-pt. Care Goals: stabilization and improvement of her medical conditions. Assessment: Discussed the care plan with pt, answered pt's questions, pt understood. - SNF / [facility] Transition Orders Admit to (Facility): [facility] Under the care of (Name): Dr. Tulio Al Discharge Diagnosis: hx of right angle fracture and s/p ankle repair, arm contusion with hematoma, afib with RVR-controlled, alcohol abuse, depression, right hip pain without bony abnormality Medicare Certification Statement: I certify that [facility] care is medically necessary on a continuing basis for any of the conditions for which she/he is receiving care during hospitalization. Notify PCP of admission and forward orders to primary provider for signature. Weight on admission and: Daily Call PCP immediately if weight increases by: 2 kg Other Notification Orders: Call PCP immediately if patient develops dyspnea, chest pain/tightness or edema. House Bowel Program: Yes Additional Bowel Program Orders: If no BM after 2 days, nurse may give M.O.M. 30ml PO PRN and/or ducolax Supp 1 CO and/or HENRY 250mg P.O., and/or senna 1-2 tabs PO. On day 3 nurse may give repeat above order until residents constipation is resolved. Annual Influenza Vaccine (between Nov 11 and June 10): Yes Two-step PPD per [facility] [phone] or approved exception documents: Yes Treatments & Other Orders: Pt may continue PT/OT, continue fall precaution. pt has Hematoma at her right upper arm, US did not reveal clots, her skin is intact. it is likely to take time resolved by her own. pt had hx of right ankle fracture and s/p ankle repair. pt may followup with PT/OT as well. Pt may Followup with orthopedics as out-pt. Oxygen Orders: as needed Medication Orders: PLEASE REFER TO THE DISCHARGE MEDICATION LIST. Insulin Orders?: No - Medications New Prescriptions: oxyCODONE [Roxicodone] 5 mg PO Q4HR PRN #20 tablet PRN Reason: Pain Ferrous Gluconate [Fergon] 324 mg PO DAILYWM #30 tablet Metoprolol Succinate [Toprol Xl] 12.5 mg PO BID #30 tablet Thiamine [Vitamin B-1] 100 mg PO DAILY #30 tablet - Diet Type: Geriatric Texture: Regular Liquids: Thin May have monthly special meal: Yes - Therapies | Activity Therapy: Evaluation | Treat if indicated: PT, OT Rehabilitation Potential: Maximize functional status Activity: Activity as Tolerated"
--- NOTE | 2020-05-27 16:08 | DISCHARGE SUMMARY ---
Discharge Summary Admit Date: 05/15/20 Discharge Date: 05/27/20 Discharging Provider: Shun Agarwal Primary Care Provider: Emil Marshall Condition at Discharge: Stable Discharge Disposition: SNF DC/Xfer Discharge Facility Name: [facility] - DIAGNOSES Discharge Diagnoses with Status of Each Condition: (1) Right ankle pain improved, s/p of right ankle fracture repair in the last admission. pt left SNF with AMA in the last admission. pt may continue PT/OT, pain control with oxycodon PRN. pt is d/c to SNF of [facility], followup with orthopedics surgeon as ut-pt. (2) Arm contusion From pt's fall in the home. Venous duplex of right upper arm was negative for DVT, abscess or new bleeding, it show hematoma. pt's skin is intact, no cellulitis or infection. Xray was negative for fracture. distal of right arm has intact neurovascular status (3) Atrial fibrillation with RVR controlled with digoxin and metoprolol. (4) Alcohol abuse advise pt continue quit alcohol, resume , and vitamin B1 is prescribed for pt. (5) Depression stable, continue home duloxetine (6) Right hip pain Xray reveals no acute bony abnormality. Pain management prn. - HPI History of Present Illness: refer from Dr. Esapna's HPI on 05/15/20 Patient is 74-year-old female with medical history significant for atrial fibrillation, hypertension, hypothyroidism, alcohol abuse, GERD who presented to the ED after a mechanical fall. She was admitted to the hospital April 02, 2020 for a right ankle fracture and discharged to [facility] for rehab on April 07, 2020. It appears she checked herself out of [facility] because she was not happy with the care there. She has been home for a few weeks now. She has mostly been getting around using a wheelchair. Today she wheeled herself to the bathroom and when she bent to reach some towels under the sink she lost her brancher of the sink which she was using for support and fell on her right side. Upon presentation she complains of right elbow, right hip and right ankle pain. Work-up in the ED included x-rays of the arm which was negative for fractures. The patient has a significant hematoma on the medial aspect of the arm just superior to the right elbow. However she has good radial pulses. She is not experiencing any tingling or numbness in the right arm. She denied hit ting her head or blacking out. She was also noted to be in atrial fibrillation with rapid ventricular rhythm with a heart rate as high as 150. At her last admission the patient was on Eliquis, metoprolol and digoxin. However she says she has not been taking any anticoagulant. Was given diltiazem 10 mg IV twice in the ED. Her heart rate improved from 150s to 120s. She was also noted to have a potassium of 2.8 and a magnesium level of 1.4. As a result of the above she was presented for admissi on for further treatment. At bedside she denies chest pain, dyspnea, abdominal pain, nausea, vomiting, fever or chills. - HOSPITAL COURSE Hospital Course: Patient was admitted for evaluation of fall in the home. Patient left SNF with AMA in the last d/c to SNF after she had right ankle fracture repair in last admission. Unfortunately patient had a fall in the home again. image study show no new fracture or dislocation. Right ankle fracture repair is in the healing for the last admission. pt declined physical therapist Evaluation and treatment in the hospital, and declined out-off bed Physical activities. Patient developed pneumonia in the hospital. After the patient was treated antibiotics, pneumonia was resolved. Patient also had her insurance authorization issue, Patient has been in hospital for 12 days. Today patient is discharged to [facility]. - ALLERGIES Allergies/Adverse Reactions: Allergies Allergy/AdvReac Type Severity Reaction Status Date / Time adhesive tape Allergy Rash Verified 04/02/20 07:53 Penicillins Allergy Unknown Verified 04/02/20 07:53 Sulfa (Sulfonamide Allergy Unknown Verified 04/02/20 07:53 Antibiotics) codeine AdvReac Itching Verified 04/02/20 07:53 - MEDICATIONS Home Medications: Ambulatory Orders Medication Instructions Recorded Confirmed Zolpidem Tartrate [Ambien] 5 mg PO DAILY PRN 08/31/14 05/16/20 Digoxin [Lanoxin] 125 mcg PO DAILY 10/04/17 05/16/20 Gabapentin 600 mg PO QID 10/04/17 05/16/20 SUMAtriptan [Imitrex] 25 mg PO ONCE PRN MDD 50 mg 10/04/17 05/16/20 Vitamin [Trinatal Rx 1] 1 tab PO DAILYWM #10 tablet 09/20/18 05/16/20 Cyclobenzaprine [Flexeril] 10 mg PO Q8H PRN #15 tablet 03/28/20 05/16/20 Duloxetine HCl [Cymbalta] 60 mg PO DAILY 04/02/20 05/16/20 Furosemide [Lasix] 20 mg PO DAILY PRN 04/02/20 05/16/20 Ferrous Gluconate [Fergon] 324 mg PO DAILYWM #30 tablet 05/27/20 Metoprolol Succinate [Toprol Xl] 12.5 mg PO BID #30 tablet 05/27/20 Thiamine [Vitamin B-1] 100 mg PO DAILY #30 tablet 05/27/20 oxyCODONE [Roxicodone] 5 mg PO Q4HR PRN #20 tablet 05/27/20 - PHYSICAL EXAM AT DISCHARGE General Appearance: positive: No acute distress, Alert. negative: Lethargic Eyes Bilateral: positive: Normal inspection, PERRL, No lid inflammation ENT: positive: ENT inspection nml, No signs of dehydration. negative: Purulent nasal drainage Neck: positive: Nml inspection, Trachea midline. negative: Thyromegaly, Trache al deviation Respiratory: positive: Chest non-tender, No respiratory distress. negative: Wheezes, Rales Cardiovascular: positive: Regular rate & rhythm, No murmur. negative: Tachycardia, Bradycardia, Systolic murmur, Diastolic murmur Peripheral Pulses: positive: 2+ Abdomen: positive: Non-tender, Nml bowel sounds, No distention. negative: Tenderness, Guarding, Rebound Back: positive: Nml inspection Skin: positive: Color nml, Warm, Dry. negative: Cyanosis, Diaphoresis, Pallor Extremities: positive: Non-tender, Nml appearance. negative: Calf tenderness Neurologic/Psychiatric: positive: Oriented x3, Sensation nml. negative: Weakness, Sensory loss, Facial droop, Slurred/abnml speech - LABS Result Diagrams: 05/27/20 04:20 05/27/20 04:20 - SEPSIS Current Stage of Sepsis: Ruled out - FOLLOW UP Follow Up: Pt may continue PT/OT, continue fall precaution. pt has Hematoma at her right upper arm, US did not reveal clots, her skin is intact. it is likely to take time resolved by her own. pt had hx of right ankle fracture and s/p ankle repair. pt may followup with PT/OT as well. Pt may Followup with orthopedics as out-pt. - TIME SPENT Time Spent in Discharge (Minutes): 30
[2020-05-27 16:24] VITALS: BP 104/46
== END 2020-05-27 17:00 | DRG 555 ==
LOC: EDUNIT# → ED 19:04 → MS2 20:13
PROVIDERS: ADMIT Internal Medicine; ATTEND Nurse Practitioner Gerontology
DX: M25.571 Pain in right ankle and joints of right foot (principal); J18.9 Pneumonia, unspecified organism; W19.XXXA Unspecified fall, initial encounter; Y92.009 Unspecified place in unspecified non-institutional (private) residence as the place of occurrence of the external cause; N17.9 Acute kidney failure, unspecified; I48.91 Unspecified atrial fibrillation; S40.021A Contusion of right upper arm, initial encounter; W18.30XA Fall on same level, unspecified, initial encounter; Z91.81 History of falling; Y92.002 Bathroom of unspecified non-institutional (private) residence as the place of occurrence of the external cause; M25.521 Pain in right elbow; F10.10 Alcohol abuse, uncomplicated; F32.9 Major depressive disorder, single episode, unspecified; M25.551 Pain in right hip; E03.9 Hypothyroidism, unspecified; I10 Essential (primary) hypertension; K21.9 Gastro-esophageal reflux disease without esophagitis; R07.9 Chest pain, unspecified; Z87.891 Personal history of nicotine dependence; E87.6 Hypokalemia; E83.42 Hypomagnesemia; Z20.822 Contact with and (suspected) exposure to COVID-19; R25.1 Tremor, unspecified; I95.9 Hypotension, unspecified; S82.891D Other fracture of right lower leg, subsequent encounter for closed fracture with routine healing; R41.0 Disorientation, unspecified; R09.02 Hypoxemia
CPT/HCPCS: 36415; 71045; 73060; 73080; 73502; 73610; 80048; 80053; 80162; 82140; 82607; 82728; 82746; 83540; 83615; 83735; 84100; 84443; 84466; 84484; 85014; 85018; 85025; 85045; 85610; 87631; 93005; 93971; 96374; 96376; 97116; 97162; 97530; 99285; A9270; G0480; J1170; J1650; J7120; U0004; 0202U; 80320

== ENCOUNTER 2020-06-05 07:00 | Outpatient (CLI) | payer MEDICARE ==
--- NOTE | 2020-06-05 14:53 | XRAY Report ---
PROCEDURE: Ankle 3 View RT INDICATIONS: RIGHT ANKLE FRACTURE TECHNIQUE: 3 views of the ankle were acquired. COMPARISON: 05/17/2020 FINDINGS: Bones: Fixation hardware in distal fibular shaft and distal tibiofibular syndesmosis is seen. Healing distal fibular shaft fracture and slightly displaced medial malleolus fracture is seen with callus f ormation. No new fracture or dislocation. No gross hardware loosening or failure. Ankle mortise is no rmally aligned. No suspicious bony lesions. Soft tissues: No tibiotalar joint effusion. Achilles tendon appears normal. Ankle soft tissue swel ling is seen. IMPRESSION: Interval further healing at ankle fracture sites with stable ankle alignment. No gross zaman rdware complication. No new fracture or dislocation. Reviewed by: Milton Zepeda MD on 06/05/2020 2:51 PM PDT Approved by: Milton Zepeda MD on 06/05/2020 2:51 PM PDT Station ID: [id number]
== END 2020-06-05 23:59 | disposition home or self-care (01) ==
LOC: DI.N 07:00
PROVIDERS: ATTEND Physician Assistant
DX: S82.831D Other fracture of upper and lower end of right fibula, subsequent encounter for closed fracture with routine healing (principal); S82.51XD Displaced fracture of medial malleolus of right tibia, subsequent encounter for closed fracture with routine healing

== ENCOUNTER 2020-09-15 09:01 | Outpatient (CLI) | payer MEDICARE | END 2020-09-15 09:02 | disposition critical access hospital (66) | LOC: EMS 09:01 | DX: R07.9 Chest pain, unspecified (principal); M54.9 Dorsalgia, unspecified; M79.602 Pain in left arm | CPT/HCPCS: A0425; A0427 ==

== ENCOUNTER 2020-09-15 09:32 | Emergency (ER) | payer MEDICARE ==
[2020-09-15 10:11] LABS: BASOPHILS % (AUTO) 0.7 %; EOSINOPHILS % (AUTO) 0.7 %; HCT - HEMATOCRIT 44.5 % (37.0-47.0); HGB - HEMOGLOBIN 15.1 g/dL (12.0-16.0); LYMPHOCYTES # (AUTO) 1.5 10^3/uL (1.5-3.5); LYMPHOCYTES % (AUTO) 26.3 %; MEAN CORPUSCULAR HEMOGLOBIN 33.8 pg (27.0-31.0); MEAN CORPUSCULAR HGB CONC 33.9 g/dL (32.0-36.0); MEAN CORPUSCULAR VOLUME 99.6 fL (81.0-99.0); MEAN PLATELET VOLUME 10.8 fL (7.9-10.8); MONOCYTES # (AUTO) 0.5 10^3/uL (0.0-1.0); MONOCYTES % (AUTO) 9.1 %; NEUTROPHILS # (AUTO) 3.7 10^3/uL (1.5-6.6); PLT - PLATELET COUNT 89 10^3/uL (130-450); RED BLOOD COUNT 4.47 10^6/uL (4.20-5.40); RED CELL DISTRIBUTION WIDTH 14.5 % (12.0-15.0); WHITE BLOOD COUNT 5.8 x10^3/uL (4.8-10.8)
--- NOTE | 2020-09-15 10:17 | ED Physician Documentation ---
PD HPI CHEST PAIN - Stated complaint Stated Complaint: CHEST PAIN - Chief complaint Chief Complaint: Cardiac - History obtained from History obtained from: Patient - History of Present Illness Timing - onset: Last night (about 2:30 am while sleeping, awoke and noted onset left neck pain. This continued into today and is radiating to left upper chest/pectoral area and left shoulder.) Timing - onset during: Sleep Timing - details: Abrupt onset, Still present Quality: Aching, Sharp Location: Left chest (upper pectoral area, left side of neck in SCM muscle area, and left shoulder/clavicle area.) Radiation: Neck, Left upper extremity Improved by: No: Rest Worsened by: Movement, Palpation. No: Inspiration Associated symptoms: No: Shortness of air, Diaphoresis, Nausea Similar symptoms before: Has not had sx before Review of Systems Constitutional: denies: Fever, Chills Nose: denies: Rhinorrhea / runny nose, Congestion Throat: denies: Sore throat Respiratory: denies: Cough Skin: denies: Rash, Lesions Musculoskeletal: denies: Back pain Neurologic: denies: Focal weakness, Numbness, Altered mental status, Headache PD PAST MEDICAL HISTORY - Past Medical History Cardiovascular: Hypertension, Atrial fibrillation Respiratory: Shortness of breath Neuro: None Endocrine/Autoimmune: HyPOthyroidism GI: Chronic diarrhea 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 : Incontinence, Chronic bladder infection HEENT: None Psych: Depression, Anxiety, Panic attacks Musculoskeletal: Osteoarthritis, Chronic back pain Derm: Other - Past Surgical History Past Surgical History: Yes General: Appendectomy Ortho: Hip replacement, Shoulder arthroplasty, 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: Oophrectomy Derm: Skin cancer surgery - Present Medications Home Medications: Ambulatory Orders Medication Instructions Recorded Confirmed Zolpidem Tartrate [Ambien] 5 mg PO DAILY PRN 08/31/14 09/15/20 Digoxin [Lanoxin] 125 mcg PO DAILY 10/04/17 09/15/20 Gabapentin 600 mg PO QID 10/04/17 09/15/20 SUMAtriptan [Imitrex] 25 mg PO ONCE PRN MDD 50 mg 10/04/17 09/15/20 Vitamin [Trinatal Rx 1] 1 tab PO DAILYWM #10 tablet 09/20/18 09/15/20 Furosemide [Lasix] 20 mg PO DAILY PRN 04/02/20 09/15/20 Cyclobenzaprine [Flexeril] 5 - 10 mg PO Q8H PRN 09/15/20 09/15/20 HYDROcod/ACETAM 5/325 [Bena 5/325] 1 ea PO Q6H PRN #18 tablet 09/15/20 Meloxicam [Mobic] 1 tablet PO DAILY PRN 09/15/20 09/15/20 Metoprolol Succinate [Toprol Xl] 25 mg PO BID 09/15/20 09/15/20 Potassium Chloride 10 meq PO DAILY 09/15/20 09/15/20 Sertraline [Zoloft] 50 mg PO DAILY 09/15/20 09/15/20 dexAMETHasone [Decadron] 4 mg PO DAILY #5 tablet 09/15/20 - Allergies Allergies/Adverse Reactions: Allergies Allergy/AdvReac Type Severity Reaction Status Date / Time adhesive tape Allergy Rash Verified 09/15/20 09:43 Penicillins Allergy Unknown Verified 09/15/20 09:43 Sulfa (Sulfonamide Allergy Unknown Verified 09/15/20 09:43 Antibiotics) codeine AdvReac Itching Verified 09/15/20 09:43 - Social History Does the pt smoke?: No Smoking Status: Former smoker Does the pt drink ETOH?: No Does the pt have substance abuse?: Yes - Immunizations Immunizations are current?: Yes - POLST Patient has POLST: No POLST Status: Full Code PD ED PE NORMAL - Vitals Vital signs reviewed: Yes - General General: Alert and oriented X 3, Well developed/nourished, Other (appears anxious and in pain due to left side neck laterally, left pectoral area, left suprascapular area. Tender to palpation but not light touch. No rash. No bony tenderness. ) Results - Vitals Vitals: Vital Signs - 24 hr 09/15/20 09/15/20 09/15/20 09:43 10:22 12:03 Temperature 36.2 C L 36.4 C L Heart Rate 92 84 80 Respiratory 22 12 14 Rate Blood Pressure 115/79 136/67 H 136/74 H O2 Saturation 99 100 100 09/15/20 14:15 Temperature 36.2 C L Heart Rate 76 Respiratory 16 Rate Blood Pressure 149/82 H O2 Saturation 97 Oxygen O2 Source [With Activity] Room air O2 Source Room air - EKG (time done) 09:45 Rhythm: NSR [place]: Normal Intervals: Normal CO QRS: Normal Ischemia: Normal ST segments. No: ST elevation c/w ischemia, ST depression - Labs Labs: Laboratory Tests 09/15/20 09/15/20 09/15/20 10:04 10:04 10:04 WBC 5.8 RBC 4.47 Hgb 15.1 Hct 44.5 MCV 99.6 H MCH 33.8 H MCHC 33.9 RDW 14.5 Plt Count 89 L MPV 10.8 Neut # (Auto) 3.7 Lymph # (Auto) 1.5 Garvin # (Auto) 0.5 Eos # (Auto) 0.0 Baso # (Auto) 0.0 Absolute Nucleated RBC 0.00 Nucleated RBC % 0.0 Sodium 136 Potassium 3.4 L Chloride 98 L Carbon Dioxide 28 Anion Gap 10.0 BUN 7 Creatinine 0.7 Estimated GFR (MDRD) 82 L Glucose 138 H Calcium 8.6 Total Bilirubin 2.1 H AST 31 ALT 17 Alkaline Phosphatase 91 Troponin I High Sens 4.6 Total Protein 6.9 Albumin 3.6 Globulin 3.3 Albumin/Globulin Ratio 1.1 Lipase 23 - Rads (name of study) chest angio Radiology: Prelim report reviewed (no vascular problems. No other acute process), See rad report chest xray Radiology: Prelim report reviewed (no acute process), See rad report PD MEDICAL DECISION MAKING - ED course Complexity details: reviewed results, considered differential (presume musculoskeletal, but concern for vascular and other structural processes. ), d/w patient Departure - Departure Disposition: 01 Home, Self Care Clinical Impression: Neck pain on left side Chest pain Qualifiers: Chest pain type: precordial pain Qualified Code(s): R07.2 - Precordial pain Condition: Stable Record reviewed to determine appropriate education?: Yes Instructions: ED Chest Pain Atypical Unkn Cause Follow-Up: ASTER CEHW MD [Primary Care Provider] - Prescriptions: dexAMETHasone [Decadron] 4 mg PO DAILY #5 tablet HYDROcod/ACETAM 5/325 [Bena 5/325] 1 ea PO Q6H PRN #18 tablet PRN Reason: Pain Comments: Your CT of the chest as well as blood tests and EKG did not show any heart lung or vascular problems. It seems most likely this is a muscular inflammation in the area. It may relate to the vaccine you had 2 weeks ago. We will treat this with anti-inflammatory of Decadron daily for the next 5 days. Add Tylenol every 4-6 hours or hydrocodone if needed for worse pain. Recheck if not improved well over the next couple of days. Return if worse or other symptoms associated. My narcotic instructions I am prescribing a short course of narcotic pain medication for you. These are potentially dangerous and addictive medications that should be used carefully. These medications may constipate you. Take an imrq-vuv-xnynqux stool softener such as docusate twice daily with plenty of water while taking these medications. If you go 24 hours without a bowel movement, take [id number] MiraLAX, per package instructions. Do not drink or drive while taking these medications. If you received narcotic or sedating medications while in the emergency department do not drive for 24 hours. Store this medication in a safe, secure place and out of reach of children. It is a violation of federal law to give or sell this medication to another person or to use in a manner other than prescribed. The ED will not refill narcotic prescriptions, including prescriptions lost or stolen. You can dispose of unwanted medications at the [facility]'s office or at several pharmacies such as [facility]. Discharge Date/Time: 09/15/20 14:25
[2020-09-15 10:21] LABS: ALBUMIN 3.6 g/dL (3.2-5.5); ALBUMIN/GLOBULIN RATIO 1.1 (1.0-2.2); BILIRUBIN,TOTAL 2.1 mg/dL (0.2-1.0); CALCIUM 8.6 mg/dL (8.5-10.3); CREATININE 0.7 mg/dL (0.4-1.0); POTASSIUM 3.4 mmol/L (3.5-5.0); TOTAL PROTEIN 6.9 g/dL (6.7-8.2)
--- NOTE | 2020-09-15 10:32 | XRAY Report ---
PROCEDURE: Chest 1 View X-Ray INDICATIONS: Chest Pain TECHNIQUE: One view of the chest was acquired. COMPARISON: Single frontal view chest plain films 05/20/2020, 05/15/2020 and 04/02/2020. FINDINGS: Surgical changes and devices: None. Lungs and pleura: No pleural effusions or pneumothorax. Lungs are mildly abnormal with a mild inter stitial prominence.. Mediastinum: Mediastinal contours appear normal. Heart size is normal. Bones and chest wall: No suspicious bony lesions. Overlying soft tissues appear unremarkable. IMPRESSION: Mild interstitial prominence, stable over time, no source of chest pain is seen. Reviewed by: Phillip Chavez MD on 09/15/2020 10:31 AM PDT Approved by: Phillip Chavez MD on 09/15/2020 10:31 AM PDT Station ID: [id number]
[2020-09-15] MEDS ORDERED: KETOROLAC 15 MG/ML VIAL IVP STA (10:51)
[2020-09-15] MEDS ORDERED: HYDROmorphone 1 MG/ML CARPUJECT IVP STA (10:51)
[2020-09-15] MEDS ORDERED: IOVERSOL 320 100 ML VIAL IVP ONE ×2 (11:07→16:33)
--- NOTE | 2020-09-15 11:51 | CT Report ---
PROCEDURE: ANGIO CHEST W/WO INDICATIONS: left chest and neck pain; eval aorta CONTRAST: IV CONTRAST: Optiray 320 ml: 100 PO CONTRAST: *NO PO CONTRAST TECHNIQUE: After the administration of intravenous contrast, 2 mm thick sections acquired from the pulmonary api vikram to the posterior costophrenic angles. For radiation dose reduction, the following was used: aut omated exposure control, adjustment of mA and/or kV according to patient size. COMPARISON: None FINDINGS: Image quality: Excellent. Vasculature: Pulmonary arteries are normal in size, and demonstrate no intraluminal filling defects to suggest central pulmonary embolism. Dense coronary vascular calcification noted. There is mild at herosclerotic vascular calcification noted involving the aorta. No evidence of aortic aneurysm or dis section. Lungs and pleura: Mild pulmonary emphysematous changes noted. No focal infiltrate, nodule or pleural effusion. Mediastinum: Heart size is normal, without pericardial effusion. No mediastinal or hilar adenopathy . Thoracic aorta is normal in caliber and enhancement. Esophagus is normal in caliber, without hiat al hernia. Bones and chest wall: No suspicious bony lesions. Ribs and thoracic spine appear intact throughout. No axillary or supraclavicular adenopathy. The thyroid is normal in size and there are no incident al findings. Abdomen: Visualized upper abdominal solid organs appear normal in the early arterial phase of enhanc ement. IMPRESSION: 1. No evidence of aortic aneurysm, dissection or pulmonary embolism. 2. Dense coronary artery vascular calcification. 3. Mild pulmonary emphysematous changes. Reviewed by: Brennan Pratt MD on 09/15/2020 10:50 AM KAYKAY Approved by: Brennan Pratt MD on 09/15/2020 10:50 AM AKMAHOGANY Station ID: [id number]
[2020-09-15] MEDS ORDERED: diphenhydrAMINE INJ 50 MG/ML VIAL IVP STA ×2 (12:19→12:57)
[2020-09-15] MEDS ORDERED: fentaNYL 100 MCG/2 ML VIAL IVP STA (12:57)
[2020-09-15] MEDS ORDERED: ACETAMINOPHEN 325 MG TABLET PO STA (13:42)
[2020-09-15] MEDS ORDERED: DEXAMETHASONE 10 MG/ML VIAL IVP STA (13:42)
[2020-09-15 14:15] VITALS: BP 149/82
== END 2020-09-15 14:25 | disposition home or self-care (01) ==
LOC: EDUNIT# → ED 09:32
DX: M54.2 Cervicalgia (principal); R07.2 Precordial pain; M25.512 Pain in left shoulder; J43.9 Emphysema, unspecified; Z87.891 Personal history of nicotine dependence; I10 Essential (primary) hypertension
CPT/HCPCS: 36415; 71045; 71275; 80053; 83690; 84484; 85025; 93005; 96374; 96375; 96376; 99281; 99284; J1170; J1200; Q9967

== ENCOUNTER 2021-04-20 12:01 | Outpatient (CLI) | payer MEDICARE | END 2021-04-20 12:02 | disposition short-term general hospital (02) | LOC: EMS 12:01 | DX: M25.561 Pain in right knee (principal); M25.551 Pain in right hip | CPT/HCPCS: A0425; A0427 ==

== ENCOUNTER 2022-06-07 23:42 | Outpatient (CLI) | payer MEDICARE | END 2022-06-07 23:43 | disposition EMS.NT | LOC: EMS 23:42 | DX: Z74.1 Need for assistance with personal care (principal) ==

== ENCOUNTER 2022-10-22 07:06 | Outpatient (CLI) | payer MEDICARE | END 2022-10-22 23:59 | disposition EMS.NT | LOC: EMS 07:06 | DX: M54.50 Low back pain, unspecified (principal) ==

== ENCOUNTER 2022-10-24 10:20 | Outpatient (CLI) | payer MEDICARE | END 2022-10-24 23:59 | disposition short-term general hospital (02) | LOC: EMS 10:20 | DX: M25.511 Pain in right shoulder (principal); M54.50 Low back pain, unspecified; R25.2 Cramp and spasm; W01.0XXA Fall on same level from slipping, tripping and stumbling without subsequent striking against object, initial encounter; Y93.01 Activity, walking, marching and hiking | CPT/HCPCS: A0425; A0429 ==

== ENCOUNTER 2022-11-03 09:18 | Outpatient (CLI) | payer MEDICARE | END 2022-11-03 23:59 | disposition EMS.NT | LOC: EMS 09:18 | DX: Z03.89 Encounter for observation for other suspected diseases and conditions ruled out (principal); M54.9 Dorsalgia, unspecified; G89.29 Other chronic pain ==

== ENCOUNTER 2022-11-04 12:22 | Outpatient (CLI) | payer MEDICARE | END 2022-11-04 12:23 | disposition EMS.NT | LOC: EMS 12:22 | DX: Z03.89 Encounter for observation for other suspected diseases and conditions ruled out (principal) ==

== ENCOUNTER 2023-02-18 01:40 | Outpatient (CLI) | payer MEDICARE | END 2023-02-18 23:59 | disposition critical access hospital (66) | LOC: EMS 01:40 | DX: R41.0 Disorientation, unspecified (principal); R44.1 Visual hallucinations; R44.0 Auditory hallucinations | CPT/HCPCS: A0425; A0429 ==

== ENCOUNTER 2023-02-18 02:11 | Emergency (ER) | payer MEDICARE ==
[2023-02-18 02:47] VITALS: BP 123/79; O2SAT 98
[2023-02-18 02:48] LABS: BASOPHILS % (AUTO) 0.5 %; EOSINOPHILS # (AUTO) 0.1 10^3/uL (0.0-0.7); EOSINOPHILS % (AUTO) 1.9 %; HCT - HEMATOCRIT 44.9 % (37.0-47.0); HGB - HEMOGLOBIN 14.5 g/dL (12.0-16.0); LYMPHOCYTES % (AUTO) 34.2 %; MEAN CORPUSCULAR HGB CONC 32.3 g/dL (32.0-36.0); MEAN CORPUSCULAR VOLUME 102.3 fL (81.0-99.0); MEAN PLATELET VOLUME 10.3 fL (7.9-10.8); MONOCYTES # (AUTO) 0.6 10^3/uL (0.0-1.0); MONOCYTES % (AUTO) 10.5 %; NEUTROPHILS % (AUTO) 52.7 %; PLT - PLATELET COUNT 138 10^3/uL (130-450); RED BLOOD COUNT 4.39 10^6/uL (4.20-5.40); RED CELL DISTRIBUTION WIDTH 12.3 % (12.0-15.0); WHITE BLOOD COUNT 5.7 x10^3/uL (4.8-10.8)
--- NOTE | 2023-02-18 02:55 | ED Physician Documentation ---
PD HPI ALTERED MENTAL STATUS - Stated complaint Stated Complaint: HALLUCINATIONS - Chief complaint Chief Complaint: MHE - History obtained from History obtained from: Patient, EMS - Additional information Additional information: 77-year-old female with history of congestive heart failure, chronic back pain presents by EMS from home for hallucinations. Patient states that she was having hallucinations of long- family members having a alliance party downstairs, but was very upset that they did not invite her to the alliance party. She states that she thinks that she may be withdrawing from alcohol. Patient states she drinks "2 stiff drinks" of vodka based drinks per day, last drink was 7 days ago. Vital signs unremarkable per EMS. She states that she is very stressed this time of year due to the of her son. 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 Review of Systems Constitutional: denies: Fever, Chills Cardiac: denies: Chest pain / pressure, Palpitations, Calf pain Respiratory: denies: Dyspnea, Cough, Wheezing GI: denies: Abdominal Pain, Nausea, Vomiting : denies: Dysuria, Frequency, Hesitancy Neurologic: denies: Generalized weakness, Focal weakness, Numbness, Syncope, Seizure Psychiatric: reports: Other (stressed) PD PAST MEDICAL HISTORY - Past Medical History Past Medical History: Yes Cardiovascular: Congestive heart failure, Hypertension, Atrial fibrillation Respiratory: Shortness of breath Neuro: None Endocrine/Autoimmune: HyPOthyroidism GI: Chronic diarrhea 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, Chronic bladder infection HEENT: None Psych: Depression, Anxiety, Panic attacks Musculoskeletal: Osteoarthritis, Chronic back pain Derm: Other - Past Surgical History Past Surgical History: Yes General: Appendectomy Ortho: Hip replacement, Shoulder arthroplasty, 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 HEENT: Tonsil/Adenoidectomy Derm: Skin cancer surgery - Present Medications Home Medications: Ambulatory Orders Medication Instructions Recorded Confirmed Zolpidem Tartrate [Ambien] 5 mg PO DAILY PRN 08/31/14 02/18/23 Digoxin [Lanoxin] 125 mcg PO DAILY 10/04/17 02/18/23 Gabapentin 600 mg PO QID 10/04/17 02/18/23 SUMAtriptan [Imitrex] 25 mg PO ONCE PRN MDD 50 mg 10/04/17 02/18/23 Vitamin [Trinatal Rx 1] 1 tab PO DAILYWM #10 tablet 09/20/18 02/18/23 Furosemide [Lasix] 20 mg PO DAILY PRN 04/02/20 02/18/23 Cyclobenzaprine [Flexeril] 5 - 10 mg PO Q8H PRN 09/15/20 02/18/23 HYDROcod/ACETAM 5/325 [Lorain 5/325] 1 ea PO Q6H PRN #18 tablet 09/15/20 02/18/23 Meloxicam [Mobic] 1 tablet PO DAILY PRN 09/15/20 02/18/23 Metoprolol Succinate [Toprol Xl] 25 mg PO BID 09/15/20 02/18/23 Potassium Chloride 10 meq PO DAILY 09/15/20 02/18/23 Sertraline [Zoloft] 50 mg PO DAILY 09/15/20 02/18/23 dexAMETHasone [Decadron] 4 mg PO DAILY #5 tablet 09/15/20 02/18/23 Nitrofurantoin [Macrobid] 100 mg PO DAILY #10 cap 02/18/23 - Allergies Allergies/Adverse Reactions: Allergies Allergy/AdvReac Type Severity Reaction Status Date / Time adhesive tape Allergy Rash Verified 02/18/23 02:44 Penicillins Allergy Unknown Verified 02/18/23 02:44 Sulfa (Sulfonamide Allergy Unknown Verified 02/18/23 02:44 Antibiotics) codeine AdvReac Itching Verified 02/18/23 02:44 cucumber AdvReac Unknown Verified 02/18/23 02:44 onion AdvReac Emesis Verified 02/18/23 02:44 - Social History Does the pt smoke?: No Smoking Status: Never smoker Does the pt drink ETOH?: No ETOH Use: Liquor Does the pt have substance abuse?: Yes - Immunizations Immunizations are current?: Yes - POLST Patient has POLST: No POLST Status: Full Code PD ED PE NORMAL - Vitals Vital signs reviewed: Yes - General General: Alert and oriented X 3, No acute distress, Well developed/nourished, Other (wearing ill-fitting wig) - HEENT HEENT: Atraumatic - Neck Neck: Supple, no meningeal sign - Cardiac Cardiac: RRR, Strong equal pulses - Respiratory Respiratory: No respiratory distress, Clear bilaterally - Abdomen Abdomen: Soft, Non tender, Non distended - Derm Derm: Normal color, Warm and dry, No rash - Extremities Extremities: No deformity, No tenderness to palpate, Normal ROM s pain, No edema - Neuro Neuro: Alert and oriented X 3, dial printer 2-12 intact, No motor deficit, Normal speech - Psych Psych: Other Results - Vitals Vitals: Oxygen O2 Source [With Activity] Room air O2 Source Room air - Labs Labs: Microbiology 02/18/23 04:55 Urine Culture - Preliminary Urine,Clean Catch Laboratory Tests 02/18/23 02/18/23 02/18/23 02:43 02:43 02:43 WBC 5.7 RBC 4.39 Hgb 14.5 Hct 44.9 MCV 102.3 H MCH 33.0 H MCHC 32.3 RDW 12.3 Plt Count 138 MPV 10.3 Neut # (Auto) 3.0 Lymph # (Auto) 2.0 [place] # (Auto) 0.6 Eos # (Auto) 0.1 Baso # (Auto) 0.0 Absolute Nucleated RBC 0.00 Nucleated RBC % 0.0 Sodium 138 Potassium 3.9 Chloride 105 Carbon Dioxide 21 Anion Gap 12.0 BUN 10 Creatinine 0.8 Estimated GFR (MDRD) 70 L Glucose 108 H Calcium 10.1 Magnesium 1.6 L Total Bilirubin 1.2 H AST 23 ALT 12 Alkaline Phosphatase 87 Ammonia 57.7 Total Protein 8.0 Albumin 4.0 Globulin 4.0 Albumin/Globulin Ratio 1.0 TSH 5.98 H Urine Color Urine Clarity Urine pH Ur Specific [place] Urine Protein Urine Glucose (UA) Urine Ketones Urine Occult Blood Urine Nitrite Urine Bilirubin Urine Urobilinogen Ur Leukocyte Esterase Urine RBC Urine WBC Ur Squamous Epith Cells Urine Bacteria Ur Microscopic Review Urine Culture Comments Last Dose Date Last Dose Time Digoxin Salicylates < 1.5 Urine Opiates Screen Ur Buprenorphine Scrn Ur Oxycodone Screen Urine Methadone Screen Acetaminophen < 0.1 Ur Barbiturates Screen Ur Tricyclics Screen Ur Phencyclidine Scrn Ur Amphetamine Screen U Methamphetamines Scrn U Benzodiazepines Scrn Urine Cocaine Screen U Cannabinoids Screen Ur Drug Screen Comment Ethyl Alcohol < 10.0 02/18/23 02/18/23 02:46 04:55 WBC RBC Hgb Hct MCV MCH MCHC RDW Plt Count MPV Neut # (Auto) Lymph # (Auto) Isabela # (Auto) Eos # (Auto) Baso # (Auto) Absolute Nucleated RBC Nucleated RBC % Sodium Potassium Chloride Carbon Dioxide Anion Gap BUN Creatinine Estimated GFR (MDRD) Glucose Calcium Magnesium Total Bilirubin AST ALT Alkaline Phosphatase Ammonia Total Protein Albumin Globulin Albumin/Globulin Ratio TSH Urine Color YELLOW Urine Clarity CLEAR Urine pH 6.0 Ur Specific Cana <=1.005 Urine Protein NEGATIVE Urine Glucose (UA) NEGATIVE Urine Ketones NEGATIVE Urine Occult Blood NEGATIVE Urine Nitrite POSITIVE H Urine Bilirubin NEGATIVE Urine Urobilinogen 1 (NORMAL) Ur Leukocyte Esterase TRACE H Urine RBC 0-5 Urine WBC 4-5 Ur Squamous Epith Cells FEW Squamous Urine Bacteria Many H Ur Microscopic Review INDICATED Urine Culture Comments INDICATED Last Dose Date Not Reportable Last Dose Time Not Reportable Digoxin 1.0 Salicylates Urine Opiates Screen NEGATIVE Ur Buprenorphine Scrn NEGATIVE Ur Oxycodone Screen NEGATIVE Urine Methadone Screen NEGATIVE Acetaminophen Ur Barbiturates Screen NEGATIVE Ur Tricyclics Screen POSITIVE H Ur Phencyclidine Scrn NEGATIVE Ur Amphetamine Screen NEGATIVE U Methamphetamines Scrn NEGATIVE U Benzodiazepines Scrn NEGATIVE Urine Cocaine Screen NEGATIVE U Cannabinoids Screen NEGATIVE Ur Drug Screen Comment CUTOFF CONC BELOW: Ethyl Alcohol PD Medical Decision Making - ED course Complexity details: reviewed old records, reviewed results, re-evaluated patient, considered differential, d/w patient ED course: Well appearing patient with possible hallucinations. Patient stated she was hearing family members have a alliance party without her, however later patient tells me she wasn't having hallucinations and she is concerned for alcohol withdrawal. Patient does not clinically appear to be withdrawing - she is calm, not tremulous, not tachycardic, not diaphoretic. Laboratory work is reviewed, no significant abnormalities identified. Talk screen shows tricyclics, however no illicit substances. Ammonia levels within normal limits. Electrolytes within normal limits. Patient has a bottle of medications at bedside and one of them is digoxin, which patient did not initially tell me she takes. Will add digoxin level. If normal plan to DC with antibiotics for infected urine. Care of patient signed to Dr. Leija at 0700 Departure - Departure Disposition: 01 Home, Self Care Clinical Impression: Urinary tract infection Qualifiers: Urinary tract infection type: acute cystitis Hematuria presence: without hematuria Qualified Code(s): N30.00 - Acute cystitis without hematuria Condition: Stable Instructions: ED UTI Cystitis Female Follow-Up: GEENA CASILLAS MD [Primary Care Provider] - Prescriptions: Nitrofurantoin [Macrobid] 100 mg PO DAILY #10 cap Comments: Trinidad, today it looks like you do have urinary tract infection and we have E scribed an antibiotic for you to take for the next 5 days to the [facility] in [place]. Discharge Date/Time: 02/18/23 08:31
[2023-02-18 03:44] LABS: THYROID STIMULATING HORMONE 5.98 uIU/mL (0.34-5.60)
[2023-02-18 05:31] LABS: BILIRUBIN,URINE NEGATIVE (NEGATIVE); GLUCOSE, URINE (UA) NEGATIVE (NEGATIVE); KETONES,URINE (UA) NEGATIVE (NEGATIVE); LEUKOCYTE ESTERASE, URINE TRACE (NEGATIVE); NITRITE,URINE POSITIVE (NEGATIVE); OCCULT BLOOD,URINE NEGATIVE (NEGATIVE); PROTEIN,URINE NEGATIVE (NEGATIVE); UROBILINOGEN,URINE 1 (NORMAL) E.U./dL (NORMAL)
[2023-02-18 05:45] LABS: CLARITY,URINE CLEAR (CLEAR)
[2023-02-18 05:46] LABS: AMPHETAMINE SCREEN,URINE NEGATIVE (NEGATIVE); BACTERIA,URINE Many /HPF (None Seen); BENZODIAZEPINES SCREEN, URINE NEGATIVE (NEGATIVE); COCAINE SCREEN URINE NEGATIVE (NEGATIVE); METHAMPHETAMINES SCREEN, URINE NEGATIVE (NEGATIVE); OPIATE SCREEN, URINE NEGATIVE (NEGATIVE); RBC,URINE 0-5 /HPF (0-5); SQUAMOUS EPITHELIAL CELL,UR FEW Squamous (<= Few); THC CANNABINOID SCREEN, URINE NEGATIVE (NEGATIVE)
[2023-02-18 05:47] LABS: BARBITURATE SCREEN,UR NEGATIVE (NEGATIVE); BUPRENORPHINE SCREEN, URINE NEGATIVE (NEGATIVE); METHADONE SCREEN, URINE NEGATIVE (NEGATIVE); OXYCODONE SCREEN, URINE NEGATIVE (NEGATIVE); TRICYCLIC ANTIDEPRESSANT,URINE POSITIVE (NEGATIVE)
[2023-02-18 06:11] LABS: ALKALINE PHOSPHATASE 87 IU/L (42-121); ALT ALANINE AMINOTRANSFERASE 12 IU/L (10-60); AST ASPARTATE AMINOTRANSFERASE 23 IU/L (10-42); BILIRUBIN,TOTAL 1.2 mg/dL (0.2-1.0); BUN - BLOOD UREA NITROGEN 10 mg/dL (6-20); CALCIUM 10.1 mg/dL (8.5-10.3); CARBON DIOXIDE - CO2 21 mmol/L (21-32); CHLORIDE 105 mmol/L (101-111); CREATININE 0.8 mg/dL (0.6-1.3); ETOH - ETHANOL < 10.0 mg/dL; GFR - MDRD 70 (>89); GLUCOSE 108 mg/dL (74-104); MAGNESIUM 1.6 mg/dL (1.7-2.3); POTASSIUM 3.9 mmol/L (3.5-4.5); SODIUM 138 mmol/L (135-145)
[2023-02-18 06:56] LABS: ACETAMINOPHEN < 0.1 ug/mL; SALICYLATE < 1.5 mg/dL
--- NOTE | 2023-02-18 07:08 | CT Report ---
PROCEDURE: HEAD WO INDICATIONS: AMS TECHNIQUE: Noncontrast 4.5 mm thick angled axial sections acquired from the foramen magnum to the vertex. For r adiation dose reduction, the following was used: automated exposure control, adjustment of mA and/or kV according to patient size. COMPARISON: None. FINDINGS: Image quality: Excellent. CSF spaces: Basal cisterns are patent. No extra-axial fluid collections. Ventricles are normal in size and shape. Brain: No midline shift. No intracranial masses or hemorrhage. Peng-white matter interface is norm al. Moderate cerebral volume loss and periventricular white matter chronic small vessel ischemic wharton ges. Skull and face: Calvarium and visualized facial bones are intact, without suspicious lesions. Sinuses: Visualized sinuses and mastoids are clear. IMPRESSION: No acute intracranial pathology. Findings are concordant with preliminary interpretation provided by [facility]. Reviewed by: Trey Elise MD on 02/18/2023 7:06 AM PST Approved by: Trey Elise MD on 02/18/2023 7:06 AM PST Station ID: [id number]
--- NOTE | 2023-02-18 07:09 | XRAY Report ---
PROCEDURE: Chest 1 View X-Ray INDICATIONS: AMS TECHNIQUE: One view of the chest was acquired. COMPARISON: Chest x-ray, 09/15/2020. FINDINGS: Surgical changes and devices: None. Lungs and pleura: No pleural effusions or pneumothorax. Lungs are clear. Mediastinum: Mediastinal contours appear normal. Heart size is normal. Bones and chest wall: Old proximal humeral fracture with ORIF. No suspicious bony lesions. Overlying soft tissues appear unremarkable. IMPRESSION: No acute cardiopulmonary process. Findings are concordant with preliminary interpretation provided by [facility]. Reviewed by: Trey Elise MD on 02/18/2023 7:[address] [facility] Approved by: Trey Elise MD on 02/18/2023 7:07 AM PST Station ID: [id number]
[2023-02-18] MEDS ORDERED: NITROFURANTOIN MACRO 100 MG CAPSULE PO STA (07:45)
--- NOTE | 2023-02-18 07:50 | ED Physician Documentation ---
ED Addendum - Addendum Addendum: 02/18/23 07:48 77-year-old Trinidad Barrera came into the emergency department last night with complaints of hallucinations. She is described as being odd and after a workup was diagnosed with urinary tract infection. I have gone into the patient's room this morning she is feeling much improved and denies any current hallucinations. She is given a dose of Macrobid for her urinary tract infection remainder of the antibiotic has been E scribed to the [facility] in [place]. I have en couraged the patient to begin short walks around her home as she appears deconditioned. Impression: Urinary tract infection plan: Discharge to home Macrobid for 5 days follow-up with Dr. Sevilla
[2023-02-18] MEDS ORDERED: THIAMINE INJ 100 MG, FOLIC ACID INJ 1 MG in SODIUM CHLORIDE 0.9% 1,000 ML IV SCH (09:00)
== END 2023-02-18 08:31 | disposition home or self-care (01) ==
LOC: EDUNIT# → ED 02:11
DX: N30.00 Acute cystitis without hematuria (principal); B96.1 Klebsiella pneumoniae [K. pneumoniae] as the cause of diseases classified elsewhere; I11.0 Hypertensive heart disease with heart failure; I50.9 Heart failure, unspecified; I48.91 Unspecified atrial fibrillation; E03.9 Hypothyroidism, unspecified; Z79.899 Other long term (current) drug therapy
CPT/HCPCS: 36415; 80053; 80162; 80306; 80307; 80320; 80329; 81001; 81003; 82140; 83735; 84443; 85025; 87077; 87086; 87181; 93005; 99283; 99284